=== PATIENT | male | born 1975 | race Caucasian/White ===

== ENCOUNTER 2017-01-24 08:03 | Inpatient (IN) | payer OTHER ==
[~2017-01-24] VITALS: Ht 165.1 cm; Wt 101.0 kg
[2017-01-24 08:07] VITALS: Ht 165.1 cm; Wt 101.0 kg
[2017-01-24] MEDS ORDERED: SODIUM CHLORIDE 0.9% 1L BAG IV* STA (08:17)
[2017-01-24] MEDS ORDERED: morphine 4 MG/ML VIAL IV STA ×4 (08:17→11:59)
[2017-01-24] MEDS ORDERED: PIPER-TAZO 3.375 GM IV (PMX) 100 ML IVPB STA (08:17)
[2017-01-24] MEDS ORDERED: ONDANSETRON 4 MG INJ IV STA (08:20)
[2017-01-24 08:58] LABS: BASOPHILS % 0.2 % (0.0-2.0); HEMATOCRIT 46.7 % (42.0-52.0); HEMOGLOBIN 15.6 g/dl (14.0-18.0); LYMPHOCYTES # 0.8 10^3/ul (0.8-2.9); MEAN CORPUSCULAR HEMOGLOBIN 29.2 pg (29.0-33.0); MEAN CORPUSCULAR HGB CONC 33.4 g/dl (32.0-37.0); MEAN CORPUSCULAR VOLUME 87.5 fl (82.0-101.0); MEAN PLATELET VOLUME 9.3 fl (7.4-10.4); MONOCYTE # 0.5 10^3/ul (0.3-0.9); NEUTROPHIL # 10.6 10^3/ul (1.6-7.5); NEUTROPHILS % 88.5 % (39.0-77.0); PLATELET COUNT 249 10^3/UL (140-415); RED BLOOD COUNT 5.34 10^6/ul (4.70-6.10); RED CELL DISTRIBUTION WIDTH 13.3 % (11.5-14.5)
--- NOTE | 2017-01-24 09:04 | RADRPT ---
PROCEDURE: XR Chest. CLINICAL INDICATION: Possible Sepsis TECHNIQUE: Single frontal view of the chest was obtained COMPARISON: None FINDINGS: There are low lung volumes with crowding of the lung markings. The cardiac silhouette is mildly enlarged. Ill-defined retrocardiac opacity may represent atelectasis, consolidation, or hiatal hernia. A late ral projection may clarify. No pneumothorax or significant pleural effusion is seen. The osseous structures, as visualized, are unremarkable. IMPRESSION: 1. Low lung volumes with crowding of lung markings. 2. Mild cardiomegaly. 3. Ill-defined retrocardiac opacity represent atelectasis, consolidation, or hiatal hernia. A late ral projection may help to clarify. RPTAT: PP Physician Esau Date Time Electronically viewed and signed by Physician Esau on 01/24/2017 09:04 /
[2017-01-24 09:12] LABS: INR 1.06; PROTIME 13.8 Sec (12.2-14.2); PT RATIO 1.1
[2017-01-24 09:13] LABS: PARTIAL THROMBOPLASTIN TIME 33.7 Sec (25.0-35.0)
[2017-01-24 09:15] LABS: ALANINE AMINOTRANSFERASE 33 IU/L (13-69); ALBUMIN 4.7 g/dl (3.3-4.9); ALBUMIN/GLOBULIN RATIO 1.38; ALKALINE PHOSPHATASE 54 IU/L (42-121); ASPARTATE AMINO TRANSFERASE 15 IU/L (15-46); BILIRUBIN,INDIRECT 1.3 mg/dl (0-1.1); BILIRUBIN,TOTAL 1.3 mg/dl (0.2-1.3); BLOOD UREA NITROGEN 13 mg/dl (7-20); CALCIUM 9.4 mg/dl (8.4-10.2); CARBON DIOXIDE 28 mmol/L (21-31); CHLORIDE 99 mmol/L (97-110); CREATININE 0.99 mg/dl (0.61-1.24); GLUCOSE 130 mg/dl (70-220); SODIUM 145 mmol/L (135-144); TOTAL PROTEIN 8.1 g/dl (6.1-8.1)
[2017-01-24 09:16] LABS: ANION GAP 23 (8-16); POTASSIUM 4.5 mmol/L (3.5-5.1)
--- NOTE | 2017-01-24 09:24 | RADRPT ---
PROCEDURE: CT Abdomen and Pelvis without contrast. CLINICAL INDICATION: Abdominal pain, vomiting and fever. History of diverticulitis. TECHNIQUE: CT scan of the abdomen and pelvis without contrast was performed on a multidetector hig h-resolution CT scanner. The patient was scanned without intravenous contrast. Coronal and sagittal reformatted images were obtained from the axial source images. Images were reviewed on a high-resol [employer] PACS workstation. The total exam CTDI equals 18.28 mGy and the total exam DLP equals 1199.87 m Gy-cm. One or more of the following dose reduction techniques were used: Automated exposure control. Adjustment of the mA and/or kV according to patient size. Use of iterative reconstruction technique. COMPARISON: None FINDINGS: CT abdomen: The lung bases are remarkable for subsegmental atelectasis. The heart size is normal, without peric ardial thickening or effusion. There is hepatomegaly with fatty infiltration. The spleen is normal in size and homogeneous in dens ity. The stomach is partially collapsed, but is grossly unremarkable. The pancreas as visualized i s normal. The gallbladder is unremarkable. There is no evidence for biliary dilatation. The adrena l glands are symmetric and normal. The kidneys are symmetrically unremarkable as well. No renal ca lculus or obstructive uropathy or mass lesion is seen. The aorta is of normal caliber. There is no retroperitoneal lymphadenopathy. The wayne hepatis olivia on is clear. The bowel and mesentery, as visualized, are equally unremarkable. CT pelvis: The small bowel loops situated within the pelvis are unremarkable. There is a fat-containing small l eft inguinal hernia. The pelvic organs are normal. The pelvic sidewalls and inguinal regions are c lear. The sigmoid colon and rectum are remarkable for sigmoid diverticulosis. There is markedly th ickened mid sigmoid colon with extensive surrounding inflammatory changes in keeping with acute dive rticulitis. There are tiny pockets of extraluminal gas suggesting microperforation. There is no dr ainable peridiverticular abscess. There are multiple mildly enlarged lymph nodes in the sigmoid meso colon likely reactive. No mass, lymphadenopathy, or free fluid is seen. No acute inflammation is s een. No osteolytic or osteoblastic lesion is detected. IMPRESSION: 1. Sigmoid diverticulosis with markedly thickened mid sigmoid colon with extensive surrounding infl ammatory changes in keeping with acute diverticulitis. Multiple tiny pockets of extraluminal gas martin ggesting microperforation. No drainable peridiverticular abscess. 2. Hepatomegaly with fatty infiltration. RPTAT: BB .Saniya Johnson MD, MD Date Time Electronically viewed and signed by .Saniya Johnson MD, on 01/24/2017 09:24 .O/
[2017-01-24 09:27] LABS: TROPONIN-I < 0.012 ng/ml (0.00-0.12)
[2017-01-24] MEDS ORDERED: ONDANSETRON 4 MG INJ IV PRN (10:00)
[2017-01-24] MEDS ORDERED: ACETAMINOPHEN 325 MG TAB PO PRN (10:00)
[2017-01-24 10:56] LABS: ADD UMIC NO; UR ASCORBIC ACID NEGATIVE (NEGATIVE); UR BILIRUBIN (Dip) NEGATIVE (NEGATIVE); UR BLOOD (Dip) NEGATIVE (NEGATIVE); UR CLARITY CLEAR (CLEAR); UR COLOR YELLOW (YELLOW); UR GLUCOSE (Dip) NEGATIVE (NEGATIVE); UR KETONES (Dip) NEGATIVE (NEGATIVE); UR LEUKOCYTE ESTERASE (Dip) NEGATIVE Leu/ul (NEGATIVE); UR NITRITE (Dip) NEGATIVE (NEGATIVE); UR SPECIFIC GRAVITY (Dip) 1.024 (1.003-1.030); UR TOTAL PROTEIN (Dip) NEGATIVE (NEGATIVE); UR UROBILINOGEN (Dip) 1+ mg/dL (NEGATIVE)
--- NOTE | 2017-01-24 11:07 | CONS ---
Date/Time of Note Date/Time of Note DATE: 01/24/17 TIME: 11:07 Assessment/Plan Assessment/Plan Additional Assessment/Plan [facility] INPATIENT CONSULTATION NOTE DATE OF SERVICE: 01/24/2017 PLACE OF SERVICE: [facility], emergency department ASSESSMENT AND PLAN: A very-pleasant 41-year-old gentleman with comorbidity of BMI 37.1 and previous history of diverticulitis, being admitted for recurrent diverticulitis with microperforation but no obvious evidence of abscess or other indication for intervention including no indication for surgical intervention. Patient should be admitted for intravenous fluids, antimicrobials geared towards diverticulitis and symptom control. Discussed with patient and his and answered all questions. They appear to understand and agreed with the plans. With above assessment, I've recommended the followin. Admit to the medical service with me consulting of the surgeon 2. Intravenous antimicrobials geared towards diverticulitis 3. Intravenous fluids 4. N.p.o. 5. Strict I's and O's 6. Careful following in the hospital and keeping me informed if there is any changes in clinical condition Thank you very much for having me involved in the care of this very pleasant patient and wonderful family. If you have any questions, please feel free to contact me at [phone]. Nature of presenting problem: High severity Please note that, given the multiple number of diagnoses or management options, the moderate amount and/or complexity of data needed to be reviewed, and moderate risk of complications and/or morbidity or mortality, this qualifies as moderate complexity type of decision-making. Disclaimer: Inadvertent spelling and grammatical errors are likely due to EHR/ dictation software use and do not reflect on the quality of delivered patient care. Also, please note that the electronic time recorded on this node does not necessarily reflect the actual time of the visit. Updated clinical summary: A very-pleasant 41-year-old gentleman with comorbidity of BMI 37.1 and previous history of diverticulitis, being admitted for recurrent diverticulitis with microperforation but no obvious evidence of abscess or other indication for intervention including no indication for surgical intervention. Comorbidities: 1. BMI 37.1 2. History of diverticulitis in the past as well as diagnosis of diverticulosis 3. Chronic constipation CONSULTATION REQUESTED BY: Dr. Nassar HISTORY OF PRESENT ILLNESS: A very-pleasant 41-year-old gentleman with comorbidity of BMI 37.1 and previous history of diverticulitis, being admitted for recurrent diverticulitis with microperforation but no obvious evidence of abscess or other indication for intervention including no indication for surgical intervention. Pain is worse compared to the prior to episodes of diverticulitis that happened 14 years ago and about 5 years ago. 12 out of 10 at its worse, located in the lower quadrants without radiation, no alleviating factor and slightly worse with movement. + Chronic constipation. No blood in the stool or urine. Difficulty despite using Benefiber. No shortness of breath or chest pain or other complaints. ALLERGIES: NO KNOWN DRUG ALLERGIES MEDICATIONS Documented in the electronic records and reviewed by me. Please see the electronic records for details, as well as details for inpatient medications which were also reviewed by me. SOCIAL HISTORY: The patient lives with family.-Tob; occasional (social) ETOH;- IVDU FAMILY HISTORY: There are no significant medical, surgical or oncologic issues in the family as reported by the patient or reflected in the chart. REVIEW OF SYSTEMS: Other than mentioned above, there were no other pertinent positives or pertinent negatives in an otherwise complete 14 point review of systems. PHYSICAL EXAMINATION GENERAL: The patient appears to be a very pleasant gentleman of descent lying in bed, appearing stated age, and otherwise in no acute distress. BMI: 37.1 VITAL SIGNS: AVSS (please also see auto important data if available as well as the electronic records) HEENT: Normocephalic and atraumatic. Extraocular muscles and hearing are grossly intact bilaterally and symmetrically. Sclerae are nonicteric. Oral cavity is clear; oral mucosa appear to be pink and moist. Dentition: fair. NECK: Supple. There is no lymphadenopathy or JVD. There is no submental, submandibular or supraclavicular lymphadenopathy. CHEST: Rises symmetrically with each breath; patient is breathing comfortably. There are no audible wheezes, rales or rhonchi on the gross exam. HEART: Pulse is regular and palpable on the right wrist. Capillary refill is normal. Carotid pulses are palpable bilaterally and symmetrically in the neck. EXTREMITIES: Lower extremities contain no pitting edema around the ankles bilaterally and symmetrically. ABDOMEN: Abdomen is soft, mild to moderately tender to palpation in the lower quadrants, somewhat worse on the right side and on the left side and nondistended. No evidence of ascites, organomegaly, caput medusae, engorged subcutaneous veins, or other abnormalities. There are no peritoneal signs or guarding. SKIN: Appears to be pink and feels warm to touch. NEUROLOGIC: Awake, alert, and follows commands appropriately. LABORATORY DATA: See below IMAGING: See electronic chart. Please note that I've personally reviewed all pertinent available images and I agree in general with their overall reported findings. Consultation Date/Type/Reason Admit Date/Time Social History Smoking Status: Never smoker Exam/Review of Systems Vital Signs Vitals Vital Signs Date Time Temp Pulse Resp B/P Pulse Ox O2 Delivery O2 Flow Rate FiO2 01/24/17 10:59 76 18 115/74 100 Room Air 01/24/17 08:46 2 01/24/17 08:07 100.6 Results Result Diagram: 01/24/17 0839 01/24/17 0839 Results 24 hrs Laboratory Tests Test 01/24/17 08:39 01/24/17 10:33 01/24/17 10:44 White Blood Count 12.0 H Red Blood Count 5.34 Hemoglobin 15.6 Hematocrit 46.7 Mean Corpuscular Volume 87.5 Mean Corpuscular Hemoglobin 29.2 Mean Corpuscular Hemoglobin Concent 33.4 Red Cell Distribution Width 13.3 Platelet Count 249 Mean Platelet Volume 9.3 Neutrophils % 88.5 H Lymphocytes % 7.0 L Monocytes % 4.0 Eosinophils % 0.0 Basophils % 0.2 Nucleated Red Blood Cells % 0.0 Neutrophils # 10.6 H Lymphocytes # 0.8 Monocytes # 0.5 Eosinophils # 0.0 Basophils # 0.0 Nucleated Red Blood Cells # 0.0 Prothrombin Time 13.8 Prothrombin Time Ratio 1.1 INR International Normalized Ratio 1.06 Activated Partial Thromboplast Time 33.7 Sodium Level 145 H Potassium Level 4.5 Chloride Level 99 Carbon Dioxide Level 28 Anion Gap 23 H Blood Urea Nitrogen 13 Creatinine 0.99 Glucose Level 130 Lactic Acid Level 1.8 1.5 Calcium Level 9.4 Total Bilirubin 1.3 Direct Bilirubin 0.00 Indirect Bilirubin 1.3 H Aspartate Amino Transf (AST/SGOT) 15 Alanine Aminotransferase (ALT/SGPT) 33 Alkaline Phosphatase 54 Troponin I < 0.012 Total Protein 8.1 Albumin 4.7 Globulin 3.40 H Albumin/Globulin Ratio 1.38 Urine Color YELLOW Urine Clarity CLEAR Urine pH 6.0 Urine Specific [place] 1.024 Urine Ketones NEGATIVE Urine Nitrite NEGATIVE Urine Bilirubin NEGATIVE Urine Urobilinogen 1+ H Urine Leukocyte Esterase NEGATIVE Urine Hemoglobin NEGATIVE Urine Glucose NEGATIVE Urine Total Protein NEGATIVE WILMA THORNTON M.D. Jan 24, 2017 11:07
[2017-01-24 11:16] VITALS: TEMP 102.6
--- NOTE | 2017-01-24 11:59 | ERA ---
ER Documentation Chief Complaint Date/Time DATE: 01/24/17 TIME: 11:53 Chief Complaint CAME IN VIA INTAKE DUE TO SEVERE AP WITH HX OF DIVERTICULITIS HPI 41-year-old male presented emergency room for severe left lower quadrant abdominal pain began suddenly last night. He states that he has a history of diverticulitis and this feels similar but is much more severe than previously. He has nausea but has not vomited. Denies any change in bowel habits. Denies fevers but did have some sweats from the pain. ROS All systems reviewed and are negative except as per history of present illness. PMhx/Soc History of Surgery: Yes (elbow surgery and appendectomy) Hx Miscellaneous Medical Probl: Yes (divierculitis) Hx Alcohol Use: Yes Hx Substance Use: No Hx Tobacco Use: No Smoking Status: Never smoker Physical Exam Vitals Vital Signs Date Time Temp Pulse Resp B/P Pulse Ox O2 Delivery O2 Flow Rate FiO2 01/24/17 11:16 102.6 108 117/75 98 01/24/17 10:59 76 18 115/74 100 Room Air 01/24/17 08:46 Nasal Cannula 2 01/24/17 08:07 100.6 101 24 172/98 96 Physical Exam Const: [] Moderate distress Head: Atraumatic Eyes: Normal Conjunctiva ENT: Normal External Ears, Nose and Mouth. Neck: Full range of motion..~ No meningismus. Resp: Clear to auscultation bilaterally Cardio: Regular tachycardia, no murmurs Abd: Soft, marketed left lower quadrant tenderness with some voluntary guarding, no rebound tenderness, no rigid abdomen, non distended. Normal bowel sounds Skin: No petechiae or rashes Back: No midline or flank tenderness Ext: No cyanosis, or edema Neur: Awake and alert and oriented 3, no focal deficit Psych: Normal Mood and Affect Result Diagram: 01/24/17 0839 01/24/17 0839 Results 24 hrs Laboratory Tests Test 01/24/17 08:39 01/24/17 10:33 01/24/17 10:44 White Blood Count 12.010^3/ul Red Blood Count 5.3410^6/ul Hemoglobin 15.6g/dl Hematocrit 46.7% Mean Corpuscular Volume 87.5fl Mean Corpuscular Hemoglobin 29.2pg Mean Corpuscular Hemoglobin Concent 33.4g/dl Red Cell Distribution Width 13.3% Platelet Count 54576^3/UL Mean Platelet Volume 9.3fl Neutrophils % 88.5% Lymphocytes % 7.0% Monocytes % 4.0% Eosinophils % 0.0% Basophils % 0.2% Nucleated Red Blood Cells % 0.0/100WBC Neutrophils # 10.610^3/ul Lymphocytes # 0.810^3/ul Monocytes # 0.510^3/ul Eosinophils # 0.010^3/ul Basophils # 0.010^3/ul Nucleated Red Blood Cells # 0.010^3/ul Prothrombin Time 13.8Sec Prothrombin Time Ratio 1.1 INR International Normalized Ratio 1.06 Activated Partial Thromboplast Time 33.7Sec Sodium Level 145mmol/L Potassium Level 4.5mmol/L Chloride Level 99mmol/L Carbon Dioxide Level 28mmol/L Anion Gap 23 Blood Urea Nitrogen 13mg/dl Creatinine 0.99mg/dl Glucose Level 130mg/dl Lactic Acid Level 1.8mmol/L 1.5mmol/L Calcium Level 9.4mg/dl Total Bilirubin 1.3mg/dl Direct Bilirubin 0.00mg/dl Indirect Bilirubin 1.3mg/dl Aspartate Amino Transf (AST/SGOT) 15IU/L Alanine Aminotransferase (ALT/SGPT) 33IU/L Alkaline Phosphatase 54IU/L Troponin I < 0.012ng/ml Total Protein 8.1g/dl Albumin 4.7g/dl Globulin 3.40g/dl Albumin/Globulin Ratio 1.38 Urine Color YELLOW Urine Clarity CLEAR Urine pH 6.0 Urine Specific [place] 1.024 Urine Ketones NEGATIVEmg/dL Urine Nitrite NEGATIVEmg/dL Urine Bilirubin NEGATIVEmg/dL Urine Urobilinogen 1+mg/dL Urine Leukocyte Esterase NEGATIVELeu/ul Urine Hemoglobin NEGATIVEmg/dL Urine Glucose NEGATIVEmg/dL Urine Total Protein NEGATIVEmg/dl Current Medications Medications (Trade) Dose Ordered Sig/Lazarus Route PRN Reason Start Time Stop Time Status Last Admin Dose Admin Sodium Chloride 3130 ml 3,130 ml BOLUS OVER 2 HOURS STAT IV* 01/24/17 08:17 01/24/17 08:20 DC 01/24/17 08:41 Piperacillin Sod/ Tazobactam Sod (Zosyn 3.375gm/ 100 ml (Pmx)) 100 ml @ 200 mls/hr ONCE STAT IVPB 01/24/17 08:17 01/24/17 08:46 DC 01/24/17 09:00 Morphine Sulfate (morphine) 4 mg ONCE STAT IV 01/24/17 08:17 01/24/17 08:21 DC 01/24/17 08:40 Ondansetron HCl (Zofran Inj) 4 mg ONCE STAT IV 01/24/17 08:20 01/24/17 08:21 DC 01/24/17 08:41 Ondansetron HCl (Zofran Inj) 4 mg BRIDGE ORDER PRN IV NAUSEA AND/OR VOMITING 01/24/17 10:00 01/25/17 09:59 Acetaminophen (Tylenol Tab) 650 mg ER BRIDGE PRN PO MILD PAIN/FEVER 01/24/17 10:00 01/25/17 09:59 01/24/17 11:31 Morphine Sulfate (morphine) 4 mg ONCE STAT IV 01/24/17 11:26 01/24/17 11:27 DC 01/24/17 11:31 Procedures/MDM Acute diverticulitis with microperforation. Technically meets criteria for sepsis. Was given 30 cc of normal saline per kilogram fluid and Zosyn. I spoke with Dr. Araiza, general surgeon second operator, who will see the patient on consult. Patient required multiple doses of morphine in order to calm the pain. Dr. Deutsch of the panel hospitalist team will be admitting. CT abdomen pelvis interpretation: Sigmoid diverticulitis with microperforation, no bowel obstruction, no bony abnormalities. Critical care time 36 minutes: This includes treatment of sepsis and patient with surgical infection, careful fluid administration, early antibiotic administration, monitoring of unstable vital signs, multiple visits the patient' s bedside to reassess status reexamined abdomen to rule out conversion to surgical abdomen and gross perforation, chart reviewed, discussion with general surgeon, discussion with admitting team, discussion with patient. This does not include any billable procedures per Departure Diagnosis: Primary Impression: Acute diverticulitis Additional Impressions: Perforation bowel Sepsis Condition: Serious USHABRETTTI DO Jan 24, 2017 11:59
[2017-01-24 12:12] VITALS: BP 159/78; RESP 22
[2017-01-24] MEDS ORDERED: NACL 0.9% 3 ML SYG IV SCH (13:30)
[2017-01-24] MEDS ORDERED: BISACODYL 10 MG SUPP PR PRN (13:30)
[2017-01-24] MEDS ORDERED: DOCUSATE SODIUM 100 MG CAP PO PRN (13:30)
[2017-01-24] MEDS ORDERED: MAGNESIUM HYDROXIDE 30ML CUP PO PRN (13:30)
[2017-01-24] MEDS ORDERED: metroNIDAZOLE 500 MG/NS (PMX) 100 ML IVPB SCH (14:00)
[2017-01-24] MEDS ORDERED: CIPROFLOXACIN 400MG/D5W 200 ML IVPB SCH (14:00)
[2017-01-24] MEDS: morphine 4 MG/ML VIAL IV PRN ×2 (14:24→19:56)
[2017-01-24] MEDS: PANTOPRAZOLE 40 MG INJ IV SCH (14:24)
[2017-01-24] MEDS: SOD CHLORIDE 0.9% 1,000 ML IV SCH (14:25)
--- NOTE | 2017-01-24 15:48 | HP ---
Date/Time of Note Date/Time of Note DATE: 01/24/17 TIME: 15:42 Assessment/Plan VTE Prophylaxis VTE Prophylaxis Intervention: SCD's Lines/Catheters IV C[facility]ter Type (from [facility]): Peripheral IV Assessment/Plan Chief Complaint/Hosp Course Impression and plan 1. Sepsis with diverticulitis with microperforation. Will place on antibiotics. Surgeon has been consulted. Continue the recommendations. On IV fluids. N.p.o. for now. Continue with analgesics as needed. Will provide with antipyretics for fever. 2. Leukocytosis secondary to #1. Patient was started on antibiotics. Will provide antipyretics as needed for fever. DVT prophylaxis: SCDs Discussed plan of care with Dr. Deutsch Problems: HPI/ROS Admit Date/Time Admit Date/Time This is a 41-year-old male with history of diverticulosis and 2 previous episodes of diverticulitis who did come to [facility] due to reports of abdominal pain. According to the patient he was in his normal state of health however yesterday he was at a seminar and was eating some sunflower seeds and thereafter he started to have sharp abdominal pain nonradiating on the right lower and also mid lower abdominal quadrants. He reports having intermittent fever since then and was unable to tolerate oral intake reporting having some nausea and vomiting with yellowish emesis. He subsequently went to [facility] when his pain did not subside. Upon examination he had a CT scan of his abdomen and pelvis that did show sigmoid diverticulosis with markedly thickened and sigmoid colon with extensive surrounding inflammatory changes consistent with acute diverticulitis. There is also seen multiple tiny pockets of extraluminal gas suggesting microperforation. Patient also had a white count of 12.0 and he was seen with fever as high as 102.6. There is also seen to be tachycardic with heart rate as high as 108. We will evaluate him for the aformentiond issues. ROS 12 point review of systems obtained and entirely negative except that mentioned in the history present illness PMH/Family/Social Past Medical History Medical/surgical history 1. Diverticulosis with history of diverticulitis 2. Right elbow surgery 3. Appendectomy Social History Alcohol Use: none Smoking Status: Former smoker Drug Use: none Exam/Review of Systems Vital Signs Vitals Vital Signs Date Time Temp Pulse Resp B/P Pulse Ox O2 Delivery O2 Flow Rate FiO2 01/24/17 12:12 102.2 109 22 159/78 93 01/24/17 10:59 Room Air 01/24/17 08:46 2 Exam Constitutional: alert, oriented Psych: nl mood/affect Head: normocephalic Eyes: nl conjunctiva Neck: non-tender Respiratory: normal air movement Cardiovascular: regular rate and rhythm Gastrointestinal: soft, tender Musculoskeletal: nl extremities to inspection Neurological: JUNIOR MEDIA BUYER II-XII intact, nl mental status, nl speech Labs Result Diagram: 01/24/1739 01/24/17 0839 Medications Medications Current Medications Sodium Chloride (NS) 1,000 ml @ 100 mls/hr Q10H IV Last administered on 14:25; Admin Dose 100 MLS/HR; Start 01/24/17 at 13:30 Ondansetron HCl (Zofran Inj) 4 mg Q6H PRN IV NAUSEA AND/OR VOMITING; Start 01/24 at 13:30 Acetaminophen (Tylenol Supp) 650 mg Q6H PRN [place] PAIN LEVEL 1-3 OR FEVER; Start 01/24/17 at 13:30 Morphine Sulfate (morphine) 2 mg Q4H PRN IV SEVERE PAIN LEVEL 7-10 Last administered on 01/24/17 14:24; Admin Dose 2 MG; Start 01/24/17 at 13:30 Docusate Sodium (Colace) 100 mg Q12H PRN PO CONSTIPATION; Start 01/24/17 at 13: 30 Magnesium Hydroxide (Milk Of Mag) 30 ml DAILY PRN PO CONSTIPATION; Start at 13:30 Bisacodyl (Dulcolax Supp) 10 mg DAILY PRN [place] CONSTIPATION; Start 01/24/17 at 13: 30 Pantoprazole 40 mg 40 mg DAILY@06 IV Last administered on 01/24/17 14:24; Admin Dose 40 MG; Start 01/24/17 at 13:30 Piperacillin Sod/ Tazobactam Sod (Zosyn 3.375gm/ 100 ml (Pmx)) 100 ml @ 200 mls /hr Q6 IVPB ; Start 01/24/17 at 18:00 PRISCILLA METZGER Jan 24, 2017 15:48
[2017-01-24 16:01] VITALS: BP 114/63; RESP 20
[2017-01-24] MEDS: PIPER-TAZO 3.375 GM IV (PMX) 100 ML IVPB SCH (17:36)
[2017-01-24] MEDS: ACETAMINOPHEN 1000MG/100ML IV 100 ML IVPB PRN (17:36)
[2017-01-24 19:42] VITALS: BP 120/67; RESP 20
[2017-01-25] MEDS: SOD CHLORIDE 0.9% 1,000 ML IV SCH ×3 (01:06→15:15)
[2017-01-25] MEDS: PIPER-TAZO 3.375 GM IV (PMX) 100 ML IVPB SCH ×4 (01:07→18:15)
[2017-01-25 02:10] VITALS: BP 116/71; RESP 20
[2017-01-25] MEDS: ACETAMINOPHEN 1000MG/100ML IV 100 ML IVPB PRN ×4 (02:38→21:24)
[2017-01-25] MEDS: PANTOPRAZOLE 40 MG INJ IV SCH (05:44)
[2017-01-25 06:04] LABS: ALBUMIN 3.4 g/dl (3.3-4.9); ALBUMIN/GLOBULIN RATIO 1.09; BILIRUBIN,INDIRECT 1.6 mg/dl (0-1.1); BILIRUBIN,TOTAL 1.6 mg/dl (0.2-1.3); CALCIUM 8.8 mg/dl (8.4-10.2); CHOL/HDL RATIO 2.9 RATIO; CREATININE 0.95 mg/dl (0.61-1.24); MAGNESIUM 1.7 mg/dl (1.7-2.5); PHOSPHORUS 3.2 mg/dl (2.5-4.9); POTASSIUM 3.7 mmol/L (3.5-5.1); TOTAL PROTEIN 6.5 g/dl (6.1-8.1)
[2017-01-25 06:19] LABS: T3 UPTAKE 43.6 % (23.5-40.5)
[2017-01-25 06:33] LABS: THYROID STIMULATING HORMONE 1.47 MIU/L (0.465-4.680)
[2017-01-25 07:36] VITALS: BP 115/71; RESP 20
--- NOTE | 2017-01-25 11:15 | PN ---
Date/Time of Note Date/Time of Note DATE: 01/25/17 TIME: 11:12 Assessment/Plan VTE Prophylaxis VTE Prophylaxis Intervention: ambulation Lines/Catheters IV Catheter Type (from [facility]): Peripheral IV Assessment/Plan Chief Complaint/Hosp Course Impression and plan 1. Sepsis with diverticulitis with microperforation. improving on abx. continue with surgeon recs On IV fluids. advance diet per surgeon. Continue with analgesics as needed. afebrile today 2. Leukocytosis secondary to #1. improved with abx. continue DVT prophylaxis: SCDs DISPO/PLAN: continue abx. advance diet per surgeon. continue inhouse monitoring Discussed plan of care with Dr. Deutsch Problems: Subjective 24 Hr Interval Summary Free Text/Dictation reports less pain in abdomen today. afebrile today Exam/Review of Systems Vital Signs Vitals Vital Signs Date Time Temp Pulse Resp B/P Pulse Ox O2 Delivery O2 Flow Rate FiO2 01/25/17 07:36 98.9 100 20 115/71 95 01/24/17 10:59 Room Air 01/24/17 08:46 2 Intake and Output 01/24/17 01/24/17 01/25/17 15:00 23:00 07:00 Intake Total 550 ml 800 ml Output Total 0 ml Balance 550 ml 800 ml Exam Constitutional: alert, oriented Psych: nl mood/affect Neck: No jvd Respiratory: normal air movement Cardiovascular: regular rate and rhythm Gastrointestinal: soft, tender (less tender on palpation ) Musculoskeletal: nl extremities to inspection, nl gait and stance Neurological: MARKETING SALES CONSULTANT II-XII intact, nl mental status, nl speech Results Result Diagram: 01/24/17 0839 01/25/17 0509 Results 24 hrs Laboratory Tests Test 01/24/17 14:22 01/25/17 05:09 Lactic Acid Level 1.1 Sodium Level 143 Potassium Level 3.7 Chloride Level 101 Carbon Dioxide Level 27 Anion Gap 19 H Blood Urea Nitrogen 12 Creatinine 0.95 Glucose Level 106 Hemoglobin A1c 5.3 Calcium Level 8.8 Phosphorus Level 3.2 Magnesium Level 1.7 Total Bilirubin 1.6 H Direct Bilirubin 0.00 Indirect Bilirubin 1.6 H Aspartate Amino Transf (AST/SGOT) 11 L Alanine Aminotransferase (ALT/SGPT) 27 Alkaline Phosphatase 46 Total Protein 6.5 # Albumin 3.4 # Globulin 3.10 Albumin/Globulin Ratio 1.09 Triglycerides Level 72 Cholesterol Level 107 LDL Cholesterol, Calculated 57 HDL Cholesterol 36 Cholesterol/HDL Ratio 2.9 Thyroid Stimulating Hormone (TSH) 1.470 Free Thyroxine Index 2.83 Thyroxine (T4) 6.5 Triiodothyronine (T3) Uptake 43.6 H Medications Medications Current Medications Sodium Chloride (NS) 1,000 ml @ 100 mls/hr Q10H IV Last administered on 01:06; Admin Dose 100 MLS/HR; Start 01/24/17 at 13:30 Ondansetron HCl (Zofran Inj) 4 mg Q6H PRN IV NAUSEA AND/OR VOMITING; Start 01/24 at 13:30 Acetaminophen (Tylenol Supp) 650 mg Q6H PRN [place] PAIN LEVEL 1-3 OR FEVER; Start 01/24/17 at 13:30 Docusate Sodium (Colace) 100 mg Q12H PRN PO CONSTIPATION; Start 01/24/17 at 13: 30 Magnesium Hydroxide (Milk Of Mag) 30 ml DAILY PRN PO CONSTIPATION; Start at 13:30 Bisacodyl (Dulcolax Supp) 10 mg DAILY PRN [place] CONSTIPATION; Start 01/24/17 at 13: 30 Pantoprazole 40 mg 40 mg DAILY@06 IV Last administered on 01/25/17 05:44; Admin Dose 40 MG; Start 01/24/17 at 13:30 Piperacillin Sod/ Tazobactam Sod 100 ml @ 200 mls/hr Q6 IVPB Last administered on 01/25/17 05:46; Admin Dose 200 MLS/HR; Start 01/24/17 at 18:00 Acetaminophen (Ofirmev 1000mg/ 100ml Iv) 100 ml @ 400 mls/hr Q6H PRN IVPB fever Last administered on 01/25/17 09:29; Admin Dose 400 MLS/HR; Start 01/24/17 at 16:00 Morphine Sulfate (morphine) 2 mg Q4H PRN IV SEVERE PAIN LEVEL 7-10; Start at 10:30 PRISCILLA METZGER Jan 25, 2017 11:15
[2017-01-25 14:25] VITALS: BP 117/71; RESP 20
[2017-01-25] MEDS: ONDANSETRON 4 MG INJ IV PRN (15:22)
[2017-01-25] MEDS: morphine 2 MG INJ IV PRN (19:44)
[2017-01-25 20:09] VITALS: BP_SYST 119; BP_SYST 127; BP_DIAS 70; BP_DIAS 71; RESP 19
--- NOTE | 2017-01-25 21:43 | PN ---
Date/Time of Note Date/Time of Note DATE: 01/25/17 TIME: 21:33 Assessment/Plan Lines/Catheters IV Catheter Type (from [facility]): Peripheral IV Assessment/Plan Assessment/Plan [facility] Progress Note Date of Service: 01/25/17 Today's Impression & Plan: Overall stable without worsening diverticulitis with possible localized microperforation without obvious abscess. Needs more time inhouse with careful observation. No indication for acute surgical intervention. With above assessment, I've recommended the following for today: 1. Keep inhouse 2. Cont broad spec antimicrobials 3. Keep NPO 4. Labs in am Nature of presenting problem: High risk Complexity of decision making: high complexity Thank you again for your great care of this very pleasant patient and wonderful family. If there are any questions, please feel free to call me at [phone]. Disclaimer: Inadvertent spelling or grammatical errors are likely due to EHR/ dictation software use and do not reflect on the overall quality of patient care. Updated Clinical Summary: A very-pleasant 41-year-old gentleman with comorbidity of BMI 37.1 and previous history of diverticulitis, being admitted for recurrent diverticulitis with microperforation but no obvious evidence of abscess or other indication for intervention including no indication for surgical intervention. Comorbidities: 1. BMI 37.1 2. History of diverticulitis in the past as well as diagnosis of diverticulosis 3. Chronic constipation Subjective: No major events or complaints; mild abd pain and under control with medications ; no n/v/d; no sob or cp; + flatus; + BM and diarrhea; + activity Objective: Vitals: See below Exam: GENERAL: On exam, the patient was sitting in a chair and appeared to be comfortable and in no acute distress. ABDOMEN: Soft, nontender and nondistended. There are no peritoneal signs or guarding. SKIN: Skin appears to be pink and feels warm to touch. NEUROLOGIC: Patient is awake, alert, and follows commands appropriately. Exam/Review of Systems Vital Signs Vitals Vital Signs Date Time Temp Pulse Resp B/P Pulse Ox O2 Delivery O2 Flow Rate FiO2 01/25/17 20:09 100.7 113 19 119/70 92 01/24/17 10:59 Room Air 01/24/17 08:46 2 Intake and Output 8/10/0701/24/17 01/25/17 15:00 23:00 07:00 Intake Total 550 ml 800 ml Output Total 0 ml Balance 550 ml 800 ml Results Result Diagram: 01/24/17 0839 01/25/17 0509 WILMA THORNTON M.D. Jan 25, 2017 21:43
[2017-01-25 22:46] VITALS: BP 119/67; PULSE 108; RESP 18
[2017-01-26] MEDS: PIPER-TAZO 3.375 GM IV (PMX) 100 ML IVPB SCH ×4 (00:01→17:33)
[2017-01-26 02:00] VITALS: BP 135/72; RESP 19
[2017-01-26] MEDS: morphine 2 MG INJ IV PRN ×2 (02:18→11:56)
[2017-01-26] MEDS: PANTOPRAZOLE 40 MG INJ IV SCH (05:50)
[2017-01-26] MEDS: SOD CHLORIDE 0.9% 1,000 ML IV SCH ×3 (05:50→17:33)
[2017-01-26 08:06] VITALS: BP 122/75; RESP 20
[2017-01-26] MEDS: ACETAMINOPHEN 650 MG SUPP PR PRN (08:28)
[2017-01-26 10:01] LABS: BASOPHILS % 0.1 % (0.0-2.0); EOSINOPHILS % 0.1 % (0.0-7.0); HEMATOCRIT 39.3 % (42.0-52.0); HEMOGLOBIN 13.2 g/dl (14.0-18.0); LYMPHOCYTES % 6.9 % (15.0-51.0); MEAN CORPUSCULAR HEMOGLOBIN 29.3 pg (29.0-33.0); MEAN CORPUSCULAR HGB CONC 33.6 g/dl (32.0-37.0); MEAN CORPUSCULAR VOLUME 87.3 fl (82.0-101.0); MEAN PLATELET VOLUME 9.5 fl (7.4-10.4); MONOCYTE # 0.5 10^3/ul (0.3-0.9); MONOCYTES % 3.8 % (0.0-11.0); NEUTROPHIL # 12.5 10^3/ul (1.6-7.5); NEUTROPHILS % 88.6 % (39.0-77.0); PLATELET COUNT 219 10^3/UL (140-415); RED CELL DISTRIBUTION WIDTH 13.5 % (11.5-14.5); WHITE BLOOD COUNT 14.1 10^3/ul (4.8-10.8)
[2017-01-26 10:44] LABS: CALCIUM 8.8 mg/dl (8.4-10.2); CREATININE 0.91 mg/dl (0.61-1.24); POTASSIUM 3.8 mmol/L (3.5-5.1)
--- NOTE | 2017-01-26 12:57 | CONS ---
Date/Time of Note Date/Time of Note DATE: 01/26/17 TIME: 12:54 Consultation Date/Type/Reason Admit Date/Time This is a 41-year-old male with history of diverticulosis and 2 previous episodes of diverticulitis who did come to [facility] due to reports of abdominal pain. According to the patient he was in his normal state of health however yesterday he was at a seminar and was eating some sunflower seeds and thereafter he started to have sharp abdominal pain nonradiating on the right lower and also mid lower abdominal quadrants. He reports having intermittent fever since then and was unable to tolerate oral intake reporting having some nausea and vomiting with yellowish emesis. He subsequently went to [facility] when his pain did not subside. Upon examination he had a CT scan of his abdomen and pelvis that did show sigmoid diverticulosis with markedly thickened and sigmoid colon with extensive surrounding inflammatory changes consistent with acute diverticulitis. There is also seen multiple tiny pockets of extraluminal gas suggesting microperforation. Patient also had a white count of 12.0 and he was seen with fever as high as 102.6. There is also seen to be tachycardic with heart rate as high as 108. We will evaluate him for the aformentiond issues. Date of Consultation: Jan 26, 2017 Type of Consultation: ID Reason for Consultation Antibiotic treatment for perforated diverticulum Psychological: nl mood/affect Social History Alcohol Use: none Smoking Status: Former smoker Drug Use: none Exam/Review of Systems Vital Signs Vitals Vital Signs Date Time Temp Pulse Resp B/P Pulse Ox O2 Delivery O2 Flow Rate FiO2 01/26/17 12:00 98.6 01/26/17 08:06 116 20 122/75 93 01/25/17 22:46 Room Air 01/24/17 08:46 2 Intake and Output 01/25/17 01/25/17 01/26/17 15:00 23:00 07:00 Intake Total 600 ml 700 ml 925 ml Balance 600 ml 700 ml 925 ml Results Result Diagram: 01/26/17 0945 01/26/17 0945 Results 24 hrs Laboratory Tests Test 01/26/17 09:45 White Blood Count 14.1 H Red Blood Count 4.50 L Hemoglobin 13.2 L Hematocrit 39.3 L Mean Corpuscular Volume 87.3 Mean Corpuscular Hemoglobin 29.3 Mean Corpuscular Hemoglobin Concent 33.6 Red Cell Distribution Width 13.5 Platelet Count 219 Mean Platelet Volume 9.5 Neutrophils % 88.6 H Lymphocytes % 6.9 L Monocytes % 3.8 Eosinophils % 0.1 Basophils % 0.1 Nucleated Red Blood Cells % 0.0 Neutrophils # 12.5 H Lymphocytes # 1.0 Monocytes # 0.5 Eosinophils # 0.0 Basophils # 0.0 Nucleated Red Blood Cells # 0.0 Sodium Level 143 Potassium Level 3.8 Chloride Level 104 Carbon Dioxide Level 25 Anion Gap 18 H Blood Urea Nitrogen 12 Creatinine 0.91 Glucose Level 114 Calcium Level 8.8 Medications Medications Current Medications Sodium Chloride (NS) 1,000 ml @ 100 mls/hr Q10H IV Last administered on 05:50; Admin Dose 100 MLS/HR; Start 01/24/17 at 13:30 Ondansetron HCl (Zofran Inj) 4 mg Q6H PRN IV NAUSEA AND/OR VOMITING Last administered on 01/25/17 15:22; Admin Dose 4 MG; Start 01/24/17 at 13:30 Acetaminophen (Tylenol Supp) 650 mg Q6H PRN [place] PAIN LEVEL 1-3 OR FEVER Last administered on 01/26/17 08:28; Admin Dose 650 MG; Start 01/24/17 at 13:30 Docusate Sodium (Colace) 100 mg Q12H PRN [place] CONSTIPATION; Start 01/24/17 at 13: 30 Magnesium Hydroxide (Milk Of Mag) 30 ml DAILY PRN PO CONSTIPATION; Start at 13:30 Bisacodyl (Dulcolax Supp) 10 mg DAILY PRN [place] CONSTIPATION; Start 01/24/17 at 13: 30 Pantoprazole 40 mg 40 mg DAILY@06 IV Last administered on 01/26/17 05:50; Admin Dose 40 MG; Start 01/24/17 at 13:30 Piperacillin Sod/ Tazobactam Sod 100 ml @ 200 mls/hr Q6 IVPB Last administered on 01/26/17 12:48; Admin Dose 200 MLS/HR; Start 01/24/17 at 18:00 Acetaminophen (Ofirmev 1000mg/ 100ml Iv) 100 ml @ 400 mls/hr Q6H PRN IVPB fever Last administered on 01/25/17 21:24; Admin Dose 400 MLS/HR; Start 01/24/17 at 16:00 Morphine Sulfate (morphine) 2 mg Q4H PRN IV SEVERE PAIN LEVEL 7-10 Last administered on 01/26/17 11:56; Admin Dose 2 MG; Start 01/25/17 at 10:30 KJ WATT MD Jan 26, 2017 12:57
--- NOTE | 2017-01-26 13:21 | CONS ---
DATE OF ADMISSION: 01/24/2017 DATE OF CONSULTATION: 01/25/2017 REASON FOR CONSULTATION: Antibiotic management. HISTORY OF PRESENT ILLNESS: Nasim Marcum is a 41-year-old male, who was admitted with sepsis secondary to perforated diverticula. His past problems include: 1. History of diverticulosis and two previous episodes of diverticulitis. 2. Right elbow surgery. 3. Status post appendectomy. The patient came to [facility] with abdominal pain, which began yesterday. He was eating some sunflower seeds and he started to have sharp abdominal pain nonradiating on the right lower quadrant and mid lower quadrants of the abdomen. He has had intermittent fevers since then. He could not take oral intake and has had nausea and vomiting. He went to the [facility] ER where the pain began to subside. A CT scan of the abdomen and pelvis shows sigmoid diverticulosis with marked thickening in sigmoid colon with extensive surrounding inflammatory changes consistent with acute diverticulitis. There were also seen multiple tiny pockets of extraluminal gas suggesting microperforation. He had a white count of 12,000, H and H 15.6 and 46.67, platelet count 249,000. BUN and creatinine 13 over 0.99. The patient was begun on Zosyn. PAST MEDICAL HISTORY: Operations as outlined. FAMILY HISTORY: Noncontributory. SOCIAL HISTORY: He is a former smoker. Does not drink or abuse drugs. ALLERGIES: NONE TO PENICILLIN, SULFA, OR FOODS. MEDICATION: Per chart. REVIEW OF SYSTEMS: As per history of present illness. PHYSICAL EXAMINATION: GENERAL: Patient is a well-developed, well-nourished male who is alert, responsive, in no acute distress. VITAL SIGNS: T-max 102.2. Blood pressure 160/78. SKIN: Without generalized rash. HEENT: Within normal limits. NECK: Supple. Lymph nodes nonpalpable. CHEST: Decreased breath sounds at the bases. HEART: Without murmur or gallop. ABDOMEN: Soft. Nontender, without organosplenomegaly or masses. EXTREMITIES: Without cyanosis, clubbing, or edema. RECTAL: Genital exam is deferred. NEUROLOGICAL: No focal neurological abnormalities. HOSPITAL COURSE: The patient was seen in consultation by Dr. Araiza. He felt that the patient should be kept NPO on broad- spectrum antibiotics in house. He is stable without worsening diverticulitis. Possible localized microperforation without obvious abscess. He needs more careful observation and no indication at this point for acute surgical intervention. IMPRESSION AND PLAN: The patient with micro perforation of a diverticulum secondary to diverticulitis. He is on Zosyn. We will continue him on his current therapy. He has had blood cultures done and stool cultures. I will dictate my findings to the hospitalist and Dr. Araiza. Dictated By: Chas Rust MD JD/buddy/ /Document#: [id number]
--- NOTE | 2017-01-26 13:23 | PN ---
Date/Time of Note Date/Time of Note DATE: 01/26/17 TIME: 13:22 Assessment/Plan VTE Prophylaxis VTE Prophylaxis Intervention: ambulation, SCD's Lines/Catheters IV Catheter Type (from Nrsg): Peripheral IV Assessment/Plan Chief Complaint/Hosp Course Impression and plan 1. Sepsis with diverticulitis with microperforation. continue antibiotics. Still febrile. 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 continue with surgeon recs On IV fluids. advance diet per surgeon. Continue with analgesics as needed. 2. Leukocytosis secondary to #1. improved with abx. continue DVT prophylaxis: SCDs DISPO/PLAN: ID specialist consulted. Continue with antibiotics per their recommendations. Advance diet per surgeon recommendations. Monitor for clinical improvement. Continue in-house monitor Discussed plan of care with Dr. Deutsch Problems: Subjective 24 Hr Interval Summary Free Text/Dictation Still reports having some abdominal pain. Also noted to be febrile today Exam/Review of Systems Vital Signs Vitals Vital Signs Date Time Temp Pulse Resp B/P Pulse Ox O2 Delivery O2 Flow Rate FiO2 01/26/17 12:00 98.6 01/26/17 08:06 116 20 122/75 93 01/25/17 22:46 Room Air 01/24/17 08:46 2 Intake and Output 01/25/17 01/25/17 01/26/17 14:59 22:59 06:59 Intake Total 600 ml 700 ml 925 ml Balance 600 ml 700 ml 925 ml Exam Constitutional: alert, oriented Psych: nl mood/affect Head: normocephalic Neck: No jvd Respiratory: clear to auscultation, normal air movement Cardiovascular: regular rate and rhythm Gastrointestinal: soft, tender Musculoskeletal: nl extremities to inspection Extremities: normal pulses 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, nl mental status, nl speech Skin: nl turgor Results Result Diagram: 01/26/17 0945 01/26/17 0945 Results 24 hrs Laboratory Tests Test 01/26/17 09:45 White Blood Count 14.1 H Red Blood Count 4.50 L Hemoglobin 13.2 L Hematocrit 39.3 L Mean Corpuscular Volume 87.3 Mean Corpuscular Hemoglobin 29.3 Mean Corpuscular Hemoglobin Concent 33.6 Red Cell Distribution Width 13.5 Platelet Count 219 Mean Platelet Volume 9.5 Neutrophils % 88.6 H Lymphocytes % 6.9 L Monocytes % 3.8 Eosinophils % 0.1 Basophils % 0.1 Nucleated Red Blood Cells % 0.0 Neutrophils # 12.5 H Lymphocytes # 1.0 Monocytes # 0.5 Eosinophils # 0.0 Basophils # 0.0 Nucleated Red Blood Cells # 0.0 Sodium Level 143 Potassium Level 3.8 Chloride Level 104 Carbon Dioxide Level 25 Anion Gap 18 H Blood Urea Nitrogen 12 Creatinine 0.91 Glucose Level 114 Calcium Level 8.8 Medications Medications Current Medications Sodium Chloride (NS) 1,000 ml @ 100 mls/hr Q10H IV Last administered on 05:50; Admin Dose 100 MLS/HR; Start 01/24/17 at 13:30 Ondansetron HCl (Zofran Inj) 4 mg Q6H PRN IV NAUSEA AND/OR VOMITING Last administered on 01/25/17 15:22; Admin Dose 4 MG; Start 01/24/17 at 13:30 Acetaminophen (Tylenol Supp) 650 mg Q6H PRN [place] PAIN LEVEL 1-3 OR FEVER Last administered on 01/26/17 08:28; Admin Dose 650 MG; Start 01/24/17 at 13:30 Docusate Sodium (Colace) 100 mg Q12H PRN PO CONSTIPATION; Start 01/24/17 at 13: 30 Magnesium Hydroxide (Milk Of Mag) 30 ml DAILY PRN PO CONSTIPATION; Start at 13:30 Bisacodyl (Dulcolax Supp) 10 mg DAILY PRN [place] CONSTIPATION; Start 01/24/17 at 13: 30 Pantoprazole 40 mg 40 mg DAILY@06 IV Last administered on 01/26/17 05:50; Admin Dose 40 MG; Start 01/24/17 at 13:30 Piperacillin Sod/ Tazobactam Sod 100 ml @ 200 mls/hr Q6 IVPB Last administered on 01/26/17 12:48; Admin Dose 200 MLS/HR; Start 01/24/17 at 18:00 Acetaminophen (Ofirmev 1000mg/ 100ml Iv) 100 ml @ 400 mls/hr Q6H PRN IVPB fever Last administered on 01/25/17 21:24; Admin Dose 400 MLS/HR; Start 01/24/17 at 16:00 Morphine Sulfate (morphine) 2 mg Q4H PRN IV SEVERE PAIN LEVEL 7-10 Last administered on 8/6/17at 11:56; Admin Dose 2 MG; Start 01/25/17 at 10:30 PRISCILLA METZGER Jan 26, 2017 13:23
[2017-01-26 14:07] VITALS: BP 128/78; RESP 20
[2017-01-26] MEDS: ACETAMINOPHEN 1000MG/100ML IV 100 ML IVPB PRN ×2 (14:12→20:32)
[2017-01-26 14:21] VITALS: PULSE 112
[2017-01-26 15:20] VITALS: PULSE 100
--- NOTE | 2017-01-26 17:14 | PN ---
Date/Time of Note Date/Time of Note DATE: 01/26/17 TIME: 17:08 Assessment/Plan Lines/Catheters IV Catheter Type (from Nrs): Peripheral IV Assessment/Plan Assessment/Plan [facility] Progress Note Date of Service: 01/26/17 Today's Impression & Plan: Overall stable without worsening diverticulitis with possible localized microperforation without obvious abscess. Pain persists. Needs more time inhouse with careful observation. No indication for acute surgical intervention. With above assessment, I've recommended the following for today: 1. Keep inhouse 2. Cont broad spec antimicrobials 3. Ok from my standpoint to start sips of water (do not advance) 4. Labs in am Nature of presenting problem: High risk Complexity of decision making: high complexity Thank you again for your great care of this very pleasant patient and wonderful family. If there are any questions, please feel free to call me at [phone]. Disclaimer: Inadvertent spelling or grammatical errors are likely due to EHR/ dictation software use and do not reflect on the overall quality of patient care. Updated Clinical Summary: A very-pleasant 41-year-old gentleman with comorbidity of BMI 37.1 and previous history of diverticulitis, being admitted for recurrent diverticulitis with microperforation but no obvious evidence of abscess or other indication for intervention including no indication for surgical intervention. Comorbidities: 1. BMI 37.1 2. History of diverticulitis in the past as well as diagnosis of diverticulosis 3. Chronic constipation Subjective: No major events or complaints; mild abd pain and under control with medications ; no n/v/d; no sob or cp; + flatus; + BM and diarrhea; + activity Objective: Vitals: See below Exam: GENERAL: On exam, the patient was laying in bed and appeared to be comfortable and in no acute distress. ABDOMEN: Soft, minimal tenderness RLQ > LLQ, and nondistended. There are no peritoneal signs or guarding. SKIN: Skin appears to be pink and feels warm to touch. NEUROLOGIC: Patient is awake, alert, and follows commands appropriately. Exam/Review of Systems Vital Signs Vitals Vital Signs Date Time Temp Pulse Resp B/P Pulse Ox O2 Delivery O2 Flow Rate FiO2 01/26/17 15:57 99.8 01/26/17 15:20 100 01/26/17 14:07 20 128/78 99 01/25/17 22:46 Room Air 01/24/17 08:46 2 Intake and Output 01/25/17 01/25/17 01/26/17 14:59 22:59 06:59 Intake Total 600 ml 700 ml 925 ml Balance 600 ml 700 ml 925 ml Results Result Diagram: 01/26/17 0945 01/26/17 0945 WILMA THORNTON M.D. Jan 26, 2017 17:14
[2017-01-26 19:49] VITALS: BP 120/62; RESP 19
[2017-01-27] VITALS (7 sets, daily range): BP systolic 117–137; BP diastolic 67–85; PULSE 94–102; RESP 18–20
[2017-01-27] MEDS: PIPER-TAZO 3.375 GM IV (PMX) 100 ML IVPB SCH ×4 (00:05→18:08)
[2017-01-27] MEDS: morphine 2 MG INJ IV PRN (00:06)
[2017-01-27] MEDS: SOD CHLORIDE 0.9% 1,000 ML IV SCH ×4 (01:30→19:53)
[2017-01-27] MEDS: ACETAMINOPHEN 1000MG/100ML IV 100 ML IVPB PRN ×3 (02:29→17:41)
[2017-01-27 05:20] LABS: BASOPHILS % 0.2 % (0.0-2.0); EOSINOPHILS % 0.2 % (0.0-7.0); HEMATOCRIT 37.2 % (42.0-52.0); HEMOGLOBIN 12.2 g/dl (14.0-18.0); LYMPHOCYTES # 0.6 10^3/ul (0.8-2.9); LYMPHOCYTES % 5.7 % (15.0-51.0); MEAN CORPUSCULAR HEMOGLOBIN 28.9 pg (29.0-33.0); MEAN CORPUSCULAR HGB CONC 32.8 g/dl (32.0-37.0); MEAN CORPUSCULAR VOLUME 88.2 fl (82.0-101.0); MEAN PLATELET VOLUME 9.6 fl (7.4-10.4); MONOCYTE # 0.7 10^3/ul (0.3-0.9); MONOCYTES % 6.4 % (0.0-11.0); NEUTROPHIL # 9.6 10^3/ul (1.6-7.5); PLATELET COUNT 208 10^3/UL (140-415); RED BLOOD COUNT 4.22 10^6/ul (4.70-6.10); RED CELL DISTRIBUTION WIDTH 13.5 % (11.5-14.5)
[2017-01-27] MEDS: PANTOPRAZOLE 40 MG INJ IV SCH (06:03)
[2017-01-27 06:16] LABS: CALCIUM 8.6 mg/dl (8.4-10.2); CREATININE 0.78 mg/dl (0.61-1.24); POTASSIUM 3.7 mmol/L (3.5-5.1)
[2017-01-27] MEDS: morphine 4 MG/ML VIAL IV PRN (06:55)
--- NOTE | 2017-01-27 11:33 | PN ---
Date/Time of Note Date/Time of Note DATE: 01/27/17 TIME: 11:31 Assessment/Plan VTE Prophylaxis VTE Prophylaxis Intervention: ambulation Lines/Catheters IV [facility]from [facility]): Peripheral IV Urinary Cath still in place: No Assessment/Plan Chief Complaint/Hosp Course 1. Sigmoid diverticulitis with possible microperforation. Continue antibiotics including coverage for anaerobes. Being followed by general surgery and infectious diseases. 2. Urinary tract infection. Continue antibiotics. 3. Sepsis secondary to underlying diverticulitis and urinary tract infection. No evidence of any septic shock. Continue antimicrobials as per infectious diseases. 4. Obesity. BMI of 37.1 kg/m. Weight reduction advised. 5. Fluids, electrolytes, and nutrition. Continue IV fluids. On sips of water. Advancement of diet as per surgery. 6. DVT prophylaxis. Ambulation. 7. Plan. Continue antimicrobials. Continue pain control. Advancement of diet as per surgery. Case discussed with . Problems: Subjective 24 Hr Interval Summary Free Text/Dictation Complains of minimal abdominal pain. Having diarrhea. Exam/Review of Systems Vital Signs Vitals Vital Signs Date Time Temp Pulse Resp B/P Pulse Ox O2 Delivery O2 Flow Rate FiO2 01/27/17 10:21 99.7 01/27/17 09:01 102 01/27/17 07:35 20 121/67 96 01/25/17 22:46 Room Air 01/24/17 08:46 2 Intake and Output 01/26/17 01/26/17 01/27/17 15:00 23:00 07:00 Intake Total 200 ml 1200 ml 1450 ml Output Total 3 ml Balance 200 ml 1197 ml 1450 ml Exam General: Adequately build 41 year-old male lying in bed in no apparent distress. HEENT: Normocephalic, atraumatic. Eyes: Anicteric sclerae, conjunctivae clear. ENT: Nasal septum midline, oral mucosa moist. Neck supple, no JVD noticed. Respiratory: Bilaterally clear breath sounds. No use of accessory muscles of respiration. No adventitious breath sounds. Cardiovascular: S1, S2 heard. No murmurs or gallops. Abdomen: Soft and nondistended. Bowel sounds positive in all 4 quadrants. Minimal left lower quadrant tenderness. Genitourinary: Deferred. Extremities: No cyanosis, no clubbing, no edema. Peripheral pulses palpable. Neurologic: Cranial nerves II through XII grossly intact. The patient is awake, alert, and oriented. Skin: Normal skin turgor. No skin rashes. Results Result Diagram: 01/27/1742501/27/17 0426 Results 24 hrs Laboratory Tests Test 01/27/17 04:26 White Blood Count 11.0 #H Red Blood Count 4.22 L Hemoglobin 12.2 L Hematocrit 37.2 L Mean Corpuscular Volume 88.2 Mean Corpuscular Hemoglobin 28.9 L Mean Corpuscular Hemoglobin Concent 32.8 Red Cell Distribution Width 13.5 Platelet Count 208 Mean Platelet Volume 9.6 Neutrophils % 87.0 H Lymphocytes % 5.7 L Monocytes % 6.4 Eosinophils % 0.2 Basophils % 0.2 Nucleated Red Blood Cells % 0.0 Neutrophils # 9.6 H Lymphocytes # 0.6 L Monocytes # 0.7 Eosinophils # 0.0 Basophils # 0.0 Nucleated Red Blood Cells # 0.0 Sodium Level 144 Potassium Level 3.7 Chloride Level 102 Carbon Dioxide Level 24 Anion Gap 22 H Blood Urea Nitrogen 12 Creatinine 0.78 Glucose Level 97 Calcium Level 8.6 Medications Medications Current Medications Sodium Chloride (NS) 1,000 ml @ 100 mls/hr Q10H IV Last administered on 06:03; Admin Dose 100 MLS/HR; Start 01/24/17 at 13:30 Ondansetron HCl (Zofran Inj) 4 mg Q6H PRN IV NAUSEA AND/OR VOMITING Last administered on 01/25/17 15:22; Admin Dose 4 MG; Start 01/24/17 at 13:30 Acetaminophen (Tylenol Supp) 650 mg Q6H PRN [place] PAIN LEVEL 1-3 OR FEVER Last administered on 01/26/17 08:28; Admin Dose 650 MG; Start 01/24/17 at 13:30 Docusate Sodium (Colace) 100 mg Q12H PRN PO CONSTIPATION; Start 01/24/17 at 13: 30 Magnesium Hydroxide (Milk Of Mag) 30 ml DAILY PRN PO CONSTIPATION; Start at 13:30 Bisacodyl (Dulcolax Supp) 10 mg DAILY PRN [place] CONSTIPATION; Start 01/24/17 at 13: 30 Pantoprazole 40 mg 40 mg DAILY@06 IV Last administered on 01/27/17 06:03; Admin Dose 40 MG; Start 01/24/17 at 13:30 Piperacillin Sod/ Tazobactam Sod 100 ml @ 200 mls/hr Q6 IVPB Last administered on 01/27/17 06:03; Admin Dose 200 MLS/HR; Start 01/24/17 at 18:00 Acetaminophen (Ofirmev 1000mg/ 100ml Iv) 100 ml @ 400 mls/hr Q6H PRN IVPB fever Last administered on 01/27/17 09:01; Admin Dose 400 MLS/HR; Start 01/24/17 at 16:00 Morphine Sulfate (morphine) 4 mg Q4H PRN IV PAIN Last administered on 01/27/17 06:55; Admin Dose 4 MG; Start 01/27/17 at 02:30 Ketorolac Tromethamine (Toradol) 30 mg Q6H PRN IV PAIN; Start 01/27/17 at 08:00 ; Stop 01/30/17 at 07:59 VICKI JOAQUIN NP Jan 27, 2017 11:33
[2017-01-27] MEDS: KETOROLAC 30 MG INJ IV PRN ×2 (12:14→20:03)
--- NOTE | 2017-01-27 20:29 | CONS ---
Date/Time of Note Date/Time of Note DATE: 01/27/17 TIME: 20:05 Assessment/Plan Assessment/Plan Chief Complaint/Hosp Course ID PROGRESS NOTE CURRENT ABX: DAY #4 => Zosyn 24H INTERVAL SUMMARY * Awake, still has ABD pain, loose stools, C.Diff (-)01/25 * TMax 101.2 today, WBC down to 11.0 * MICRO: 01/24 BCx(-); 01/24 Urine (+) URINE CULTURE Final Organism 1 ESCHERICHIA COLI COLONY COUNT 70,000 - 80,000 CFU/ml E COLI M.I.C. RX --------- --- AMPICILLIN >=32 R CEFAZOLIN S CEFOTAXIME S CIPROFLOXACIN >=4 R GENTAMICIN <=1 S LEVOFLOXACIN >=8 R NITROFURANTOIN <=16 S TOBRAMYCIN <=1 S TRIMETHOPRIM/SULFAMETHOXAZOLE <=20 S Physical examination: GEN: Obese M HEENT: Unremarkable CHEST: Equal chest rise bilaterally without dyspnea on observation CV: Radial pulse RRR ABD: Soft, nontender : Deferred EXT: Warm, SKIN: No rash, no diaphoresis ID ASSESSMENT 41 yo obese M admit with: 1. Sepsis on admission w/fever 102.0, tachycardia, lower than norm B/P, leukocytosis => due to UTI + #2 * 01/24 BCx(-) 2. Acute sigmoid diverticulitis w/multiple tiny pockets of extraluminal gas suggesting microperforation. No drainable peridiverticular abscess. 3. GNR E.Coli UTI 01/24 => Resistant to Quinolones 4. Hepatomegaly with fatty infiltration. 6. Diarrhea => ABX associated w/(-)C.Diff toxin CURRENT ABX: DAY #4=> Zosyn + add Vanco Liq PO ID RECOMMENDATIONS 1. Continue Zosyn 2. Vanco Liq PO . Problems: Consultation Date/Type/Reason Admit Date/Time Jan 24, 2017 at 09:50 Initial Consult Date 01/26/17 Type of Consultation: ID Exam/Review of Systems Vital Signs Vitals Vital Signs Date Time Temp Pulse Resp B/P Pulse Ox O2 Delivery O2 Flow Rate FiO2 01/27/17 19:45 100.0 113 18 117/72 93 01/25/17 22:46 Room Air 01/24/17 08:46 2 Intake and Output 01/26/17 01/26/17 01/27/17 15:00 23:00 07:00 Intake Total 200 ml 1200 ml 1450 ml Output Total 3 ml Balance 200 ml 1197 ml 1450 ml Results Result Diagram: 01/27/17 0426 01/27/17 0426 Results 24 hrs Laboratory Tests Test 01/27/17 04:26 White Blood Count 11.0 #H Red Blood Count 4.22 L Hemoglobin 12.2 L Hematocrit 37.2 L Mean Corpuscular Volume 88.2 Mean Corpuscular Hemoglobin 28.9 L Mean Corpuscular Hemoglobin Concent 32.8 Red Cell Distribution Width 13.5 Platelet Count 208 Mean Platelet Volume 9.6 Neutrophils % 87.0 H Lymphocytes % 5.7 L Monocytes % 6.4 Eosinophils % 0.2 Basophils % 0.2 Nucleated Red Blood Cells % 0.0 Neutrophils # 9.6 H Lymphocytes # 0.6 L Monocytes # 0.7 Eosinophils # 0.0 Basophils # 0.0 Nucleated Red Blood Cells # 0.0 Sodium Level 144 Potassium Level 3.7 Chloride Level 102 Carbon Dioxide Level 24 Anion Gap 22 H Blood Urea Nitrogen 12 Creatinine 0.78 Glucose Level 97 Calcium Level 8.6 Medications Medications Current Medications Sodium Chloride (NS) 1,000 ml @ 100 mls/hr Q10H IV Last administered on 19:53; Admin Dose 100 MLS/HR; Start 01/24/17 at 13:30 Ondansetron HCl (Zofran Inj) 4 mg Q6H PRN IV NAUSEA AND/OR VOMITING Last administered on 01/25/17 15:22; Admin Dose 4 MG; Start 01/24/17 at 13:30 Acetaminophen (Tylenol Supp) 650 mg Q6H PRN [place] PAIN LEVEL 1-3 OR FEVER Last administered on 01/26/17 08:28; Admin Dose 650 MG; Start 01/24/17 at 13:30 Docusate Sodium (Colace) 100 mg Q12H PRN PO CONSTIPATION; Start 01/24/17 at 13: 30 Magnesium Hydroxide (Milk Of Mag) 30 ml DAILY PRN PO CONSTIPATION; Start at 13:30 Bisacodyl (Dulcolax Supp) 10 mg DAILY PRN [place] CONSTIPATION; Start 01/24/17 at 13: 30 Pantoprazole 40 mg 40 mg DAILY@06 IV Last administered on 01/27/17 06:03; Admin Dose 40 MG; Start 01/24/17 at 13:30 Piperacillin Sod/ Tazobactam Sod 100 ml @ 200 mls/hr Q6 IVPB Last administered on 01/27/17 18:08; Admin Dose 200 MLS/HR; Start 01/24/17 at 18:00 Acetaminophen (Ofirmev 1000mg/ 100ml Iv) 100 ml @ 400 mls/hr Q6H PRN IVPB fever Last administered on 01/27/17 17:41; Admin Dose 400 MLS/HR; Start 01/24/17 at 16:00 Morphine Sulfate (morphine) 4 mg Q4H PRN IV PAIN Last administered on 01/27/17 06:55; Admin Dose 4 MG; Start 01/27/17 at 02:30 Ketorolac Tromethamine (Toradol) 30 mg Q6H PRN IV PAIN Last administered on 01/27 12:14; Admin Dose 30 MG; Start 01/27/17 at 08:00; Stop 01/30/17 at 07:59 SACHA ALAMO NP Jan 27, 2017 20:18
--- NOTE | 2017-01-27 21:29 | PN ---
Date/Time of Note Date/Time of Note DATE: 01/27/17 TIME: 21:28 Assessment/Plan Lines/Catheters IV [facility] Type (from [facility] Peripheral IV Shah in Place (from [facility]): No Assessment/Plan Assessment/Plan [facility] Progress Note Date of Service: 01/27/17 Today's Impression & Plan: Overall stable without worsening diverticulitis with possible localized microperforation without obvious abscess. Pain persists but is less. Fevers and diarrhea continue. Needs more time inhouse with careful observation. No indication for acute surgical intervention. With above assessment, I've recommended the following for today: 1. Keep inhouse 2. Cont broad spec antimicrobials 3. Ok from my standpoint to continue sips of water (do not advance) 4. Labs in am Nature of presenting problem: High risk Complexity of decision making: high complexity Thank you again for your great care of this very pleasant patient and wonderful family. If there are any questions, please feel free to call me at [phone]. Disclaimer: Inadvertent spelling or grammatical errors are likely due to EHR/ dictation software use and do not reflect on the overall quality of patient care. Updated Clinical Summary: A very-pleasant 41-year-old gentleman with comorbidity of BMI 37.1 and previous history of diverticulitis, being admitted for recurrent diverticulitis with microperforation but no obvious evidence of abscess or other indication for intervention including no indication for surgical intervention. Comorbidities: 1. BMI 37.1 2. History of diverticulitis in the past as well as diagnosis of diverticulosis 3. Chronic constipation Subjective: No major events or complaints; mild abd pain and under control with medications ; pain is less than yesterday; no n/v/d; no sob or cp; + flatus; + BM and diarrhea; + activity; fevers continue Objective: Vitals: See below Exam: GENERAL: On exam, the patient was laying in bed and appeared to be comfortable and in no acute distress. ABDOMEN: Soft, minimal tenderness in the lower quadrants and less on the right side compared to the left, and nondistended. There are no peritoneal signs or guarding. SKIN: Skin appears to be pink and feels warm to touch. NEUROLOGIC: Patient is awake, alert, and follows commands appropriately. Exam/Review of Systems Vital Signs Vitals Vital Signs Date Time Temp Pulse Resp B/P Pulse Ox O2 Delivery O2 Flow Rate FiO2 01/27/17 19:45 100.0 113 18 117/72 93 01/25/17 22:46 Room Air 01/24/17 08:46 2 Intake and Output 01/26/17 01/26/17 01/27/17 15:00 23:00 07:00 Intake Total 200 ml 1200 ml 1450 ml Output Total 3 ml Balance 200 ml 1197 ml 1450 ml Results Result Diagram: 01/27/17 0426 01/27/17 0426 WILMA THORNTON M.D. Jan 27, 2017 21:29
[2017-01-27] MEDS: VANCOMYCIN HCL 250 MG/5ML POSYG PO SCH (22:09)
[2017-01-28] VITALS (7 sets, daily range): BP systolic 117–141; BP diastolic 73–80; PULSE 85–102; RESP 18–20
[2017-01-28] MEDS: ACETAMINOPHEN 650 MG SUPP PR PRN (00:22)
[2017-01-28] MEDS: PIPER-TAZO 3.375 GM IV (PMX) 100 ML IVPB SCH ×4 (00:22→17:36)
[2017-01-28] MEDS: ACETAMINOPHEN 1000MG/100ML IV 100 ML IVPB PRN ×4 (02:33→18:16)
[2017-01-28 05:32] LABS: BASOPHILS % 0.2 % (0.0-2.0); EOSINOPHILS % 0.1 % (0.0-7.0); HEMATOCRIT 35.4 % (42.0-52.0); HEMOGLOBIN 11.6 g/dl (14.0-18.0); LYMPHOCYTES # 1.1 10^3/ul (0.8-2.9); LYMPHOCYTES % 9.3 % (15.0-51.0); MEAN CORPUSCULAR HEMOGLOBIN 28.6 pg (29.0-33.0); MEAN CORPUSCULAR HGB CONC 32.8 g/dl (32.0-37.0); MEAN CORPUSCULAR VOLUME 87.4 fl (82.0-101.0); MEAN PLATELET VOLUME 9.3 fl (7.4-10.4); MONOCYTE # 0.9 10^3/ul (0.3-0.9); MONOCYTES % 7.6 % (0.0-11.0); NEUTROPHIL # 9.3 10^3/ul (1.6-7.5); NEUTROPHILS % 82.3 % (39.0-77.0); PLATELET COUNT 209 10^3/UL (140-415); RED BLOOD COUNT 4.05 10^6/ul (4.70-6.10); RED CELL DISTRIBUTION WIDTH 13.7 % (11.5-14.5); WHITE BLOOD COUNT 11.3 10^3/ul (4.8-10.8)
[2017-01-28 05:43] LABS: MAGNESIUM 1.9 mg/dl (1.7-2.5); PHOSPHORUS 2.6 mg/dl (2.5-4.9)
[2017-01-28 05:58] LABS: CALCIUM 8.2 mg/dl (8.4-10.2); CREATININE 0.92 mg/dl (0.61-1.24); POTASSIUM 3.6 mmol/L (3.5-5.1)
[2017-01-28] MEDS: PANTOPRAZOLE 40 MG INJ IV SCH (05:59)
[2017-01-28] MEDS: VANCOMYCIN HCL 250 MG/5ML POSYG PO SCH ×3 (05:59→17:36)
[2017-01-28] MEDS: SOD CHLORIDE 0.9% 1,000 ML IV SCH ×2 (06:00→18:03)
--- NOTE | 2017-01-28 07:08 | PN ---
Date/Time of Note Date/Time of Note DATE: 01/28/17 TIME: 07:08 Assessment/Plan VTE Prophylaxis VTE Prophylaxis Intervention: ambulation Lines/Catheters IV Catheter Type (from [facility]): Peripheral IV Urinary Cath still in place: No Assessment/Plan Chief Complaint/Hosp Course 1. Sigmoid diverticulitis with possible microperforation. Continue antibiotics including coverage for anaerobes. Being followed by general surgery and infectious diseases. 2. Urinary tract infection. Continue antibiotics. 3. Sepsis secondary to underlying diverticulitis and urinary tract infection. No evidence of any septic shock. Continue antimicrobials as per infectious diseases. 4. Obesity. BMI of 37.1 kg/m. Weight reduction advised. 5. Fluids, electrolytes, and nutrition. Continue IV fluids. On sips of water. Advancement of diet as per surgery. 6. DVT prophylaxis. Ambulation. 7. Plan. Continue antimicrobials. Continue pain control. Advancement of diet as per surgery. Case discussed with . Problems: Subjective 24 Hr Interval Summary Free Text/Dictation Continues to have febrile episodes. Complains of head ache. Exam/Review of Systems Vital Signs Vitals Vital Signs Date Time Temp Pulse Resp B/P Pulse Ox O2 Delivery O2 Flow Rate FiO2 01/28/17 03:59 99.5 01/28/17 02:00 114 18 129/73 95 01/25/17 22:46 Room Air 01/24/17 08:46 2 Intake and Output 01/27/17 01/27/17 01/28/17 15:00 23:00 07:00 Intake Total 200 ml 1100 ml 1500 ml Balance 200 ml 1100 ml 1500 ml Exam General: Adequately build 41 year-old male lying in bed in no apparent distress. HEENT: Normocephalic, atraumatic. Eyes: Anicteric sclerae, conjunctivae clear. ENT: Nasal septum midline, oral mucosa moist. Neck supple, no JVD noticed. Respiratory: Bilaterally clear breath sounds. No use of accessory muscles of respiration. No adventitious breath sounds. Cardiovascular: S1, S2 heard. No murmurs or gallops. Abdomen: Soft and nondistended. Bowel sounds positive in all 4 quadrants. Minimal left lower quadrant tenderness. Genitourinary: Deferred. Extremities: No cyanosis, no clubbing, no edema. Peripheral pulses palpable. Neurologic: Cranial nerves II through XII grossly intact. The patient is awake, alert, and oriented. Skin: Normal skin turgor. No skin rashes. Results Result Diagram: 01/28/178 01/28/178 Results 24 hrs Laboratory Tests Test 01/28/17 04:58 White Blood Count 11.3 H Red Blood Count 4.05 L Hemoglobin 11.6 L Hematocrit 35.4 L Mean Corpuscular Volume 87.4 Mean Corpuscular Hemoglobin 28.6 L Mean Corpuscular Hemoglobin Concent 32.8 Red Cell Distribution Width 13.7 Platelet Count 209 Mean Platelet Volume 9.3 Neutrophils % 82.3 H Lymphocytes % 9.3 L Monocytes % 7.6 Eosinophils % 0.1 Basophils % 0.2 Nucleated Red Blood Cells % 0.0 Neutrophils # 9.3 H Lymphocytes # 1.1 Monocytes # 0.9 Eosinophils # 0.0 Basophils # 0.0 Nucleated Red Blood Cells # 0.0 Sodium Level 142 Potassium Level 3.6 Chloride Level 103 Carbon Dioxide Level 25 Anion Gap 18 H Blood Urea Nitrogen 14 Creatinine 0.92 Glucose Level 87 Calcium Level 8.2 L Phosphorus Level 2.6 Magnesium Level 1.9 Medications Medications Current Medications Sodium Chloride (NS) 1,000 ml @ 100 mls/hr Q10H IV Last administered on 06:00; Admin Dose 100 MLS/HR; Start 01/24/17 at 13:30 Ondansetron HCl (Zofran Inj) 4 mg Q6H PRN IV NAUSEA AND/OR VOMITING Last administered on 01/25/17 15:22; Admin Dose 4 MG; Start 01/24/17 at 13:30 Acetaminophen (Tylenol Supp) 650 mg Q6H PRN [place] PAIN LEVEL 1-3 OR FEVER Last administered on 01/28/17 00:22; Admin Dose 650 MG; Start 01/24/17 at 13:30 Docusate Sodium (Colace) 100 mg Q12H PRN PO CONSTIPATION; Start 01/24/17 at 13: 30 Magnesium Hydroxide (Milk Of Mag) 30 ml DAILY PRN PO CONSTIPATION; Start at 13:30 Bisacodyl (Dulcolax Supp) 10 mg DAILY PRN [place] CONSTIPATION; Start 01/24/17 at 13: 30 Pantoprazole 40 mg 40 mg DAILY@06 IV Last administered on 01/28/17 05:59; Admin Dose 40 MG; Start 01/24/17 at 13:30 Piperacillin Sod/ Tazobactam Sod 100 ml @ 200 mls/hr Q6 IVPB Last administered on 01/28/17 05:59; Admin Dose 200 MLS/HR; Start 01/24/17 at 18:00 Acetaminophen (Ofirmev 1000mg/ 100ml Iv) 100 ml @ 400 mls/hr Q6H PRN IVPB fever Last administered on 01/28/17 02:49; Admin Dose 400 MLS/HR; Start 01/24/17 at 16:00 Morphine Sulfate (morphine) 4 mg Q4H PRN IV PAIN Last administered on 01/27/17 06:55; Admin Dose 4 MG; Start 01/27/17 at 02:30 Ketorolac Tromethamine (Toradol) 30 mg Q6H PRN IV PAIN Last administered on 01/27 20:03; Admin Dose 30 MG; Start 01/27/17 at 08:00; Stop 01/30/17 at 07:59 Vancomycin HCl (Vancomycin Oral Syringe) 250 mg Q6 PO Last administered on 05:59; Admin Dose 250 MG; Start 01/27/17 at 22:00 VICKI JOAQUIN NP Jan 28, 2017 07:08
[2017-01-28] MEDS ORDERED: ACET/BUTAL/CAFF TAB PO PRN (10:00)
[2017-01-28] MEDS ORDERED: ZOLPIDEM 5 MG TAB PO PRN (10:00)
[2017-01-28] MEDS: morphine 4 MG/ML VIAL IV PRN (13:49)
--- NOTE | 2017-01-28 16:33 | PN ---
Date/Time of Note Date/Time of Note DATE: 01/28/17 TIME: 16:32 Assessment/Plan Lines/Catheters IV Catheter Type (from Nrs): Peripheral IV Shah in Place (from [facility]): No Assessment/Plan Assessment/Plan [facility] Progress Note Date of Service: 01/28/17 Today's Impression & Plan: Overall stable without worsening diverticulitis with possible localized microperforation without obvious abscess. Pain persists but is less. Fevers and diarrhea continue, although diarrhea appears to be less. Needs more time inhouse with careful observation. No indication for acute surgical intervention. With above assessment, I've recommended the following for today: 1. Keep inhouse 2. Cont broad spec antimicrobials 3. Ok from my standpoint to continue sips of water (do not advance) 4. Labs in am 5. KUB 3 view Nature of presenting problem: High risk Complexity of decision making: high complexity Thank you again for your great care of this very pleasant patient and wonderful family. If there are any questions, please feel free to call me at [phone]. Disclaimer: Inadvertent spelling or grammatical errors are likely due to EHR/ dictation software use and do not reflect on the overall quality of patient care. Updated Clinical Summary: A very-pleasant 41-year-old gentleman with comorbidity of BMI 37.1 and previous history of diverticulitis, being admitted for recurrent diverticulitis with microperforation but no obvious evidence of abscess or other indication for intervention including no indication for surgical intervention. Comorbidities: 1. BMI 37.1 2. History of diverticulitis in the past as well as diagnosis of diverticulosis 3. Chronic constipation Subjective: No major events or complaints; fevers overnight with some headaches; mild abd pain and under control with medications; pain is less than yesterday; no n/v and less diarrhea; no sob or cp; + flatus; + BM; + activity Objective: Vitals: See below Exam: GENERAL: On exam, the patient was laying in bed and appeared to be comfortable and in no acute distress. ABDOMEN: Soft, minimal tenderness in the lower quadrants and less on the right side compared to the left, and nondistended. There are no peritoneal signs or guarding. SKIN: Skin appears to be pink and feels warm to touch. NEUROLOGIC: Patient is awake, alert, and follows commands appropriately. Exam/Review of Systems Vital Signs Vitals Vital Signs Date Time Temp Pulse Resp B/P Pulse Ox O2 Delivery O2 Flow Rate FiO2 01/28/17 14:00 98.4 95 01/28/17 13:38 20 141/80 99 01/25/17 22:46 Room Air 01/24/17 08:46 2 Intake and Output 01/27/17 01/27/17 01/28/17 15:00 23:00 07:00 Intake Total 200 ml 1100 ml 1500 ml Balance 200 ml 1100 ml 1500 ml Results Result Diagram: 01/28/17 0458 01/28/17 0458 WILMA THORNTON M.D. Jan 28, 2017 16:33
--- NOTE | 2017-01-28 17:37 | CONS ---
Date/Time of Note Date/Time of Note DATE: 01/28/17 TIME: 17:31 Assessment/Plan Assessment/Plan Chief Complaint/Hosp Course ID PROGRESS NOTE CURRENT ABX: DAY #5 => Zosyn + Vanco IV #1 + Amikacin IV #1 24H INTERVAL SUMMARY * Fevers persisting => TMax 102.+ this am -- WBC stable 11.3 * ABX associated diarrhea w/(-)C.Diff * MICRO: 01/24 BCx(-); 01/24 Urine (+) URINE CULTURE Final Organism 1 ESCHERICHIA COLI COLONY COUNT 70,000 - 80,000 CFU/ml E COLI M.I.C. RX --------- --- AMPICILLIN >=32 R CEFAZOLIN S CEFOTAXIME S CIPROFLOXACIN >=4 R GENTAMICIN <=1 S LEVOFLOXACIN >=8 R NITROFURANTOIN <=16 S TOBRAMYCIN <=1 S TRIMETHOPRIM/SULFAMETHOXAZOLE <=20 S Physical examination: GEN: Obese M HEENT: Unremarkable CHEST: Equal chest rise bilaterally without dyspnea on observation CV: Radial pulse RRR ABD: Soft, nontender : Deferred EXT: Warm, SKIN: No rash, no diaphoresis ID ASSESSMENT 41 yo obese M admit with: 1. Sepsis on admission w/fever 102.0, tachycardia, lower than norm B/P, leukocytosis => due to UTI + #2 * 01/24 BCx(-) 2. Acute sigmoid diverticulitis w/multiple tiny pockets of extraluminal gas suggesting microperforation. No drainable peridiverticular abscess. 3. GNR E.Coli UTI 01/24 => Resistant to Quinolones 4. Hepatomegaly with fatty infiltration. 6. Diarrhea => ABX associated w/(-)C.Diff toxin CURRENT ABX: DAY #5=> Zosyn + Vanco Liq PO + Vanco IV #1 + Amikacin IV #1 ID RECOMMENDATIONS 1. Continue Zosyn + Vanco IV #1 + Amikacin IV x 3 day . Problems: Consultation Date/Type/Reason Admit Date/Time Jan 24, 2017 at 09:50 Initial Consult Date 01/26/17 Type of Consultation: ID Exam/Review of Systems Vital Signs Vitals Vital Signs Date Time Temp Pulse Resp B/P Pulse Ox O2 Delivery O2 Flow Rate FiO2 01/28/17 14:00 98.4 95 01/28/17 13:38 20 141/80 99 01/25/17 22:46 Room Air 01/24/17 08:46 2 Intake and Output 01/27/17 01/27/17 01/28/17 15:00 23:00 07:00 Intake Total 200 ml 1100 ml 1500 ml Balance 200 ml 1100 ml 1500 ml Results Result Diagram: 01/28/17 0458 01/28/17 0458 Results 24 hrs Laboratory Tests Test 01/28/17 04:58 White Blood Count 11.3 H Red Blood Count 4.05 L Hemoglobin 11.6 L Hematocrit 35.4 L Mean Corpuscular Volume 87.4 Mean Corpuscular Hemoglobin 28.6 L Mean Corpuscular Hemoglobin Concent 32.8 Red Cell Distribution Width 13.7 Platelet Count 209 Mean Platelet Volume 9.3 Neutrophils % 82.3 H Lymphocytes % 9.3 L Monocytes % 7.6 Eosinophils % 0.1 Basophils % 0.2 Nucleated Red Blood Cells % 0.0 Neutrophils # 9.3 H Lymphocytes # 1.1 Monocytes # 0.9 Eosinophils # 0.0 Basophils # 0.0 Nucleated Red Blood Cells # 0.0 Sodium Level 142 Potassium Level 3.6 Chloride Level 103 Carbon Dioxide Level 25 Anion Gap 18 H Blood Urea Nitrogen 14 Creatinine 0.92 Glucose Level 87 Calcium Level 8.2 L Phosphorus Level 2.6 Magnesium Level 1.9 Medications Medications Current Medications Sodium Chloride (NS) 1,000 ml @ 100 mls/hr Q10H IV Last administered on 06:00; Admin Dose 100 MLS/HR; Start 01/24/17 at 13:30 Ondansetron HCl (Zofran Inj) 4 mg Q6H PRN IV NAUSEA AND/OR VOMITING Last administered on 01/25/17 15:22; Admin Dose 4 MG; Start 01/24/17 at 13:30 Acetaminophen (Tylenol Supp) 650 mg Q6H PRN [place] PAIN LEVEL 1-3 OR FEVER Last administered on 01/28/17 00:22; Admin Dose 650 MG; Start 01/24/17 at 13:30 Docusate Sodium (Colace) 100 mg Q12H PRN PO CONSTIPATION; Start 01/24/17 at 13: 30 Magnesium Hydroxide (Milk Of Mag) 30 ml DAILY PRN PO CONSTIPATION; Start at 13:30 Bisacodyl 10 mg 10 mg DAILY PRN [place] CONSTIPATION; Start 01/24/17 at 13:30 Piperacillin Sod/ Tazobactam Sod 100 ml @ 200 mls/hr Q6 IVPB Last administered on 01/28/17 12:39; Admin Dose 200 MLS/HR; Start 01/24/17 at 18:00 Acetaminophen (Ofirmev 1000mg/ 100ml Iv) 100 ml @ 400 mls/hr Q6H PRN IVPB fever Last administered on 01/28/17 09:00; Admin Dose 400 MLS/HR; Start 01/24/17 at 16:00 Morphine Sulfate (morphine) 4 mg Q4H PRN IV PAIN Last administered on 01/28/17 13:49; Admin Dose 4 MG; Start 01/27/17 at 02:30 Ketorolac Tromethamine (Toradol) 30 mg Q6H PRN IV PAIN Last administered on 01/27 20:03; Admin Dose 30 MG; Start 01/27/17 at 08:00; Stop 01/30/17 at 07:59 Vancomycin HCl (Vancomycin Oral Syringe) 250 mg Q6 PO Last administered on 12:39; Admin Dose 250 MG; Start 01/27/17 at 22:00 Acetaminophen/ Butalbital/ Caffeine (Fioricet) 1 tab Q4H PRN PO Headache; Start 01/28/17 at 10:00 Famotidine (Pepcid Iv) 20 mg BID IV ; Start 01/28/17 at 21:00 SACHA ALAMO NP Jan 28, 2017 17:37
[2017-01-28] MEDS ORDERED: VANCOMYCIN IV PER PHARMACY XX SCH (18:00)
[2017-01-28] MEDS: AMIKACIN 500 MG in SOD CHLORIDE 0.9% 100 ML IVPB SCH (19:56)
[2017-01-28] MEDS ORDERED: VANCOMYCIN 2 GM in SOD CHLORIDE 0.9% 500 ML IVPB SCH (20:00)
[2017-01-28] MEDS: FAMOTIDINE 20 MG INJ IV SCH (20:56)
--- NOTE | 2017-01-28 21:56 | RADRPT ---
PROCEDURE: XR Abdomen CLINICAL INDICATION: Abdominal pain TECHNIQUE: AP supine and upright radiographs of the abdomen were submitted COMPARISON: Comparison previous CT of 01/24/2017. The previous CT demonstrated sigmoid diverticul itis along with hepatomegaly. FINDINGS: There are organized air distended segments of small bowel and a stepladder configuration and with de creased colonic air compatible with mid to distal small bowel obstruction. Free intraperitoneal air is seen inferior to the hemidiaphragms. The liver appears enlarged. No mass is identified. No pathological calcification is identified. The osseous elements appear unremarkable. IMPRESSION: 1. Free intraperitoneal air has developed inferior to the hemidiaphragms. If there has not been a recent surgical procedure this would be compatible with a perforated viscus. 2. The bowel gas pattern reflects a high-grade distal small bowel obstruction. Findings of free intraperitoneal air suspicious for perforation and distal small bowel obstruction w ere telephoned by Bebeto Christopher MD to Dr. Araiza on 01/28/2017 at 2153 hours. Physician Germain Date Time Electronically viewed and signed by Physician Germain on 01/28/2017 21:55 RH/
[2017-01-28] MEDS ORDERED: BUPIVACAINE 0.25%/EPI (SDV) 10 ML INJ ONE (22:57)
[2017-01-28] MEDS ORDERED: MIDAZOLAM 1 MG/ML 2 ML INJ ONE (23:26)
[2017-01-29] VITALS (35 sets, daily range): BP systolic 99–132; BP diastolic 57–78; PULSE 102–130; RESP 12–23
[2017-01-29] MEDS ORDERED: GELATIN SIZE 100 SPONGE ONE (00:24)
[2017-01-29] MEDS ORDERED: THROMBIN 5000 UNIT VIAL ONE (00:25)
[2017-01-29] MEDS ORDERED: METOCLOPRAMIDE 10 MG INJ IV PRN (01:00)
[2017-01-29] MEDS ORDERED: ONDANSETRON 4 MG INJ IV PRN (01:00)
[2017-01-29] MEDS ORDERED: DIPHENHYDRAMINE 50 MG INJ IV PRN (01:00)
[2017-01-29] MEDS ORDERED: morphine (1 MG/ML) 10ML SYRINGE IV PRN (01:00)
[2017-01-29] MEDS ORDERED: MEPERIDINE 25 MG INJ IV PRN (01:00)
[2017-01-29] MEDS: SOD CHLORIDE 0.9% 1,000 ML IV SCH (03:30)
[2017-01-29] MEDS ORDERED: morphine 10 MG INJ ONE (03:46)
[2017-01-29] MEDS ORDERED: FUROSEMIDE 20 MG INJ ONE ×2 (03:47→04:34)
[2017-01-29] MEDS ORDERED: GLYCOPYRROLATE 0.4 MG INJ ONE (05:22)
[2017-01-29] MEDS ORDERED: LIDOCAINE 2% (SDV) 5 ML INJ ONE (05:22)
[2017-01-29] MEDS ORDERED: ONDANSETRON 4 MG INJ ONE (05:22)
[2017-01-29] MEDS ORDERED: PROPOFOL 20 ML ONE (05:22)
[2017-01-29] MEDS ORDERED: NEOSTIGMINE 3 MG/3 ML SYRINGE ONE (05:22)
[2017-01-29] MEDS ORDERED: ROCURONIUM 50 MG INJ ONE (05:22)
[2017-01-29] MEDS ORDERED: HYDROmorphONE 1 MG/ML SYG IV PRN (05:30)
[2017-01-29] MEDS ORDERED: HYDROCODONE/APAP (5/325) TAB PO PRN (05:30)
[2017-01-29] MEDS ORDERED: DOCUSATE SODIUM 100 MG CAP PO PRN (05:30)
--- NOTE | 2017-01-29 05:57 | OPR ---
Date/Time of Note Date/Time of Note DATE: 01/29/17 TIME: 05:56 Operative Report Procedure Description [facility] INPATIENT OPER[facility]IVE NOTE PLACE OF SERVICE: [facility] DATE OF SURGERY: 01/29/2017 PREOPERATIVE DIAGNOSIS: 1. Perforated sigmoid colon 2. BMI 37.1 3. History of diverticulitis in the past as well as diagnosis of diverticulosis 4. Chronic constipation POSTOPERATIVE DIAGNOSIS: 1. Perforated sigmoid colon with inflamed terminal ileum and cecum 2. BMI 37.1 3. History of diverticulitis in the past as well as diagnosis of diverticulosis 4. Chronic constipation OPERATION: 1. Laparoscopic converted to open sigmoid colectomy with primary anastomosis and diverting loop ileostomy 2. Takedown of splenic flexure of the colon 3. Extensive lysis of adhesions 4. Abdominal lavage 5. Modifier 22 SURGEON: Wilma Thornton M.D. CORD MAKER: None ANESTHESIA: General endotracheal tube anesthesia ANESTHESIOLOGIST: Lemuel Figueroa M.D. BRIEF SUMMARY: An otherwise uncomplicated but challenging laparoscopic converted to open sigmoid colectomy with primary anastomosis, performance of loop diverting ileostomy, extensive lysis of adhesions and abdominal lavage were performed with findings of no evidence of obvious malignancy and severe sigmoid colitis with contained pus and stool in the pelvis and significant inflammation of terminal ileum and cecum. Updated Clinical Summary: A very-pleasant 41-year-old gentleman with comorbidity of BMI 37.1 and previous history of diverticulitis, being admitted for recurrent diverticulitis with microperforation but no obvious evidence of abscess or other indication for intervention including no indication for surgical intervention. Comorbidities: 1. BMI 37.1 2. History of diverticulitis in the past as well as diagnosis of diverticulosis 3. Chronic constipation BRIEF HISTORY: The patient is a very pleasant A very-pleasant 41-year-old gentleman with comorbidity of BMI 37.1 and previous history of diverticulitis, being admitted for recurrent diverticulitis with microperforation but no obvious evidence of abscess or other indication for intervention including no indication for surgical intervention. We treated the patient with inpatient observation and broad-spectrum antimicrobial therapy and careful observation. Patient had fevers and ongoing issues with abdominal pain, although his abdominal pain had improved quite a bit over the course of the last 4 days. Because of ongoing issues with fever, I obtained a KUB. This was ordered around 4:30 PM. This study was done around 7:30 PM. I received a phone call at approximately 10 PM from the radiologist informing me of likelihood of free air under the diaphragm. I promptly mobilize the operating room team and came into the hospital and relate this information to the patient (no family present during my discussions with the patient). I strongly suggested that we go immediately to the operating room given the presence of free air and described the operation in detail, which was laparoscopic, possible open exploration, possible partial bowel resection, and possible ostomy, as well as the risks, benefits, and alternatives to the patient will appear to understand and agreed with the plans. For a detailed report of my consultation with patient and family , please refer to my separate consultation note. STATEMENT OF THE INFORMED CONSENT: The patient appeared to understand the risks of the operation to include, but not be limited to risk of postoperative pain and scar tissue, possible infection or bleeding requiring other interventions such as opening the wound, placement of drainage catheters, or other operative interventions; possible injury to surrounding to structures including bowel, bladder, bile duct, or blood vessels, or solid organs such as liver, kidney, or pancreas requiring other interventions or procedures; possible leakage of bowel from anastomotic sites or suture lines causing significant increase in morbidity and mortality and requiring multiple interventions including but not limited to, placement of drainage catheters, imaging studies, as well as operative interventions; possible other source of sepsis such as urinary tract infections or pneumonias, or other sources of potentially life threatening problems such as deep venous thrombus formation causing pulmonary embolism, myocardial arrhythmias and infarctions, and even . After careful consideration of all available options, the patient appeared to understand and wished to proceed with surgery. DESCRIPTION OF PROCEDURE: After obtaining informed consent, the patient was brought into the operating room and was placed in a normal supine position, where successful general endotracheal tube anesthesia was performed. Intravenous access was already in place. A Shah catheter was placed and an orogastric tube was placed. Intravenous antimicrobials were appropriately chosen and dosed prior to skin incision. We shaved patient's nitesh with clippers , placed the patient in stirrups, and prepped and draped the skin from nipple line down to mid thighs to include the groin in the usual sterrile fashion. We then called a surgical time-out where patient's identification, date of , nature of the operation, allergies, presence of intravenous antimicrobials, presence of needed equipment, and any other concerns were reviewed and agreed upon by all members of the operating room team. We then placed a 5-mm skin incision in the right-upper quadrant and introduced a 5-mm [employer] trocar into the peritoneal space, visualizing all the layers of the abdominal wall as we entered. Note that, there was no indication of any injury to underlying structures once we entered the peritoneal space. We insufflated the abdominal cavity to a maximum pressure of 15 mmHg, and, again , checked to make sure there is no obvious injury to underlying structures prior to visualizing the surfaces of the intraabdominal contents. Visualization was poor. Bowel appear to be edematous and initially, mildly adhered onto the anterior abdominal wall. To facilitate visualization, I injected the left upper quadrant 5 mm trocar site with quarter percent Marcaine with epinephrine and placed a 5 mm applied medical trocar into the left upper quadrant midclavicular subcostal region under direct visualization. With these instruments in place, I was able to do lysis of adhesions laparoscopically to see that there was an area near the pelvis which was walled off. With gentle manipulation, there was significant expression of pus in stool from this region. We promptly controlled this using suction. Given the poor visualization and the amount of inflammation in the region, I decided to convert the operation to an open operation. Initially, I placed a 9 cm skin incision in the lower midline using scalpel to go through the skin and cautery to go through the subcutaneous fat and fascia. I immediately saw that there was significant amount of inflammation in the region and even though we tried briefly to do the operation laparoscopic with hand assist, I quickly converted the operation to open by removing the GelPort device and extending the incision eventually to approximately 20 cm above the umbilicus. Initially we had used a Gogo retractor, but then we used the Lehman retractor to maximize visualization and assist with the operation. Note that this operation was done from midnight to approximately 5:30 in the morning. Initial inspection of the abdominal cavity demonstrated significant inflammation in the terminal ileum region as well as what appeared to be a walled off abscess region near the cecum may have been from the patient's prior appendectomy and possible complications. The sigmoid colon was also significantly inflamed. Even though it seemed pus and stool which was suctioned off laparoscopically, I did not see obvious hold in the sigmoid colon , terminal ileum, or the cecum. Sigmoid colon was certainly consistent with preoperative images in terms of how inflamed it was. The inlet into the pelvis was completely obscured by the amount of inflammation. We could not see or feel normal rectum in the pelvis given the amount of inflammation of the sigmoid colon that was present at the pelvic inlet. The rest of the descending colon appeared to be healthy. I therefore started meticulous dissection which took approximately 120 minutes in order to fully mobilize the sigmoid colon. Note that we were not able to see the course of the left or right ureter, but the dissection was kept near the wall of the colon since we did not have high preoperative suspicion of malignancy and there was no evidence of malignancy that was obvious in the abdominal cavity. The urine remained mckeon yellow throughout the entirety of the case without any blood in it. I was able to circumferentially isolate the normal colon and the descending colon and transect this using one firing of the blue load of the hand-held VIRGIL stapler, prior to transecting across the mesentery of the sigmoid colon with the LigaSure device. We took the dissection down to the area of the rectum just above the peritoneal reflection. Rectum in this area appeared to be normal. I then used a curvilinear stapler using a blue load to transect across the rectum, delivered the specimen out and sent it to pathology for permanent sections with marking the distal staple line with a suture. We ensured hemostasis. I then went ahead and mobilized the splenic flexure of colon in order to bring down the descending colon into the pelvis in a tension-free manner. At this point, I carefully evaluated the distal and proximal ends of the colon and discussed patient stability with anesthesiology. Patient appeared to be stable. Because of his high BMI, it would have been very useful for the patient to have a primary anastomosis and a diverting loop ileostomy instead of having an end colostomy, since the colostomy takedown in his situation would be another major operation and an ileostomy takedown would be a relatively simpler operation for him. Also, because of the thickness of the abdominal wall fat layer, he would have been rather difficult to do an end colostomy. For this reason, I went ahead and did a primary anastomosis using one firing of the 29 mm EEA stapler after placement of the anvil into the proximal descending colon ( recent the staple line to pathology for permanent sections) and then placing the stapler through the anus and deploying the pin under direct visualization, attaching the anvil directly and then firing the stapler per protocol. All of this went very well and there was no technical difficulties with firing of the stapler. We then checked the anastomosis and make sure that it was pneumostatic. I checked the proximal and distal donuts. The proximal do not appear to have a defect in it. The distal donut was intact. We had checked the anastomosis using air within the rectum. There was no extravasation of air with pelvis underwater. We were also going to do a diverting loop ileostomy. For this reason, I did not disturb the anastomosis anymore. At this point we focused our attention in doing a complete abdominal lavage, we should be accomplished using approximately 4 L of normal saline. We suctioned the excess irrigant off to clear irrigation. We next paid attention to performance of the diverting loop ileostomy. This proved to be more challenging than usual given the amount of inflammation in the terminal ileum. Please note that I had considered possible diagnosis of inflammatory bowel disease in the form of Crohn's. However, patient did not have any history of Crohn's disease in the past and the bowel itself appeared to be viable without evidence of gangrene or other major pathology. The only significant finding was the inflammation of the intestine itself in the mesentery which was more reminiscent of previous abscess or infection in the area of the cecum. Patient had an appendectomy in the past which was done in open fashion and I surmised that there were complications during and after that operation. I was able to eventually find a loop of bowel in the terminal ileum that I was hopeful we could reach through a defect that was created on the left paramedian infraumbilical region in the standard fashion removing the skin using curved scissors and a [place] device and then using a cylinder of fat from the abdominal wall while holding tension on the abdominal fascia towards midline. We created a defect in the anterior rectus sheath and then did a muscle-splitting maneuver prior to creating a defect in the posterior sheath to the level where we could put 3 fingers through. After careful manipulation, we were able to get the loop of the terminal ileum up to the surface without it being under undue tension and without it being retracting by itself. At this point, we closed the midline fascia using interrupted #1 PDS suture, washed the wounds with copious amounts normal saline and reapproximated the skin using a skin stapler. We then matured the loop diverting ileostomy in the usual fashion utilizing 3-0 Vicryl suture to suture the edges of the ileostomy onto the skin. We then fashioned a colostomy bag over this area. Light dressing was then applied. At the end of the operation, both the sponge count and needle count were reportedly correct x2. The patient tolerated the procedure without any reported complications. Please note that this operation qualifies for modifier 22 given the degree of difficulty of the case as well as the complexity decision making. ESTIMATED BLOOD LOSS: 200 mL BLOOD OR BLOOD PRODUCT TRANSFUSIONS: None to my knowledge. SPECIMENS: 1. Sigmoid colon. 2. Proximal staple line of the descending colon. 3. Proximal and distal donuts from the EEA stapler. COMPLICATIONS: None. DISPOSITION: The patient is to return to the recovery area from where he will be admitted to the hospital for further care. Disclaimer: Inadvertent spelling and grammatical errors are likely due to EHR/ dictation software use and do not reflect on the quality of delivered patient care. Also, please note that the electronic time recorded on this node does not necessarily reflect the actual time of the visit. WILMA THORNTON M.D. Jan 29, 2017 05:57
[2017-01-29] MEDS ORDERED: MEPERIDINE 25 MG INJ ONE (06:05)
[2017-01-29] MEDS ORDERED: morphine (1 MG/ML) 10ML SYRINGE IV ONE (06:05)
[2017-01-29] MEDS ORDERED: METOCLOPRAMIDE 10 MG INJ ONE (06:06)
[2017-01-29] MEDS: morphine (1 MG/ML) 10ML SYRINGE IV PRN ×3 (06:13→07:14)
[2017-01-29] MEDS: FENTAnyl 50 MCG/ML VIAL IV PRN ×3 (06:33→07:14)
[2017-01-29] MEDS: PIPER-TAZO 3.375 GM IV (PMX) 100 ML IVPB SCH ×5 (06:56→23:15)
[2017-01-29] MEDS ORDERED: ALBUMIN HUMAN 5% 250 ML IV ONE (07:00)
[2017-01-29] MEDS ORDERED: LABETALOL HCL 20MG INJ IV PRN (07:00)
[2017-01-29] MEDS ORDERED: SOD CHLORIDE 0.9% 2,000 ML IV STA (07:27)
[2017-01-29] MEDS: D5W-0.45 NACL + KCL 20 MEQ 1,000 ML IV SCH ×2 (07:59→15:10)
[2017-01-29] MEDS: ACETAMINOPHEN 1000MG/100ML IV 100 ML IVPB PRN (08:06)
[2017-01-29] MEDS: VANCOMYCIN HCL 250 MG/5ML POSYG PO SCH ×5 (08:26→23:15)
[2017-01-29] MEDS: FAMOTIDINE 20 MG INJ IV SCH ×2 (08:53→09:00)
[2017-01-29] MEDS ORDERED: VANCOMYCIN 1.5 GM in SOD CHLORIDE 0.9% 250 ML IVPB SCH (09:00)
[2017-01-29] MEDS ORDERED: SOD CHLORIDE 0.9% 1,000 ML IV ONE ×2 (09:00→20:00)
[2017-01-29] MEDS ORDERED: ENOXAPARIN 40 MG/0.4 ML SYG SC SCH (09:00)
[2017-01-29 09:09] LABS: HEMATOCRIT 37.9 % (42.0-52.0); HEMOGLOBIN 12.4 g/dl (14.0-18.0); MEAN CORPUSCULAR HEMOGLOBIN 29.1 pg (29.0-33.0); MEAN CORPUSCULAR HGB CONC 32.7 g/dl (32.0-37.0); MEAN PLATELET VOLUME 9.2 fl (7.4-10.4); PLATELET COUNT 263 10^3/UL (140-415); POSITIVE DIFF @See below; RED BLOOD COUNT 4.26 10^6/ul (4.70-6.10); RED CELL DISTRIBUTION WIDTH 14.2 % (11.5-14.5); WHITE BLOOD COUNT 13.9 10^3/ul (4.8-10.8)
[2017-01-29] MEDS: HYDROmorphONE 1 MG/ML SYG IV PRN ×5 (09:32→23:16)
[2017-01-29 09:34] LABS: INR 1.33; MAGNESIUM 1.4 mg/dl (1.7-2.5); PHOSPHORUS 5.8 mg/dl (2.5-4.9); PROTIME 16.6 Sec (12.2-14.2); PT RATIO 1.3
[2017-01-29 09:35] LABS: CALCIUM 6.1 mg/dl (8.4-10.2); CREATININE 1.52 mg/dl (0.61-1.24); PARTIAL THROMBOPLASTIN TIME 35.3 Sec (25.0-35.0); POTASSIUM 4.2 mmol/L (3.5-5.1)
[2017-01-29 09:42] LABS: MONOCYTES % (M) 7 % (0-11); PLASMA CELLS #M 0.1 10^3/ul (0.0-0.0); PLASMAC%(M) 1 % (0); PLATELET ESTIMATE NORMAL; POIKILOCYTOSIS 2+ (0-0); POLYCHROMASIA 1+ (0-0)
--- NOTE | 2017-01-29 11:42 | PN ---
Date/Time of Note Date/Time of Note DATE: 01/29/17 TIME: 11:35 Assessment/Plan VTE Prophylaxis VTE Prophylaxis Intervention: SCD's Lines/Catheters IV [facility] Urinary Cath still in place: Yes Reason Cath still needed: other (indicate) Assessment/Plan Chief Complaint/Hosp Course 1. Perforated sigmoid colon with inflamed terminal ileum and cecum. Status post laparoscopic converted to open sigmoid colectomy with primary anastomosis and diverting loop ileostomy on 01/29/2017. Continue postoperative care. Diet as per surgery. 2. Sinus tachycardia. Etiology could be most probably secondary to underlying dehydration. Continue IV hydration. Continue telemetry monitoring. 3. Urinary tract infection. Continue antibiotics. 4. Sepsis secondary to underlying diverticulitis and urinary tract infection. No evidence of any septic shock. Continue antimicrobials as per infectious diseases. 5. Acute kidney injury. Most probably secondary to dehydration. Continue IV hydration. 6. Fluids, electrolytes, and nutrition. Continue IV fluids. On sips of water. Advancement of diet as per surgery. 7. DVT prophylaxis. B/L SCDs. 8. Plan. Continue antimicrobials. Continue pain control. Encourage frequent use of incentive spirometry. Encourage early ambulation. Replete magnesium. Case discussed with . Problems: Subjective 24 Hr Interval Summary Free Text/Dictation Patient is status post open sigmoid colectomy earlier this morning. Remains tachycardic. Pain fairly well controlled. Exam/Review of Systems Vital Signs Vitals Vital Signs Date Time Temp Pulse Resp B/P Pulse Ox O2 Delivery O2 Flow Rate FiO2 01/29/17 10:20 98.7 122 20 99/66 95 01/29/17 09:43 Nasal Cannula 2.0 Intake and Output 01/28/17 01/28/17 01/29/17 14:59 22:59 06:59 Intake Total 200 ml 1352 ml 1700 ml Output Total 0 ml Balance 200 ml 1352 ml 1700 ml Exam General: Adequately build 41 year-old male lying in bed in no apparent distress. HEENT: Normocephalic, atraumatic. Eyes: Anicteric sclerae, conjunctivae clear. ENT: Nasal septum midline, oral mucosa moist. Neck supple, no JVD noticed. Respiratory: Bilaterally clear breath sounds. No use of accessory muscles of respiration. No adventitious breath sounds. Cardiovascular: S1, S2 heard. No murmurs or gallops. Abdomen: Surgical dressing. Left-sided ileostomy. Genitourinary: Deferred. Extremities: No cyanosis, no clubbing, no edema. Peripheral pulses palpable. Neurologic: Cranial nerves II through XII grossly intact. The patient is awake, alert, and oriented. Skin: Normal skin turgor. No skin rashes. Results Result Diagram: 01/29/17 0855 01/29/17 0855 Results 24 hrs Laboratory Tests Test 01/29/17 08:55 White Blood Count 13.9 #H Red Blood Count 4.26 L Hemoglobin 12.4 L Hematocrit 37.9 L Mean Corpuscular Volume 89.0 Mean Corpuscular Hemoglobin 29.1 Mean Corpuscular Hemoglobin Concent 32.7 Red Cell Distribution Width 14.2 Platelet Count 263 # Mean Platelet Volume 9.2 Neutrophils % Segmented Neutrophils % (Manual) 77 Band Neutrophils % (Manual) 11 H Lymphocytes % Lymphocytes % (Manual) 4 L Monocytes % Monocytes % (Manual) 7 Eosinophils % Basophils % Plasma Cells % (manual) 1 Nucleated Red Blood Cells % 0.0 Neutrophils # Neutrophils # (Manual) 10.9 H Band Neutrophils # 1.5 H Absolute Lymphocytes (Manual) 0.5 L Lymphocytes # Monocytes # Absolute Monocytes (Manual) 0.9 Eosinophils # Basophils # Plasma Cells # (manual) 0.1 H Nucleated Red Blood Cells # Platelet Estimate NORMAL Polychromasia 1+ Poikilocytosis 2+ Prothrombin Time 16.6 #H Prothrombin Time Ratio 1.3 INR International Normalized Ratio 1.33 Activated Partial Thromboplast Time 35.3 H Sodium Level 143 Potassium Level 4.2 Chloride Level 111 H Carbon Dioxide Level 16 L Anion Gap 20 H Blood Urea Nitrogen 15 Creatinine 1.52 H Glucose Level 131 # Lactic Acid Level 1.1 Calcium Level 6.1 L Phosphorus Level 5.8 #H Magnesium Level 1.4 L Medications Medications Current Medications Sodium Chloride (NS) 1,000 ml @ 100 mls/hr Q10H IV Last administered on 18:03; Admin Dose 100 MLS/HR; Start 01/24/17 at 13:30 Ondansetron HCl (Zofran Inj) 4 mg Q6H PRN IV NAUSEA AND/OR VOMITING Last administered on 01/25/17 15:22; Admin Dose 4 MG; Start 01/24/17 at 13:30 Acetaminophen (Tylenol Supp) 650 mg Q6H PRN VT PAIN LEVEL 1-3 OR FEVER Last administered on 01/28/17 00:22; Admin Dose 650 MG; Start 01/24/17 at 13:30 Docusate Sodium (Colace) 100 mg Q12H PRN PO CONSTIPATION; Start 01/24/17 at 13: 30 Magnesium Hydroxide (Milk Of Mag) 30 ml DAILY PRN PO CONSTIPATION; Start at 13:30 Bisacodyl 10 mg 10 mg DAILY PRN [place] CONSTIPATION; Start 01/24/17 at 13:30 Piperacillin Sod/ Tazobactam Sod 100 ml @ 200 mls/hr Q6 IVPB Last administered on 01/29/17 06:56; Admin Dose 200 MLS/HR; Start 01/24/17 at 18:00 Acetaminophen (Ofirmev 1000mg/ 100ml Iv) 100 ml @ 400 mls/hr Q6H PRN IVPB fever Last administered on 01/29/17 08:06; Admin Dose 400 MLS/HR; Start 01/24/17 at 16:00 Morphine Sulfate (morphine) 4 mg Q4H PRN IV PAIN Last administered on 01/28/17 13:49; Admin Dose 4 MG; Start 01/27/17 at 02:30 Ketorolac Tromethamine (Toradol) 30 mg Q6H PRN IV PAIN Last administered on 01/27 20:03; Admin Dose 30 MG; Start 01/27/17 at 08:00; Stop 01/30/17 at 07:59 Vancomycin HCl (Vancomycin Oral Syringe) 250 mg Q6 PO Last administered on 08:26; Admin Dose 250 MG; Start 01/27/17 at 22:00 Acetaminophen/ Butalbital/ Caffeine 1 tab 1 tab Q4H PRN PO Headache; Start 01/28 at 10:00 Amikacin Sulfate 500 mg/Sodium Chloride 102 ml @ 102 mls/hr Q24H IVPB Last administered on 01/28/17 19:56; Admin Dose 102 MLS/HR; Start 01/28/17 at 18:00; Stop 01/31/17 at 17:59 Vancomycin HCl 1.5 gm/Sodium Chloride 250 ml @ 83.333 mls/ hr Q12H IVPB Last administered on 01/29/17 08:54; Admin Dose 83.333 MLS/HR; Start 01/29/17 at 09:00 Potassium Chloride/Dextrose/ Sod Cl (D5-1/2ns + KCl 20 Meq) 1,000 ml @ 100 mls/ hr Q10H IV Last administered on 01/29/17 07:59; Admin Dose 100 MLS/HR; Start at 05:23 Acetaminophen/ Hydrocodone Bitart ([place] (5/325)) 1 tab Q4H PRN PO PAIN LEVEL 4 -7; Start 01/29/17 at 05:30 Acetaminophen/ Hydrocodone Bitart ([place] (5/325)) 2 tab Q4H PRN PO PAIN LEVEL 7 -10; Start 01/29/17 at 05:30 Hydromorphone HCl (Dilaudid) 0.5 mg Q2 PRN IV PAIN; Start 01/29/17 at 05:30 Hydromorphone HCl (Dilaudid) 1 mg Q2 PRN IV PAIN Last administered on 01/29/17 11:30; Admin Dose 1 MG; Start 01/29/17 at 05:30 Docusate Sodium (Colace) 100 mg BID PRN PO CONSTIPATION; Start 01/29/17 at 05:30 Famotidine (Pepcid Iv) 20 mg DAILY IV ; Start 01/29/17 at 09:00 Enoxaparin Sodium (Lovenox) 40 mg DAILY SC Last administered on 01/29/17 08:55 ; Admin Dose 40 MG; Start 01/29/17 at 09:00 Miscellaneous Information (*Rx Drug Level Order Reminder*) VANCOMYCIN TROUGH AT 0800 ONCE ONCE XX ; Start 01/30/17 at 08:00; Stop 01/30/17 at 08:01 VICKI JOAQUIN NP Jan 29, 2017 11:42
[2017-01-29] MEDS ORDERED: SOD CHLORIDE 0.9% 500 ML IV ONE (12:00)
[2017-01-29] MEDS ORDERED: MAGNESIUM SULFATE 3 GM in SOD CHLORIDE 0.9% 100 ML IVPB ONE (12:00)
[2017-01-29 14:20] LABS: ALBUMIN 2.5 g/dl (3.3-4.9); ALBUMIN/GLOBULIN RATIO 0.86; BILIRUBIN,DIRECT 0.7 mg/dl (0.00-0.20); BILIRUBIN,INDIRECT 0.3 mg/dl (0-1.1); CALCIUM 6.4 mg/dl (8.4-10.2); CREATININE 2.06 mg/dl (0.61-1.24); POTASSIUM 4.7 mmol/L (3.5-5.1); TOTAL PROTEIN 5.4 g/dl (6.1-8.1)
--- NOTE | 2017-01-29 18:18 | CONS ---
Date/Time of Note Date/Time of Note DATE: 01/29/17 TIME: 18:08 Assessment/Plan Assessment/Plan Chief Complaint/Hosp Course ID PROGRESS NOTE CURRENT ABX: DAY #6 => Zosyn + Vanco IV #2 + Amikacin IV #2 24H INTERVAL SUMMARY POD#0=> INDICATION: PerF sig-colon/inflamed terminal ileum/cecum URGENT OPERATION=> Lap->open sigmoid colectomy w/primary anastomosis/diverting loop ileostomy on 01/29/2017. * Doing OK post-op, resting comfortable w/pain meds * Last night I added Vanco IV + Gent due to recurrent fevers persisting => TMax 102.+ -- WBC stable 11.3 * Today -- he is s/p urgent perf viscous repair * ABX associated diarrhea w/(-)C.Diff * MICRO: 01/24 BCx(-); 01/24 Urine (+) URINE CULTURE Final Organism 1 ESCHERICHIA COLI COLONY COUNT 70,000 - 80,000 CFU/ml E COLI M.I.C. RX --------- --- AMPICILLIN >=32 R CEFAZOLIN S CEFOTAXIME S CIPROFLOXACIN >=4 R GENTAMICIN <=1 S LEVOFLOXACIN >=8 R NITROFURANTOIN <=16 S TOBRAMYCIN <=1 S TRIMETHOPRIM/SULFAMETHOXAZOLE <=20 S Physical examination: GEN: Obese M HEENT: Unremarkable CHEST: Equal chest rise bilaterally without dyspnea on observation CV: Radial pulse RRR ABD: Soft, nontender : Deferred EXT: Warm, SKIN: No rash, no diaphoresis ID ASSESSMENT 41 yo obese M admit with: POD#0=> INDICATION: 01/29/17 Perforated sig-colon/inflamed terminal ileum/cecum 01/29/17 URGENT OP=> Lap->open sigmoid colectomy w/primary anastomosis/diverting loop ileostomy 1. Sepsis on admission w/fever 102.0, tachycardia, lower than norm B/P, leukocytosis => due to UTI + #2 * 01/24 BCx(-) 2. Acute sigmoid diverticulitis w/multiple tiny pockets of extraluminal gas suggesting microperforation. No drainable peridiverticular abscess. * Developed perforation 01/29/17 3. GNR E.Coli UTI 01/24 => Resistant to Quinolones 4. Hepatomegaly with fatty infiltration. 6. Diarrhea => ABX associated w/(-)C.Diff toxin CURRENT ABX: DAY #6 => Zosyn + Vanco IV #2 + Amikacin IV #2 ID RECOMMENDATIONS 1. Continue current ABX 2. Await intra-op cultures if sent / . Problems: Consultation Date/Type/Reason Admit Date/Time Jan 24, 2017 at 09:50 Initial Consult Date 01/26/17 Type of Consultation: ID Exam/Review of Systems Vital Signs Vitals Vital Signs Date Time Temp Pulse Resp B/P Pulse Ox O2 Delivery O2 Flow Rate FiO2 01/29/17 17:04 130 01/29/17 16:00 98.8 20 117/73 97 01/29/17 09:43 Nasal Cannula 2.0 Intake and Output 01/28/17 01/28/17 01/29/17 15:00 23:00 07:00 Intake Total 200 ml 1352 ml 1700 ml Output Total 0 ml Balance 200 ml 1352 ml 1700 ml Results Result Diagram: 01/29/17 0855 01/29/17 1336 Results 24 hrs Laboratory Tests Test 01/29/17 08:55 01/29/17 13:36 White Blood Count 13.9 #H Red Blood Count 4.26 L Hemoglobin 12.4 L Hematocrit 37.9 L Mean Corpuscular Volume 89.0 Mean Corpuscular Hemoglobin 29.1 Mean Corpuscular Hemoglobin Concent 32.7 Red Cell Distribution Width 14.2 Platelet Count 263 # Mean Platelet Volume 9.2 Neutrophils % Segmented Neutrophils % (Manual) 77 Band Neutrophils % (Manual) 11 H Lymphocytes % Lymphocytes % (Manual) 4 L Monocytes % Monocytes % (Manual) 7 Eosinophils % Basophils % Plasma Cells % (manual) 1 Nucleated Red Blood Cells % 0.0 Neutrophils # Neutrophils # (Manual) 10.9 H Band Neutrophils # 1.5 H Absolute Lymphocytes (Manual) 0.5 L Lymphocytes # Monocytes # Absolute Monocytes (Manual) 0.9 Eosinophils # Basophils # Plasma Cells # (manual) 0.1 H Nucleated Red Blood Cells # Platelet Estimate NORMAL Polychromasia 1+ Poikilocytosis 2+ Prothrombin Time 16.6 #H Prothrombin Time Ratio 1.3 INR International Normalized Ratio 1.33 Activated Partial Thromboplast Time 35.3 H Sodium Level 143 140 Potassium Level 4.2 4.7 Chloride Level 111 H 107 Carbon Dioxide Level 16 L 18 L Anion Gap 20 H 20 H Blood Urea Nitrogen 15 17 Creatinine 1.52 H 2.06 H Glucose Level 131 # 179 Lactic Acid Level 1.1 Calcium Level 6.1 L 6.4 L Phosphorus Level 5.8 #H Magnesium Level 1.4 L Total Bilirubin 1.0 Direct Bilirubin 0.70 H Indirect Bilirubin 0.3 Aspartate Amino Transf (AST/SGOT) 32 Alanine Aminotransferase (ALT/SGPT) 31 Alkaline Phosphatase 48 Total Protein 5.4 L Albumin 2.5 L Globulin 2.90 Albumin/Globulin Ratio 0.86 Medications Medications Current Medications Ondansetron HCl (Zofran Inj) 4 mg Q6H PRN IV NAUSEA AND/OR VOMITING Last administered on 01/25/17 15:22; Admin Dose 4 MG; Start 01/24/17 at 13:30 Acetaminophen (Tylenol Supp) 650 mg Q6H PRN [place] PAIN LEVEL 1-3 OR FEVER Last administered on 01/28/17 00:22; Admin Dose 650 MG; Start 01/24/17 at 13:30 Docusate Sodium (Colace) 100 mg Q12H PRN PO CONSTIPATION; Start 01/24/17 at 13: 30 Magnesium Hydroxide (Milk Of Mag) 30 ml DAILY PRN PO CONSTIPATION; Start at 13:30 Bisacodyl 10 mg 10 mg DAILY PRN [place] CONSTIPATION; Start 01/24/17 at 13:30 Piperacillin Sod/ Tazobactam Sod 100 ml @ 200 mls/hr Q6 IVPB Last administered on 01/29/17 11:51; Admin Dose 200 MLS/HR; Start 01/24/17 at 18:00 Acetaminophen (Ofirmev 1000mg/ 100ml Iv) 100 ml @ 400 mls/hr Q6H PRN IVPB fever Last administered on 01/29/17 08:06; Admin Dose 400 MLS/HR; Start 01/24/17 at 16:00 Morphine Sulfate (morphine) 4 mg Q4H PRN IV PAIN Last administered on 01/28/17 13:49; Admin Dose 4 MG; Start 01/27/17 at 02:30 Ketorolac Tromethamine (Toradol) 30 mg Q6H PRN IV PAIN Last administered on 01/27 20:03; Admin Dose 30 MG; Start 01/27/17 at 08:00; Stop 01/30/17 at 07:59 Vancomycin HCl (Vancomycin Oral Syringe) 250 mg Q6 PO Last administered on 12:22; Admin Dose 250 MG; Start 01/27/17 at 22:00 Acetaminophen/ Butalbital/ Caffeine 1 tab 1 tab Q4H PRN PO Headache; Start 01/28 at 10:00 Amikacin Sulfate 500 mg/Sodium Chloride 102 ml @ 102 mls/hr Q24H IVPB Last administered on 01/28/17 19:56; Admin Dose 102 MLS/HR; Start 01/28/17 at 18:00; Stop 01/31/17 at 17:59 Potassium Chloride/Dextrose/ Sod Cl (D5-1/2ns + KCl 20 Meq) 1,000 ml @ 100 mls/ hr Q10H IV Last administered on 01/29/17 15:10; Admin Dose 100 MLS/HR; Start at 05:23 Acetaminophen/ Hydrocodone Bitart ([place] (5/325)) 1 tab Q4H PRN PO PAIN LEVEL 4 -7; Start 01/29/17 at 05:30 Acetaminophen/ Hydrocodone Bitart ([place] (5/325)) 2 tab Q4H PRN PO PAIN LEVEL 7 -10; Start 01/29/17 at 05:30 Hydromorphone HCl (Dilaudid) 0.5 mg Q2 PRN IV PAIN; Start 01/29/17 at 05:30 Hydromorphone HCl (Dilaudid) 1 mg Q2 PRN IV PAIN Last administered on 01/29/17 15:11; Admin Dose 1 MG; Start 01/29/17 at 05:30 Docusate Sodium (Colace) 100 mg BID PRN PO CONSTIPATION; Start 01/29/17 at 05:30 Famotidine (Pepcid Iv) 20 mg DAILY IV ; Start 01/29/17 at 09:00 Enoxaparin Sodium (Lovenox) 40 mg DAILY SC Last administered on 01/29/17 08:55 ; Admin Dose 40 MG; Start 01/29/17 at 09:00 Miscellaneous Information (*Rx Drug Level Order Reminder*) RANDOM VANCOMYCIN LEVEL 8... ONCE ONCE XX ; Start 01/30/17 at 05:00; Stop 01/30/17 at 05:01 SACHA ALAMO NP Jan 29, 2017 18:18
[2017-01-29] MEDS: AMIKACIN 500 MG in SOD CHLORIDE 0.9% 100 ML IVPB SCH (18:53)
--- NOTE | 2017-01-29 20:15 | PN ---
Date/Time of Note Date/Time of Note DATE: 01/29/17 TIME: 20:07 Assessment/Plan Lines/Catheters IV Catheter Type (from Nrsg): Saline Lock Shah in Place (from Nrsg): Yes Assessment/Plan Assessment/Plan [facility] Progress Note Date of Service: 01/29/17 Today's Impression & Plan: Overall has remained seemingly stable. Pain control seems adequate for now. At risk for complications including abscess formation, further leak, infection, etc. No indication for acute surgical intervention. With above assessment, I've recommended the following for today: 1. Cont current cares 2. Cont broad spec antimicrobials 3. Keep NPO; NG if sig nausea or vomiting 4. Labs in am 5. Increase activity 6. Increase ICS Nature of presenting problem: High risk Complexity of decision making: high complexity Thank you again for your great care of this very pleasant patient and wonderful family. If there are any questions, please feel free to call me at [phone]. Disclaimer: Inadvertent spelling or grammatical errors are likely due to EHR/ dictation software use and do not reflect on the overall quality of patient care. Updated Clinical Summary: A very-pleasant 41-year-old gentleman with comorbidity of BMI 37.1 and previous history of diverticulitis, being admitted for recurrent diverticulitis with microperforation but no obvious evidence of abscess or other indication for intervention including no indication for surgical intervention. S/p emergency sigmoid colectomy, mobilization of splenic flexure, primary anastomosis and diverting loop ileostomy, lysis of adhesions and lavage 01/29/17. Comorbidities: 1. BMI 37.1 2. History of diverticulitis in the past as well as diagnosis of diverticulosis 3. Chronic constipation 4. S/p emergency sigmoid colectomy, mobilization of splenic flexure, primary anastomosis and diverting loop ileostomy, lysis of adhesions and lavage 01/29/17 Subjective: No major events or complaints since the operation earlier this am; mild incisional abd pain and under control with medications; no n/v/d; no sob or cp; - flatus; - BM; - activity; being visited with several family members. Objective: Vitals: See below Exam: GENERAL: On exam, the patient was laying in bed and appeared to be comfortable and in no acute distress. ABDOMEN: Soft, minimal incisional tenderness, and mildly distended. Surgical drain ss. Ostomy pink and viable. Minimal output in the bag. There are no peritoneal signs or guarding. SKIN: Skin appears to be pink and feels warm to touch. NEUROLOGIC: Patient is awake, alert, and follows commands appropriately. Exam/Review of Systems Vital Signs Vitals Vital Signs Date Time Temp Pulse Resp B/P Pulse Ox O2 Delivery O2 Flow Rate FiO2 01/29/17 17:04 130 01/29/17 16:00 98.8 20 117/73 97 01/29/17 09:43 Nasal Cannula 2.0 Intake and Output 01/28/17 01/28/17 01/29/17 15:00 23:00 07:00 Intake Total 200 ml 1352 ml 1700 ml Output Total 0 ml Balance 200 ml 1352 ml 1700 ml Results Result Diagram: 01/29/17 0855 01/29/17 1336 WILMA THORNTON M.D. Jan 29, 2017 20:15
[2017-01-30] VITALS (12 sets, daily range): BP systolic 125–131; BP diastolic 68–77; PULSE 106–120; RESP 16–19
[2017-01-30] MEDS ORDERED: SOD CHLORIDE 0.9% 1,000 ML IV ONE ×3 (00:30→04:00)
[2017-01-30] MEDS: D5W-0.45 NACL + KCL 20 MEQ 1,000 ML IV SCH (02:18)
[2017-01-30] MEDS: HYDROmorphONE 1 MG/ML SYG IV PRN ×3 (04:05→20:21)
[2017-01-30] MEDS: PIPER-TAZO 3.375 GM IV (PMX) 100 ML IVPB SCH (05:37)
[2017-01-30] MEDS: VANCOMYCIN HCL 250 MG/5ML POSYG PO SCH ×3 (05:37→17:26)
[2017-01-30 05:46] LABS: BASOPHILS % 0.2 % (0.0-2.0); EOSINOPHILS % 0.1 % (0.0-7.0); HEMATOCRIT 33.3 % (42.0-52.0); HEMOGLOBIN 10.8 g/dl (14.0-18.0); LYMPHOCYTES # 1.3 10^3/ul (0.8-2.9); LYMPHOCYTES % 8.7 % (15.0-51.0); MEAN CORPUSCULAR HGB CONC 32.4 g/dl (32.0-37.0); MEAN CORPUSCULAR VOLUME 89.3 fl (82.0-101.0); MEAN PLATELET VOLUME 9.4 fl (7.4-10.4); MONOCYTE # 1.3 10^3/ul (0.3-0.9); MONOCYTES % 9.2 % (0.0-11.0); NEUTROPHIL # 11.7 10^3/ul (1.6-7.5); NEUTROPHILS % 80.3 % (39.0-77.0); PLATELET COUNT 302 10^3/UL (140-415); RED BLOOD COUNT 3.73 10^6/ul (4.70-6.10); RED CELL DISTRIBUTION WIDTH 14.7 % (11.5-14.5); WHITE BLOOD COUNT 14.5 10^3/ul (4.8-10.8)
[2017-01-30 05:57] LABS: INR 1.24; PROTIME 15.7 Sec (12.2-14.2); PT RATIO 1.2
[2017-01-30 06:04] LABS: ALBUMIN 2.2 g/dl (3.3-4.9); ALBUMIN/GLOBULIN RATIO 0.73; BILIRUBIN,DIRECT 0.3 mg/dl (0.00-0.20); BILIRUBIN,INDIRECT 0.2 mg/dl (0-1.1); BILIRUBIN,TOTAL 0.5 mg/dl (0.2-1.3); CREATININE 3.76 mg/dl (0.61-1.24); POTASSIUM 4.9 mmol/L (3.5-5.1); TOTAL PROTEIN 5.2 g/dl (6.1-8.1)
[2017-01-30 07:31] LABS: PHOSPHORUS 4.4 mg/dl (2.5-4.9)
--- NOTE | 2017-01-30 08:52 | CONS ---
Date/Time of Note Date/Time of Note DATE: 01/30/17 TIME: 08:52 Assessment/Plan Assessment/Plan Additional Assessment/Plan 1. Acute Kidney Injury Non Oliguic, Multifactorial due to ATN + Prerenal azotemia + Nephrotoxicity from medication in low volume status 2. Recurrent diverticultiis with Microperforation s/p emergency sigmoid colectomy, mobilization of splenic flexure, primary anastomosis and diverting loop ileostomy, lysis of adhesions and lavage 01/29/17. 3. Normochloremic metabolic acidosis from ATN Plan: Thanks for consultation Pt likes has ATN + prerenal azotemia + nephrotoxicity I decreased dose of zosyn to 2.25 Q 8 hr Renally dose all abx IVF D5 1/2 NS rate decreased to 75 to avoid fluid overload in setting of ATN No NSAIDS/Ibuprofen/Motrin for pain/Fever control Monitor Voluem status, keep pt euvolemic Thanks for consultatio, I had a Very extensive discussion with family and other members of family, Explained about RODNEY, and communicated with family. Total time spent is more than 60 minutes, Consultation Date/Type/Reason Admit Date/Time Jan 24, 2017 at 09:50 Date of Consultation: Jan 30, 2017 Type of Consultation: NEPHROLOGY Reason for Consultation acute kidney injury Referring Provider: HAIDER BURR Hx of Present Illness 41-year-old gentleman with comorbidity of BMI 37.1 and previous history of diverticulitis, being admitted for recurrent diverticulitis with microperforation but no obvious evidence of abscess or other indication for intervention including no indication for surgical intervention. S/p emergency sigmoid colectomy, mobilization of splenic flexure, primary anastomosis and diverting loop ileostomy, lysis of adhesions and lavage 01/29/17. patient presented with normal creatinine on admission, His cr was normal until 01/28 then bumped to 3.76. Pt has been treated wtih IV abx Zosyn and vancomycin since admission. Renal has been consulted for RODNEY Eyes: no complaints Respiratory: no complaints Cardiovascular: no complaints Gastrointestinal: decreased appetite, nausea, pain, passing stool Genitourinary: no complaints Musculoskeletal: back pain, no complaints Skin: no complaints Neurologic: no complaints Endocrine: no complaints Lymphatic: no complaints Psychological: nl mood/affect Immunologic: no complaints Past Medical History Medical History: other (Diverticulosis ) Past Surgical History Past Surgical Hx: appendectomy Family History Significant Family History: no pertinent family hx Social History Alcohol Use: none Smoking Status: Former smoker Drug Use: none Exam/Review of Systems Vital Signs Vitals Vital Signs Date Time Temp Pulse Resp B/P Pulse Ox O2 Delivery O2 Flow Rate FiO2 01/30/17 08:30 113 01/30/17 07:43 98.4 18 129/76 96 01/29/17 23:00 Nasal Cannula 2.0 Intake and Output 01/29/17 01/29/17 01/30/17 15:00 23:00 07:00 Intake Total 410 ml 450 ml 6600 ml Output Total 90 ml 350 ml Balance 320 ml 100 ml 6600 ml Exam Constitutional: alert, oriented, well developed Psych: no complaints Head: normocephalic Eyes: nl conjunctiva ENMT: nl external ears & nose Neck: supple Respiratory: clear to auscultation, diminished breath sounds Cardiovascular: nl pulses, regular rate and rhythm Gastrointestinal: non-tender, other (Left diverting ileostomy ), soft Genitourinary - Male: other (Deferred) Musculoskeletal: nl extremities to inspection Extremities: normal pulses Neurological: [employer] II-XII intact, nl mental status, nl speech, nl strength Skin: nl turgor, rash or lesions Lymph: nl lymph nodes Results Result Diagram: 01/30/1715 01/30/1714 Results 24 hrs Laboratory Tests Test 01/29/17 08:55 01/29/17 13:36 01/30/17 05:14 01/30/17 05:15 White Blood Count 13.9 #H 14.5 H Red Blood Count 4.26 L 3.73 L Hemoglobin 12.4 L 10.8 L Hematocrit 37.9 L 33.3 L Mean Corpuscular Volume 89.0 89.3 Mean Corpuscular Hemoglobin 29.1 29.0 Mean Corpuscular Hemoglobin Concent 32.7 32.4 Red Cell Distribution Width 14.2 14.7 H Platelet Count 263 # 302 Mean Platelet Volume 9.2 9.4 Neutrophils % 80.3 H Segmented Neutrophils % (Manual) 77 Band Neutrophils % (Manual) 11 H Lymphocytes % 8.7 L Lymphocytes % (Manual) 4 L Monocytes % 9.2 Monocytes % (Manual) 7 Eosinophils % 0.1 Basophils % 0.2 Plasma Cells % (manual) 1 Nucleated Red Blood Cells % 0.0 0.0 Neutrophils # 11.7 H Neutrophils # (Manual) 10.9 H Band Neutrophils # 1.5 H Absolute Lymphocytes (Manual) 0.5 L Lymphocytes # 1.3 Monocytes # 1.3 H Absolute Monocytes (Manual) 0.9 Eosinophils # 0.0 Basophils # 0.0 Plasma Cells # (manual) 0.1 H Nucleated Red Blood Cells # 0.0 Platelet Estimate NORMAL Polychromasia 1+ Poikilocytosis 2+ Prothrombin Time 16.6 #H 15.7 H Prothrombin Time Ratio 1.3 1.2 INR International Normalized Ratio 1.33 1.24 Activated Partial Thromboplast Time 35.3 H 36.0 H Sodium Level 143 140 140 Potassium Level 4.2 4.7 4.9 Chloride Level 111 H 107 108 Carbon Dioxide Level 16 L 18 L 18 L Anion Gap 20 H 20 H 19 H Blood Urea Nitrogen 15 17 22 H Creatinine 1.52 H 2.06 H 3.76 #H Glucose Level 131 # 179 145 Lactic Acid Level 1.1 0.9 Calcium Level 6.1 L 6.4 L 6.0 L Phosphorus Level 5.8 #H 4.4 Magnesium Level 1.4 L 2.0 Total Bilirubin 1.0 0.5 Direct Bilirubin 0.70 H 0.30 #H Indirect Bilirubin 0.3 0.2 Aspartate Amino Transf (AST/SGOT) 32 41 Alanine Aminotransferase (ALT/SGPT) 31 34 Alkaline Phosphatase 48 42 Total Protein 5.4 L 5.2 L Albumin 2.5 L 2.2 L Globulin 2.90 3.00 Albumin/Globulin Ratio 0.86 0.73 B-Type Natriuretic Peptide 219 H Random Vancomycin Level 21.1 Medications Medications Current Medications Ondansetron HCl (Zofran Inj) 4 mg Q6H PRN IV NAUSEA AND/OR VOMITING Last administered on 01/25/17 15:22; Admin Dose 4 MG; Start 01/24/17 at 13:30 Acetaminophen (Tylenol Supp) 650 mg Q6H PRN [place] PAIN LEVEL 1-3 OR FEVER Last administered on 01/28/17 00:22; Admin Dose 650 MG; Start 01/24/17 at 13:30 Docusate Sodium (Colace) 100 mg Q12H PRN PO CONSTIPATION; Start 01/24/17 at 13: 30 Magnesium Hydroxide (Milk Of Mag) 30 ml DAILY PRN PO CONSTIPATION; Start at 13:30 Bisacodyl 10 mg 10 mg DAILY PRN [place] CONSTIPATION; Start 01/24/17 at 13:30 Piperacillin Sod/ Tazobactam Sod 100 ml @ 200 mls/hr Q6 IVPB Last administered on 01/30/17 05:37; Admin Dose 200 MLS/HR; Start 01/24/17 at 18:00 Acetaminophen (Ofirmev 1000mg/ 100ml Iv) 100 ml @ 400 mls/hr Q6H PRN IVPB fever Last administered on 01/29/17 08:06; Admin Dose 400 MLS/HR; Start 01/24/17 at 16:00 Morphine Sulfate (morphine) 4 mg Q4H PRN IV PAIN Last administered on 01/28/17 13:49; Admin Dose 4 MG; Start 01/27/17 at 02:30 Vancomycin HCl (Vancomycin Oral Syringe) 250 mg Q6 PO Last administered on 01/30 05:37; Admin Dose 250 MG; Start 01/27/17 at 22:00 Acetaminophen/ Butalbital/ Caffeine 1 tab 1 tab Q4H PRN PO Headache; Start 01/28 at 10:00 Amikacin Sulfate 500 mg/Sodium Chloride 102 ml @ 102 mls/hr Q24H IVPB Last administered on 01/29/17 18:53; Admin Dose 102 MLS/HR; Start 01/28/17 at 18:00; Stop 01/31/17 at 17:59 Potassium Chloride/Dextrose/ Sod Cl (D5-1/2ns + KCl 20 Meq) 1,000 ml @ 100 mls/ hr Q10H IV Last administered on 01/30/17 02:18; Admin Dose 100 MLS/HR; Start 01/29/17 at 05:23 Acetaminophen/ Hydrocodone Bitart ([place] (5/325)) 1 tab Q4H PRN PO PAIN LEVEL 4 -7; Start 01/29/17 at 05:30 Acetaminophen/ Hydrocodone Bitart ([place] (5/325)) 2 tab Q4H PRN PO PAIN LEVEL 7 -10; Start 01/29/17 at 05:30 Hydromorphone HCl (Dilaudid) 0.5 mg Q2 PRN IV PAIN; Start 01/29/17 at 05:30 Hydromorphone HCl (Dilaudid) 1 mg Q2 PRN IV PAIN Last administered on 04:05; Admin Dose 1 MG; Start 01/29/17 at 05:30 Docusate Sodium (Colace) 100 mg BID PRN PO CONSTIPATION; Start 01/29/17 at 05:30 Famotidine (Pepcid Iv) 20 mg DAILY IV ; Start 01/29/17 at 09:00 Enoxaparin Sodium (Lovenox) 40 mg DAILY SC Last administered on 01/29/17 08:55 ; Admin Dose 40 MG; Start 01/29/17 at 09:00 SINGH WILLOUGHBY MD Jan 30, 2017 08:52
[2017-01-30] MEDS: FAMOTIDINE 20 MG INJ IV SCH (09:54)
[2017-01-30] MEDS: ENOXAPARIN 30 MG/0.3 ML SYG SC SCH (10:07)
[2017-01-30] MEDS: ONDANSETRON 4 MG INJ IV PRN (10:28)
--- NOTE | 2017-01-30 11:38 | RADRPT ---
PROCEDURE: Retroperitoneal US. CLINICAL INDICATION: Renal insufficiency TECHNIQUE: Multiple sonographic images of the kidneys and retroperitoneum were obtained. The imag es were reviewed on a PACS workstation. COMPARISON: No prior studies are available for comparison. FINDINGS: The kidneys are normal in size, contour, cortical thickness and cortical echogenicity. The right kidney measures 12.8 cm. The left kidney measures 12.8 cm. No kidney stones are visualized. There is no evidence for hydronephrosis. The urinary bladder is decompressed and not seen. The aorta and IVC were not imaged. RPTAT: AA IMPRESSION: Unremarkable retroperitoneal ultrasound. .Joe Smith MD, Date Time Electronically viewed and signed by .Joe Smith MD, MD on 01/30/2017 11:37 .S/
[2017-01-30] MEDS ORDERED: PIPER-TAZO 2.25 GM (PMX) 50 ML IVPB SCH ×2 (12:00→22:00)
[2017-01-30] MEDS: DEXTROSE 5%-0.45% NACL 1,000 ML IV SCH ×2 (14:05→22:20)
--- NOTE | 2017-01-30 15:37 | PN ---
Date/Time of Note Date/Time of Note DATE: 01/30/17 TIME: 15:34 Assessment/Plan VTE Prophylaxis VTE Prophylaxis Intervention: LMWH Lines/Catheters IV C[facility]ter Type (from [facility]): Peripheral IV Urinary Cath still in place: Yes Reason Cath still needed: other (indicate) Assessment/Plan Chief Complaint/Hosp Course 1. Perforated sigmoid colon with inflamed terminal ileum and cecum. Status post laparoscopic converted to open sigmoid colectomy with primary anastomosis and diverting loop ileostomy on 01/29/2017. Continue postoperative care. Diet as per surgery. 2. Sinus tachycardia. Etiology could be most probably secondary to underlying dehydration. Continue IV hydration. Continue telemetry monitoring. 3. Urinary tract infection. Continue antibiotics. 4. Sepsis secondary to underlying diverticulitis and urinary tract infection. No evidence of any septic shock. Continue antimicrobials as per infectious diseases. 5. Acute kidney injury. Most probably secondary to dehydration and hemodynamics. Being followed by nephrology. 6. Fluids, electrolytes, and nutrition. Continue IV fluids. On sips of water. Advancement of diet as per surgery. 7. DVT prophylaxis. B/L SCDs. Subcutaneous Lovenox [renal dose]. 8. Plan. Continue antimicrobials. Continue pain control. Encourage frequent use of incentive spirometry. Encourage early ambulation. Replete magnesium. Case discussed with . Problems: Subjective 24 Hr Interval Summary Free Text/Dictation The patient has been up and walking with assistance today. Complains of abdominal bloating. Remains afebrile. Continues to be tachycardic. Exam/Review of Systems Vital Signs Vitals Vital Signs Date Time Temp Pulse Resp B/P Pulse Ox O2 Delivery O2 Flow Rate FiO2 01/30/17 15:26 97.5 105 18 130/74 94 01/29/17 23:00 Nasal Cannula 2.0 Intake and Output 01/29/17 01/29/17 01/30/17 15:00 23:00 07:00 Intake Total 410 ml 450 ml 6600 ml Output Total 90 ml 350 ml Balance 320 ml 100 ml 6600 ml Exam General: Adequately build 41 year-old male lying in bed in no apparent distress. HEENT: Normocephalic, atraumatic. Eyes: Anicteric sclerae, conjunctivae clear. ENT: Nasal septum midline, oral mucosa moist. Neck supple, no JVD noticed. Respiratory: Bilaterally clear breath sounds. No use of accessory muscles of respiration. No adventitious breath sounds. Cardiovascular: S1, S2 heard. No murmurs or gallops. Abdomen: Surgical dressing. Left-sided ileostomy. Genitourinary: Deferred. Extremities: No cyanosis, no clubbing, no edema. Peripheral pulses palpable. Neurologic: Cranial nerves II through XII grossly intact. The patient is awake, alert, and oriented. Skin: Normal skin turgor. No skin rashes. Results Result Diagram: 01/30/17 0515 01/30/17 0514 Results 24 hrs Laboratory Tests Test 01/30/17 05:14 01/30/17 05:15 Prothrombin Time 15.7 H Prothrombin Time Ratio 1.2 INR International Normalized Ratio 1.24 Activated Partial Thromboplast Time 36.0 H Sodium Level 140 Potassium Level 4.9 Chloride Level 108 Carbon Dioxide Level 18 L Anion Gap 19 H Blood Urea Nitrogen 22 H Creatinine 3.76 #H Glucose Level 145 Lactic Acid Level 0.9 Calcium Level 6.0 L Phosphorus Level 4.4 Magnesium Level 2.0 Total Bilirubin 0.5 Direct Bilirubin 0.30 #H Indirect Bilirubin 0.2 Aspartate Amino Transf (AST/SGOT) 41 Alanine Aminotransferase (ALT/SGPT) 34 Alkaline Phosphatase 42 B-Type Natriuretic Peptide 219 H Total Protein 5.2 L Albumin 2.2 L Globulin 3.00 Albumin/Globulin Ratio 0.73 Random Vancomycin Level 21.1 White Blood Count 14.5 H Red Blood Count 3.73 L Hemoglobin 10.8 L Hematocrit 33.3 L Mean Corpuscular Volume 89.3 Mean Corpuscular Hemoglobin 29.0 Mean Corpuscular Hemoglobin Concent 32.4 Red Cell Distribution Width 14.7 H Platelet Count 302 Mean Platelet Volume 9.4 Neutrophils % 80.3 H Lymphocytes % 8.7 L Monocytes % 9.2 Eosinophils % 0.1 Basophils % 0.2 Nucleated Red Blood Cells % 0.0 Neutrophils # 11.7 H Lymphocytes # 1.3 Monocytes # 1.3 H Eosinophils # 0.0 Basophils # 0.0 Nucleated Red Blood Cells # 0.0 Medications Medications Current Medications Ondansetron HCl (Zofran Inj) 4 mg Q6H PRN IV NAUSEA AND/OR VOMITING Last administered on 01/30/17t 10:28; Admin Dose 4 MG; Start 01/24/17 at 13:30 Acetaminophen (Tylenol Supp) 650 mg Q6H PRN [place] PAIN LEVEL 1-3 OR FEVER Last administered on 01/28/17 00:22; Admin Dose 650 MG; Start 01/24/17 at 13:30 Docusate Sodium (Colace) 100 mg Q12H PRN PO CONSTIPATION; Start 01/24/17 at 13: 30 Magnesium Hydroxide (Milk Of Mag) 30 ml DAILY PRN PO CONSTIPATION; Start at 13:30 Bisacodyl 10 mg 10 mg DAILY PRN [place] CONSTIPATION; Start 01/24/17 at 13:30 Acetaminophen (Ofirmev 1000mg/ 100ml Iv) 100 ml @ 400 mls/hr Q6H PRN IVPB fever Last administered on 01/29/17 08:06; Admin Dose 400 MLS/HR; Start 01/24/17 at 16:00 Morphine Sulfate (morphine) 4 mg Q4H PRN IV PAIN Last administered on 01/28/17 13:49; Admin Dose 4 MG; Start 01/27/17 at 02:30 Vancomycin HCl (Vancomycin Oral Syringe) 250 mg Q6 PO Last administered on 01/30 12:07; Admin Dose 250 MG; Start 01/27/17 at 22:00 Acetaminophen/ Butalbital/ Caffeine 1 tab 1 tab Q4H PRN PO Headache; Start 01/28 at 10:00 Amikacin Sulfate/ Sodium Chloride (Amikacin/NS) 102 ml @ 102 mls/hr Q24H IVPB Last administered on 01/29/17 18:53; Admin Dose 102 MLS/HR; Start 01/28/17 at 18: 00; Stop 01/31/17 at 17:59 Acetaminophen/ Hydrocodone Bitart ([place] (5/325)) 1 tab Q4H PRN PO PAIN LEVEL 4 -7; Start 01/29/17 at 05:30 Acetaminophen/ Hydrocodone Bitart ([place] (5/325)) 2 tab Q4H PRN PO PAIN LEVEL 7 -10; Start 01/29/17 at 05:30 Hydromorphone HCl (Dilaudid) 0.5 mg Q2 PRN IV PAIN; Start 01/29/17 at 05:30 Hydromorphone HCl (Dilaudid) 1 mg Q2 PRN IV PAIN Last administered on 10:29; Admin Dose 1 MG; Start 01/29/17 at 05:30 Docusate Sodium (Colace) 100 mg BID PRN PO CONSTIPATION; Start 01/29/17 at 05:30 Famotidine 20 mg 20 mg DAILY IV Last administered on 01/30/17 09:54; Admin Dose 20 MG; Start 01/29/17 at 09:00 Dextrose/Sodium Chloride (D5-1/2ns) 1,000 ml @ 75 mls/hr [id number] IV Last administered on 01/30/17 14:05; Admin Dose 75 MLS/HR; Start 01/30/17 at 09:00 Enoxaparin Sodium 30 mg 30 mg DAILY SC Last administered on 01/30/17 10:07; Admin Dose 30 MG; Start 01/30/17 at 09:30 Piperacillin Sod/ Tazobactam Sod (Zosyn 2.25gm/ 50ml (Pmx)) 50 ml @ 100 mls/hr Q6 IVPB ; Start 01/30/17 at 18:00 VICKI JOAQUIN NP Jan 30, 2017 15:37
--- NOTE | 2017-01-30 17:01 | CONS ---
Date/Time of Note Date/Time of Note DATE: 01/30/17 TIME: 16:54 Assessment/Plan Assessment/Plan Chief Complaint/Hosp Course ID PROGRESS NOTE CURRENT ABX: DAY #7 => Zosyn #7 + Vanco IV #3 + Amikacin IV #3 24H INTERVAL SUMMARY POD#1 s/p 01/29/17 pm: URGENT OPERATION=> Lap>open sigmoid colectomy w/primary anastomosis/diverting loop ileostomy on 01/29/2017. INDICATION: PerF sig-colon/inflamed terminal ileum/cecum * No fevers since addition of Vanco IV + Gent * WBC slightly up post-op * He is doing remarkably well, OOB-> Ambulatory in the room, he is is good spirits * ABX associated diarrhea w/(-)C.Diff improved * MICRO: 01/24 BCx(-); 01/24 Urine (+) URINE CULTURE Final Organism 1 ESCHERICHIA COLI COLONY COUNT 70,000 - 80,000 CFU/ml Physical examination: GEN: Obese M HEENT: Unremarkable CHEST: Equal chest rise bilaterally without dyspnea on observation CV: Radial pulse RRR ABD: Soft, nontender : Deferred EXT: Warm, SKIN: No rash, no diaphoresis ID ASSESSMENT 41 yo obese M admit with: POD#0=> INDICATION: 01/29/17 Perforated sig-colon/inflamed terminal ileum/cecum 01/29/17 URGENT OP=> Lap->open sigmoid colectomy w/primary anastomosis/diverting loop ileostomy 1. Sepsis on admission w/fever 102.0, tachycardia, lower than norm B/P, leukocytosis => due to UTI + #2 * 01/24 BCx(-) 2. Acute sigmoid diverticulitis w/multiple tiny pockets of extraluminal gas suggesting microperforation. No drainable peridiverticular abscess. * Developed perforation 01/29/17 3. GNR E.Coli UTI 01/24 => Resistant to Quinolones 4. Hepatomegaly with fatty infiltration. 6. Diarrhea => ABX associated w/(-)C.Diff toxin CURRENT ABX: DAY # #7 => Zosyn #7 + Vanco IV #3 + Amikacin IV #3 ID RECOMMENDATIONS 1. Continue current ABX==Last day Amikacin today dosed adjunctive 3 days only 2. Await intra-op cultures if sent 3. Taper ABX to Levaquin + Flagyl when WBC normalizes and patient afebrile x 48H 4. When cleared for DC MAY DC ON AVELOX 400mg daily + Flagyl 250mg PO TID for a total of 7 days / . Problems: Consultation Date/Type/Reason Admit Date/Time Jan 24, 2017 at 09:50 Initial Consult Date 01/26/17 Type of Consultation: ID Exam/Review of Systems Vital Signs Vitals Vital Signs Date Time Temp Pulse Resp B/P Pulse Ox O2 Delivery O2 Flow Rate FiO2 01/30/17 16:20 109 01/30/17 15:26 97.5 18 130/74 94 01/30/17 08:15 Nasal Cannula 2.0 Intake and Output 01/29/17 01/29/17 01/30/17 15:00 23:00 07:00 Intake Total 410 ml 450 ml 6600 ml Output Total 90 ml 350 ml Balance 320 ml 100 ml 6600 ml Results Result Diagram: 01/30/17 0515 01/30/17 0514 Results 24 hrs Laboratory Tests Test 01/30/17 05:14 01/30/17 05:15 Prothrombin Time 15.7 H Prothrombin Time Ratio 1.2 INR International Normalized Ratio 1.24 Activated Partial Thromboplast Time 36.0 H Sodium Level 140 Potassium Level 4.9 Chloride Level 108 Carbon Dioxide Level 18 L Anion Gap 19 H Blood Urea Nitrogen 22 H Creatinine 3.76 #H Glucose Level 145 Lactic Acid Level 0.9 Calcium Level 6.0 L Phosphorus Level 4.4 Magnesium Level 2.0 Total Bilirubin 0.5 Direct Bilirubin 0.30 #H Indirect Bilirubin 0.2 Aspartate Amino Transf (AST/SGOT) 41 Alanine Aminotransferase (ALT/SGPT) 34 Alkaline Phosphatase 42 B-Type Natriuretic Peptide 219 H Total Protein 5.2 L Albumin 2.2 L Globulin 3.00 Albumin/Globulin Ratio 0.73 Random Vancomycin Level 21.1 White Blood Count 14.5 H Red Blood Count 3.73 L Hemoglobin 10.8 L Hematocrit 33.3 L Mean Corpuscular Volume 89.3 Mean Corpuscular Hemoglobin 29.0 Mean Corpuscular Hemoglobin Concent 32.4 Red Cell Distribution Width 14.7 H Platelet Count 302 Mean Platelet Volume 9.4 Neutrophils % 80.3 H Lymphocytes % 8.7 L Monocytes % 9.2 Eosinophils % 0.1 Basophils % 0.2 Nucleated Red Blood Cells % 0.0 Neutrophils # 11.7 H Lymphocytes # 1.3 Monocytes # 1.3 H Eosinophils # 0.0 Basophils # 0.0 Nucleated Red Blood Cells # 0.0 Medications Medications Current Medications Ondansetron HCl (Zofran Inj) 4 mg Q6H PRN IV NAUSEA AND/OR VOMITING Last administered on 01/30/17 10:28; Admin Dose 4 MG; Start 01/24/17 at 13:30 Acetaminophen (Tylenol Supp) 650 mg Q6H PRN [place] PAIN LEVEL 1-3 OR FEVER Last administered on 01/28/17 00:22; Admin Dose 650 MG; Start 01/24/17 at 13:30 Docusate Sodium (Colace) 100 mg Q12H PRN PO CONSTIPATION; Start 01/24/17 at 13: 30 Magnesium Hydroxide (Milk Of Mag) 30 ml DAILY PRN PO CONSTIPATION; Start at 13:30 Bisacodyl 10 mg 10 mg DAILY PRN [place] CONSTIPATION; Start 01/24/17 at 13:30 Acetaminophen (Ofirmev 1000mg/ 100ml Iv) 100 ml @ 400 mls/hr Q6H PRN IVPB fever Last administered on 01/29/17 08:06; Admin Dose 400 MLS/HR; Start 01/24/17 at 16:00 Morphine Sulfate (morphine) 4 mg Q4H PRN IV PAIN Last administered on 01/28/17 13:49; Admin Dose 4 MG; Start 01/27/17 at 02:30 Vancomycin HCl (Vancomycin Oral Syringe) 250 mg Q6 PO Last administered on 01/30 12:07; Admin Dose 250 MG; Start 01/27/17 at 22:00 Acetaminophen/ Butalbital/ Caffeine 1 tab 1 tab Q4H PRN PO Headache; Start 01/28 at 10:00 Amikacin Sulfate/ Sodium Chloride (Amikacin/NS) 102 ml @ 102 mls/hr Q24H IVPB Last administered on 01/29/17 18:53; Admin Dose 102 MLS/HR; Start 01/28/17 at 18: 00; Stop 01/31/17 at 17:59 Acetaminophen/ Hydrocodone Bitart ([place] (5/325)) 1 tab Q4H PRN PO PAIN LEVEL 4 -7; Start 01/29/17 at 05:30 Acetaminophen/ Hydrocodone Bitart ([place] (5/325)) 2 tab Q4H PRN PO PAIN LEVEL 7 -10; Start 01/29/17 at 05:30 Hydromorphone HCl (Dilaudid) 0.5 mg Q2 PRN IV PAIN; Start 01/29/17 at 05:30 Hydromorphone HCl (Dilaudid) 1 mg Q2 PRN IV PAIN Last administered on 10:29; Admin Dose 1 MG; Start 01/29/17 at 05:30 Docusate Sodium (Colace) 100 mg BID PRN PO CONSTIPATION; Start 01/29/17 at 05:30 Famotidine 20 mg 20 mg DAILY IV Last administered on 01/30/17 09:54; Admin Dose 20 MG; Start 01/29/17 at 09:00 Dextrose/Sodium Chloride (D5-1/2ns) 1,000 ml @ 75 mls/hr [id number] IV Last administered on 01/30/17 14:05; Admin Dose 75 MLS/HR; Start 01/30/17 at 09:00 Enoxaparin Sodium 30 mg 30 mg DAILY SC Last administered on 01/30/17 10:07; Admin Dose 30 MG; Start 01/30/17 at 09:30 Piperacillin Sod/ Tazobactam Sod (Zosyn 2.25gm/ 50ml (Pmx)) 50 ml @ 100 mls/hr Q6 IVPB ; Start 01/30/17 at 18:00 Simethicone (Mylicon) 80 mg QID PRN GTB DISTENSION/GAS/BLOATING; Start at 17:00 SACHA ALAMO NP Jan 30, 2017 17:01
[2017-01-30] MEDS: AMIKACIN 500 MG in SOD CHLORIDE 0.9% 100 ML IVPB SCH (17:26)
--- NOTE | 2017-01-30 18:44 | PN ---
Date/Time of Note Date/Time of Note DATE: 01/30/17 TIME: 18:42 Assessment/Plan Lines/Catheters IV Catheter Type (from Nrsg): Peripheral IV Shah in Place (from Nrsg): Yes Assessment/Plan Assessment/Plan [facility] Progress Note Date of Service: 01/30/17 Today's Impression & Plan: Overall has remained stable. Pain control seems adequate for now. Likely has postoperative paralytic ileus. At risk for complications including abscess formation, further leak, infection, etc. No indication for acute surgical intervention. Abdomen appears to be relatively benign. Blood flow to the kidneys appear to be normal on the kidney ultrasound. Appreciate Dr. Kimball's input. With above assessment, I've recommended the following for today: 1. Cont current cares 2. Cont broad spec antimicrobials 3. Continue clear liquid diet for now 4. Labs in am 5. Increase activity 6. Increase ICS Nature of presenting problem: High risk Complexity of decision making: high complexity Thank you again for your great care of this very pleasant patient and wonderful family. If there are any questions, please feel free to call me at [phone]. Disclaimer: Inadvertent spelling or grammatical errors are likely due to EHR/ dictation software use and do not reflect on the overall quality of patient care. Updated Clinical Summary: A very-pleasant 41-year-old gentleman with comorbidity of BMI 37.1 and previous history of diverticulitis, being admitted for recurrent diverticulitis with microperforation but no obvious evidence of abscess or other indication for intervention including no indication for surgical intervention. S/p emergency sigmoid colectomy, mobilization of splenic flexure, primary anastomosis and diverting loop ileostomy, lysis of adhesions and lavage 01/29/17. Comorbidities: 1. BMI 37.1 2. History of diverticulitis in the past as well as diagnosis of diverticulosis 3. Chronic constipation 4. S/p emergency sigmoid colectomy, mobilization of splenic flexure, primary anastomosis and diverting loop ileostomy, lysis of adhesions and lavage 01/29/17 Subjective: No major events or complaints since the operation earlier this am; mild incisional abd pain and under control with medications; feels bloated; no n/v/d ; no sob or cp; - flatus; - BM; - activity; being visited by his . Objective: Vitals: See below Exam: GENERAL: On exam, the patient was laying in bed and appeared to be comfortable and in no acute distress. ABDOMEN: Soft, minimal incisional tenderness, and mildly distended. Surgical drain ss. Ostomy pink and viable. Minimal output in the bag. There are no peritoneal signs or guarding. SKIN: Skin appears to be pink and feels warm to touch. NEUROLOGIC: Patient is awake, alert, and follows commands appropriately. Exam/Review of Systems Vital Signs Vitals Vital Signs Date Time Temp Pulse Resp B/P Pulse Ox O2 Delivery O2 Flow Rate FiO2 01/30/17 16:20 109 01/30/17 15:26 97.5 18 130/74 94 01/30/17 08:15 Nasal Cannula 2.0 Intake and Output 01/29/17 01/29/17 01/30/17 15:00 23:00 07:00 Intake Total 410 ml 450 ml 6600 ml Output Total 90 ml 350 ml Balance 320 ml 100 ml 6600 ml Results Result Diagram: 01/30/17 0515 01/30/17 0514 WILMA THORNTON M.D. Jan 30, 2017 18:44
[2017-01-30] MEDS: PIPER-TAZO 2.25 GM (PMX) 50 ML IVPB SCH (20:21)
[2017-01-31] VITALS (12 sets, daily range): BP systolic 124–140; BP diastolic 71–84; PULSE 84–99; RESP 16–18
[2017-01-31] MEDS: VANCOMYCIN HCL 250 MG/5ML POSYG PO SCH ×5 (00:37→23:50)
[2017-01-31] MEDS: PIPER-TAZO 2.25 GM (PMX) 50 ML IVPB SCH ×5 (00:37→23:55)
[2017-01-31] MEDS: DEXTROSE 5%-0.45% NACL 1,000 ML IV SCH ×2 (02:59→17:19)
[2017-01-31] MEDS: HYDROmorphONE 1 MG/ML SYG IV PRN ×3 (05:36→21:12)
[2017-01-31 07:49] LABS: BASOPHILS % 0.2 % (0.0-2.0); EOSINOPHILS # 0.3 10^3/ul (0.0-0.5); EOSINOPHILS % 1.8 % (0.0-7.0); HEMATOCRIT 31.1 % (42.0-52.0); HEMOGLOBIN 9.7 g/dl (14.0-18.0); LYMPHOCYTES # 1.4 10^3/ul (0.8-2.9); MEAN CORPUSCULAR HEMOGLOBIN 28.1 pg (29.0-33.0); MEAN CORPUSCULAR HGB CONC 31.2 g/dl (32.0-37.0); MEAN CORPUSCULAR VOLUME 90.1 fl (82.0-101.0); MEAN PLATELET VOLUME 9.3 fl (7.4-10.4); MONOCYTE # 1.1 10^3/ul (0.3-0.9); MONOCYTES % 7.1 % (0.0-11.0); NEUTROPHIL # 12.3 10^3/ul (1.6-7.5); NEUTROPHILS % 80.8 % (39.0-77.0); PLATELET COUNT 363 10^3/UL (140-415); POSITIVE DIFF @See below; RED BLOOD COUNT 3.45 10^6/ul (4.70-6.10); RED CELL DISTRIBUTION WIDTH 15.3 % (11.5-14.5); WHITE BLOOD COUNT 15.2 10^3/ul (4.8-10.8)
[2017-01-31 08:11] LABS: URIC ACID 6.1 mg/dl (3.1-7.9)
[2017-01-31 08:12] LABS: INR 1.24; PROTIME 15.7 Sec (12.2-14.2); PT RATIO 1.2
[2017-01-31 08:13] LABS: PARTIAL THROMBOPLASTIN TIME 46.9 Sec (25.0-35.0)
[2017-01-31 08:19] LABS: ALBUMIN 2.3 g/dl (3.3-4.9); ALBUMIN/GLOBULIN RATIO 0.76; BILIRUBIN,DIRECT 0.5 mg/dl (0.00-0.20); BILIRUBIN,INDIRECT 0.3 mg/dl (0-1.1); BILIRUBIN,TOTAL 0.8 mg/dl (0.2-1.3); CALCIUM 7.2 mg/dl (8.4-10.2); CREATININE 5.91 mg/dl (0.61-1.24); POTASSIUM 4.8 mmol/L (3.5-5.1); TOTAL PROTEIN 5.3 g/dl (6.1-8.1)
[2017-01-31 08:23] LABS: MAGNESIUM 2.2 mg/dl (1.7-2.5); PHOSPHORUS 3.6 mg/dl (2.5-4.9)
[2017-01-31] MEDS: ENOXAPARIN 30 MG/0.3 ML SYG SC SCH (09:55)
[2017-01-31] MEDS: FAMOTIDINE 20 MG INJ IV SCH (09:59)
--- NOTE | 2017-01-31 13:53 | PN ---
Date/Time of Note Date/Time of Note DATE: 01/31/17 TIME: 13:51 Assessment/Plan VTE Prophylaxis VTE Prophylaxis Intervention: LMWH (Renal dose) Lines/Catheters IV Catheter Type (from [facility]): Peripheral IV Urinary Cath still in place: Yes Reason Cath still needed: other (indicate) Assessment/Plan Chief Complaint/Hosp Course 1. Perforated sigmoid colon with inflamed terminal ileum and cecum. Status post laparoscopic converted to open sigmoid colectomy with primary anastomosis and diverting loop ileostomy on 01/29/2017. Continue postoperative care. Diet as per surgery. 2. Sinus tachycardia. Etiology could be most probably secondary to underlying dehydration. Continue IV hydration. Continue telemetry monitoring. 3. Urinary tract infection. Continue antibiotics. 4. Sepsis secondary to underlying diverticulitis and urinary tract infection. No evidence of any septic shock. Continue antimicrobials as per infectious diseases. 5. Acute kidney injury. Most probably secondary to dehydration and hemodynamics. Being followed by nephrology. 6. Fluids, electrolytes, and nutrition. Continue IV fluids. Clear liquids. Advancement of diet as per surgery. 7. DVT prophylaxis. B/L SCDs. Subcutaneous Lovenox [renal dose]. 8. Plan. Continue antimicrobials. Continue pain control. Encourage frequent use of incentive spirometry. Encourage early ambulation. Case discussed with . Problems: Subjective 24 Hr Interval Summary Free Text/Dictation Abdominal distension improved. Pain well controlled. Exam/Review of Systems Vital Signs Vitals Vital Signs Date Time Temp Pulse Resp B/P Pulse Ox O2 Delivery O2 Flow Rate FiO2 01/31/17 12:57 93 01/31/17 11:29 98.3 16 128/75 95 01/31/17 00:01 Room Air 01/30/17 08:15 2.0 Intake and Output 01/30/17 01/30/17 01/31/17 15:00 23:00 07:00 Intake Total 600 ml 1000 ml 1150 ml Output Total 250 ml 380 ml 310 ml Balance 350 ml 620 ml 840 ml Exam General: Adequately build 41 year-old male lying in bed in no apparent distress. HEENT: Normocephalic, atraumatic. Eyes: Anicteric sclerae, conjunctivae clear. ENT: Nasal septum midline, oral mucosa moist. Neck supple, no JVD noticed. Respiratory: Bilaterally clear breath sounds. No use of accessory muscles of respiration. No adventitious breath sounds. Cardiovascular: S1, S2 heard. No murmurs or gallops. Abdomen: Surgical dressing. Left-sided ileostomy. Genitourinary: Deferred. Extremities: No cyanosis, no clubbing, no edema. Peripheral pulses palpable. Neurologic: Cranial nerves II through XII grossly intact. The patient is awake, alert, and oriented. Skin: Normal skin turgor. No skin rashes. Results Result Diagram: 01/31/17 0649 01/31/17 0649 Results 24 hrs Laboratory Tests Test 01/31/17 06:49 White Blood Count 15.2 H Red Blood Count 3.45 L Hemoglobin 9.7 L Hematocrit 31.1 L Mean Corpuscular Volume 90.1 Mean Corpuscular Hemoglobin 28.1 L Mean Corpuscular Hemoglobin Concent 31.2 L Red Cell Distribution Width 15.3 H Platelet Count 363 # Mean Platelet Volume 9.3 Neutrophils % 80.8 H Lymphocytes % 9.0 L Monocytes % 7.1 Eosinophils % 1.8 Basophils % 0.2 Nucleated Red Blood Cells % 0.0 Neutrophils # 12.3 H Lymphocytes # 1.4 Monocytes # 1.1 H Eosinophils # 0.3 Basophils # 0.0 Nucleated Red Blood Cells # 0.0 Prothrombin Time 15.7 H Prothrombin Time Ratio 1.2 INR International Normalized Ratio 1.24 Activated Partial Thromboplast Time 46.9 H Sodium Level 137 Potassium Level 4.8 Chloride Level 103 Carbon Dioxide Level 17 L Anion Gap 22 H Blood Urea Nitrogen 31 H Creatinine 5.91 #H Glucose Level 115 Lactic Acid Level 0.8 Uric Acid 6.1 Calcium Level 7.2 L Phosphorus Level 3.6 Magnesium Level 2.2 Total Bilirubin 0.8 Direct Bilirubin 0.50 #H Indirect Bilirubin 0.3 Aspartate Amino Transf (AST/SGOT) 35 Alanine Aminotransferase (ALT/SGPT) 35 Alkaline Phosphatase 51 Creatine Kinase 511 H B-Type Natriuretic Peptide 2520 H Total Protein 5.3 L Albumin 2.3 L Globulin 3.00 Albumin/Globulin Ratio 0.76 Medications Medications Current Medications Ondansetron HCl (Zofran Inj) 4 mg Q6H PRN IV NAUSEA AND/OR VOMITING Last administered on 01/30/17t 10:28; Admin Dose 4 MG; Start 01/24/17 at 13:30 Acetaminophen (Tylenol Supp) 650 mg Q6H PRN [place] PAIN LEVEL 1-3 OR FEVER Last administered on 01/28/17 00:22; Admin Dose 650 MG; Start 01/24/17 at 13:30 Docusate Sodium (Colace) 100 mg Q12H PRN PO CONSTIPATION; Start 01/24/17 at 13: 30 Magnesium Hydroxide (Milk Of Mag) 30 ml DAILY PRN PO CONSTIPATION; Start at 13:30 Bisacodyl 10 mg 10 mg DAILY PRN [place] CONSTIPATION; Start 01/24/17 at 13:30 Acetaminophen (Ofirmev 1000mg/ 100ml Iv) 100 ml @ 400 mls/hr Q6H PRN IVPB fever Last administered on 01/29/17 08:06; Admin Dose 400 MLS/HR; Start 01/24/17 at 16:00 Morphine Sulfate (morphine) 4 mg Q4H PRN IV PAIN Last administered on 01/28/17 13:49; Admin Dose 4 MG; Start 01/27/17 at 02:30 Vancomycin HCl (Vancomycin Oral Syringe) 250 mg Q6 PO Last administered on 01/31 12:03; Admin Dose 250 MG; Start 01/27/17 at 22:00 Acetaminophen/ Butalbital/ Caffeine 1 tab 1 tab Q4H PRN PO Headache; Start 01/28 at 10:00 Amikacin Sulfate/ Sodium Chloride (Amikacin/NS) 102 ml @ 102 mls/hr Q24H IVPB Last administered on 01/30/17 17:26; Admin Dose 102 MLS/HR; Start 01/28/17 at 18 :00; Stop 01/31/17 at 17:59 Acetaminophen/ Hydrocodone Bitart ([place] (5/325)) 1 tab Q4H PRN PO PAIN LEVEL 4 -7; Start 01/29/17 at 05:30 Acetaminophen/ Hydrocodone Bitart ([place] (5/325)) 2 tab Q4H PRN PO PAIN LEVEL 7 -10; Start 01/29/17 at 05:30 Hydromorphone HCl (Dilaudid) 0.5 mg Q2 PRN IV PAIN; Start 01/29/17 at 05:30 Hydromorphone HCl (Dilaudid) 1 mg Q2 PRN IV PAIN Last administered on 05:36; Admin Dose 1 MG; Start 01/29/17 at 05:30 Docusate Sodium (Colace) 100 mg BID PRN PO CONSTIPATION; Start 01/29/17 at 05:30 Famotidine 20 mg 20 mg DAILY IV Last administered on 01/31/17 09:59; Admin Dose 20 MG; Start 01/29/17 at 09:00 Dextrose/Sodium Chloride (D5-1/2ns) 1,000 ml @ 75 mls/hr [id number] IV Last administered on 01/31/17 02:59; Admin Dose 75 MLS/HR; Start 01/30/17 at 09:00 Enoxaparin Sodium 30 mg 30 mg DAILY SC Last administered on 01/31/17 09:55; Admin Dose 30 MG; Start 01/30/17 at 09:30 Piperacillin Sod/ Tazobactam Sod (Zosyn 2.25gm/ 50ml (Pmx)) 50 ml @ 100 mls/hr Q6 IVPB Last administered on 01/31/17 12:03; Admin Dose 100 MLS/HR; Start 04/08 at 18:00 Simethicone (Mylicon) 80 mg QID PRN GTB DISTENSION/GAS/BLOATING Last administered on 01/31/17 09:59; Admin Dose 80 MG; Start 01/30/17 at 17:00 VICKI JOAQUIN NP Jan 31, 2017 13:52
--- NOTE | 2017-01-31 14:10 | PN ---
Date/Time of Note Date/Time of Note DATE: 01/31/17 TIME: 13:58 Assessment/Plan Lines/Catheters IV Catheter Type (from Nrsg): Peripheral IV Shah in Place (from Nrsg): Yes Assessment/Plan Assessment/Plan [facility] Progress Note Date of Service: 01/31/17 Today's Impression & Plan: Overall has remained stable and improving. Pain control seems adequate. Still with postoperative paralytic ileus. At risk for complications including abscess formation, further leak, infection, etc. No indication for acute surgical intervention. Abdomen appears to be relatively benign. Kidneys seem to be staring to work. Appreciate Dr. Kimball's input. With above assessment, I've recommended the following for today: 1. Cont current cares 2. Cont broad spec antimicrobials 3. Full liquid diet 4. Labs in am 5. Increase activity 6. Increase ICS 7. Change ostomy bag 8. Keep an eye out on the lower portion of the incision. It may be necessary to remove a few elías if the discharge continues. Patient at risk for wound infection. Nature of presenting problem: High risk Complexity of decision making: high complexity Thank you again for your great care of this very pleasant patient and wonderful family. If there are any questions, please feel free to call me at [phone]. Disclaimer: Inadvertent spelling or grammatical errors are likely due to EHR/ dictation software use and do not reflect on the overall quality of patient care. Updated Clinical Summary: A very-pleasant 41-year-old gentleman with comorbidity of BMI 37.1 and previous history of diverticulitis, being admitted for recurrent diverticulitis with microperforation but no obvious evidence of abscess or other indication for intervention including no indication for surgical intervention. S/p emergency sigmoid colectomy, mobilization of splenic flexure, primary anastomosis and diverting loop ileostomy, lysis of adhesions and lavage 01/29/17. Postoperative paralytic ileus and acute renal injury. Comorbidities: 1. BMI 37.1 2. History of diverticulitis in the past as well as diagnosis of diverticulosis 3. Chronic constipation 4. S/p emergency sigmoid colectomy, mobilization of splenic flexure, primary anastomosis and diverting loop ileostomy, lysis of adhesions and lavage 01/29/17 Subjective: No major events or complaints; mild incisional abd pain and under control with medications; feels less bloated; no n/v/d; no sob or cp; - flatus; - BM; - activity; some urine output recorded yesterday. Objective: Vitals: See below Exam: GENERAL: On exam, the patient was laying in bed and appeared to be comfortable and in no acute distress. ABDOMEN: Soft, minimal incisional tenderness, and mildly distended. Surgical drain ss. Incision dressings discontinued. Incision appears to be clean, dry, and intact without any evidence of erythema, edema, discharge, or hernia for majority of the wound, but there is slight amount of drainage from the lower portion of the incision. Ostomy pink and viable. Minimal output in the bag. There are no peritoneal signs or guarding. SKIN: Skin appears to be pink and feels warm to touch. NEUROLOGIC: Patient is awake, alert, and follows commands appropriately. Exam/Review of Systems Vital Signs Vitals Vital Signs Date Time Temp Pulse Resp B/P Pulse Ox O2 Delivery O2 Flow Rate FiO2 01/31/17 12:57 93 01/31/17 11:29 98.3 16 128/75 95 01/31/17 00:01 Room Air 01/30/17 08:15 2.0 Intake and Output 01/30/17 01/30/17 01/31/17 15:00 23:00 07:00 Intake Total 600 ml 1000 ml 1150 ml Output Total 250 ml 380 ml 310 ml Balance 350 ml 620 ml 840 ml Results Result Diagram: 01/31/17 0649 01/31/17 0649 WILMA THORNTON M.D. Jan 31, 2017 14:10
--- NOTE | 2017-01-31 15:22 | CONS ---
Date/Time of Note Date/Time of Note DATE: 01/31/17 TIME: 15:12 Assessment/Plan Assessment/Plan Chief Complaint/Hosp Course 41-year-old gentleman with history of diverticulitis, being admitted for recurrent diverticulitis with microperforation but no obvious evidence of abscess or other indication for intervention including no indication for surgical intervention. S/p emergency sigmoid colectomy, mobilization of splenic flexure, primary anastomosis and diverting loop ileostomy, lysis of adhesions and lavage 01/29/17. patient presented with normal creatinine on admission, His cr was normal until 01/28 then bumped to 3.76. Pt has been treated wtih IV abx Zosyn and vancomycin since admission. Renal has been consulted for RODNEY Problems: Additional Assessment/Plan 1. Acute Kidney Injury Non Oliguic, Multifactorial due to ATN + Prerenal azotemia + Nephrotoxicity from medication in low volume status 2. Recurrent diverticultiis with Microperforation s/p emergency sigmoid colectomy, mobilization of splenic flexure, primary anastomosis and diverting loop ileostomy, lysis of adhesions and lavage 01/29/17. 3. Normochloremic metabolic acidosis from ATN Plan: zosyn renally dosed yesterday, BUN stable but Cr high c/w ATN Decreased IVF to 50 cc/hr albumin 25% 100ml IV x 1 followed up by Lasix 20mg IV x 1 after IV albumin Bicitra 30ml PO BID expecting renal recovery keep pt euvolemic will follow up closely no other abx until verified by renal, Pt is also advised to minimize his use of pain meds D/c mikalien Consultation Date/Type/Reason Admit Date/Time Jan 24, 2017 at 09:50 Initial Consult Date 01/30/17 Type of Consultation: NEPHROLOGY Reason for Consultation acute kidney injury Referring Provider: HAIDER BURR 24 HR Interval Summary Free Text/Dictation BUN/Cr rising, urine output Marginal BP stable Exam/Review of Systems Vital Signs Vitals Vital Signs Date Time Temp Pulse Resp B/P Pulse Ox O2 Delivery O2 Flow Rate FiO2 01/31/17 12:57 93 01/31/17 11:29 98.3 16 128/75 95 01/31/17 00:01 Room Air 01/30/17 08:15 2.0 Intake and Output 01/30/17 01/30/17 01/31/17 15:00 23:00 07:00 Intake Total 600 ml 1000 ml 1150 ml Output Total 250 ml 380 ml 310 ml Balance 350 ml 620 ml 840 ml Exam Constitutional: alert, oriented, well developed Psych: no complaints Head: normocephalic Eyes: nl conjunctiva ENMT: nl external ears & nose Neck: supple Respiratory: clear to auscultation, diminished breath sounds Cardiovascular: nl pulses, regular rate and rhythm Gastrointestinal: non-tender, other (Left diverting ileostomy ), soft Genitourinary - Male: other (Deferred) Musculoskeletal: nl extremities to inspection Extremities: normal pulses Neurological: LAP POLISHER II-XII intact, nl mental status, nl speech, nl strength Skin: nl turgor, rash or lesions Lymph: nl lymph nodes Results Result Diagram: 01/31/17 0649 01/31/17 0649 Results 24 hrs Laboratory Tests Test 01/31/17 06:49 White Blood Count 15.2 H Red Blood Count 3.45 L Hemoglobin 9.7 L Hematocrit 31.1 L Mean Corpuscular Volume 90.1 Mean Corpuscular Hemoglobin 28.1 L Mean Corpuscular Hemoglobin Concent 31.2 L Red Cell Distribution Width 15.3 H Platelet Count 363 # Mean Platelet Volume 9.3 Neutrophils % 80.8 H Lymphocytes % 9.0 L Monocytes % 7.1 Eosinophils % 1.8 Basophils % 0.2 Nucleated Red Blood Cells % 0.0 Neutrophils # 12.3 H Lymphocytes # 1.4 Monocytes # 1.1 H Eosinophils # 0.3 Basophils # 0.0 Nucleated Red Blood Cells # 0.0 Prothrombin Time 15.7 H Prothrombin Time Ratio 1.2 INR International Normalized Ratio 1.24 Activated Partial Thromboplast Time 46.9 H Sodium Level 137 Potassium Level 4.8 Chloride Level 103 Carbon Dioxide Level 17 L Anion Gap 22 H Blood Urea Nitrogen 31 H Creatinine 5.91 #H Glucose Level 115 Lactic Acid Level 0.8 Uric Acid 6.1 Calcium Level 7.2 L Phosphorus Level 3.6 Magnesium Level 2.2 Total Bilirubin 0.8 Direct Bilirubin 0.50 #H Indirect Bilirubin 0.3 Aspartate Amino Transf (AST/SGOT) 35 Alanine Aminotransferase (ALT/SGPT) 35 Alkaline Phosphatase 51 Creatine Kinase 511 H B-Type Natriuretic Peptide 2520 H Total Protein 5.3 L Albumin 2.3 L Globulin 3.00 Albumin/Globulin Ratio 0.76 Medications Medications Current Medications Ondansetron HCl (Zofran Inj) 4 mg Q6H PRN IV NAUSEA AND/OR VOMITING Last administered on 01/30/17 10:28; Admin Dose 4 MG; Start 01/24/17 at 13:30 Acetaminophen (Tylenol Supp) 650 mg Q6H PRN [place] PAIN LEVEL 1-3 OR FEVER Last administered on 01/28/17 00:22; Admin Dose 650 MG; Start 01/24/17 at 13:30 Docusate Sodium (Colace) 100 mg Q12H PRN PO CONSTIPATION; Start 01/24/17 at 13: 30 Magnesium Hydroxide (Milk Of Mag) 30 ml DAILY PRN PO CONSTIPATION; Start at 13:30 Bisacodyl 10 mg 10 mg DAILY PRN [place] CONSTIPATION; Start 01/24/17 at 13:30 Acetaminophen (Ofirmev 1000mg/ 100ml Iv) 100 ml @ 400 mls/hr Q6H PRN IVPB fever Last administered on 01/29/17 08:06; Admin Dose 400 MLS/HR; Start 01/24/17 at 16:00 Morphine Sulfate (morphine) 4 mg Q4H PRN IV PAIN Last administered on 01/28/17 13:49; Admin Dose 4 MG; Start 01/27/17 at 02:30 Vancomycin HCl (Vancomycin Oral Syringe) 250 mg Q6 PO Last administered on 01/31 12:03; Admin Dose 250 MG; Start 01/27/17 at 22:00 Acetaminophen/ Butalbital/ Caffeine 1 tab 1 tab Q4H PRN PO Headache; Start 01/28 at 10:00 Amikacin Sulfate/ Sodium Chloride (Amikacin/NS) 102 ml @ 102 mls/hr Q24H IVPB Last administered on 01/30/17 17:26; Admin Dose 102 MLS/HR; Start 01/28/17 at 18 :00; Stop 01/31/17 at 17:59 Acetaminophen/ Hydrocodone Bitart ([place] (5/325)) 1 tab Q4H PRN PO PAIN LEVEL 4 -7; Start 01/29/17 at 05:30 Acetaminophen/ Hydrocodone Bitart ([place] (5/325)) 2 tab Q4H PRN PO PAIN LEVEL 7 -10; Start 01/29/17 at 05:30 Hydromorphone HCl (Dilaudid) 0.5 mg Q2 PRN IV PAIN; Start 01/29/17 at 05:30 Hydromorphone HCl (Dilaudid) 1 mg Q2 PRN IV PAIN Last administered on 05:36; Admin Dose 1 MG; Start 01/29/17 at 05:30 Docusate Sodium 100 mg 100 mg BID PRN PO CONSTIPATION; Start 01/29/17 at 05:30 Dextrose/Sodium Chloride (D5-1/2ns) 1,000 ml @ 75 mls/hr [id number] IV Last administered on 01/31/17 02:59; Admin Dose 75 MLS/HR; Start 01/30/17 at 09:00 Enoxaparin Sodium 30 mg 30 mg DAILY SC Last administered on 01/31/17 09:55; Admin Dose 30 MG; Start 01/30/17 at 09:30 Piperacillin Sod/ Tazobactam Sod (Zosyn 2.25gm/ 50ml (Pmx)) 50 ml @ 100 mls/hr Q6 IVPB Last administered on 01/31/17 12:03; Admin Dose 100 MLS/HR; Start 04/08 at 18:00 Simethicone (Mylicon) 80 mg QID PRN GTB DISTENSION/GAS/BLOATING Last administered on 01/31/17 09:59; Admin Dose 80 MG; Start 01/30/17 at 17:00 Famotidine (Pepcid) 40 mg HS PO ; Start 01/31/17 at 21:00 SINGH WILLOUGHBY MD Jan 31, 2017 15:22
[2017-01-31] MEDS ORDERED: CITRIC ACID/NA CITRATE 30 ML CUP PO ONE (15:30)
[2017-01-31] MEDS ORDERED: ALBUMIN HUMAN 25% 100 ML IV ONE (15:30)
[2017-01-31] MEDS ORDERED: FUROSEMIDE 20 MG INJ IV ONE (15:30)
[2017-01-31] MEDS: CITRIC ACID/NA CITRATE 30 ML CUP PO SCH (20:06)
[2017-01-31] MEDS: FAMOTIDINE 20 MG TAB PO SCH (20:06)
--- NOTE | 2017-01-31 22:30 | CONS ---
Date/Time of Note Date/Time of Note DATE: 01/31/17 TIME: 22:22 Assessment/Plan Assessment/Plan Chief Complaint/Hosp Course ID PROGRESS NOTE CURRENT ABX: DAY #8 => Zosyn #8 + Vanco IV #4 Amikacin IV #3-> DC 01/31 * POD#2 s/p 01/29/17 pm: * URGENT OPERATION=> Lap>open sigmoid colectomy w/primary anastomosis/diverting loop ileostomy on 01/29/2017. * INDICATION: PerF sig-colon/inflamed terminal ileum/cecum 24H INTERVAL SUMMARY * Currently resting with eyes closed, no distress, no fevers, has been up walking * WBC slightly up post-op * PATHO REPORT REVIEWED = (-)Malignancy Physical examination: GEN: Obese M HEENT: Unremarkable CHEST: Equal chest rise bilaterally without dyspnea on observation CV: Radial pulse RRR ABD: Soft, nontender, drains : Deferred EXT: Warm, SKIN: No rash, no diaphoresis ID ASSESSMENT 41 yo obese M admit with: POD#2 s/p 01/29/17 pm: * URGENT OPERATION=> Lap>open sigmoid colectomy w/primary anastomosis/diverting loop ileostomy on 01/29/2017. * INDICATION: PerF sig-colon/inflamed terminal ileum/cecum 1. Sepsis on admission w/fever 102.0, tachycardia, lower than norm B/P, leukocytosis => due to UTI + #2 => RESOLVING * 01/24 BCx(-) 2. Acute sigmoid diverticulitis w/multiple tiny pockets of extraluminal gas suggesting microperforation. No drainable peridiverticular abscess seen on admission. * Developed perforation 01/29/17 3. GNR E.Coli UTI 01/24 => Resistant to Quinolones => RESOLVED 4. Hepatomegaly with fatty infiltration. 6. Diarrhea => ABX associated w/(-)C.Diff toxin Improved w/PO Vanco Liquid CURRENT ABX: DAY #8 => Zosyn #8 + Vanco IV #4 Amikacin IV #3-> DC 01/31 ID RECOMMENDATIONS 1.Amikacin DC'd, continue Vanco, Zosyn, 2. Taper ABX to Levaquin + Flagyl when WBC normalizes and patient afebrile x 48H 4. When cleared for DC MAY DC ON AVELOX 400mg daily + Flagyl 250mg PO TID for a total of 7 days / . Problems: Consultation Date/Type/Reason Admit Date/Time Jan 24, 2017 at 09:50 Initial Consult Date 01/26/17 Type of Consultation: ID Referring Provider: HAIDER BURR Exam/Review of Systems Vital Signs Vitals Vital Signs Date Time Temp Pulse Resp B/P Pulse Ox O2 Delivery O2 Flow Rate FiO2 01/31/17 20:19 84 01/31/17 20:05 98.7 17 133/75 96 01/31/17 00:01 Room Air 01/30/17 08:15 2.0 Intake and Output 01/30/17 01/30/17 01/31/17 15:00 23:00 07:00 Intake Total 600 ml 1000 ml 1150 ml Output Total 250 ml 380 ml 310 ml Balance 350 ml 620 ml 840 ml Results Result Diagram: 01/31/17 0649 01/31/17 0649 Results 24 hrs Laboratory Tests Test 01/31/17 06:49 White Blood Count 15.2 H Red Blood Count 3.45 L Hemoglobin 9.7 L Hematocrit 31.1 L Mean Corpuscular Volume 90.1 Mean Corpuscular Hemoglobin 28.1 L Mean Corpuscular Hemoglobin Concent 31.2 L Red Cell Distribution Width 15.3 H Platelet Count 363 # Mean Platelet Volume 9.3 Neutrophils % 80.8 H Lymphocytes % 9.0 L Monocytes % 7.1 Eosinophils % 1.8 Basophils % 0.2 Nucleated Red Blood Cells % 0.0 Neutrophils # 12.3 H Lymphocytes # 1.4 Monocytes # 1.1 H Eosinophils # 0.3 Basophils # 0.0 Nucleated Red Blood Cells # 0.0 Prothrombin Time 15.7 H Prothrombin Time Ratio 1.2 INR International Normalized Ratio 1.24 Activated Partial Thromboplast Time 46.9 H Sodium Level 137 Potassium Level 4.8 Chloride Level 103 Carbon Dioxide Level 17 L Anion Gap 22 H Blood Urea Nitrogen 31 H Creatinine 5.91 #H Glucose Level 115 Lactic Acid Level 0.8 Uric Acid 6.1 Calcium Level 7.2 L Phosphorus Level 3.6 Magnesium Level 2.2 Total Bilirubin 0.8 Direct Bilirubin 0.50 #H Indirect Bilirubin 0.3 Aspartate Amino Transf (AST/SGOT) 35 Alanine Aminotransferase (ALT/SGPT) 35 Alkaline Phosphatase 51 Creatine Kinase 511 H B-Type Natriuretic Peptide 2520 H Total Protein 5.3 L Albumin 2.3 L Globulin 3.00 Albumin/Globulin Ratio 0.76 Medications Medications Current Medications Ondansetron HCl (Zofran Inj) 4 mg Q6H PRN IV NAUSEA AND/OR VOMITING Last administered on 01/30/17 10:28; Admin Dose 4 MG; Start 01/24/17 at 13:30 Acetaminophen (Tylenol Supp) 650 mg Q6H PRN [place] PAIN LEVEL 1-3 OR FEVER Last administered on 01/28/17 00:22; Admin Dose 650 MG; Start 01/24/17 at 13:30 Docusate Sodium (Colace) 100 mg Q12H PRN PO CONSTIPATION; Start 01/24/17 at 13: 30 Magnesium Hydroxide (Milk Of Mag) 30 ml DAILY PRN PO CONSTIPATION; Start at 13:30 Bisacodyl 10 mg 10 mg DAILY PRN [place] CONSTIPATION; Start 01/24/17 at 13:30 Acetaminophen (Ofirmev 1000mg/ 100ml Iv) 100 ml @ 400 mls/hr Q6H PRN IVPB fever Last administered on 01/29/17 08:06; Admin Dose 400 MLS/HR; Start 01/24/17 at 16:00 Morphine Sulfate (morphine) 4 mg Q4H PRN IV PAIN Last administered on 01/28/17 13:49; Admin Dose 4 MG; Start 01/27/17 at 02:30 Vancomycin HCl (Vancomycin Oral Syringe) 250 mg Q6 PO Last administered on 01/31 17:30; Admin Dose 250 MG; Start 01/27/17 at 22:00 Acetaminophen/ Butalbital/ Caffeine (Fioricet) 1 tab Q4H PRN PO Headache; Start 01/28/17 at 10:00 Acetaminophen/ Hydrocodone Bitart ([place] (5/325)) 1 tab Q4H PRN PO PAIN LEVEL 4 -7; Start 01/29/17 at 05:30 Acetaminophen/ Hydrocodone Bitart ([place] (5/325)) 2 tab Q4H PRN PO PAIN LEVEL 7 -10; Start 01/29/17 at 05:30 Hydromorphone HCl (Dilaudid) 0.5 mg Q2 PRN IV PAIN; Start 01/29/17 at 05:30 Hydromorphone HCl (Dilaudid) 1 mg Q2 PRN IV PAIN Last administered on 21:12; Admin Dose 1 MG; Start 01/29/17 at 05:30 Docusate Sodium 100 mg 100 mg BID PRN PO CONSTIPATION; Start 01/29/17 at 05:30 Dextrose/Sodium Chloride 1,000 ml @ 50 mls/hr Q20H IV Last administered on 17:19; Admin Dose 50 MLS/HR; Start 01/30/17 at 09:00 Piperacillin Sod/ Tazobactam Sod (Zosyn 2.25gm/ 50ml (Pmx)) 50 ml @ 100 mls/hr Q6 IVPB Last administered on 01/31/17 17:20; Admin Dose 100 MLS/HR; Start 04/08 at 18:00 Simethicone (Mylicon) 80 mg QID PRN GTB DISTENSION/GAS/BLOATING Last administered on 01/31/17 20:06; Admin Dose 80 MG; Start 01/30/17 at 17:00 Famotidine (Pepcid) 40 mg HS PO Last administered on 01/31/17 20:06; Admin Dose 40 MG; Start 01/31/17 at 21:00 Heparin Sodium (Porcine) (Heparin (5000 Units/0.5 ml)) 5,000 unit BID SC ; Start 02/01/17 at 08:00 Citric Acid/ Sodium Citrate (Bicitra) 30 ml BID PO Last administered on 20:06; Admin Dose 30 ML; Start 01/31/17 at 21:00 SACHA ALAMO NP Jan 31, 2017 22:30
[2017-02-01] VITALS (11 sets, daily range): BP systolic 116–158; BP diastolic 67–82; PULSE 74–85; RESP 16–19
[2017-02-01] MEDS: HYDROCODONE/APAP (5/325) TAB PO PRN (04:17)
[2017-02-01] MEDS: PIPER-TAZO 2.25 GM (PMX) 50 ML IVPB SCH ×4 (05:14→23:21)
[2017-02-01] MEDS: VANCOMYCIN HCL 250 MG/5ML POSYG PO SCH ×4 (05:15→23:21)
[2017-02-01 06:21] LABS: HEMATOCRIT 27.4 % (42.0-52.0); MEAN CORPUSCULAR HEMOGLOBIN 29.2 pg (29.0-33.0); MEAN CORPUSCULAR HGB CONC 32.8 g/dl (32.0-37.0); MEAN PLATELET VOLUME 8.9 fl (7.4-10.4); PLATELET COUNT 357 10^3/UL (140-415); POSITIVE DIFF @See below; RED BLOOD COUNT 3.08 10^6/ul (4.70-6.10); RED CELL DISTRIBUTION WIDTH 14.8 % (11.5-14.5); WHITE BLOOD COUNT 12.5 10^3/ul (4.8-10.8)
[2017-02-01 06:34] LABS: INR 1.21; PROTIME 15.4 Sec (12.2-14.2); PT RATIO 1.2
[2017-02-01 06:35] LABS: PARTIAL THROMBOPLASTIN TIME 37.3 Sec (25.0-35.0)
[2017-02-01 06:50] LABS: MAGNESIUM 2.3 mg/dl (1.7-2.5); PHOSPHORUS 3.6 mg/dl (2.5-4.9)
[2017-02-01 06:52] LABS: ALBUMIN 2.6 g/dl (3.3-4.9); ALBUMIN/GLOBULIN RATIO 0.78; BILIRUBIN,DIRECT 0.8 mg/dl (0.00-0.20); BILIRUBIN,INDIRECT 0.3 mg/dl (0-1.1); BILIRUBIN,TOTAL 1.1 mg/dl (0.2-1.3); CALCIUM 7.5 mg/dl (8.4-10.2); CREATININE 7.55 mg/dl (0.61-1.24); POTASSIUM 4.2 mmol/L (3.5-5.1); TOTAL PROTEIN 5.9 g/dl (6.1-8.1)
[2017-02-01 07:26] LABS: PROTEIN/CREAT RATIO 1.49 RATIO
[2017-02-01] MEDS: HEPARIN 5,000 UNIT/0.5 ML VIAL SC SCH ×3 (08:14→21:10)
[2017-02-01] MEDS: CITRIC ACID/NA CITRATE 30 ML CUP PO SCH ×2 (08:14→21:01)
[2017-02-01] MEDS: HYDROmorphONE 1 MG/ML SYG IV PRN ×2 (08:15→18:44)
--- NOTE | 2017-02-01 09:28 | PN ---
Date/Time of Note Date/Time of Note DATE: 02/01/17 TIME: 09:27 Assessment/Plan VTE Prophylaxis VTE Prophylaxis Intervention: LMWH (Renal dose) Lines/Catheters IV [facility]ter Type (from [facility]): Peripheral IV Urinary Cath still in place: Yes Reason Cath still needed: other (indicate) Assessment/Plan Chief Complaint/Hosp Course 1. Perforated sigmoid colon with inflamed terminal ileum and cecum. Status post laparoscopic converted to open sigmoid colectomy with primary anastomosis and diverting loop ileostomy on 01/29/2017. Continue postoperative care. Diet as per surgery. 2. Sinus tachycardia. Etiology could be most probably secondary to underlying dehydration. Continue IV hydration. Continue telemetry monitoring. 3. Urinary tract infection. Continue antibiotics. 4. Sepsis secondary to underlying diverticulitis and urinary tract infection. No evidence of any septic shock. Continue antimicrobials as per infectious diseases. 5. Acute kidney injury. Most probably secondary to dehydration and hemodynamics. Being followed by nephrology. 6. Fluids, electrolytes, and nutrition. Continue IV fluids. Full liquids. Advancement of diet as per surgery. 7. DVT prophylaxis. B/L SCDs. Subcutaneous Lovenox [renal dose]. 8. Plan. Continue antimicrobials. Continue pain control. Encourage frequent use of incentive spirometry. Encourage frquent ambulation. Case discussed with . Problems: Subjective 24 Hr Interval Summary Free Text/Dictation The patient remains afebrile. Exam/Review of Systems Vital Signs Vitals Vital Signs Date Time Temp Pulse Resp B/P Pulse Ox O2 Delivery O2 Flow Rate FiO2 02/01/17 08:12 82 02/01/17 07:08 98.2 19 116/67 96 01/31/17 00:01 Room Air 01/30/17 08:15 2.0 Intake and Output 01/31/17 01/31/17 02/01/17 15:00 23:00 07:00 Intake Total 650 ml 50 ml Output Total 500 ml Balance 150 ml 50 ml Exam General: Adequately build 41 year-old male lying in bed in no apparent distress. HEENT: Normocephalic, atraumatic. Eyes: Anicteric sclerae, conjunctivae clear. ENT: Nasal septum midline, oral mucosa moist. Neck supple, no JVD noticed. Respiratory: Bilaterally clear breath sounds. No use of accessory muscles of respiration. No adventitious breath sounds. Cardiovascular: S1, S2 heard. No murmurs or gallops. Abdomen: Surgical dressing. Left-sided ileostomy. Right sided HUBERT drain in place. Genitourinary: Deferred. Extremities: No cyanosis, no clubbing. B/L LE 2+ edema. Peripheral pulses palpable. Neurologic: Cranial nerves II through XII grossly intact. The patient is awake, alert, and oriented. Skin: Normal skin turgor. No skin rashes. Results Result Diagram: 02/01/17 0559 02/01/17 0559 Results 24 hrs Laboratory Tests Test 02/01/17 05:59 02/01/17 06:00 White Blood Count 12.5 H Red Blood Count 3.08 L Hemoglobin 9.0 L Hematocrit 27.4 L Mean Corpuscular Volume 89.0 Mean Corpuscular Hemoglobin 29.2 Mean Corpuscular Hemoglobin Concent 32.8 Red Cell Distribution Width 14.8 H Platelet Count 357 Mean Platelet Volume 8.9 Neutrophils % Lymphocytes % Monocytes % Eosinophils % Basophils % Nucleated Red Blood Cells % 0.0 Neutrophils # Lymphocytes # Monocytes # Eosinophils # Basophils # Nucleated Red Blood Cells # Prothrombin Time 15.4 H Prothrombin Time Ratio 1.2 INR International Normalized Ratio 1.21 Activated Partial Thromboplast Time 37.3 H Sodium Level 137 Potassium Level 4.2 Chloride Level 104 Carbon Dioxide Level 17 L Anion Gap 20 H Blood Urea Nitrogen 38 H Creatinine 7.55 H Glucose Level 98 Lactic Acid Level 0.7 Calcium Level 7.5 L Phosphorus Level 3.6 Magnesium Level 2.3 Total Bilirubin 1.1 Direct Bilirubin 0.80 #H Indirect Bilirubin 0.3 Aspartate Amino Transf (AST/SGOT) 31 Alanine Aminotransferase (ALT/SGPT) 36 Alkaline Phosphatase 55 B-Type Natriuretic Peptide 6210 H Total Protein 5.9 L Albumin 2.6 L Globulin 3.30 H Albumin/Globulin Ratio 0.78 Urine Random Creatinine 33.37 Urine Random Sodium 68 Urine Protein/Creatinine Ratio 1.49 Urine Total Protein 50.0 H Medications Medications Current Medications Ondansetron HCl (Zofran Inj) 4 mg Q6H PRN IV NAUSEA AND/OR VOMITING Last administered on 01/30/17 10:28; Admin Dose 4 MG; Start 01/24/17 at 13:30 Acetaminophen (Tylenol Supp) 650 mg Q6H PRN [place] PAIN LEVEL 1-3 OR FEVER Last administered on 01/28/17 00:22; Admin Dose 650 MG; Start 01/24/17 at 13:30 Docusate Sodium (Colace) 100 mg Q12H PRN PO CONSTIPATION; Start 01/24/17 at 13: 30 Magnesium Hydroxide (Milk Of Mag) 30 ml DAILY PRN PO CONSTIPATION; Start at 13:30 Bisacodyl 10 mg 10 mg DAILY PRN [place] CONSTIPATION; Start 01/24/17 at 13:30 Acetaminophen (Ofirmev 1000mg/ 100ml Iv) 100 ml @ 400 mls/hr Q6H PRN IVPB fever Last administered on 01/29/17 08:06; Admin Dose 400 MLS/HR; Start 01/24/17 at 16:00 Morphine Sulfate (morphine) 4 mg Q4H PRN IV PAIN Last administered on 01/28/17 13:49; Admin Dose 4 MG; Start 01/27/17 at 02:30 Vancomycin HCl (Vancomycin Oral Syringe) 250 mg Q6 PO Last administered on 02/01 05:15; Admin Dose 250 MG; Start 01/27/17 at 22:00 Acetaminophen/ Butalbital/ Caffeine (Fioricet) 1 tab Q4H PRN PO Headache; Start 01/28/17 at 10:00 Acetaminophen/ Hydrocodone Bitart ([place] (5/325)) 1 tab Q4H PRN PO PAIN LEVEL 4 -7; Start 01/29/17 at 05:30 Acetaminophen/ Hydrocodone Bitart ([place] (5/325)) 2 tab Q4H PRN PO PAIN LEVEL 7 -10 Last administered on 02/01/17 04:17; Admin Dose 2 TAB; Start 01/29/17 at 05: 30 Hydromorphone HCl (Dilaudid) 0.5 mg Q2 PRN IV PAIN Last administered on 05:20; Admin Dose 0.5 MG; Start 01/29/17 at 05:30 Hydromorphone HCl (Dilaudid) 1 mg Q2 PRN IV PAIN Last administered on 08:15; Admin Dose 1 MG; Start 01/29/17 at 05:30 Docusate Sodium 100 mg 100 mg BID PRN PO CONSTIPATION; Start 01/29/17 at 05:30 Dextrose/Sodium Chloride 1,000 ml @ 50 mls/hr Q20H IV Last administered on 17:19; Admin Dose 50 MLS/HR; Start 01/30/17 at 09:00 Piperacillin Sod/ Tazobactam Sod (Zosyn 2.25gm/ 50ml (Pmx)) 50 ml @ 100 mls/hr Q6 IVPB Last administered on 02/01/17 05:14; Admin Dose 100 MLS/HR; Start 04/08 at 18:00 Simethicone (Mylicon) 80 mg QID PRN GTB DISTENSION/GAS/BLOATING Last administered on 02/01/17 04:17; Admin Dose 80 MG; Start 01/30/17 at 17:00 Famotidine (Pepcid) 40 mg HS PO Last administered on 01/31/17 20:06; Admin Dose 40 MG; Start 01/31/17 at 21:00 Heparin Sodium (Porcine) (Heparin (5000 Units/0.5 ml)) 5,000 unit BID SC Last administered on 02/01/17 08:20; Admin Dose 5,000 UNIT; Start 02/01/17 at 08:00 Citric Acid/ Sodium Citrate (Bicitra) 30 ml BID PO Last administered on 08:14; Admin Dose 30 ML; Start 01/31/17 at 21:00 VICKI JOAQUIN NP Feb 01, 2017 09:28
--- NOTE | 2017-02-01 10:12 | PN ---
Date/Time of Note Date/Time of Note DATE: 02/01/17 TIME: 10:09 Assessment/Plan Lines/Catheters IV Catheter Type (from Nrsg): Peripheral IV Shah in Place (from Nrsg): Yes Assessment/Plan Assessment/Plan [facility] Progress Note Date of Service: 02/01/17 Today's Impression & Plan: Overall has remained stable and improving. Pain control seems adequate. Still with postoperative paralytic ileus, but signs of slow resolution. WBC lower today. At risk for complications including abscess formation, further leak, infection, etc. No indication for acute surgical intervention. Abdomen appears to be relatively benign. Kidneys will likely continue to improve. Appreciate Dr. Kimball's input. Path reviewed (no malignancy, no IBD). Answered all questions. With above assessment, I've recommended the following for today: 1. Cont current cares 2. Cont broad spec antimicrobials 3. Advance diet as tolerated 4. Labs in am 5. Increase activity 6. Increase ICS 7. Change ostomy bag 8. Keep an eye out on the lower portion of the incision. It may be necessary to remove a few elías if the discharge continues. Patient at risk for wound infection. Nature of presenting problem: High risk Complexity of decision making: high complexity Thank you again for your great care of this very pleasant patient and wonderful family. If there are any questions, please feel free to call me at [phone]. Disclaimer: Inadvertent spelling or grammatical errors are likely due to EHR/ dictation software use and do not reflect on the overall quality of patient care. Updated Clinical Summary: A very-pleasant 41-year-old gentleman with comorbidity of BMI 37.1 and previous history of diverticulitis, being admitted for recurrent diverticulitis with microperforation but no obvious evidence of abscess or other indication for intervention including no indication for surgical intervention. S/p emergency sigmoid colectomy, mobilization of splenic flexure, primary anastomosis and diverting loop ileostomy, lysis of adhesions and lavage 01/29/17. Postoperative paralytic ileus and acute renal injury. Comorbidities: 1. BMI 37.1 2. History of diverticulitis in the past as well as diagnosis of diverticulosis 3. Chronic constipation 4. S/p emergency sigmoid colectomy, mobilization of splenic flexure, primary anastomosis and diverting loop ileostomy, lysis of adhesions and lavage 01/29/17 Subjective: No major events or complaints; mild incisional abd pain and under control with medications; feels less bloated; no n/v/d; no sob or cp; - flatus; - BM; minimal activity Objective: Vitals: See below Exam: GENERAL: On exam, the patient was laying in bed and appeared to be comfortable and in no acute distress. ABDOMEN: Soft, minimal incisional tenderness, and mildly distended. Surgical drain ss. Incision dressing appears to be clean, dry, and intact without any evidence of erythema, edema, discharge, or hernia for majority of the wound, but there is still slight amount of drainage from the lower portion of the incision. Ostomy pink and viable. Minimal output in the bag. There are no peritoneal signs or guarding. SKIN: Skin appears to be pink and feels warm to touch. NEUROLOGIC: Patient is awake, alert, and follows commands appropriately. Exam/Review of Systems Vital Signs Vitals Vital Signs Date Time Temp Pulse Resp B/P Pulse Ox O2 Delivery O2 Flow Rate FiO2 02/01/17 08:12 82 02/01/17 07:08 98.2 19 116/67 96 01/31/17 00:01 Room Air 01/30/17 08:15 2.0 Intake and Output 01/31/17 01/31/17 02/01/17 14:59 22:59 06:59 Intake Total 650 ml 50 ml Output Total 500 ml Balance 150 ml 50 ml Results Result Diagram: 02/01/17 0559 02/01/17 0559 WILMA THORNTON M.D. Feb 01, 2017 10:12
[2017-02-01 10:17] LABS: BURR CELLS 1+ (0-0); EOSINOPHILS % (M) 1 % (0-7); GIANT THROMBO% (M) 1 % (0-0); MONOCYTES % (M) 3 % (0-11); PLATELET ESTIMATE NORMAL; POIKILOCYTOSIS 1+ (0-0); POLYCHROMASIA 1+ (0-0)
[2017-02-01] MEDS ORDERED: ALBUMIN HUMAN 25% 50 ML IV ONE (11:00)
--- NOTE | 2017-02-01 11:14 | CONS ---
Date/Time of Note Date/Time of Note DATE: 02/01/17 TIME: 11:11 Assessment/Plan Assessment/Plan Chief Complaint/Hosp Course 41-year-old gentleman with history of diverticulitis, being admitted for recurrent diverticulitis with microperforation but no obvious evidence of abscess or other indication for intervention including no indication for surgical intervention. S/p emergency sigmoid colectomy, mobilization of splenic flexure, primary anastomosis and diverting loop ileostomy, lysis of adhesions and lavage 01/29/17. patient presented with normal creatinine on admission, His cr was normal until 01/28 then bumped to 3.76. Pt has been treated wtih IV abx Zosyn and vancomycin since admission. Renal has been consulted for RODNEY Problems: Additional Assessment/Plan 1. Acute Kidney Injury Non Oliguic, Multifactorial due to ATN + Prerenal azotemia + Nephrotoxicity from medication in low volume status 2. Recurrent diverticultiis with Microperforation s/p emergency sigmoid colectomy, mobilization of splenic flexure, primary anastomosis and diverting loop ileostomy, lysis of adhesions and lavage 01/29/17. 3. Normochloremic metabolic acidosis from ATN Plan: zosyn renally dosed yesterday, BUN stable but Cr high c/w ATN d/c IVF received albumin with lasix yesterday, urine output wrongly charted yesterday, will give albumin 25% 50ml IV x 1 followed up by lasix 20mg IV x 1today, nurse instructed to do strict I/O today BNP high, CXR ordered for today to assess for pulmonary congestion Bicitra 30ml PO BID expecting renal recovery keep pt euvolemic will follow up closely no other abx until verified by renal, Pt is also advised to minimize his use of pain meds will check with ID if pt needs PO vancomycin or not Consultation Date/Type/Reason Admit Date/Time Jan 24, 2017 at 09:50 Initial Consult Date 01/30/17 Type of Consultation: NEPHROLOGY Referring Provider: HAIDER BURR 24 HR Interval Summary Free Text/Dictation pt received lasix with albumin yeterday, Urine output Wrongly charted, Bp stable , little SOB, on IVF NS at 50 cc/hr- making good urine output since 6 AM Exam/Review of Systems Vital Signs Vitals Vital Signs Date Time Temp Pulse Resp B/P Pulse Ox O2 Delivery O2 Flow Rate FiO2 02/01/17 11:04 98.0 83 19 126/77 96 01/31/17 00:01 Room Air 01/30/17 08:15 2.0 Intake and Output 01/31/17 01/31/17 02/01/17 15:00 23:00 07:00 Intake Total 650 ml 50 ml Output Total 500 ml Balance 150 ml 50 ml Exam Constitutional: alert, oriented, well developed Psych: no complaints Head: normocephalic Eyes: nl conjunctiva ENMT: nl external ears & nose Neck: supple Respiratory: clear to auscultation, diminished breath sounds Cardiovascular: nl pulses, regular rate and rhythm Gastrointestinal: non-tender, other (Left diverting ileostomy ), soft Genitourinary - Male: other (Deferred) Musculoskeletal: nl extremities to inspection Extremities: normal pulses Neurological: [employer] II-XII intact, nl mental status, nl speech, nl strength Skin: nl turgor, rash or lesions Lymph: nl lymph nodes Results Result Diagram: 02/01/17 0559 02/01/17 0559 Results 24 hrs Laboratory Tests Test 02/01/17 05:59 02/01/17 06:00 White Blood Count 12.5 H Red Blood Count 3.08 L Hemoglobin 9.0 L Hematocrit 27.4 L Mean Corpuscular Volume 89.0 Mean Corpuscular Hemoglobin 29.2 Mean Corpuscular Hemoglobin Concent 32.8 Red Cell Distribution Width 14.8 H Platelet Count 357 Mean Platelet Volume 8.9 Neutrophils % Segmented Neutrophils % (Manual) 85 H Band Neutrophils % (Manual) 4 Lymphocytes % Lymphocytes % (Manual) 7 L Monocytes % Monocytes % (Manual) 3 Eosinophils % Eosinophils % (Manual) 1 Basophils % Nucleated Red Blood Cells % 0.0 Neutrophils # Neutrophils # (Manual) 10.7 H Band Neutrophils # 0.5 Absolute Lymphocytes (Manual) 0.8 Lymphocytes # Monocytes # Absolute Monocytes (Manual) 0.3 Eosinophils # Basophils # Nucleated Red Blood Cells # Thrombocytosis 1 H Platelet Estimate NORMAL Polychromasia 1+ Poikilocytosis 1+ Prothrombin Time 15.4 H Prothrombin Time Ratio 1.2 INR International Normalized Ratio 1.21 Activated Partial Thromboplast Time 37.3 H Sodium Level 137 Potassium Level 4.2 Chloride Level 104 Carbon Dioxide Level 17 L Anion Gap 20 H Blood Urea Nitrogen 38 H Creatinine 7.55 H Glucose Level 98 Lactic Acid Level 0.7 Calcium Level 7.5 L Phosphorus Level 3.6 Magnesium Level 2.3 Total Bilirubin 1.1 Direct Bilirubin 0.80 #H Indirect Bilirubin 0.3 Aspartate Amino Transf (AST/SGOT) 31 Alanine Aminotransferase (ALT/SGPT) 36 Alkaline Phosphatase 55 B-Type Natriuretic Peptide 6210 H Total Protein 5.9 L Albumin 2.6 L Globulin 3.30 H Albumin/Globulin Ratio 0.78 Urine Random Creatinine 33.37 Urine Random Sodium 68 Urine Protein/Creatinine Ratio 1.49 Urine Total Protein 50.0 H Medications Medications Current Medications Ondansetron HCl (Zofran Inj) 4 mg Q6H PRN IV NAUSEA AND/OR VOMITING Last administered on 01/30/17 10:28; Admin Dose 4 MG; Start 01/24/17 at 13:30 Acetaminophen (Tylenol Supp) 650 mg Q6H PRN [place] PAIN LEVEL 1-3 OR FEVER Last administered on 01/28/17 00:22; Admin Dose 650 MG; Start 01/24/17 at 13:30 Docusate Sodium (Colace) 100 mg Q12H PRN PO CONSTIPATION; Start 01/24/17 at 13: 30 Magnesium Hydroxide (Milk Of Mag) 30 ml DAILY PRN PO CONSTIPATION; Start at 13:30 Bisacodyl 10 mg 10 mg DAILY PRN [place] CONSTIPATION; Start 01/24/17 at 13:30 Acetaminophen (Ofirmev 1000mg/ 100ml Iv) 100 ml @ 400 mls/hr Q6H PRN IVPB fever Last administered on 01/29/17 08:06; Admin Dose 400 MLS/HR; Start 01/24/17 at 16:00 Morphine Sulfate (morphine) 4 mg Q4H PRN IV PAIN Last administered on 01/28/17 13:49; Admin Dose 4 MG; Start 01/27/17 at 02:30 Vancomycin HCl (Vancomycin Oral Syringe) 250 mg Q6 PO Last administered on 02/01 05:15; Admin Dose 250 MG; Start 01/27/17 at 22:00 Acetaminophen/ Butalbital/ Caffeine (Fioricet) 1 tab Q4H PRN PO Headache; Start 01/28/17 at 10:00 Acetaminophen/ Hydrocodone Bitart ([place] (5/325)) 1 tab Q4H PRN PO PAIN LEVEL 4 -7; Start 01/29/17 at 05:30 Acetaminophen/ Hydrocodone Bitart ([place] (5/325)) 2 tab Q4H PRN PO PAIN LEVEL 7 -10 Last administered on 02/01/17 04:17; Admin Dose 2 TAB; Start 01/29/17 at 05: 30 Hydromorphone HCl (Dilaudid) 0.5 mg Q2 PRN IV PAIN Last administered on 05:20; Admin Dose 0.5 MG; Start 01/29/17 at 05:30 Hydromorphone HCl (Dilaudid) 1 mg Q2 PRN IV PAIN Last administered on 08:15; Admin Dose 1 MG; Start 01/29/17 at 05:30 Docusate Sodium 100 mg 100 mg BID PRN PO CONSTIPATION; Start 01/29/17 at 05:30 Piperacillin Sod/ Tazobactam Sod (Zosyn 2.25gm/ 50ml (Pmx)) 50 ml @ 100 mls/hr Q6 IVPB Last administered on 02/01/17 05:14; Admin Dose 100 MLS/HR; Start 04/08 at 18:00 Simethicone (Mylicon) 80 mg QID PRN GTB DISTENSION/GAS/BLOATING Last administered on 02/01/17 04:17; Admin Dose 80 MG; Start 01/30/17 at 17:00 Famotidine (Pepcid) 40 mg HS PO Last administered on 01/31/17 20:06; Admin Dose 40 MG; Start 01/31/17 at 21:00 Heparin Sodium (Porcine) (Heparin (5000 Units/0.5 ml)) 5,000 unit BID SC Last administered on 02/01/17 08:20; Admin Dose 5,000 UNIT; Start 02/01/17 at 08:00 Citric Acid/ Sodium Citrate 30 ml 30 ml BID PO Last administered on 02/01/17 08:14; Admin Dose 30 ML; Start 01/31/17 at 21:00 Albumin Human (Albumin Human 25%) 50 ml @ 100 mls/hr ONCE ONCE IV ; Start 06/08 at 11:00; Stop 02/01/17 at 11:29 Furosemide (Lasix) 40 mg ONCE ONCE IV ; Start 02/01/17 at 12:30; Stop 02/01/17 at 12:31 SINGH WILLOUGHBY MD Feb 01, 2017 11:14
[2017-02-01] MEDS ORDERED: FUROSEMIDE 20 MG INJ IV ONE (12:30)
--- NOTE | 2017-02-01 16:06 | PN ---
DATE: 02/01/2017 SUBJECTIVE DATA: No acute changes per report. The patient is alert, feels good, looks comfortably. Tolerating diet. Denies nausea, vomiting, diarrhea. No fevers. LABORATORY: WBC today is 12.5, platelets 357,000. Neutrophils 85, bands 4, lymphocytes 7. BUN 38, creatinine is 7.55. ANTIMICROBIALS: Zosyn. Status post-amikacin, vancomycin. DIAGNOSTIC DATA: Renal ultrasound on 01/30/2017 was unremarkable. OBJECTIVE DATA: GENERAL: This is a well-developed, obese, middle age, man who is awake, in no distress. HEENT: Head atraumatic, normocephalic. Sclerae are anicteric. Buccal mucosa dry. NECK: Supple. CHEST: The chest rises symmetrically. Breath sounds diminished at bases. HEART: S1, S2. ABDOMEN: Bowel sounds present. EXTREMITIES: Without cyanosis. ASSESSMENT: 1. Acute renal failure, multifactorial, poss ATN==> renal team follows. 2. Perforated sigmoid colon, status post-laparoscopic converted to open sigmoid colectomy, with primary anastomosis and diverting loop ileostomy on 01/29/2017. 3. Morbid obesity. 4. Status post-urinary tract infection on admission. 5. Resolving sepsis. PLAN: The patient remains stable. We are going to continue the patient on Zosyn for now. Discontinue oral vancomycin. Monitor his renal function closely, and follow surgical and nephrology recommendations. Dictated By: Carlo Rosa NP /buddy/rosalina /Document#: [id number] JES
[2017-02-01] MEDS: FAMOTIDINE 20 MG TAB PO SCH (21:01)
[2017-02-02] VITALS (10 sets, daily range): BP systolic 126–160; BP diastolic 74–92; PULSE 75–95; RESP 17–20
[2017-02-02] MEDS: HYDROmorphONE 1 MG/ML SYG IV PRN (01:18)
--- NOTE | 2017-02-02 01:19 | RADRPT ---
PROCEDURE: XR Chest. CLINICAL INDICATION: Dyspnea TECHNIQUE: Anterior chest x-ray. COMPARISON: 01/24/2017 FINDINGS: Exam is limited due to very low lung volumes. Linear bibasilar lung opacities are likely subsegmental atelectasis. The lungs are otherwise clear. No pleural effusion identified. There is no evidence of pneumothorax. Heart size is large. The cardiomediastinal silhouette is otherwise unremarkable. The soft tissues are normal. Osseous structures are unremarkable. IMPRESSION: 1. Low lung volumes with linear bibasilar opacities suggesting subsegmental atelectasis. 2. Cardiomegaly. 3. No significant change from previous exam. RPTAT: HLDM .Keaton Gerard MD, MD Date Time Electronically viewed and signed by .Keaton Gerard MD, on 02/02/2017 01:19 .M/
[2017-02-02] MEDS: VANCOMYCIN HCL 250 MG/5ML POSYG PO SCH ×2 (05:56→11:46)
[2017-02-02] MEDS: PIPER-TAZO 2.25 GM (PMX) 50 ML IVPB SCH ×2 (05:56→11:46)
[2017-02-02 06:05] LABS: BASOPHILS % 0.1 % (0.0-2.0); EOSINOPHILS # 0.3 10^3/ul (0.0-0.5); EOSINOPHILS % 2.5 % (0.0-7.0); HEMATOCRIT 28.4 % (42.0-52.0); HEMOGLOBIN 9.2 g/dl (14.0-18.0); LYMPHOCYTES # 0.9 10^3/ul (0.8-2.9); LYMPHOCYTES % 7.6 % (15.0-51.0); MEAN CORPUSCULAR HEMOGLOBIN 28.6 pg (29.0-33.0); MEAN CORPUSCULAR HGB CONC 32.4 g/dl (32.0-37.0); MEAN CORPUSCULAR VOLUME 88.2 fl (82.0-101.0); MEAN PLATELET VOLUME 8.9 fl (7.4-10.4); MONOCYTE # 0.9 10^3/ul (0.3-0.9); NEUTROPHIL # 9.1 10^3/ul (1.6-7.5); NEUTROPHILS % 80.6 % (39.0-77.0); PLATELET COUNT 391 10^3/UL (140-415); RED BLOOD COUNT 3.22 10^6/ul (4.70-6.10); RED CELL DISTRIBUTION WIDTH 14.6 % (11.5-14.5); WHITE BLOOD COUNT 11.3 10^3/ul (4.8-10.8)
[2017-02-02 06:26] LABS: MAGNESIUM 2.4 mg/dl (1.7-2.5); PHOSPHORUS 4.5 mg/dl (2.5-4.9)
[2017-02-02 06:28] LABS: CREATININE 9.1 mg/dl (0.61-1.24); POTASSIUM 4.3 mmol/L (3.5-5.1)
[2017-02-02] MEDS: CITRIC ACID/NA CITRATE 30 ML CUP PO SCH ×2 (08:11→21:00)
[2017-02-02] MEDS: HEPARIN 5,000 UNIT/0.5 ML VIAL SC SCH ×2 (08:17→21:30)
--- NOTE | 2017-02-02 09:47 | PN ---
Date/Time of Note Date/Time of Note DATE: 02/02/17 TIME: 09:46 Assessment/Plan VTE Prophylaxis VTE Prophylaxis Intervention: LMWH (Renal) Lines/Catheters IV C[facility]ter Type (from [facility]): Peripheral IV Urinary Cath still in place: Yes Reason Cath still needed: other (indicate) Assessment/Plan Chief Complaint/Hosp Course 1. Perforated sigmoid colon with inflamed terminal ileum and cecum. Status post laparoscopic converted to open sigmoid colectomy with primary anastomosis and diverting loop ileostomy on 01/29/2017. Continue postoperative care. Diet as per surgery. 2. Sinus tachycardia. Etiology could be most probably secondary to underlying dehydration. Resolved. 3. Urinary tract infection. Continue antibiotics. 4. Sepsis secondary to underlying diverticulitis and urinary tract infection. No evidence of any septic shock. Continue antimicrobials as per infectious diseases. 5. Acute kidney injury. Most probably secondary to dehydration, nephrotoxicity , and ATN. Being followed by nephrology. 6. Fluids, electrolytes, and nutrition. Continue IV fluids. Full liquids. Advancement of diet as per surgery. 7. DVT prophylaxis. B/L SCDs. Subcutaneous Lovenox [renal dose]. 8. Plan. Continue antimicrobials. Continue pain control. Encourage frequent use of incentive spirometry. Encourage frequent ambulation. Transfer the patient to Med/Surg. Case discussed with . Problems: Subjective 24 Hr Interval Summary Free Text/Dictation Abdominal pain well controlled. Passing gas. Exam/Review of Systems Vital Signs Vitals Vital Signs Date Time Temp Pulse Resp B/P Pulse Ox O2 Delivery O2 Flow Rate FiO2 02/02/17 08:12 86 02/02/17 07:18 99.0 20 126/74 98 01/31/17 00:01 Room Air 01/30/17 08:15 2.0 Intake and Output 02/01/17 02/01/17 02/02/17 15:00 23:00 07:00 Intake Total 500 ml 1100 ml 300 ml Output Total 610 ml 1110 ml 1260 ml Balance -110 ml -10 ml -960 ml Exam General: Adequately build 41 year-old male lying in bed in no apparent distress. HEENT: Normocephalic, atraumatic. Eyes: Anicteric sclerae, conjunctivae clear. ENT: Nasal septum midline, oral mucosa moist. Neck supple, no JVD noticed. Respiratory: Bilaterally clear breath sounds. No use of accessory muscles of respiration. No adventitious breath sounds. Cardiovascular: S1, S2 heard. No murmurs or gallops. Abdomen: Surgical dressing. Left-sided ileostomy. Right sided HUBERT drain in place. Genitourinary: Deferred. Extremities: No cyanosis, no clubbing. B/L LE 2+ edema. Peripheral pulses palpable. Neurologic: Cranial nerves II through XII grossly intact. The patient is awake, alert, and oriented. Skin: Normal skin turgor. No skin rashes. Results Result Diagram: 02/02/17 0535 02/02/17 0535 Results 24 hrs Laboratory Tests Test 02/02/17 05:35 White Blood Count 11.3 H Red Blood Count 3.22 L Hemoglobin 9.2 L Hematocrit 28.4 L Mean Corpuscular Volume 88.2 Mean Corpuscular Hemoglobin 28.6 L Mean Corpuscular Hemoglobin Concent 32.4 Red Cell Distribution Width 14.6 H Platelet Count 391 Mean Platelet Volume 8.9 Neutrophils % 80.6 H Lymphocytes % 7.6 L Monocytes % 8.0 Eosinophils % 2.5 Basophils % 0.1 Nucleated Red Blood Cells % 0.0 Neutrophils # 9.1 H Lymphocytes # 0.9 Monocytes # 0.9 Eosinophils # 0.3 Basophils # 0.0 Nucleated Red Blood Cells # 0.0 Sodium Level 138 Potassium Level 4.3 Chloride Level 102 Carbon Dioxide Level 17 L Anion Gap 23 H Blood Urea Nitrogen 48 H Creatinine 9.10 H Glucose Level 86 Calcium Level 8.0 L Phosphorus Level 4.5 Magnesium Level 2.4 B-Type Natriuretic Peptide 9260 H Medications Medications Current Medications Ondansetron HCl (Zofran Inj) 4 mg Q6H PRN IV NAUSEA AND/OR VOMITING Last administered on 01/30/17 10:28; Admin Dose 4 MG; Start 01/24/17 at 13:30 Acetaminophen (Tylenol Supp) 650 mg Q6H PRN [place] PAIN LEVEL 1-3 OR FEVER Last administered on 01/28/17 00:22; Admin Dose 650 MG; Start 01/24/17 at 13:30 Docusate Sodium (Colace) 100 mg Q12H PRN PO CONSTIPATION; Start 01/24/17 at 13: 30 Magnesium Hydroxide (Milk Of Mag) 30 ml DAILY PRN PO CONSTIPATION; Start at 13:30 Bisacodyl 10 mg 10 mg DAILY PRN [place] CONSTIPATION; Start 01/24/17 at 13:30 Acetaminophen (Ofirmev 1000mg/ 100ml Iv) 100 ml @ 400 mls/hr Q6H PRN IVPB fever Last administered on 01/29/17 08:06; Admin Dose 400 MLS/HR; Start 01/24/17 at 16:00 Morphine Sulfate (morphine) 4 mg Q4H PRN IV PAIN Last administered on 01/28/17 13:49; Admin Dose 4 MG; Start 01/27/17 at 02:30 Vancomycin HCl (Vancomycin Oral Syringe) 250 mg Q6 PO Last administered on 02/02 05:56; Admin Dose 250 MG; Start 01/27/17 at 22:00 Acetaminophen/ Butalbital/ Caffeine (Fioricet) 1 tab Q4H PRN PO Headache; Start 01/28/17 at 10:00 Acetaminophen/ Hydrocodone Bitart ([place] (5/325)) 1 tab Q4H PRN PO PAIN LEVEL 4 -7; Start 01/29/17 at 05:30 Acetaminophen/ Hydrocodone Bitart ([place] (5/325)) 2 tab Q4H PRN PO PAIN LEVEL 7 -10 Last administered on 02/01/17 04:17; Admin Dose 2 TAB; Start 01/29/17 at 05: 30 Hydromorphone HCl (Dilaudid) 0.5 mg Q2 PRN IV PAIN Last administered on 05:20; Admin Dose 0.5 MG; Start 01/29/17 at 05:30 Hydromorphone HCl (Dilaudid) 1 mg Q2 PRN IV PAIN Last administered on 01:18; Admin Dose 1 MG; Start 01/29/17 at 05:30 Docusate Sodium 100 mg 100 mg BID PRN PO CONSTIPATION; Start 01/29/17 at 05:30 Piperacillin Sod/ Tazobactam Sod (Zosyn 2.25gm/ 50ml (Pmx)) 50 ml @ 100 mls/hr Q6 IVPB Last administered on 02/02/17 05:56; Admin Dose 100 MLS/HR; Start 04/08 at 18:00 Simethicone (Mylicon) 80 mg QID PRN GTB DISTENSION/GAS/BLOATING Last administered on 02/02/17 08:11; Admin Dose 80 MG; Start 01/30/17 at 17:00 Famotidine (Pepcid) 40 mg HS PO Last administered on 02/01/17 21:01; Admin Dose 40 MG; Start 01/31/17 at 21:00 Heparin Sodium (Porcine) (Heparin (5000 Units/0.5 ml)) 5,000 unit BID SC Last administered on 02/02/17 08:17; Admin Dose 5,000 UNIT; Start 02/01/17 at 08:00 Citric Acid/ Sodium Citrate (Bicitra) 30 ml BID PO Last administered on 08:11; Admin Dose 30 ML; Start 01/31/17 at 21:00 VICKI JOAQUIN NP Feb 02, 2017 09:47
--- NOTE | 2017-02-02 10:54 | PN ---
Date/Time of Note Date/Time of Note DATE: 02/02/17 TIME: 10:52 Assessment/Plan Lines/Catheters IV Catheter Type (from Nrsg): Saline Lock Shah in Place (from Nrsg): Yes Assessment/Plan Assessment/Plan [facility] Progress Note Date of Service: 02/02/17 Today's Impression & Plan: Overall has remained stable and improving. Pain control seems adequate. Slowly resolving postoperative paralytic ileus. WBC lower today. At risk for complications including abscess formation, further leak, infection, etc. No indication for acute surgical intervention. Abdomen appears to be relatively benign. Kidneys will likely continue to improve. Appreciate Dr. Kimball's input. Answered all questions. With above assessment, I've recommended the following for today: 1. Cont current cares 2. Cont broad spec antimicrobials 3. Regular diet 4. Labs in am 5. Increase activity 6. Increase ICS 7. Change ostomy bag 8. Keep an eye out on the lower portion of the incision. It may be necessary to remove a few elías if the discharge continues. Patient at risk for wound infection. 9. Transfer to med/surg Nature of presenting problem: High risk Complexity of decision making: high complexity Thank you again for your great care of this very pleasant patient and wonderful family. If there are any questions, please feel free to call me at [phone]. Disclaimer: Inadvertent spelling or grammatical errors are likely due to EHR/ dictation software use and do not reflect on the overall quality of patient care. Updated Clinical Summary: A very-pleasant 41-year-old gentleman with comorbidity of BMI 37.1 and previous history of diverticulitis, being admitted for recurrent diverticulitis with microperforation but no obvious evidence of abscess or other indication for intervention including no indication for surgical intervention. S/p emergency sigmoid colectomy, mobilization of splenic flexure, primary anastomosis and diverting loop ileostomy, lysis of adhesions and lavage 01/29/17. Postoperative paralytic ileus and acute renal injury. Comorbidities: 1. BMI 37.1 2. History of diverticulitis in the past as well as diagnosis of diverticulosis 3. Chronic constipation 4. S/p emergency sigmoid colectomy, mobilization of splenic flexure, primary anastomosis and diverting loop ileostomy, lysis of adhesions and lavage 01/29/17 Subjective: No major events or complaints; mild to no incisional abd pain and under control with medications; feels less bloated; no n/v/d; no sob or cp; + flatus; minimal BM; minimal activity Objective: Vitals: See below Exam: GENERAL: On exam, the patient was laying in bed and appeared to be comfortable and in no acute distress. ABDOMEN: Soft, minimal incisional tenderness, and mildly distended. Surgical drain ss. Incision dressing appears to be clean, dry, and intact without any evidence of erythema, edema, discharge, or hernia for majority of the wound, but there is still slight amount of drainage from the lower portion of the incision. Ostomy pink and viable. Minimal output in the bag. There are no peritoneal signs or guarding. SKIN: Skin appears to be pink and feels warm to touch. NEUROLOGIC: Patient is awake, alert, and follows commands appropriately. Exam/Review of Systems Vital Signs Vitals Vital Signs Date Time Temp Pulse Resp B/P Pulse Ox O2 Delivery O2 Flow Rate FiO2 02/02/17 08:12 86 02/02/17 07:18 99.0 20 126/74 98 01/31/17 00:01 Room Air 01/30/17 08:15 2.0 Intake and Output 02/01/17 02/01/17 02/02/17 15:00 23:00 07:00 Intake Total 500 ml 1100 ml 300 ml Output Total 610 ml 1110 ml 1260 ml Balance -110 ml -10 ml -960 ml Results Result Diagram: 02/02/17 0535 02/02/17 0535 WILMA THORNTON M.D. Feb 02, 2017 10:54
--- NOTE | 2017-02-02 14:08 | CONS ---
Date/Time of Note Date/Time of Note DATE: 02/02/17 TIME: 14:06 Assessment/Plan Assessment/Plan Chief Complaint/Hosp Course 41-year-old gentleman with history of diverticulitis, being admitted for recurrent diverticulitis with microperforation but no obvious evidence of abscess or other indication for intervention including no indication for surgical intervention. S/p emergency sigmoid colectomy, mobilization of splenic flexure, primary anastomosis and diverting loop ileostomy, lysis of adhesions and lavage 01/29/17. patient presented with normal creatinine on admission, His cr was normal until 01/28 then bumped to 3.76. Pt has been treated wtih IV abx Zosyn and vancomycin since admission. Renal has been consulted for RODNEY Problems: Additional Assessment/Plan 1. Acute Kidney Injury Non Oliguic, Multifactorial due to ATN + Prerenal azotemia + Nephrotoxicity from medication in low volume status 2. Recurrent diverticultiis with Microperforation s/p emergency sigmoid colectomy, mobilization of splenic flexure, primary anastomosis and diverting loop ileostomy, lysis of adhesions and lavage 01/29/17. 3. Normochloremic metabolic acidosis from ATN Plan: stop zosyn, stop PO vancomycin- discussed with ID, they will decide if pt needs Invanz(non nephrotoxic medicaiton) pt made good urine output yesteday, today since 6 AM 500 cc urine output BNP high, Cr high, BUN 48 ,K normal, Pt is on RA, has Bilateal ankle edema 2-3+ will monitor Renal function and follow up in AM Expecting renal function to improve Consultation Date/Type/Reason Admit Date/Time Jan 24, 2017 at 09:50 Initial Consult Date 01/30/17 Type of Consultation: NEPHROLOGY Referring Provider: HAIDER BURR 24 HR Interval Summary Free Text/Dictation Cr bumped to 9.1,BUn 48, K normal, pt is on RA Exam/Review of Systems Vital Signs Vitals Vital Signs Date Time Temp Pulse Resp B/P Pulse Ox O2 Delivery O2 Flow Rate FiO2 02/02/17 12:10 86 02/02/17 12:00 97.8 17 158/92 98 Room Air 01/30/17 08:15 2.0 Intake and Output 02/01/17 02/01/17 02/02/17 15:00 23:00 07:00 Intake Total 500 ml 1100 ml 300 ml Output Total 610 ml 1110 ml 1260 ml Balance -110 ml -10 ml -960 ml Exam Constitutional: alert, oriented, well developed Respiratory: clear to auscultation, diminished breath sounds Cardiovascular: nl pulses, regular rate and rhythm Gastrointestinal: non-tender, other (Left diverting ileostomy ), soft Genitourinary - Male: other (Deferred) Musculoskeletal: nl extremities to inspection Extremities: normal pulses Neurological: SALES SUPPORT ASSOCIATE II-XII intact, nl mental status, nl speech, nl strength + palmer catheter Results Result Diagram: 02/02/17 0535 02/02/17 0535 Results 24 hrs Laboratory Tests Test 02/02/17 05:35 White Blood Count 11.3 H Red Blood Count 3.22 L Hemoglobin 9.2 L Hematocrit 28.4 L Mean Corpuscular Volume 88.2 Mean Corpuscular Hemoglobin 28.6 L Mean Corpuscular Hemoglobin Concent 32.4 Red Cell Distribution Width 14.6 H Platelet Count 391 Mean Platelet Volume 8.9 Neutrophils % 80.6 H Lymphocytes % 7.6 L Monocytes % 8.0 Eosinophils % 2.5 Basophils % 0.1 Nucleated Red Blood Cells % 0.0 Neutrophils # 9.1 H Lymphocytes # 0.9 Monocytes # 0.9 Eosinophils # 0.3 Basophils # 0.0 Nucleated Red Blood Cells # 0.0 Sodium Level 138 Potassium Level 4.3 Chloride Level 102 Carbon Dioxide Level 17 L Anion Gap 23 H Blood Urea Nitrogen 48 H Creatinine 9.10 H Glucose Level 86 Calcium Level 8.0 L Phosphorus Level 4.5 Magnesium Level 2.4 B-Type Natriuretic Peptide 9260 H Medications Medications Current Medications Ondansetron HCl (Zofran Inj) 4 mg Q6H PRN IV NAUSEA AND/OR VOMITING Last administered on 01/30/17 10:28; Admin Dose 4 MG; Start 01/24/17 at 13:30 Acetaminophen (Tylenol Supp) 650 mg Q6H PRN [place] PAIN LEVEL 1-3 OR FEVER Last administered on 01/28/17 00:22; Admin Dose 650 MG; Start 01/24/17 at 13:30 Docusate Sodium (Colace) 100 mg Q12H PRN PO CONSTIPATION; Start 01/24/17 at 13: 30 Magnesium Hydroxide (Milk Of Mag) 30 ml DAILY PRN PO CONSTIPATION; Start at 13:30 Bisacodyl 10 mg 10 mg DAILY PRN [place] CONSTIPATION; Start 01/24/17 at 13:30 Acetaminophen (Ofirmev 1000mg/ 100ml Iv) 100 ml @ 400 mls/hr Q6H PRN IVPB fever Last administered on 01/29/17 08:06; Admin Dose 400 MLS/HR; Start 01/24/17 at 16:00 Morphine Sulfate (morphine) 4 mg Q4H PRN IV PAIN Last administered on 01/28/17 13:49; Admin Dose 4 MG; Start 01/27/17 at 02:30 Vancomycin HCl (Vancomycin Oral Syringe) 250 mg Q6 PO Last administered on 02/02 11:46; Admin Dose 250 MG; Start 01/27/17 at 22:00 Acetaminophen/ Butalbital/ Caffeine (Fioricet) 1 tab Q4H PRN PO Headache; Start 01/28/17 at 10:00 Acetaminophen/ Hydrocodone Bitart ([place] (5/325)) 1 tab Q4H PRN PO PAIN LEVEL 4 -7; Start 01/29/17 at 05:30 Acetaminophen/ Hydrocodone Bitart ([place] (5/325)) 2 tab Q4H PRN PO PAIN LEVEL 7 -10 Last administered on 02/01/17 04:17; Admin Dose 2 TAB; Start 01/29/17 at 05: 30 Hydromorphone HCl (Dilaudid) 0.5 mg Q2 PRN IV PAIN Last administered on 05:20; Admin Dose 0.5 MG; Start 01/29/17 at 05:30 Hydromorphone HCl (Dilaudid) 1 mg Q2 PRN IV PAIN Last administered on 01:18; Admin Dose 1 MG; Start 01/29/17 at 05:30 Docusate Sodium 100 mg 100 mg BID PRN PO CONSTIPATION; Start 01/29/17 at 05:30 Piperacillin Sod/ Tazobactam Sod (Zosyn 2.25gm/ 50ml (Pmx)) 50 ml @ 100 mls/hr Q6 IVPB Last administered on 02/02/17 11:46; Admin Dose 100 MLS/HR; Start 04/08 at 18:00 Simethicone (Mylicon) 80 mg QID PRN GTB DISTENSION/GAS/BLOATING Last administered on 02/02/17 08:11; Admin Dose 80 MG; Start 01/30/17 at 17:00 Famotidine (Pepcid) 40 mg HS PO Last administered on 02/01/17 21:01; Admin Dose 40 MG; Start 01/31/17 at 21:00 Heparin Sodium (Porcine) (Heparin (5000 Units/0.5 ml)) 5,000 unit BID SC Last administered on 02/02/17 08:17; Admin Dose 5,000 UNIT; Start 02/01/17 at 08:00 Citric Acid/ Sodium Citrate (Bicitra) 30 ml BID PO Last administered on 08:11; Admin Dose 30 ML; Start 01/31/17 at 21:00 SINGH WILLOUGHBY MD Feb 02, 2017 14:08
[2017-02-02] MEDS ORDERED: ERTAPENEM SODIUM 0.5 GM in SOD CHLORIDE 0.9% 100 ML IVPB SCH (20:00)
[2017-02-02] MEDS ORDERED: PIPER-TAZO 2.25 GM (PMX) 50 ML IVPB SCH (21:00)
[2017-02-02] MEDS: FAMOTIDINE 20 MG TAB PO SCH (21:17)
[2017-02-03 02:50] VITALS: BP 145/78; RESP 18
[2017-02-03 06:31] LABS: BASOPHILS % 0.1 % (0.0-2.0); EOSINOPHILS # 0.2 10^3/ul (0.0-0.5); EOSINOPHILS % 1.9 % (0.0-7.0); HEMATOCRIT 27.5 % (42.0-52.0); LYMPHOCYTES # 0.8 10^3/ul (0.8-2.9); LYMPHOCYTES % 6.3 % (15.0-51.0); MEAN CORPUSCULAR HEMOGLOBIN 28.5 pg (29.0-33.0); MEAN CORPUSCULAR HGB CONC 32.7 g/dl (32.0-37.0); MONOCYTES % 7.8 % (0.0-11.0); NEUTROPHIL # 10.3 10^3/ul (1.6-7.5); NEUTROPHILS % 82.8 % (39.0-77.0); PLATELET COUNT 412 10^3/UL (140-415); RED BLOOD COUNT 3.16 10^6/ul (4.70-6.10); RED CELL DISTRIBUTION WIDTH 14.4 % (11.5-14.5); WHITE BLOOD COUNT 12.4 10^3/ul (4.8-10.8)
[2017-02-03 07:07] LABS: CREATININE 10.47 mg/dl (0.61-1.24)
[2017-02-03 07:45] VITALS: BP 138/77; RESP 18
[2017-02-03] MEDS: CITRIC ACID/NA CITRATE 30 ML CUP PO SCH ×3 (08:37→20:44)
[2017-02-03] MEDS: HEPARIN 5,000 UNIT/0.5 ML VIAL SC SCH ×2 (08:51→20:50)
[2017-02-03] MEDS ORDERED: ERTAPENEM SODIUM 0.5 GM in SOD CHLORIDE 0.9% 100 ML IVPB SCH (09:30)
[2017-02-03] MEDS ORDERED: ALBUMIN HUMAN 25% 100 ML IV ONE (11:30)
[2017-02-03] MEDS ORDERED: FUROSEMIDE 20 MG INJ IV ONE (11:30)
--- NOTE | 2017-02-03 11:56 | CONS ---
Date/Time of Note Date/Time of Note DATE: 02/03/17 TIME: 11:52 Assessment/Plan Assessment/Plan Chief Complaint/Hosp Course 41-year-old gentleman with history of diverticulitis, being admitted for recurrent diverticulitis with microperforation but no obvious evidence of abscess or other indication for intervention including no indication for surgical intervention. S/p emergency sigmoid colectomy, mobilization of splenic flexure, primary anastomosis and diverting loop ileostomy, lysis of adhesions and lavage 01/29/17. patient presented with normal creatinine on admission, His cr was normal until 01/28 then bumped to 3.76. Pt has been treated wtih IV abx Zosyn and vancomycin since admission. Renal has been consulted for RODNEY Problems: Additional Assessment/Plan 1. Acute Kidney Injury Non Oliguic, Multifactorial due to ATN + Prerenal azotemia + Nephrotoxicity from medication in low volume status 2. Recurrent diverticultiis with Microperforation s/p emergency sigmoid colectomy, mobilization of splenic flexure, primary anastomosis and diverting loop ileostomy, lysis of adhesions and lavage 01/29/17. 3. Normochloremic metabolic acidosis from ATN Plan: BUN/Cr slowly rising, pt is in ATN, made 1.3 L urine output yesterday without lasix CXR 02/01/17- no congestion will give lasix + albumin today increase Bicitra 30ml PO TID Bicarbonate drip x 1 liter then stop expecting renal recovery D/c palmer catheter all previous abx has been stopped, Currenlty on Invanz after checking with ID pt feeling stable, no urgent indication for dialysis, will follow up... expecting renal recovery, keep pt euvolemic Consultation Date/Type/Reason Admit Date/Time Jan 24, 2017 at 09:50 Initial Consult Date 01/30/17 Type of Consultation: NEPHROLOGY Referring Provider: HAIDER BURR 24 HR Interval Summary Free Text/Dictation BUN 54, Cr 10.47, HCo3 15- pt stable, sitting in chair, saturation normall Exam/Review of Systems Vital Signs Vitals Vital Signs Date Time Temp Pulse Resp B/P Pulse Ox O2 Delivery O2 Flow Rate FiO2 02/03/17 07:45 97.8 78 18 138/77 97 02/02/17 12:00 Room Air 01/30/17 08:15 2.0 Intake and Output 02/02/17 02/02/17 02/03/17 15:00 23:00 07:00 Intake Total 100 ml 300 ml Output Total 215 ml 1715 ml Balance -115 ml -1415 ml Exam Constitutional: alert, oriented, well developed Respiratory: clear to auscultation, diminished breath sounds Cardiovascular: nl pulses, regular rate and rhythm Gastrointestinal: non-tender, other (Left diverting ileostomy ), soft Genitourinary - Male: other (Deferred) Musculoskeletal: nl extremities to inspection Extremities: normal pulses Neurological: CHEMIST INSTRUMENTATION II-XII intact, nl mental status, nl speech, nl strength + palmer catheter Results Result Diagram: 02/03/17 0556 02/03/17 0556 Results 24 hrs Laboratory Tests Test 02/03/17 05:56 White Blood Count 12.4 H Red Blood Count 3.16 L Hemoglobin 9.0 L Hematocrit 27.5 L Mean Corpuscular Volume 87.0 Mean Corpuscular Hemoglobin 28.5 L Mean Corpuscular Hemoglobin Concent 32.7 Red Cell Distribution Width 14.4 Platelet Count 412 Mean Platelet Volume 9.0 Neutrophils % 82.8 H Lymphocytes % 6.3 L Monocytes % 7.8 Eosinophils % 1.9 Basophils % 0.1 Nucleated Red Blood Cells % 0.0 Neutrophils # 10.3 H Lymphocytes # 0.8 Monocytes # 1.0 H Eosinophils # 0.2 Basophils # 0.0 Nucleated Red Blood Cells # 0.0 Sodium Level 134 L Potassium Level 4.0 Chloride Level 105 Carbon Dioxide Level 15 L Anion Gap 18 H Blood Urea Nitrogen 54 H Creatinine 10.47 H Glucose Level 99 Calcium Level 8.0 L Magnesium Level 2.6 H Medications Medications Current Medications Ondansetron HCl (Zofran Inj) 4 mg Q6H PRN IV NAUSEA AND/OR VOMITING Last administered on 01/30/17 10:28; Admin Dose 4 MG; Start 01/24/17 at 13:30 Acetaminophen (Tylenol Supp) 650 mg Q6H PRN [place] PAIN LEVEL 1-3 OR FEVER Last administered on 01/28/17 00:22; Admin Dose 650 MG; Start 01/24/17 at 13:30 Docusate Sodium (Colace) 100 mg Q12H PRN PO CONSTIPATION; Start 01/24/17 at 13: 30 Magnesium Hydroxide (Milk Of Mag) 30 ml DAILY PRN PO CONSTIPATION; Start at 13:30 Bisacodyl 10 mg 10 mg DAILY PRN [place] CONSTIPATION; Start 01/24/17 at 13:30 Acetaminophen (Ofirmev 1000mg/ 100ml Iv) 100 ml @ 400 mls/hr Q6H PRN IVPB fever Last administered on 01/29/17 08:06; Admin Dose 400 MLS/HR; Start 01/24/17 at 16:00 Morphine Sulfate (morphine) 4 mg Q4H PRN IV PAIN Last administered on 01/28/17 13:49; Admin Dose 4 MG; Start 01/27/17 at 02:30 Acetaminophen/ Butalbital/ Caffeine (Fioricet) 1 tab Q4H PRN PO Headache; Start 01/28/17 at 10:00 Acetaminophen/ Hydrocodone Bitart ([place] (5/325)) 1 tab Q4H PRN PO PAIN LEVEL 4 -7; Start 01/29/17 at 05:30 Acetaminophen/ Hydrocodone Bitart ([place] (5/325)) 2 tab Q4H PRN PO PAIN LEVEL 7 -10 Last administered on 02/01/17 04:17; Admin Dose 2 TAB; Start 01/29/17 at 05: 30 Hydromorphone HCl (Dilaudid) 0.5 mg Q2 PRN IV PAIN Last administered on 05:20; Admin Dose 0.5 MG; Start 01/29/17 at 05:30 Hydromorphone HCl (Dilaudid) 1 mg Q2 PRN IV PAIN Last administered on 01:18; Admin Dose 1 MG; Start 01/29/17 at 05:30 Docusate Sodium (Colace) 100 mg BID PRN PO CONSTIPATION; Start 01/29/17 at 05:30 Simethicone (Mylicon) 80 mg QID PRN GTB DISTENSION/GAS/BLOATING Last administered on 02/02/17 21:16; Admin Dose 80 MG; Start 01/30/17 at 17:00 Famotidine (Pepcid) 40 mg HS PO Last administered on 02/02/17 21:17; Admin Dose 40 MG; Start 01/31/17 at 21:00 Heparin Sodium (Porcine) 5000 unit 5,000 unit BID SC Last administered on 8/14/ 17at 08:51; Admin Dose 5,000 UNIT; Start 02/01/17 at 08:00 Ertapenem/Sodium Chloride (Invanz/NS) 100 ml @ 200 mls/hr Q24H IVPB ; Start at 20:00 Citric Acid/ Sodium Citrate 30 ml 30 ml TID PO ; Start 02/03/17 at 13:00 Sodium Bicarbonate 100 meq/Dextrose 1,100 ml @ 50 mls/hr Q22H IV ; Start at 12:30 Albumin Human (Albumin Human 25%) 100 ml @ 100 mls/hr ONCE ONCE IV ; Start at 11:30; Stop 02/03/17 at 12:29 SINGH WILLOUGHBY MD Feb 03, 2017 11:56
[2017-02-03] MEDS: SODIUM BICARBONATE (IV ADD) 100 MEQ in DEXTROSE 5% 1,000 ML IV SCH (12:47)
--- NOTE | 2017-02-03 14:10 | PN ---
Date/Time of Note Date/Time of Note DATE: 02/03/17 TIME: 14:04 Assessment/Plan Lines/Catheters IV Catheter Type (from Nrsg): Saline Lock Shah in Place (from Nrsg): Yes Assessment/Plan Assessment/Plan [facility] Progress Note Date of Service: 02/03/17 Today's Impression & Plan: Overall has remained stable and improving. Pain control seems adequate. Slowly resolving postoperative paralytic ileus. WBC lower today. Cr higher, but urine output improving and electrolytes are ok. At risk for complications including abscess formation, further leak, infection, etc, but less as we move away from time of surgery. No indication for acute surgical intervention. Abdomen continues to be relatively benign. Answered all questions. With above assessment, I've recommended the following for today: 1. Cont current cares 2. Cont broad spec antimicrobials, but start weaning process targeted to cultures 3. Regular diet 4. Labs in am 5. Increase activity 6. Increase ICS 7. Change ostomy bag 8. Oral conversion 9. I'll d/c surgical drain in 24-48 hrs 10. Possible d/c home in 24-48 hrs depending on clinical course Nature of presenting problem: High risk Complexity of decision making: high complexity Thank you again for your great care of this very pleasant patient and wonderful family. If there are any questions, please feel free to call me at [phone]. Disclaimer: Inadvertent spelling or grammatical errors are likely due to EHR/ dictation software use and do not reflect on the overall quality of patient care. Updated Clinical Summary: A very-pleasant 41-year-old gentleman with comorbidity of BMI 37.1 and previous history of diverticulitis, being admitted for recurrent diverticulitis with microperforation but no obvious evidence of abscess or other indication for intervention including no indication for surgical intervention. S/p emergency sigmoid colectomy, mobilization of splenic flexure, primary anastomosis and diverting loop ileostomy, lysis of adhesions and lavage 01/29/17. Postoperative paralytic ileus and acute renal injury. Comorbidities: 1. BMI 37.1 2. History of diverticulitis in the past as well as diagnosis of diverticulosis 3. Chronic constipation 4. S/p emergency sigmoid colectomy, mobilization of splenic flexure, primary anastomosis and diverting loop ileostomy, lysis of adhesions and lavage 01/29/17 Subjective: No major events or complaints; mild to no incisional abd pain and under control with medications; feels less bloated; no n/v/d; no sob or cp; + flatus in the bag; + BM in the bag; minimal activity Objective: Vitals: See below Exam: GENERAL: On exam, the patient was laying in bed and appeared to be comfortable and in no acute distress. ABDOMEN: Soft, minimal incisional tenderness, and mildly distended. Surgical drain ss. Incision dressing appears to be clean, dry, and intact without any evidence of erythema, edema, discharge, or hernia for majority of the wound, but there is still slight amount of drainage from the lower portion of the incision. Ostomy pink and viable. Minimal output in the bag. There are no peritoneal signs or guarding. SKIN: Skin appears to be pink and feels warm to touch. NEUROLOGIC: Patient is awake, alert, and follows commands appropriately. Exam/Review of Systems Vital Signs Vitals Vital Signs Date Time Temp Pulse Resp B/P Pulse Ox O2 Delivery O2 Flow Rate FiO2 02/03/17 07:45 97.8 78 18 138/77 97 02/02/17 12:00 Room Air 01/30/17 08:15 2.0 Intake and Output 02/02/17 02/02/17 02/03/17 15:00 23:00 07:00 Intake Total 100 ml 300 ml Output Total 215 ml 1715 ml Balance -115 ml -1415 ml Results Result Diagram: 02/03/17 0556 02/03/17 0556 WILMA THORNTON M.D. Feb 03, 2017 14:10
[2017-02-03 14:31] VITALS: BP 137/78; RESP 18
--- NOTE | 2017-02-03 15:00 | PN ---
Date/Time of Note Date/Time of Note DATE: 02/03/17 TIME: 14:55 Assessment/Plan VTE Prophylaxis VTE Prophylaxis Intervention: heparin Lines/Catheters IV Catheter Type (from Nrs): Saline Lock Urinary Cath still in place: Yes Reason Cath still needed: other (indicate) (monitor I&O) Assessment/Plan Chief Complaint/Hosp Course Assessment and plan 1. Perforated sigmoid colon with inflamed terminal ileum and cecum. Patient status post arthroscopic converted to open sigmoid colectomy with primary anastomosis and diverting loop ileostomy on January 29, 2017. Continue postop care. Tolerating diet well. Continue with surgeon recommendations. Tentative plan for drain removal per surgeon. 2. Tachycardia. Resolved at present. Likely secondary to dehydration. 3. UTI. Continue antibiotics. improving 4. Sepsis secondary to diverticulitis and UTI. Continue antibiotics per ID recommendations. appears to be improving at present. Medications renally dosed due to acute renal insufficiency. 5. Acute kidney injury. Nonoliguric and multifactorial due to prerenal azotemia as well as ATN and nephrotoxicity. Medications renally dosed. No plan for dialysis per air traffic coordinator. Shah catheter was discontinued. Monitor renal panel. Disposition and plan: Continue antibiotics. Continue with analgesics. Plan for removal of drain per surgeon. Continue in-house monitoring and discharge when medically stable and cleared by consultants Discussed plan of care with Dr. Deutsch Problems: Subjective 24 Hr Interval Summary Free Text/Dictation Appears comfortable at present. Denies any pain. Exam/Review of Systems Vital Signs Vitals Vital Signs Date Time Temp Pulse Resp B/P Pulse Ox O2 Delivery O2 Flow Rate FiO2 02/03/17 14:31 98.1 78 18 137/78 98 02/02/17 12:00 Room Air 01/30/17 08:15 2.0 Intake and Output 02/02/17 02/02/17 02/03/17 15:00 23:00 07:00 Intake Total 100 ml 300 ml Output Total 215 ml 1715 ml Balance -115 ml -1415 ml Exam Constitutional: alert, oriented Psych: nl mood/affect Head: normocephalic Respiratory: normal air movement Cardiovascular: other Gastrointestinal: other (Noted with ostomy bag on left abdominal quadrant and incisional drain through center of abdomen and drain on right lower abdominal quadrant), soft (Regular rate) Musculoskeletal: swelling (Seen on bilateral lower extremely) Neurological: CHAIR MAKER II-XII intact, nl mental status, nl speech Results Result Diagram: 02/03/17 0556 02/03/17 0556 Results 24 hrs Laboratory Tests Test 02/03/17 05:56 White Blood Count 12.4 H Red Blood Count 3.16 L Hemoglobin 9.0 L Hematocrit 27.5 L Mean Corpuscular Volume 87.0 Mean Corpuscular Hemoglobin 28.5 L Mean Corpuscular Hemoglobin Concent 32.7 Red Cell Distribution Width 14.4 Platelet Count 412 Mean Platelet Volume 9.0 Neutrophils % 82.8 H Lymphocytes % 6.3 L Monocytes % 7.8 Eosinophils % 1.9 Basophils % 0.1 Nucleated Red Blood Cells % 0.0 Neutrophils # 10.3 H Lymphocytes # 0.8 Monocytes # 1.0 H Eosinophils # 0.2 Basophils # 0.0 Nucleated Red Blood Cells # 0.0 Sodium Level 134 L Potassium Level 4.0 Chloride Level 105 Carbon Dioxide Level 15 L Anion Gap 18 H Blood Urea Nitrogen 54 H Creatinine 10.47 H Glucose Level 99 Calcium Level 8.0 L Magnesium Level 2.6 H Medications Medications Current Medications Ondansetron HCl (Zofran Inj) 4 mg Q6H PRN IV NAUSEA AND/OR VOMITING Last administered on 01/30/17 10:28; Admin Dose 4 MG; Start 01/24/17 at 13:30 Acetaminophen (Tylenol Supp) 650 mg Q6H PRN [place] PAIN LEVEL 1-3 OR FEVER Last administered on 01/28/17 00:22; Admin Dose 650 MG; Start 01/24/17 at 13:30 Docusate Sodium (Colace) 100 mg Q12H PRN PO CONSTIPATION; Start 01/24/17 at 13: 30 Magnesium Hydroxide (Milk Of Mag) 30 ml DAILY PRN PO CONSTIPATION; Start at 13:30 Bisacodyl 10 mg 10 mg DAILY PRN [place] CONSTIPATION; Start 01/24/17 at 13:30 Acetaminophen (Ofirmev 1000mg/ 100ml Iv) 100 ml @ 400 mls/hr Q6H PRN IVPB fever Last administered on 01/29/17 08:06; Admin Dose 400 MLS/HR; Start 01/24/17 at 16:00 Morphine Sulfate (morphine) 4 mg Q4H PRN IV PAIN Last administered on 01/28/17 13:49; Admin Dose 4 MG; Start 01/27/17 at 02:30 Acetaminophen/ Butalbital/ Caffeine (Fioricet) 1 tab Q4H PRN PO Headache; Start 01/28/17 at 10:00 Acetaminophen/ Hydrocodone Bitart ([place] (5/325)) 1 tab Q4H PRN PO PAIN LEVEL 4 -7; Start 01/29/17 at 05:30 Acetaminophen/ Hydrocodone Bitart ([place] (5/325)) 2 tab Q4H PRN PO PAIN LEVEL 7 -10 Last administered on 02/01/17 04:17; Admin Dose 2 TAB; Start 01/29/17 at 05: 30 Hydromorphone HCl (Dilaudid) 0.5 mg Q2 PRN IV PAIN Last administered on 05:20; Admin Dose 0.5 MG; Start 01/29/17 at 05:30 Hydromorphone HCl (Dilaudid) 1 mg Q2 PRN IV PAIN Last administered on 01:18; Admin Dose 1 MG; Start 01/29/17 at 05:30 Docusate Sodium (Colace) 100 mg BID PRN PO CONSTIPATION; Start 01/29/17 at 05:30 Simethicone (Mylicon) 80 mg QID PRN GTB DISTENSION/GAS/BLOATING Last administered on 02/02/17 21:16; Admin Dose 80 MG; Start 01/30/17 at 17:00 Famotidine (Pepcid) 40 mg HS PO Last administered on 02/02/17 21:17; Admin Dose 40 MG; Start 01/31/17 at 21:00 Heparin Sodium (Porcine) 5000 unit 5,000 unit BID SC Last administered on 08:51; Admin Dose 5,000 UNIT; Start 02/01/17 at 08:00 Ertapenem/Sodium Chloride (Invanz/NS) 100 ml @ 200 mls/hr Q24H IVPB ; Start at 20:00 Citric Acid/ Sodium Citrate 30 ml 30 ml TID PO Last administered on 02/03/17 12:47; Admin Dose 30 ML; Start 02/03/17 at 13:00 Sodium Bicarbonate/ Dextrose (Na Bicarb/D5W) 1,100 ml @ 50 mls/hr Q22H IV Last administered on 8/14/17at 12:47; Admin Dose 50 MLS/HR; Start 02/03/17 at 12 :30 PRISCILLA METZGER Feb 03, 2017 15:00
[2017-02-03 19:58] VITALS: BP 140/75; RESP 20
[2017-02-03] MEDS: ERTAPENEM SODIUM 0.5 GM in SOD CHLORIDE 0.9% 100 ML IVPB SCH (20:43)
[2017-02-03] MEDS: FAMOTIDINE 20 MG TAB PO SCH (20:44)
[2017-02-04 02:39] VITALS: BP 148/87; RESP 16
[2017-02-04] MEDS: HYDROCODONE/APAP (5/325) TAB PO PRN (02:48)
--- NOTE | 2017-02-04 04:16 | PN ---
DATE: 02/03/2017 INFECTIOUS DISEASE PROGRESS NOTE SUBJECTIVE DATA: No acute changes. The patient is lying comfortably in bed. He is alert, in no distress. Denies pain, discomfort. Urine output is good. No fevers. LABORATORY AND DIAGNOSTIC DATA: WBC 12.4, platelets 412, neutrophils 82.8. BUN 54, creatinine 10.47. ANTIMICROBIALS: Invanz. OBJECTIVE DATA: GENERAL: Obese well-developed middle-aged man who is awake, in no distress. HEENT: Head atraumatic, normocephalic. Sclerae anicteric. Buccal mucosa dry. NECK: Supple. CHEST: Rise symmetrical. Breath sounds clear. HEART: S1, S2. ABDOMEN: Soft, bowel sounds present. EXTREMITIES: Without cyanosis. ASSESSMENT: 1. Acute renal failure secondary to acute tubular necrosis. Nephrology following. Urine output improving. 2. Status post perforated sigmoid colon repair requiring laparoscopic converted to open sigmoid colectomy. 3. Obesity. 4. Status post urinary tract infection. PLAN: The patient remains stable. He is being followed by multiple consultants. We will continue him on current antimicrobials. Dictated By: Yakov Rosa NP /buddy/angela /Document#: [id number]
[2017-02-04 06:07] LABS: BASOPHILS % 0.2 % (0.0-2.0); EOSINOPHILS # 0.3 10^3/ul (0.0-0.5); EOSINOPHILS % 2.4 % (0.0-7.0); HEMATOCRIT 25.8 % (42.0-52.0); HEMOGLOBIN 8.6 g/dl (14.0-18.0); LYMPHOCYTES # 1.1 10^3/ul (0.8-2.9); MEAN CORPUSCULAR HEMOGLOBIN 28.6 pg (29.0-33.0); MEAN CORPUSCULAR HGB CONC 33.3 g/dl (32.0-37.0); MEAN CORPUSCULAR VOLUME 85.7 fl (82.0-101.0); MEAN PLATELET VOLUME 9.1 fl (7.4-10.4); MONOCYTE # 1.3 10^3/ul (0.3-0.9); MONOCYTES % 9.9 % (0.0-11.0); NEUTROPHILS % 76.8 % (39.0-77.0); PLATELET COUNT 425 10^3/UL (140-415); RED BLOOD COUNT 3.01 10^6/ul (4.70-6.10); RED CELL DISTRIBUTION WIDTH 14.2 % (11.5-14.5); WHITE BLOOD COUNT 12.6 10^3/ul (4.8-10.8)
[2017-02-04 06:22] LABS: CREATININE 10.87 mg/dl (0.61-1.24); POTASSIUM 3.5 mmol/L (3.5-5.1)
[2017-02-04 07:53] VITALS: BP 150/83; RESP 18
[2017-02-04] MEDS: CITRIC ACID/NA CITRATE 30 ML CUP PO SCH ×3 (08:56→20:28)
--- NOTE | 2017-02-04 08:58 | PN ---
DATE: 02/02/2017 SUBJECTIVE DATA: No acute changes overnight. The patient is alert, feels good, looks comfortable, afebrile, tolerating a diet. LABORATORY AND DIAGNOSTIC DATA: WBC 11.3, with neutrophils 80.6, no bands. BUN 48, creatinine 9.1. PHYSICAL EXAMINATION: This is an obese, well developed, middle- aged, man who is awake, in no distress. HEENT: Head atraumatic, normocephalic. Sclerae anicteric. Buccal mucosa dry. NECK: Supple. CHEST: Chest rise symmetric. Breath sounds diminished at the bases. HEART: S1, S2. ABDOMEN: Soft. Bowel sounds present. Mid abdominal dressing clean, dry and intact. ASSESSMENT: 1. Acute renal failure, likely acute tubular necrosis. As per Nephrology, status post Zosyn and Vanco will be discontinued. 2. Perforated sigmoid colon status post laparoscopic converted to open sigmoid colectomy and diverting loop ileostomy on January 29, 2017. 3. Status post urinary tract infection. 4. Morbid obesity. 5. Resolving leukocytosis. PLAN: Patient remains stable. We are going to start him on Invanz. Will continue observing him. Monitor his renal function. Follow recommendations of consultants. Above was discussed with Dr. Halie Kimball. Above was discussed with the patient. Dictated By: Yakov Rosa NP /buddy/speedy /Document#: [id number] JES
[2017-02-04] MEDS: HEPARIN 5,000 UNIT/0.5 ML VIAL SC SCH ×2 (09:04→20:45)
--- NOTE | 2017-02-04 09:06 | PN ---
Date/Time of Note Date/Time of Note DATE: 02/04/17 TIME: 09:04 Assessment/Plan Lines/Catheters IV Catheter Type (from Nrsg): Saline Lock Shah in Place (from Nrsg): Yes Assessment/Plan Assessment/Plan [facility] Progress Note Date of Service: 02/04/17 Today's Impression & Plan: Overall has remained stable and improving. Pain control seems adequate. Slowly resolving postoperative paralytic ileus. WBC ok. Cr higher, but urine output improving and electrolytes are ok. Suspected will start going down soon. At risk for complications including abscess formation, further leak, infection, etc , but less as we move away from time of surgery. No indication for acute surgical intervention. Abdomen continues to be relatively benign. Answered all questions. With above assessment, I've recommended the following for today: 1. Cont current cares 2. Cont broad spec antimicrobials, but start weaning process targeted to cultures 3. Regular diet 4. Labs in am 5. Increase activity 6. Increase ICS 7. Change ostomy bag 8. Oral conversion 9. I'll d/c surgical drain in 24-48 hrs 10. Possible d/c home in 24-48 hrs depending on clinical course Nature of presenting problem: High risk Complexity of decision making: high complexity Thank you again for your great care of this very pleasant patient and wonderful family. If there are any questions, please feel free to call me at [phone]. Disclaimer: Inadvertent spelling or grammatical errors are likely due to EHR/ dictation software use and do not reflect on the overall quality of patient care. Updated Clinical Summary: A very-pleasant 41-year-old gentleman with comorbidity of BMI 37.1 and previous history of diverticulitis, being admitted for recurrent diverticulitis with microperforation but no obvious evidence of abscess or other indication for intervention including no indication for surgical intervention. S/p emergency sigmoid colectomy, mobilization of splenic flexure, primary anastomosis and diverting loop ileostomy, lysis of adhesions and lavage 01/29/17. Postoperative paralytic ileus and acute renal injury. Comorbidities: 1. BMI 37.1 2. History of diverticulitis in the past as well as diagnosis of diverticulosis 3. Chronic constipation 4. S/p emergency sigmoid colectomy, mobilization of splenic flexure, primary anastomosis and diverting loop ileostomy, lysis of adhesions and lavage 01/29/17 Subjective: No major events or complaints; mild to no incisional abd pain and under control with medications; feels less bloated; no n/v/d; no sob or cp; + flatus in the bag; + BM in the bag; minimal activity Objective: Vitals: See below Exam: GENERAL: On exam, the patient was sitting in a chair eating a regular breakfast and appeared to be comfortable and in no acute distress. ABDOMEN: Soft, minimal incisional tenderness, and mildly distended. Surgical drain ss. Incision dressing appears to be clean, dry, and intact without any evidence of erythema, edema, discharge, or hernia for majority of the wound, but there is still slight amount of drainage from the lower portion of the incision. Ostomy pink and viable. Minimal output in the bag. There are no peritoneal signs or guarding. SKIN: Skin appears to be pink and feels warm to touch. NEUROLOGIC: Patient is awake, alert, and follows commands appropriately. Exam/Review of Systems Vital Signs Vitals Vital Signs Date Time Temp Pulse Resp B/P Pulse Ox O2 Delivery O2 Flow Rate FiO2 02/04/17 07:53 97.9 72 18 150/83 98 02/02/17 12:00 Room Air Intake and Output 02/03/17 02/03/17 02/04/17 15:00 23:00 07:00 Intake Total 1560 ml 1040 ml Output Total 1820 ml 1820 ml Balance -260 ml -780 ml Results Result Diagram: 02/04/17 0538 02/04/17 0538 WILMA THORNTON M.D. Feb 04, 2017 09:06
[2017-02-04] MEDS: SODIUM BICARBONATE (IV ADD) 100 MEQ in DEXTROSE 5% 1,000 ML IV SCH ×2 (10:30→15:24)
--- NOTE | 2017-02-04 12:41 | PN ---
Date/Time of Note Date/Time of Note DATE: 02/04/17 TIME: 12:36 Assessment/Plan VTE Prophylaxis VTE Prophylaxis Intervention: heparin Lines/Catheters IV Catheter Type (from Nrs): Saline Lock Urinary Cath still in place: Yes Reason Cath still needed: other (indicate) (monitor I&O) Assessment/Plan Chief Complaint/Hosp Course Assessment and plan 1. Perforated sigmoid colon with inflamed terminal ileum and cecum. Patient status post arthroscopic converted to open sigmoid colectomy with primary anastomosis and diverting loop ileostomy on January 29, 2017. Continue postop care. Tolerating diet well. Continue with surgeon recommendations. 2. Tachycardia. Resolved at present. Likely secondary to dehydration. 3. UTI. Continue antibiotics. improving. continue with ID recommendations 4. Sepsis secondary to diverticulitis and UTI. Continue antibiotics per ID recommendations. appears to be improving at present. Medications renally dosed due to acute renal insufficiency. 5. Acute kidney injury. Nonoliguric and multifactorial due to prerenal azotemia as well as ATN and nephrotoxicity. Medications renally dosed. No plan for dialysis per [facility] supervisor. Shah catheter was discontinued. Monitor renal panel. Disposition and plan: Continue to monitor for renal recovery. Continue wound care per surgeon. Continue in-house monitoring. Discussed plan of care with Dr. Deutsch Problems: Subjective 24 Hr Interval Summary Free Text/Dictation No reports of pain. Comfortable at present Exam/Review of Systems Vital Signs Vitals Vital Signs Date Time Temp Pulse Resp B/P Pulse Ox O2 Delivery O2 Flow Rate FiO2 02/04/17 07:53 97.9 72 18 150/83 98 02/02/17 12:00 Room Air Intake and Output 02/03/17 02/03/17 02/04/17 15:00 23:00 07:00 Intake Total 1560 ml 1040 ml Output Total 1820 ml 1820 ml Balance -260 ml -780 ml Exam Constitutional: alert, oriented Psych: nl mood/affect Head: normocephalic Respiratory: normal air movement Cardiovascular: other, regular rate Gastrointestinal: other (Noted with ostomy bag on left abdominal quadrant and incisional drain through center of abdomen and drain on right lower abdominal quadrant), soft Musculoskeletal: swelling (Seen on bilateral lower extremely little less today) Neurological: ARM MAKER II-XII intact, nl mental status, nl speech Results Result Diagram: 02/04/17 0502/04/17 0538 Results 24 hrs Laboratory Tests Test 02/04/17 05:38 02/04/17 08:17 White Blood Count 12.6 H Red Blood Count 3.01 L Hemoglobin 8.6 L Hematocrit 25.8 L Mean Corpuscular Volume 85.7 Mean Corpuscular Hemoglobin 28.6 L Mean Corpuscular Hemoglobin Concent 33.3 Red Cell Distribution Width 14.2 Platelet Count 425 H Mean Platelet Volume 9.1 Neutrophils % 76.8 Lymphocytes % 9.0 L Monocytes % 9.9 Eosinophils % 2.4 Basophils % 0.2 Nucleated Red Blood Cells % 0.0 Neutrophils # (Manual) 9.7 H Lymphocytes # 1.1 Monocytes # 1.3 H Eosinophils # 0.3 Basophils # 0.0 Nucleated Red Blood Cells # 0.0 Sodium Level 137 Potassium Level 3.5 Chloride Level 101 Carbon Dioxide Level 19 L Anion Gap 21 H Blood Urea Nitrogen 61 H Creatinine 10.87 H Glucose Level 120 Calcium Level 8.0 L Magnesium Level 2.5 Lab Scanned Report REFERENCE LAB Medications Medications Current Medications Ondansetron HCl (Zofran Inj) 4 mg Q6H PRN IV NAUSEA AND/OR VOMITING Last administered on 01/30/17 10:28; Admin Dose 4 MG; Start 01/24/17 at 13:30 Acetaminophen (Tylenol Supp) 650 mg Q6H PRN [place] PAIN LEVEL 1-3 OR FEVER Last administered on 01/28/17 00:22; Admin Dose 650 MG; Start 01/24/17 at 13:30 Docusate Sodium (Colace) 100 mg Q12H PRN PO CONSTIPATION; Start 01/24/17 at 13: 30 Magnesium Hydroxide (Milk Of Mag) 30 ml DAILY PRN PO CONSTIPATION; Start at 13:30 Bisacodyl 10 mg 10 mg DAILY PRN [place] CONSTIPATION; Start 01/24/17 at 13:30 Acetaminophen (Ofirmev 1000mg/ 100ml Iv) 100 ml @ 400 mls/hr Q6H PRN IVPB fever Last administered on 01/29/17 08:06; Admin Dose 400 MLS/HR; Start 01/24/17 at 16:00 Morphine Sulfate (morphine) 4 mg Q4H PRN IV PAIN Last administered on 01/28/17 13:49; Admin Dose 4 MG; Start 01/27/17 at 02:30 Acetaminophen/ Butalbital/ Caffeine (Fioricet) 1 tab Q4H PRN PO Headache; Start 01/28/17 at 10:00 Acetaminophen/ Hydrocodone Bitart ([place] (5/325)) 1 tab Q4H PRN PO PAIN LEVEL 4 -7; Start 01/29/17 at 05:30 Acetaminophen/ Hydrocodone Bitart ([place] (5/325)) 2 tab Q4H PRN PO PAIN LEVEL 7 -10 Last administered on 02/04/17 02:48; Admin Dose 2 TAB; Start 01/29/17 at 05: 30 Hydromorphone HCl (Dilaudid) 0.5 mg Q2 PRN IV PAIN Last administered on 05:20; Admin Dose 0.5 MG; Start 01/29/17 at 05:30 Hydromorphone HCl (Dilaudid) 1 mg Q2 PRN IV PAIN Last administered on 01:18; Admin Dose 1 MG; Start 01/29/17 at 05:30 Docusate Sodium (Colace) 100 mg BID PRN PO CONSTIPATION; Start 01/29/17 at 05:30 Simethicone (Mylicon) 80 mg QID PRN GTB DISTENSION/GAS/BLOATING Last administered on 02/02/17 21:16; Admin Dose 80 MG; Start 01/30/17 at 17:00 Famotidine (Pepcid) 40 mg HS PO Last administered on 02/03/17 20:44; Admin Dose 40 MG; Start 01/31/17 at 21:00 Heparin Sodium (Porcine) 5000 unit 5,000 unit BID SC Last administered on 09:04; Admin Dose 5,000 UNIT; Start 02/01/17 at 08:00 Ertapenem/Sodium Chloride (Invanz/NS) 100 ml @ 200 mls/hr Q24H IVPB Last administered on 02/03/17 20:43; Admin Dose 200 MLS/HR; Start 02/03/17 at 20:00 Citric Acid/ Sodium Citrate 30 ml 30 ml TID PO Last administered on 02/04/17 12:29; Admin Dose 30 ML; Start 02/03/17 at 13:00 Sodium Bicarbonate/ Dextrose (Na Bicarb/D5W) 1,100 ml @ 50 mls/hr Q22H IV Last administered on 02/03/17t 12:47; Admin Dose 50 MLS/HR; Start 02/03/17 at 12 :30 PRISCILLA METZGER Feb 04, 2017 12:41
[2017-02-04 14:26] VITALS: BP 146/84; RESP 18
--- NOTE | 2017-02-04 15:51 | CONS ---
Date/Time of Note Date/Time of Note DATE: 02/04/17 TIME: 15:48 Assessment/Plan Assessment/Plan Chief Complaint/Hosp Course SUBJECTIVE DATA: Doing better, s/p Shah dc'd, voiding, tolerates diet, no fevers, nad PHYSICAL EXAMINATION: This is an obese, well developed, middle- aged, man who is awake, in no distress. HEENT: Head atraumatic, normocephalic. Sclerae anicteric. Buccal mucosa dry. NECK: Supple. CHEST: Chest rise symmetric. Breath sounds diminished at the bases. HEART: S1, S2. ABDOMEN: Soft. Bowel sounds present. Mid abdominal dressing clean, dry and intact. ASSESSMENT: 1. Acute renal failure, likely acute tubular necrosis 2. Perforated sigmoid colon, status post laparoscopic converted to open sigmoid colectomy and diverting loop ileostomy on January 29, 2017. 3. Status post urinary tract infection. 4. Morbid obesity. 5. Resolving leukocytosis. PLAN: Patient remains stable. Continue Invanz, nephrology/surgical rec-s Problems: Consultation Date/Type/Reason Admit Date/Time Jan 24, 2017 at 09:50 Initial Consult Date 01/30/17 Type of Consultation: ID Referring Provider: HAIDER BURR Exam/Review of Systems Vital Signs Vitals Vital Signs Date Time Temp Pulse Resp B/P Pulse Ox O2 Delivery O2 Flow Rate FiO2 02/04/17 14:26 98.2 84 18 146/84 97 02/02/17 12:00 Room Air Intake and Output 02/03/17 02/03/17 02/04/17 15:00 23:00 07:00 Intake Total 1560 ml 1040 ml Output Total 1820 ml 1820 ml Balance -260 ml -780 ml Results Result Diagram: 02/04/17 0538 02/04/17 0538 Results 24 hrs Laboratory Tests Test 02/04/17 05:38 02/04/17 08:17 White Blood Count 12.6 H Red Blood Count 3.01 L Hemoglobin 8.6 L Hematocrit 25.8 L Mean Corpuscular Volume 85.7 Mean Corpuscular Hemoglobin 28.6 L Mean Corpuscular Hemoglobin Concent 33.3 Red Cell Distribution Width 14.2 Platelet Count 425 H Mean Platelet Volume 9.1 Neutrophils % 76.8 Lymphocytes % 9.0 L Monocytes % 9.9 Eosinophils % 2.4 Basophils % 0.2 Nucleated Red Blood Cells % 0.0 Neutrophils # (Manual) 9.7 H Lymphocytes # 1.1 Monocytes # 1.3 H Eosinophils # 0.3 Basophils # 0.0 Nucleated Red Blood Cells # 0.0 Sodium Level 137 Potassium Level 3.5 Chloride Level 101 Carbon Dioxide Level 19 L Anion Gap 21 H Blood Urea Nitrogen 61 H Creatinine 10.87 H Glucose Level 120 Calcium Level 8.0 L Magnesium Level 2.5 Lab Scanned Report REFERENCE LAB Medications Medications Current Medications Ondansetron HCl (Zofran Inj) 4 mg Q6H PRN IV NAUSEA AND/OR VOMITING Last administered on 01/30/17 10:28; Admin Dose 4 MG; Start 01/24/17 at 13:30 Acetaminophen (Tylenol Supp) 650 mg Q6H PRN [place] PAIN LEVEL 1-3 OR FEVER Last administered on 01/28/17 00:22; Admin Dose 650 MG; Start 01/24/17 at 13:30 Docusate Sodium (Colace) 100 mg Q12H PRN PO CONSTIPATION; Start 01/24/17 at 13: 30 Magnesium Hydroxide (Milk Of Mag) 30 ml DAILY PRN PO CONSTIPATION; Start at 13:30 Bisacodyl 10 mg 10 mg DAILY PRN [place] CONSTIPATION; Start 01/24/17 at 13:30 Acetaminophen (Ofirmev 1000mg/ 100ml Iv) 100 ml @ 400 mls/hr Q6H PRN IVPB fever Last administered on 01/29/17 08:06; Admin Dose 400 MLS/HR; Start 01/24/17 at 16:00 Morphine Sulfate (morphine) 4 mg Q4H PRN IV PAIN Last administered on 01/28/17 13:49; Admin Dose 4 MG; Start 01/27/17 at 02:30 Acetaminophen/ Butalbital/ Caffeine (Fioricet) 1 tab Q4H PRN PO Headache; Start 01/28/17 at 10:00 Acetaminophen/ Hydrocodone Bitart ([place] (5/325)) 1 tab Q4H PRN PO PAIN LEVEL 4 -7; Start 01/29/17 at 05:30 Acetaminophen/ Hydrocodone Bitart ([place] (5/325)) 2 tab Q4H PRN PO PAIN LEVEL 7 -10 Last administered on 02/04/17 02:48; Admin Dose 2 TAB; Start 01/29/17 at 05: 30 Hydromorphone HCl (Dilaudid) 0.5 mg Q2 PRN IV PAIN Last administered on 05:20; Admin Dose 0.5 MG; Start 01/29/17 at 05:30 Hydromorphone HCl (Dilaudid) 1 mg Q2 PRN IV PAIN Last administered on 01:18; Admin Dose 1 MG; Start 01/29/17 at 05:30 Docusate Sodium (Colace) 100 mg BID PRN PO CONSTIPATION; Start 01/29/17 at 05:30 Simethicone (Mylicon) 80 mg QID PRN GTB DISTENSION/GAS/BLOATING Last administered on 02/02/17 21:16; Admin Dose 80 MG; Start 01/30/17 at 17:00 Famotidine (Pepcid) 40 mg HS PO Last administered on 02/03/17 20:44; Admin Dose 40 MG; Start 01/31/17 at 21:00 Heparin Sodium (Porcine) 5000 unit 5,000 unit BID SC Last administered on 09:04; Admin Dose 5,000 UNIT; Start 02/01/17 at 08:00 Ertapenem/Sodium Chloride (Invanz/NS) 100 ml @ 200 mls/hr Q24H IVPB Last administered on 02/03/17 20:43; Admin Dose 200 MLS/HR; Start 02/03/17 at 20:00 Citric Acid/ Sodium Citrate 30 ml 30 ml TID PO Last administered on 02/04/17 12:29; Admin Dose 30 ML; Start 02/03/17 at 13:00 Sodium Bicarbonate/ Dextrose (Na Bicarb/D5W) 1,100 ml @ 50 mls/hr Q22H IV Last administered on 02/04/17 15:24; Admin Dose 50 MLS/HR; Start 02/03/17 at 12 :30 ALECIA MATSON NP Feb 04, 2017 15:51
--- NOTE | 2017-02-04 17:49 | CONS ---
Date/Time of Note Date/Time of Note DATE: 02/04/17 TIME: 17:47 Assessment/Plan Assessment/Plan Chief Complaint/Hosp Course 41-year-old gentleman with history of diverticulitis, being admitted for recurrent diverticulitis with microperforation but no obvious evidence of abscess or other indication for intervention including no indication for surgical intervention. S/p emergency sigmoid colectomy, mobilization of splenic flexure, primary anastomosis and diverting loop ileostomy, lysis of adhesions and lavage 01/29/17. patient presented with normal creatinine on admission, His cr was normal until 01/28 then bumped to 3.76. Pt has been treated wtih IV abx Zosyn and vancomycin since admission. Renal has been consulted for RODNEY Problems: Additional Assessment/Plan 1. Acute Kidney Injury Non Oliguic, Multifactorial due to ATN + Prerenal azotemia + Nephrotoxicity from medication in low volume status 2. Recurrent diverticultiis with Microperforation s/p emergency sigmoid colectomy, mobilization of splenic flexure, primary anastomosis and diverting loop ileostomy, lysis of adhesions and lavage 01/29/17. 3. Normochloremic metabolic acidosis from ATN Plan: BUN/Cr slowly rising, pt is in ATN, but making good urine output , palmer has been discontinued CXR 02/01/17- no congestion continue Bicitra 30ml PO TID , s/p Bicarbonate drip x 1 liter yesterday expecting renal recovery all previous abx has been stopped, Currenlty on Invanz after checking with ID pt feeling stable, no urgent indication for dialysis, will follow up... expecting renal recovery, keep pt euvolemic Consultation Date/Type/Reason Admit Date/Time Jan 24, 2017 at 09:50 Initial Consult Date 01/30/17 Type of Consultation: NEPHROLOGY Referring Provider: HAIDER BURR 24 HR Interval Summary Free Text/Dictation made good urine, BP stable no SOB, Palmer discontinued , Cr 10.87 Exam/Review of Systems Vital Signs Vitals Vital Signs Date Time Temp Pulse Resp B/P Pulse Ox O2 Delivery O2 Flow Rate FiO2 02/04/17 14:26 98.2 84 18 146/84 97 02/02/17 12:00 Room Air Intake and Output 02/03/17 02/03/17 02/04/17 15:00 23:00 07:00 Intake Total 1560 ml 1040 ml Output Total 1820 ml 1820 ml Balance -260 ml -780 ml Exam Constitutional: alert, oriented, well developed Respiratory: clear to auscultation, diminished breath sounds Cardiovascular: nl pulses, regular rate and rhythm Gastrointestinal: non-tender, other (Left diverting ileostomy ), soft Genitourinary - Male: other (Deferred) Musculoskeletal: nl extremities to inspection Extremities: normal pulses Neurological: SILK OPENER II-XII intact, nl mental status, nl speech, nl strength Results Result Diagram: 02/04/17 0538 02/04/17 0538 Results 24 hrs Laboratory Tests Test 02/04/17 05:38 02/04/17 08:17 White Blood Count 12.6 H Red Blood Count 3.01 L Hemoglobin 8.6 L Hematocrit 25.8 L Mean Corpuscular Volume 85.7 Mean Corpuscular Hemoglobin 28.6 L Mean Corpuscular Hemoglobin Concent 33.3 Red Cell Distribution Width 14.2 Platelet Count 425 H Mean Platelet Volume 9.1 Neutrophils % 76.8 Lymphocytes % 9.0 L Monocytes % 9.9 Eosinophils % 2.4 Basophils % 0.2 Nucleated Red Blood Cells % 0.0 Neutrophils # (Manual) 9.7 H Lymphocytes # 1.1 Monocytes # 1.3 H Eosinophils # 0.3 Basophils # 0.0 Nucleated Red Blood Cells # 0.0 Sodium Level 137 Potassium Level 3.5 Chloride Level 101 Carbon Dioxide Level 19 L Anion Gap 21 H Blood Urea Nitrogen 61 H Creatinine 10.87 H Glucose Level 120 Calcium Level 8.0 L Magnesium Level 2.5 Lab Scanned Report REFERENCE LAB Medications Medications Current Medications Ondansetron HCl (Zofran Inj) 4 mg Q6H PRN IV NAUSEA AND/OR VOMITING Last administered on 01/30/17 10:28; Admin Dose 4 MG; Start 01/24/17 at 13:30 Acetaminophen (Tylenol Supp) 650 mg Q6H PRN [place] PAIN LEVEL 1-3 OR FEVER Last administered on 01/28/17 00:22; Admin Dose 650 MG; Start 01/24/17 at 13:30 Docusate Sodium (Colace) 100 mg Q12H PRN PO CONSTIPATION; Start 01/24/17 at 13: 30 Magnesium Hydroxide (Milk Of Mag) 30 ml DAILY PRN PO CONSTIPATION; Start at 13:30 Bisacodyl 10 mg 10 mg DAILY PRN [place] CONSTIPATION; Start 01/24/17 at 13:30 Acetaminophen (Ofirmev 1000mg/ 100ml Iv) 100 ml @ 400 mls/hr Q6H PRN IVPB fever Last administered on 01/29/17 08:06; Admin Dose 400 MLS/HR; Start 01/24/17 at 16:00 Morphine Sulfate (morphine) 4 mg Q4H PRN IV PAIN Last administered on 01/28/17 13:49; Admin Dose 4 MG; Start 01/27/17 at 02:30 Acetaminophen/ Butalbital/ Caffeine (Fioricet) 1 tab Q4H PRN PO Headache; Start 01/28/17 at 10:00 Acetaminophen/ Hydrocodone Bitart ([place] (5/325)) 1 tab Q4H PRN PO PAIN LEVEL 4 -7; Start 01/29/17 at 05:30 Acetaminophen/ Hydrocodone Bitart ([place] (5/325)) 2 tab Q4H PRN PO PAIN LEVEL 7 -10 Last administered on 02/04/17 02:48; Admin Dose 2 TAB; Start 01/29/17 at 05: 30 Hydromorphone HCl (Dilaudid) 0.5 mg Q2 PRN IV PAIN Last administered on 05:20; Admin Dose 0.5 MG; Start 01/29/17 at 05:30 Hydromorphone HCl (Dilaudid) 1 mg Q2 PRN IV PAIN Last administered on 01:18; Admin Dose 1 MG; Start 01/29/17 at 05:30 Docusate Sodium (Colace) 100 mg BID PRN PO CONSTIPATION; Start 01/29/17 at 05:30 Simethicone (Mylicon) 80 mg QID PRN GTB DISTENSION/GAS/BLOATING Last administered on 02/02/17 21:16; Admin Dose 80 MG; Start 01/30/17 at 17:00 Famotidine (Pepcid) 40 mg HS PO Last administered on 02/03/17 20:44; Admin Dose 40 MG; Start 01/31/17 at 21:00 Heparin Sodium (Porcine) 5000 unit 5,000 unit BID SC Last administered on 09:04; Admin Dose 5,000 UNIT; Start 02/01/17 at 08:00 Ertapenem/Sodium Chloride (Invanz/NS) 100 ml @ 200 mls/hr Q24H IVPB Last administered on 02/03/17 20:43; Admin Dose 200 MLS/HR; Start 02/03/17 at 20:00 Citric Acid/ Sodium Citrate 30 ml 30 ml TID PO Last administered on 02/04/17 12:29; Admin Dose 30 ML; Start 02/03/17 at 13:00 Sodium Bicarbonate/ Dextrose (Na Bicarb/D5W) 1,100 ml @ 50 mls/hr Q22H IV Last administered on 02/04/17 15:24; Admin Dose 50 MLS/HR; Start 02/03/17 at 12 :30 SINGH WILLOUGHBY MD Feb 04, 2017 17:49
[2017-02-04 19:58] VITALS: BP 160/89; RESP 20
[2017-02-04] MEDS: ERTAPENEM SODIUM 0.5 GM in SOD CHLORIDE 0.9% 100 ML IVPB SCH (20:28)
[2017-02-04] MEDS: FAMOTIDINE 20 MG TAB PO SCH (20:28)
[2017-02-05 02:00] VITALS: BP 136/78; RESP 19
[2017-02-05 02:03] VITALS: BP 151/82; RESP 20
[2017-02-05 06:30] LABS: BASOPHILS % 0.2 % (0.0-2.0); EOSINOPHILS # 0.3 10^3/ul (0.0-0.5); EOSINOPHILS % 2.6 % (0.0-7.0); HEMATOCRIT 25.7 % (42.0-52.0); HEMOGLOBIN 8.8 g/dl (14.0-18.0); LYMPHOCYTES # 1.6 10^3/ul (0.8-2.9); LYMPHOCYTES % 12.6 % (15.0-51.0); MEAN CORPUSCULAR HEMOGLOBIN 29.1 pg (29.0-33.0); MEAN CORPUSCULAR HGB CONC 34.2 g/dl (32.0-37.0); MEAN CORPUSCULAR VOLUME 85.1 fl (82.0-101.0); MEAN PLATELET VOLUME 9.1 fl (7.4-10.4); MONOCYTE # 1.1 10^3/ul (0.3-0.9); MONOCYTES % 9.3 % (0.0-11.0); NEUTROPHILS % 72.5 % (39.0-77.0); PLATELET COUNT 466 10^3/UL (140-415); POSITIVE DIFF @See below; RED BLOOD COUNT 3.02 10^6/ul (4.70-6.10); RED CELL DISTRIBUTION WIDTH 14.1 % (11.5-14.5); WHITE BLOOD COUNT 12.3 10^3/ul (4.8-10.8)
[2017-02-05 06:46] LABS: CREATININE 11.66 mg/dl (0.61-1.24); POTASSIUM 3.5 mmol/L (3.5-5.1)
[2017-02-05 07:48] VITALS: BP 138/79; RESP 16
[2017-02-05] MEDS: SODIUM BICARBONATE (IV ADD) 100 MEQ in DEXTROSE 5% 1,000 ML IV SCH ×2 (08:30→15:07)
[2017-02-05] MEDS: HEPARIN 5,000 UNIT/0.5 ML VIAL SC SCH ×2 (08:58→21:37)
[2017-02-05] MEDS: CITRIC ACID/NA CITRATE 30 ML CUP PO SCH ×3 (08:59→20:58)
--- NOTE | 2017-02-05 12:11 | CONS ---
Date/Time of Note Date/Time of Note DATE: 02/05/17 TIME: 12:07 Assessment/Plan Assessment/Plan Chief Complaint/Hosp Course 41-year-old gentleman with history of diverticulitis, being admitted for recurrent diverticulitis with microperforation but no obvious evidence of abscess or other indication for intervention including no indication for surgical intervention. S/p emergency sigmoid colectomy, mobilization of splenic flexure, primary anastomosis and diverting loop ileostomy, lysis of adhesions and lavage 01/29/17. patient presented with normal creatinine on admission, His cr was normal until 01/28 then bumped to 3.76. Pt has been treated wtih IV abx Zosyn and vancomycin since admission. Renal has been consulted for RODNEY Problems: Additional Assessment/Plan 1. Acute Kidney Injury Non Oliguic, Multifactorial due to ATN + Prerenal azotemia + Nephrotoxicity from medication in low volume status 2. Recurrent diverticultiis with Microperforation s/p emergency sigmoid colectomy, mobilization of splenic flexure, primary anastomosis and diverting loop ileostomy, lysis of adhesions and lavage 01/29/17. 3. Normochloremic metabolic acidosis from ATN Plan: BUN/Cr slowly rising, pt is in ATN, but making good urine output , palmer has been discontinued CXR 02/01/17- no congestion, Today's CXR pending continue Bicitra 30ml PO TID , on Bicarbonate drip expecting renal recovery all previous abx has been stopped, Currenlty on Invanz after checking with ID he is given instruction to chart urine output by himself pt feeling stable, no urgent indication for dialysis, will follow up... expecting renal recovery, keep pt euvolemic Consultation Date/Type/Reason Admit Date/Time Jan 24, 2017 at 09:50 Initial Consult Date 01/30/17 Type of Consultation: NEPHROLOGY Referring Provider: HAIDER BURR 24 HR Interval Summary Free Text/Dictation doing ok, BP stable, afebrile, no SOB, pt made 1liter urine output Exam/Review of Systems Vital Signs Vitals Vital Signs Date Time Temp Pulse Resp B/P Pulse Ox O2 Delivery O2 Flow Rate FiO2 02/05/17 07:48 98.1 77 16 138/79 99 02/02/17 12:00 Room Air Intake and Output 802/04/17 02/05/17 15:00 23:00 07:00 Intake Total 1910 ml 900 ml Output Total 1755 ml 10 ml Balance 155 ml 890 ml Exam Constitutional: alert, oriented, well developed Respiratory: clear to auscultation, diminished breath sounds Cardiovascular: nl pulses, regular rate and rhythm Gastrointestinal: non-tender, other (Left diverting ileostomy ), soft Genitourinary - Male: other (Deferred) Musculoskeletal: nl extremities to inspection Extremities: normal pulses Neurological: BUS VAN DRIVER II-XII intact, nl mental status, nl speech, nl strength Results Result Diagram: 02/05/17 0549 02/05/17 0549 Results 24 hrs Laboratory Tests Test 02/05/17 05:49 White Blood Count 12.3 H Red Blood Count 3.02 L Hemoglobin 8.8 L Hematocrit 25.7 L Mean Corpuscular Volume 85.1 Mean Corpuscular Hemoglobin 29.1 Mean Corpuscular Hemoglobin Concent 34.2 Red Cell Distribution Width 14.1 Platelet Count 466 H Mean Platelet Volume 9.1 Neutrophils % 72.5 Lymphocytes % 12.6 L Monocytes % 9.3 Eosinophils % 2.6 Basophils % 0.2 Nucleated Red Blood Cells % 0.0 Neutrophils # (Manual) 8.9 H Lymphocytes # 1.6 Monocytes # 1.1 H Eosinophils # 0.3 Basophils # 0.0 Nucleated Red Blood Cells # 0.0 Sodium Level 134 L Potassium Level 3.5 Chloride Level 100 Carbon Dioxide Level 19 L Anion Gap 19 H Blood Urea Nitrogen 63 H Creatinine 11.66 H Glucose Level 113 Calcium Level 8.0 L B-Type Natriuretic Peptide 92760 H Medications Medications Current Medications Ondansetron HCl (Zofran Inj) 4 mg Q6H PRN IV NAUSEA AND/OR VOMITING Last administered on 01/30/17 10:28; Admin Dose 4 MG; Start 01/24/17 at 13:30 Acetaminophen (Tylenol Supp) 650 mg Q6H PRN [place] PAIN LEVEL 1-3 OR FEVER Last administered on 01/28/17 00:22; Admin Dose 650 MG; Start 01/24/17 at 13:30 Docusate Sodium (Colace) 100 mg Q12H PRN PO CONSTIPATION; Start 01/24/17 at 13: 30 Magnesium Hydroxide (Milk Of Mag) 30 ml DAILY PRN PO CONSTIPATION; Start at 13:30 Bisacodyl 10 mg 10 mg DAILY PRN [place] CONSTIPATION; Start 01/24/17 at 13:30 Acetaminophen (Ofirmev 1000mg/ 100ml Iv) 100 ml @ 400 mls/hr Q6H PRN IVPB fever Last administered on 01/29/17 08:06; Admin Dose 400 MLS/HR; Start 01/24/17 at 16:00 Morphine Sulfate (morphine) 4 mg Q4H PRN IV PAIN Last administered on 01/28/17 13:49; Admin Dose 4 MG; Start 01/27/17 at 02:30 Acetaminophen/ Butalbital/ Caffeine (Fioricet) 1 tab Q4H PRN PO Headache; Start 01/28/17 at 10:00 Acetaminophen/ Hydrocodone Bitart ([place] (5/325)) 1 tab Q4H PRN PO PAIN LEVEL 4 -7; Start 01/29/17 at 05:30 Acetaminophen/ Hydrocodone Bitart ([place] (5/325)) 2 tab Q4H PRN PO PAIN LEVEL 7 -10 Last administered on 02/04/17 02:48; Admin Dose 2 TAB; Start 01/29/17 at 05: 30 Hydromorphone HCl (Dilaudid) 0.5 mg Q2 PRN IV PAIN Last administered on 05:20; Admin Dose 0.5 MG; Start 01/29/17 at 05:30 Hydromorphone HCl (Dilaudid) 1 mg Q2 PRN IV PAIN Last administered on 01:18; Admin Dose 1 MG; Start 01/29/17 at 05:30 Docusate Sodium (Colace) 100 mg BID PRN PO CONSTIPATION; Start 01/29/17 at 05:30 Simethicone (Mylicon) 80 mg QID PRN GTB DISTENSION/GAS/BLOATING Last administered on 02/02/17 21:16; Admin Dose 80 MG; Start 01/30/17 at 17:00 Famotidine (Pepcid) 40 mg HS PO Last administered on 02/04/17 20:28; Admin Dose 40 MG; Start 01/31/17 at 21:00 Heparin Sodium (Porcine) 5000 unit 5,000 unit BID SC Last administered on 08:58; Admin Dose 5,000 UNIT; Start 02/01/17 at 08:00 Ertapenem/Sodium Chloride (Invanz/NS) 100 ml @ 200 mls/hr Q24H IVPB Last administered on 02/04/17 20:28; Admin Dose 200 MLS/HR; Start 02/03/17 at 20:00 Citric Acid/ Sodium Citrate 30 ml 30 ml TID PO Last administered on 02/05/17 08:59; Admin Dose 30 ML; Start 02/03/17 at 13:00 Sodium Bicarbonate/ Dextrose (Na Bicarb/D5W) 1,100 ml @ 50 mls/hr Q22H IV Last administered on 02/04/17 15:24; Admin Dose 50 MLS/HR; Start 02/03/17 at 12 :30 SINGH WILLOUGHBY MD Feb 05, 2017 12:11
[2017-02-05 13:18] VITALS: BP 158/91; RESP 18
--- NOTE | 2017-02-05 14:00 | PN ---
Date/Time of Note Date/Time of Note DATE: 02/05/17 TIME: 13:59 Assessment/Plan VTE Prophylaxis VTE Prophylaxis Intervention: heparin Lines/Catheters IV Catheter Type (from Nrs): Peripheral IV Urinary Cath still in place: Yes Reason Cath still needed: other (indicate) (monitor I&O) Assessment/Plan Chief Complaint/Hosp Course Assessment and plan 1. Perforated sigmoid colon with inflamed terminal ileum and cecum. Patient status post arthroscopic converted to open sigmoid colectomy with primary anastomosis and diverting loop ileostomy on January 29, 2017. Continue postop care. Tolerating diet well. Continue with surgeon recommendations. 2. Tachycardia. Resolved at present. Likely secondary to dehydration. 3. UTI. Continue antibiotics. improving 4. Sepsis secondary to diverticulitis and UTI. Continue antibiotics per ID recommendations. appears to be improving at present. Medications renally dosed due to acute renal insufficiency. 5. Acute kidney injury. Nonoliguric and multifactorial due to prerenal azotemia as well as ATN and nephrotoxicity. Medications renally dosed. No plan for dialysis per head of english. With slightly worsening renal function. Follow-up with head of english recommendation Disposition and plan: Still with elevation of creatinine. Continue him with head of english recommendations. Await for improvement of renal status Discussed plan of care with Dr. Deutsch Problems: Subjective 24 Hr Interval Summary Free Text/Dictation Seen walking around the unit. No reports of pain at this time. Exam/Review of Systems Vital Signs Vitals Vital Signs Date Time Temp Pulse Resp B/P Pulse Ox O2 Delivery O2 Flow Rate FiO2 02/05/17 13:18 98.2 78 18 158/91 98 02/02/17 12:00 Room Air Intake and Output 02/04/17 02/04/17 02/05/17 15:00 23:00 07:00 Intake Total 1910 ml 900 ml Output Total 1755 ml 10 ml Balance 155 ml 890 ml Exam Constitutional: alert, oriented Psych: nl mood/affect Head: normocephalic Respiratory: normal air movement Cardiovascular: other, regular rate Gastrointestinal: other (Noted with ostomy bag on left abdominal quadrant and incisional drain through center of abdomen and drain on right lower abdominal quadrant), soft Musculoskeletal: swelling (Seen on bilateral lower extremely little less today) Neurological: CUPOLA CHARGER II-XII intact, nl mental status, nl speech Results Result Diagram: 02/05/17 0549 02/05/17 0549 Results 24 hrs Laboratory Tests Test 02/05/17 05:49 White Blood Count 12.3 H Red Blood Count 3.02 L Hemoglobin 8.8 L Hematocrit 25.7 L Mean Corpuscular Volume 85.1 Mean Corpuscular Hemoglobin 29.1 Mean Corpuscular Hemoglobin Concent 34.2 Red Cell Distribution Width 14.1 Platelet Count 466 H Mean Platelet Volume 9.1 Neutrophils % 72.5 Lymphocytes % 12.6 L Monocytes % 9.3 Eosinophils % 2.6 Basophils % 0.2 Nucleated Red Blood Cells % 0.0 Neutrophils # (Manual) 8.9 H Lymphocytes # 1.6 Monocytes # 1.1 H Eosinophils # 0.3 Basophils # 0.0 Nucleated Red Blood Cells # 0.0 Sodium Level 134 L Potassium Level 3.5 Chloride Level 100 Carbon Dioxide Level 19 L Anion Gap 19 H Blood Urea Nitrogen 63 H Creatinine 11.66 H Glucose Level 113 Calcium Level 8.0 L B-Type Natriuretic Peptide 55297 H Medications Medications Current Medications Ondansetron HCl (Zofran Inj) 4 mg Q6H PRN IV NAUSEA AND/OR VOMITING Last administered on 01/30/17 10:28; Admin Dose 4 MG; Start 01/24/17 at 13:30 Acetaminophen (Tylenol Supp) 650 mg Q6H PRN [place] PAIN LEVEL 1-3 OR FEVER Last administered on 01/28/17 00:22; Admin Dose 650 MG; Start 01/24/17 at 13:30 Docusate Sodium (Colace) 100 mg Q12H PRN PO CONSTIPATION; Start 01/24/17 at 13: 30 Magnesium Hydroxide (Milk Of Mag) 30 ml DAILY PRN PO CONSTIPATION; Start at 13:30 Bisacodyl 10 mg 10 mg DAILY PRN [place] CONSTIPATION; Start 01/24/17 at 13:30 Acetaminophen (Ofirmev 1000mg/ 100ml Iv) 100 ml @ 400 mls/hr Q6H PRN IVPB fever Last administered on 01/29/17 08:06; Admin Dose 400 MLS/HR; Start 01/24/17 at 16:00 Morphine Sulfate (morphine) 4 mg Q4H PRN IV PAIN Last administered on 01/28/17 13:49; Admin Dose 4 MG; Start 01/27/17 at 02:30 Acetaminophen/ Butalbital/ Caffeine (Fioricet) 1 tab Q4H PRN PO Headache; Start 01/28/17 at 10:00 Acetaminophen/ Hydrocodone Bitart ([place] (5/325)) 1 tab Q4H PRN PO PAIN LEVEL 4 -7; Start 01/29/17 at 05:30 Acetaminophen/ Hydrocodone Bitart ([place] (5/325)) 2 tab Q4H PRN PO PAIN LEVEL 7 -10 Last administered on 02/04/17 02:48; Admin Dose 2 TAB; Start 01/29/17 at 05: 30 Hydromorphone HCl (Dilaudid) 0.5 mg Q2 PRN IV PAIN Last administered on 05:20; Admin Dose 0.5 MG; Start 01/29/17 at 05:30 Hydromorphone HCl (Dilaudid) 1 mg Q2 PRN IV PAIN Last administered on 01:18; Admin Dose 1 MG; Start 01/29/17 at 05:30 Docusate Sodium (Colace) 100 mg BID PRN PO CONSTIPATION; Start 01/29/17 at 05:30 Simethicone (Mylicon) 80 mg QID PRN GTB DISTENSION/GAS/BLOATING Last administered on 02/02/17 21:16; Admin Dose 80 MG; Start 01/30/17 at 17:00 Famotidine (Pepcid) 40 mg HS PO Last administered on 02/04/17 20:28; Admin Dose 40 MG; Start 01/31/17 at 21:00 Heparin Sodium (Porcine) 5000 unit 5,000 unit BID SC Last administered on 08:58; Admin Dose 5,000 UNIT; Start 02/01/17 at 08:00 Ertapenem/Sodium Chloride (Invanz/NS) 100 ml @ 200 mls/hr Q24H IVPB Last administered on 02/04/17 20:28; Admin Dose 200 MLS/HR; Start 02/03/17 at 20:00 Citric Acid/ Sodium Citrate 30 ml 30 ml TID PO Last administered on 02/05/17 13:23; Admin Dose 30 ML; Start 02/03/17 at 13:00 Sodium Bicarbonate/ Dextrose (Na Bicarb/D5W) 1,100 ml @ 50 mls/hr Q22H IV Last administered on 02/04/17t 15:24; Admin Dose 50 MLS/HR; Start 02/03/17 at 12 :30 PRISCILLA METZGER Feb 05, 2017 14:00
--- NOTE | 2017-02-05 14:15 | RADRPT ---
PROCEDURE: XR Chest. CLINICAL INDICATION: SOB, To assess for pulmonary conestion, edema TECHNIQUE: PA and lateral views of the chest were obtained COMPARISON: Chest x-ray 02/01/2017 FINDINGS: There are low lung volumes. The cardiac silhouette remains mildly enlarged. Linear opacities at the left lung base and right retrocardiac position persist and likely represent atelectasis and / or scarring. No pneumothorax is identified. A new small pleural effusion is suggested. There is no evidence of significant pulmonary vascular congestion. The osseous structures, as visualized, are unremarkable. IMPRESSION: 1. Low lung volumes with persistent bibasilar linear opacities, compatible with atelectasis and / o r scarring, unchanged. 2. New small left pleural effusion. 3. Mild cardiomegaly. RPTAT: EE Physician Esau Date Time Electronically viewed and signed by Physician Esau on 02/05/2017 14:15 ROQUE/
--- NOTE | 2017-02-05 15:39 | CONS ---
Date/Time of Note Date/Time of Note DATE: 02/05/17 TIME: 15:37 Assessment/Plan Assessment/Plan Chief Complaint/Hosp Course SUBJECTIVE DATA: Feels good, mno fevers, no n/v/d, good UO Abx: Invanz PHYSICAL EXAMINATION: This is an obese, well developed, middle- aged, man who is awake, in no distress. HEENT: Head atraumatic, normocephalic. Sclerae anicteric. Buccal mucosa dry. NECK: Supple. CHEST: Chest rise symmetric. Breath sounds diminished at the bases. HEART: S1, S2. ABDOMEN: Soft. Bowel sounds present. Mid abdominal dressing clean, dry and intact. ASSESSMENT: 1. Acute renal failure, likely acute tubular necrosis 2. Perforated sigmoid colon, status post laparoscopic converted to open sigmoid colectomy and diverting loop ileostomy on January 29, 2017. 3. Status post urinary tract infection. 4. Morbid obesity. 5. Resolving leukocytosis. PLAN: Patient remains stable. Continue Invanz, f/u surgical rec-s, no HD per renal, expected full renal recovery staff/pt/family Problems: Consultation Date/Type/Reason Admit Date/Time Jan 24, 2017 at 09:50 Initial Consult Date 01/30/17 Type of Consultation: id Referring Provider: HAIDER BURR Exam/Review of Systems Vital Signs Vitals Vital Signs Date Time Temp Pulse Resp B/P Pulse Ox O2 Delivery O2 Flow Rate FiO2 02/05/17 13:18 98.2 78 18 158/91 98 02/02/17 12:00 Room Air Intake and Output 02/04/17 02/04/17 02/05/17 15:00 23:00 07:00 Intake Total 1910 ml 900 ml Output Total 1755 ml 10 ml Balance 155 ml 890 ml Results Result Diagram: 02/05/17 0549 02/05/17 0549 Results 24 hrs Laboratory Tests Test 02/05/17 05:49 White Blood Count 12.3 H Red Blood Count 3.02 L Hemoglobin 8.8 L Hematocrit 25.7 L Mean Corpuscular Volume 85.1 Mean Corpuscular Hemoglobin 29.1 Mean Corpuscular Hemoglobin Concent 34.2 Red Cell Distribution Width 14.1 Platelet Count 466 H Mean Platelet Volume 9.1 Neutrophils % 72.5 Lymphocytes % 12.6 L Monocytes % 9.3 Eosinophils % 2.6 Basophils % 0.2 Nucleated Red Blood Cells % 0.0 Neutrophils # (Manual) 8.9 H Lymphocytes # 1.6 Monocytes # 1.1 H Eosinophils # 0.3 Basophils # 0.0 Nucleated Red Blood Cells # 0.0 Sodium Level 134 L Potassium Level 3.5 Chloride Level 100 Carbon Dioxide Level 19 L Anion Gap 19 H Blood Urea Nitrogen 63 H Creatinine 11.66 H Glucose Level 113 Calcium Level 8.0 L B-Type Natriuretic Peptide 54446 H Medications Medications Current Medications Ondansetron HCl (Zofran Inj) 4 mg Q6H PRN IV NAUSEA AND/OR VOMITING Last administered on 01/30/17 10:28; Admin Dose 4 MG; Start 01/24/17 at 13:30 Acetaminophen (Tylenol Supp) 650 mg Q6H PRN [place] PAIN LEVEL 1-3 OR FEVER Last administered on 01/28/17 00:22; Admin Dose 650 MG; Start 01/24/17 at 13:30 Docusate Sodium (Colace) 100 mg Q12H PRN PO CONSTIPATION; Start 01/24/17 at 13: 30 Magnesium Hydroxide (Milk Of Mag) 30 ml DAILY PRN PO CONSTIPATION; Start at 13:30 Bisacodyl 10 mg 10 mg DAILY PRN [place] CONSTIPATION; Start 01/24/17 at 13:30 Acetaminophen (Ofirmev 1000mg/ 100ml Iv) 100 ml @ 400 mls/hr Q6H PRN IVPB fever Last administered on 01/29/17 08:06; Admin Dose 400 MLS/HR; Start 01/24/17 at 16:00 Morphine Sulfate (morphine) 4 mg Q4H PRN IV PAIN Last administered on 01/28/17 13:49; Admin Dose 4 MG; Start 01/27/17 at 02:30 Acetaminophen/ Butalbital/ Caffeine (Fioricet) 1 tab Q4H PRN PO Headache; Start 01/28/17 at 10:00 Acetaminophen/ Hydrocodone Bitart ([place] (5/325)) 1 tab Q4H PRN PO PAIN LEVEL 4 -7; Start 01/29/17 at 05:30 Acetaminophen/ Hydrocodone Bitart ([place] (5/325)) 2 tab Q4H PRN PO PAIN LEVEL 7 -10 Last administered on 02/04/17 02:48; Admin Dose 2 TAB; Start 01/29/17 at 05: 30 Hydromorphone HCl (Dilaudid) 0.5 mg Q2 PRN IV PAIN Last administered on 05:20; Admin Dose 0.5 MG; Start 01/29/17 at 05:30 Hydromorphone HCl (Dilaudid) 1 mg Q2 PRN IV PAIN Last administered on 01:18; Admin Dose 1 MG; Start 01/29/17 at 05:30 Docusate Sodium (Colace) 100 mg BID PRN PO CONSTIPATION; Start 01/29/17 at 05:30 Simethicone (Mylicon) 80 mg QID PRN GTB DISTENSION/GAS/BLOATING Last administered on 02/02/17 21:16; Admin Dose 80 MG; Start 01/30/17 at 17:00 Famotidine (Pepcid) 40 mg HS PO Last administered on 02/04/17 20:28; Admin Dose 40 MG; Start 01/31/17 at 21:00 Heparin Sodium (Porcine) 5000 unit 5,000 unit BID SC Last administered on 08:58; Admin Dose 5,000 UNIT; Start 02/01/17 at 08:00 Ertapenem/Sodium Chloride (Invanz/NS) 100 ml @ 200 mls/hr Q24H IVPB Last administered on 02/04/17 20:28; Admin Dose 200 MLS/HR; Start 02/03/17 at 20:00 Citric Acid/ Sodium Citrate (Bicitra) 30 ml TID PO Last administered on 13:23; Admin Dose 30 ML; Start 02/03/17 at 13:00 ALECIA MATSON NP Feb 05, 2017 15:39
[2017-02-05 20:06] VITALS: BP 146/81; RESP 20
--- NOTE | 2017-02-05 20:29 | PN ---
Date/Time of Note Date/Time of Note DATE: 02/05/17 TIME: 20:28 Assessment/Plan Lines/Catheters IV Catheter Type (from Nrsg): Peripheral IV Shah in Place (from Nrsg): Yes Assessment/Plan Assessment/Plan [facility] Progress Note Date of Service: 02/05/17 Today's Impression & Plan: Overall has remained stable and improving. Pain control seems adequate. Slowly resolving postoperative paralytic ileus. WBC ok. Cr higher, but urine output improving and electrolytes are ok. Suspected will start going down soon. At risk for complications including abscess formation, further leak, infection, etc , but less as we move away from time of surgery. No indication for acute surgical intervention. Abdomen continues to be relatively benign. Patient not in the room. Spoke with and answered all questions. With above assessment, I've recommended the following for today: 1. Cont current cares 2. Cont broad spec antimicrobials, but start weaning process targeted to cultures 3. Regular diet 4. Labs in am 5. Increase activity 6. Increase ICS 7. Change ostomy bag 8. Oral conversion 9. I'll d/c surgical drain in 24-48 hrs 10. Possible d/c home in 24-48 hrs depending on clinical course Nature of presenting problem: High risk Complexity of decision making: high complexity Thank you again for your great care of this very pleasant patient and wonderful family. If there are any questions, please feel free to call me at [phone]. Disclaimer: Inadvertent spelling or grammatical errors are likely due to EHR/ dictation software use and do not reflect on the overall quality of patient care. Updated Clinical Summary: A very-pleasant 41-year-old gentleman with comorbidity of BMI 37.1 and previous history of diverticulitis, being admitted for recurrent diverticulitis with microperforation but no obvious evidence of abscess or other indication for intervention including no indication for surgical intervention. S/p emergency sigmoid colectomy, mobilization of splenic flexure, primary anastomosis and diverting loop ileostomy, lysis of adhesions and lavage 01/29/17. Postoperative paralytic ileus and acute renal injury. Comorbidities: 1. BMI 37.1 2. History of diverticulitis in the past as well as diagnosis of diverticulosis 3. Chronic constipation 4. S/p emergency sigmoid colectomy, mobilization of splenic flexure, primary anastomosis and diverting loop ileostomy, lysis of adhesions and lavage 01/29/17 Subjective: No major events or complaints per report; patient not in the room Objective: Vitals: See below Exam: Not in the room Exam/Review of Systems Vital Signs Vitals Vital Signs Date Time Temp Pulse Resp B/P Pulse Ox O2 Delivery O2 Flow Rate FiO2 02/05/17 20:06 98.5 80 20 146/81 97 02/02/17 12:00 Room Air Intake and Output 02/04/17 02/04/17 02/05/17 14:59 22:59 06:59 Intake Total 1910 ml 900 ml Output Total 1755 ml 10 ml Balance 155 ml 890 ml Results Result Diagram: 02/05/17 0549 02/05/17 0549 WILMA THORNTON M.D. Feb 05, 2017 20:29
[2017-02-05] MEDS: FAMOTIDINE 20 MG TAB PO SCH (20:58)
[2017-02-05] MEDS: ERTAPENEM SODIUM 0.5 GM in SOD CHLORIDE 0.9% 100 ML IVPB SCH (20:59)
[2017-02-06 02:00] VITALS: BP 152/84; RESP 20
[2017-02-06 06:26] LABS: BASOPHILS % 0.3 % (0.0-2.0); EOSINOPHILS # 0.3 10^3/ul (0.0-0.5); EOSINOPHILS % 2.5 % (0.0-7.0); HEMATOCRIT 26.3 % (42.0-52.0); LYMPHOCYTES # 1.7 10^3/ul (0.8-2.9); LYMPHOCYTES % 14.4 % (15.0-51.0); MEAN CORPUSCULAR HEMOGLOBIN 29.2 pg (29.0-33.0); MEAN CORPUSCULAR HGB CONC 34.2 g/dl (32.0-37.0); MEAN CORPUSCULAR VOLUME 85.4 fl (82.0-101.0); MEAN PLATELET VOLUME 9.3 fl (7.4-10.4); MONOCYTE # 1.2 10^3/ul (0.3-0.9); MONOCYTES % 10.1 % (0.0-11.0); NEUTROPHILS % 68.2 % (39.0-77.0); PLATELET COUNT 471 10^3/UL (140-415); POSITIVE DIFF @See below; RED BLOOD COUNT 3.08 10^6/ul (4.70-6.10); RED CELL DISTRIBUTION WIDTH 14.1 % (11.5-14.5); WHITE BLOOD COUNT 11.8 10^3/ul (4.8-10.8)
[2017-02-06 06:59] LABS: CREATININE 11.79 mg/dl (0.61-1.24); POTASSIUM 3.6 mmol/L (3.5-5.1)
[2017-02-06 07:54] VITALS: BP 139/83; RESP 18
[2017-02-06] MEDS: CITRIC ACID/NA CITRATE 30 ML CUP PO SCH ×3 (09:22→20:15)
[2017-02-06] MEDS: HEPARIN 5,000 UNIT/0.5 ML VIAL SC SCH ×2 (09:51→20:34)
[2017-02-06 13:18] VITALS: BP 155/86; RESP 20
--- NOTE | 2017-02-06 13:41 | CONS ---
Date/Time of Note Date/Time of Note DATE: 02/06/17 TIME: 13:39 Assessment/Plan Assessment/Plan Chief Complaint/Hosp Course SUBJECTIVE DATA: Feels good, mno fevers, no n/v/d, good UO Abx: Invanz PHYSICAL EXAMINATION: This is an obese, well developed, middle- aged, man who is awake, in no distress. HEENT: Head atraumatic, normocephalic. Sclerae anicteric. Buccal mucosa dry. NECK: Supple. CHEST: Chest rise symmetric. Breath sounds diminished at the bases. HEART: S1, S2. ABDOMEN: Soft. Bowel sounds present. Mid abdominal dressing clean, dry and intact. ASSESSMENT: 1. Acute renal failure, likely acute tubular necrosis 2. Perforated sigmoid colon, status post laparoscopic converted to open sigmoid colectomy and diverting loop ileostomy on January 29, 2017. 3. Status post urinary tract infection. 4. Morbid obesity. 5. Resolving leukocytosis. PLAN: Patient remains stable. Continue Invanz, anticipate dc on oral Flagyl and levaquin for 7 more days, f/u surgical rec-s, no HD per renal, expected full renal recovery staff/pt/family Problems: Consultation Date/Type/Reason Admit Date/Time Jan 24, 2017 at 09:50 Initial Consult Date 01/30/17 Type of Consultation: id Referring Provider: HAIDER BURR Exam/Review of Systems Vital Signs Vitals Vital Signs Date Time Temp Pulse Resp B/P Pulse Ox O2 Delivery O2 Flow Rate FiO2 02/06/17 13:18 99.0 80 20 155/86 97 02/02/17 12:00 Room Air Intake and Output 02/05/17 02/05/17 02/06/17 15:00 23:00 07:00 Intake Total 1580 ml 1990 ml Output Total 3030 ml 2150 ml Balance -1450 ml -160 ml Results Result Diagram: 02/06/17 0538 02/06/17 0538 Results 24 hrs Laboratory Tests Test 02/06/17 05:38 White Blood Count 11.8 H Red Blood Count 3.08 L Hemoglobin 9.0 L Hematocrit 26.3 L Mean Corpuscular Volume 85.4 Mean Corpuscular Hemoglobin 29.2 Mean Corpuscular Hemoglobin Concent 34.2 Red Cell Distribution Width 14.1 Platelet Count 471 H Mean Platelet Volume 9.3 Neutrophils % 68.2 Lymphocytes % 14.4 L Monocytes % 10.1 Eosinophils % 2.5 Basophils % 0.3 Nucleated Red Blood Cells % 0.0 Neutrophils # (Manual) 8.1 H Lymphocytes # 1.7 Monocytes # 1.2 H Eosinophils # 0.3 Basophils # 0.0 Nucleated Red Blood Cells # 0.0 Sodium Level 136 Potassium Level 3.6 Chloride Level 96 L Carbon Dioxide Level 22 Anion Gap 22 H Blood Urea Nitrogen 65 H Creatinine 11.79 H Glucose Level 105 Calcium Level 8.0 L B-Type Natriuretic Peptide 66819 H Medications Medications Current Medications Ondansetron HCl (Zofran Inj) 4 mg Q6H PRN IV NAUSEA AND/OR VOMITING Last administered on 01/30/17 10:28; Admin Dose 4 MG; Start 01/24/17 at 13:30 Acetaminophen (Tylenol Supp) 650 mg Q6H PRN [place] PAIN LEVEL 1-3 OR FEVER Last administered on 01/28/17 00:22; Admin Dose 650 MG; Start 01/24/17 at 13:30 Docusate Sodium (Colace) 100 mg Q12H PRN PO CONSTIPATION; Start 01/24/17 at 13: 30 Magnesium Hydroxide (Milk Of Mag) 30 ml DAILY PRN PO CONSTIPATION; Start at 13:30 Bisacodyl 10 mg 10 mg DAILY PRN [place] CONSTIPATION; Start 01/24/17 at 13:30 Acetaminophen (Ofirmev 1000mg/ 100ml Iv) 100 ml @ 400 mls/hr Q6H PRN IVPB fever Last administered on 01/29/17 08:06; Admin Dose 400 MLS/HR; Start 01/24/17 at 16:00 Morphine Sulfate (morphine) 4 mg Q4H PRN IV PAIN Last administered on 01/28/17 13:49; Admin Dose 4 MG; Start 01/27/17 at 02:30 Acetaminophen/ Butalbital/ Caffeine (Fioricet) 1 tab Q4H PRN PO Headache; Start 01/28/17 at 10:00 Acetaminophen/ Hydrocodone Bitart ([place] (5/325)) 1 tab Q4H PRN PO PAIN LEVEL 4 -7; Start 01/29/17 at 05:30 Acetaminophen/ Hydrocodone Bitart ([place] (5/325)) 2 tab Q4H PRN PO PAIN LEVEL 7 -10 Last administered on 02/04/17 02:48; Admin Dose 2 TAB; Start 01/29/17 at 05: 30 Hydromorphone HCl (Dilaudid) 0.5 mg Q2 PRN IV PAIN Last administered on 05:20; Admin Dose 0.5 MG; Start 01/29/17 at 05:30 Hydromorphone HCl (Dilaudid) 1 mg Q2 PRN IV PAIN Last administered on 01:18; Admin Dose 1 MG; Start 01/29/17 at 05:30 Docusate Sodium (Colace) 100 mg BID PRN PO CONSTIPATION; Start 01/29/17 at 05:30 Simethicone (Mylicon) 80 mg QID PRN GTB DISTENSION/GAS/BLOATING Last administered on 02/02/17 21:16; Admin Dose 80 MG; Start 01/30/17 at 17:00 Famotidine (Pepcid) 40 mg HS PO Last administered on 02/05/17 20:58; Admin Dose 40 MG; Start 01/31/17 at 21:00 Heparin Sodium (Porcine) 5000 unit 5,000 unit BID SC Last administered on 09:51; Admin Dose 5,000 UNIT; Start 02/01/17 at 08:00 Ertapenem/Sodium Chloride (Invanz/NS) 100 ml @ 200 mls/hr Q24H IVPB Last administered on 02/05/17 20:59; Admin Dose 200 MLS/HR; Start 02/03/17 at 20:00 Citric Acid/ Sodium Citrate (Bicitra) 30 ml TID PO Last administered on 12:31; Admin Dose 30 ML; Start 02/03/17 at 13:00 ALECIA MATSON NP Feb 06, 2017 13:41
--- NOTE | 2017-02-06 14:59 | PN ---
Date/Time of Note Date/Time of Note DATE: 02/06/17 TIME: 14:57 Assessment/Plan VTE Prophylaxis VTE Prophylaxis Intervention: ambulation Lines/Catheters IV Catheter Type (from Nrs): Peripheral IV Urinary Cath still in place: Yes Reason Cath still needed: other (indicate) (monitor I&O) Assessment/Plan Chief Complaint/Hosp Course Assessment and plan 1. Perforated sigmoid colon with inflamed terminal ileum and cecum. Patient status post arthroscopic converted to open sigmoid colectomy with primary anastomosis and diverting loop ileostomy on January 29, 2017. Continue postop care. Tolerating diet well. Continue with surgeon recommendations. Drain removal per surgeon 2. Tachycardia. Resolved at present. Likely secondary to dehydration. 3. UTI. Continue antibiotics. improving 4. Sepsis secondary to diverticulitis and UTI. Continue antibiotics per ID recommendations. appears to be improving at present. Medications renally dosed due to acute renal insufficiency. 5. Acute kidney injury. Nonoliguric and multifactorial due to prerenal azotemia as well as ATN and nephrotoxicity. Medications renally dosed. No plan for dialysis per computer systems manager. Monitor for improvement of renal Disposition and plan: Monitor for improvement of renal status. Drain removal per surgeon. Continue in-house monitoring. Discussed plan of care with Dr. Deutsch Problems: Subjective 24 Hr Interval Summary Free Text/Dictation Comfortable at present. Reports less swelling in his bilateral lower extremities Exam/Review of Systems Vital Signs Vitals Vital Signs Date Time Temp Pulse Resp B/P Pulse Ox O2 Delivery O2 Flow Rate FiO2 02/06/17 13:18 99.0 80 20 155/86 97 02/02/17 12:00 Room Air Intake and Output 02/05/17 02/05/17 02/06/17 15:00 23:00 07:00 Intake Total 1580 ml 1990 ml Output Total 3030 ml 2150 ml Balance -1450 ml -160 ml Exam Constitutional: alert, oriented Psych: nl mood/affect Head: normocephalic Respiratory: normal air movement Cardiovascular: other, regular rate Gastrointestinal: other (Noted with ostomy bag on left abdominal quadrant and incisional drain through center of abdomen and drain on right lower abdominal quadrant), soft Musculoskeletal: swelling (Seen on bilateral lower extremely, less Neurological: BALL MAKER II-XII intact, nl mental status, nl speech Results Result Diagram: 02/06/17 0538 8/17/17 0538 Results 24 hrs Laboratory Tests Test 02/06/17 05:38 White Blood Count 11.8 H Red Blood Count 3.08 L Hemoglobin 9.0 L Hematocrit 26.3 L Mean Corpuscular Volume 85.4 Mean Corpuscular Hemoglobin 29.2 Mean Corpuscular Hemoglobin Concent 34.2 Red Cell Distribution Width 14.1 Platelet Count 471 H Mean Platelet Volume 9.3 Neutrophils % 68.2 Lymphocytes % 14.4 L Monocytes % 10.1 Eosinophils % 2.5 Basophils % 0.3 Nucleated Red Blood Cells % 0.0 Neutrophils # (Manual) 8.1 H Lymphocytes # 1.7 Monocytes # 1.2 H Eosinophils # 0.3 Basophils # 0.0 Nucleated Red Blood Cells # 0.0 Sodium Level 136 Potassium Level 3.6 Chloride Level 96 L Carbon Dioxide Level 22 Anion Gap 22 H Blood Urea Nitrogen 65 H Creatinine 11.79 H Glucose Level 105 Calcium Level 8.0 L B-Type Natriuretic Peptide 38447 H Medications Medications Current Medications Ondansetron HCl (Zofran Inj) 4 mg Q6H PRN IV NAUSEA AND/OR VOMITING Last administered on 01/30/17 10:28; Admin Dose 4 MG; Start 01/24/17 at 13:30 Acetaminophen (Tylenol Supp) 650 mg Q6H PRN [place] PAIN LEVEL 1-3 OR FEVER Last administered on 01/28/17 00:22; Admin Dose 650 MG; Start 01/24/17 at 13:30 Docusate Sodium (Colace) 100 mg Q12H PRN PO CONSTIPATION; Start 01/24/17 at 13: 30 Magnesium Hydroxide (Milk Of Mag) 30 ml DAILY PRN PO CONSTIPATION; Start at 13:30 Bisacodyl 10 mg 10 mg DAILY PRN [place] CONSTIPATION; Start 01/24/17 at 13:30 Acetaminophen (Ofirmev 1000mg/ 100ml Iv) 100 ml @ 400 mls/hr Q6H PRN IVPB fever Last administered on 01/29/17 08:06; Admin Dose 400 MLS/HR; Start 01/24/17 at 16:00 Morphine Sulfate (morphine) 4 mg Q4H PRN IV PAIN Last administered on 01/28/17 13:49; Admin Dose 4 MG; Start 01/27/17 at 02:30 Acetaminophen/ Butalbital/ Caffeine (Fioricet) 1 tab Q4H PRN PO Headache; Start 01/28/17 at 10:00 Acetaminophen/ Hydrocodone Bitart ([place] (5/325)) 1 tab Q4H PRN PO PAIN LEVEL 4 -7; Start 01/29/17 at 05:30 Acetaminophen/ Hydrocodone Bitart ([place] (5/325)) 2 tab Q4H PRN PO PAIN LEVEL 7 -10 Last administered on 02/04/17 02:48; Admin Dose 2 TAB; Start 01/29/17 at 05: 30 Hydromorphone HCl (Dilaudid) 0.5 mg Q2 PRN IV PAIN Last administered on 05:20; Admin Dose 0.5 MG; Start 01/29/17 at 05:30 Hydromorphone HCl (Dilaudid) 1 mg Q2 PRN IV PAIN Last administered on 01:18; Admin Dose 1 MG; Start 01/29/17 at 05:30 Docusate Sodium (Colace) 100 mg BID PRN PO CONSTIPATION; Start 01/29/17 at 05:30 Simethicone (Mylicon) 80 mg QID PRN GTB DISTENSION/GAS/BLOATING Last administered on 02/02/17 21:16; Admin Dose 80 MG; Start 01/30/17 at 17:00 Famotidine (Pepcid) 40 mg HS PO Last administered on 02/05/17 20:58; Admin Dose 40 MG; Start 01/31/17 at 21:00 Heparin Sodium (Porcine) 5000 unit 5,000 unit BID SC Last administered on 09:51; Admin Dose 5,000 UNIT; Start 02/01/17 at 08:00 Ertapenem/Sodium Chloride (Invanz/NS) 100 ml @ 200 mls/hr Q24H IVPB Last administered on 02/05/17 20:59; Admin Dose 200 MLS/HR; Start 02/03/17 at 20:00 Citric Acid/ Sodium Citrate (Bicitra) 30 ml TID PO Last administered on 12:31; Admin Dose 30 ML; Start 02/03/17 at 13:00 PRISCILLA METZGER Feb 06, 2017 14:59
--- NOTE | 2017-02-06 15:42 | PN ---
Date/Time of Note Date/Time of Note DATE: 02/06/17 TIME: 15:36 Assessment/Plan Lines/Catheters IV Catheter Type (from Nrsg): Peripheral IV Shah in Place (from Nrsg): Yes Assessment/Plan Assessment/Plan [facility] Progress Note Date of Service: 02/06/17 Today's Impression & Plan: Overall has remained stable and improving. Pain control seems adequate. Postoperative paralytic ileus essentially all resolved. WBC ok. Cr higher, but urine output improving and electrolytes are ok and Cr flattening out. Suspect will start going down soon. At risk for complications including abscess formation, further leak, infection, etc, but less as we move away from time of surgery. No indication for acute surgical intervention. Abdomen continues to be relatively benign. Answered all questions. D/w Dr. Kimball and we both feel patient may be eligible to d/c home perhaps as early as tomorrow. With above assessment, I've recommended the following for today: 1. Cont current cares 2. Cont regular diet 3. Labs in am 4. Increase activity 5. Increase ICS 6. Possible d/c home in 24-48 hrs depending on clinical course Nature of presenting problem: High risk Complexity of decision making: high complexity Thank you again for your great care of this very pleasant patient and wonderful family. If there are any questions, please feel free to call me at [phone]. Disclaimer: Inadvertent spelling or grammatical errors are likely due to EHR/ dictation software use and do not reflect on the overall quality of patient care. Updated Clinical Summary: A very-pleasant 41-year-old gentleman with comorbidity of BMI 37.1 and previous history of diverticulitis, being admitted for recurrent diverticulitis with microperforation but no obvious evidence of abscess or other indication for intervention including no indication for surgical intervention. S/p emergency sigmoid colectomy, mobilization of splenic flexure, primary anastomosis and diverting loop ileostomy, lysis of adhesions and lavage 01/29/17. Postoperative paralytic ileus and acute renal injury. Surgical drain d/c'd 02/06/17. Comorbidities: 1. BMI 37.1 2. History of diverticulitis in the past as well as diagnosis of diverticulosis 3. Chronic constipation 4. S/p emergency sigmoid colectomy, mobilization of splenic flexure, primary anastomosis and diverting loop ileostomy, lysis of adhesions and lavage 01/29/17 Subjective: No major events or complaints; no incisional abd pain and under control with medications; feels well; no n/v/d; no sob or cp; + flatus in the bag; + BM in the bag; + activity Objective: Vitals: See below Exam: GENERAL: On exam, the patient was laying in bed and appeared to be comfortable and in no acute distress. ABDOMEN: Soft, no tenderness, and not distended. Surgical drain ss. D/c'd at bedside without difficulty. Incision dressing appears to be clean, dry, and intact without any evidence of erythema, edema, discharge, or hernia; no further drainage from the lower portion of the incision. Ostomy pink and viable. Minimal output in the bag. There are no peritoneal signs or guarding. SKIN: Skin appears to be pink and feels warm to touch. NEUROLOGIC: Patient is awake, alert, and follows commands appropriately. Exam/Review of Systems Vital Signs Vitals Vital Signs Date Time Temp Pulse Resp B/P Pulse Ox O2 Delivery O2 Flow Rate FiO2 02/06/17 13:18 99.0 80 20 155/86 97 02/02/17 12:00 Room Air Intake and Output 02/05/17 02/05/17 02/06/17 15:00 23:00 07:00 Intake Total 1580 ml 1990 ml Output Total 3030 ml 2150 ml Balance -1450 ml -160 ml Results Result Diagram: 02/06/17 0538 02/06/17 0538 WILMA THORNTON M.D. Feb 06, 2017 15:41
--- NOTE | 2017-02-06 16:02 | CONS ---
Date/Time of Note Date/Time of Note DATE: 02/06/17 TIME: 15:59 Assessment/Plan Assessment/Plan Chief Complaint/Hosp Course 41-year-old gentleman with history of diverticulitis, being admitted for recurrent diverticulitis with microperforation but no obvious evidence of abscess or other indication for intervention including no indication for surgical intervention. S/p emergency sigmoid colectomy, mobilization of splenic flexure, primary anastomosis and diverting loop ileostomy, lysis of adhesions and lavage 01/29/17. patient presented with normal creatinine on admission, His cr was normal until 01/28 then bumped to 3.76. Pt has been treated wtih IV abx Zosyn and vancomycin since admission. Renal has been consulted for RODNEY Problems: Additional Assessment/Plan 1. Acute Kidney Injury Non Oliguic, Multifactorial due to ATN + Prerenal azotemia + Nephrotoxicity from medication in low volume status 2. Recurrent diverticultiis with Microperforation s/p emergency sigmoid colectomy, mobilization of splenic flexure, primary anastomosis and diverting loop ileostomy, lysis of adhesions and lavage 01/29/17. 3. Normochloremic metabolic acidosis from ATN Plan: BUN/Cr slowly rising, pt is in ATN, but making good urine output , palmer has been discontinued CXR showed bibasilar atelectasis and small left pleural effusion continue Bicitra 30ml PO TID , s/p bicarbonate drip expecting renal recovery all previous abx has been stopped, Currenlty on Invanz after checking with ID pt feeling stable, no urgent indication for dialysis, will follow up... expecting renal recovery, keep pt euvolemic Consultation Date/Type/Reason Admit Date/Time Jan 24, 2017 at 09:50 Initial Consult Date 01/30/17 Type of Consultation: NEPHROLOGY Referring Provider: HAIDER BURR Exam/Review of Systems Vital Signs Vitals Vital Signs Date Time Temp Pulse Resp B/P Pulse Ox O2 Delivery O2 Flow Rate FiO2 02/06/17 13:18 99.0 80 20 155/86 97 02/02/17 12:00 Room Air Intake and Output 02/05/17 02/05/17 02/06/17 15:00 23:00 07:00 Intake Total 1580 ml 1990 ml Output Total 3030 ml 2150 ml Balance -1450 ml -160 ml Results Result Diagram: 02/06/17 0538 02/06/17 0538 Results 24 hrs Laboratory Tests Test 02/06/17 05:38 White Blood Count 11.8 H Red Blood Count 3.08 L Hemoglobin 9.0 L Hematocrit 26.3 L Mean Corpuscular Volume 85.4 Mean Corpuscular Hemoglobin 29.2 Mean Corpuscular Hemoglobin Concent 34.2 Red Cell Distribution Width 14.1 Platelet Count 471 H Mean Platelet Volume 9.3 Neutrophils % 68.2 Lymphocytes % 14.4 L Monocytes % 10.1 Eosinophils % 2.5 Basophils % 0.3 Nucleated Red Blood Cells % 0.0 Neutrophils # (Manual) 8.1 H Lymphocytes # 1.7 Monocytes # 1.2 H Eosinophils # 0.3 Basophils # 0.0 Nucleated Red Blood Cells # 0.0 Sodium Level 136 Potassium Level 3.6 Chloride Level 96 L Carbon Dioxide Level 22 Anion Gap 22 H Blood Urea Nitrogen 65 H Creatinine 11.79 H Glucose Level 105 Calcium Level 8.0 L B-Type Natriuretic Peptide 25418 H Medications Medications Current Medications Ondansetron HCl (Zofran Inj) 4 mg Q6H PRN IV NAUSEA AND/OR VOMITING Last administered on 01/30/17 10:28; Admin Dose 4 MG; Start 01/24/17 at 13:30 Acetaminophen (Tylenol Supp) 650 mg Q6H PRN [place] PAIN LEVEL 1-3 OR FEVER Last administered on 01/28/17 00:22; Admin Dose 650 MG; Start 01/24/17 at 13:30 Docusate Sodium (Colace) 100 mg Q12H PRN PO CONSTIPATION; Start 01/24/17 at 13: 30 Magnesium Hydroxide (Milk Of Mag) 30 ml DAILY PRN PO CONSTIPATION; Start at 13:30 Bisacodyl 10 mg 10 mg DAILY PRN [place] CONSTIPATION; Start 01/24/17 at 13:30 Acetaminophen (Ofirmev 1000mg/ 100ml Iv) 100 ml @ 400 mls/hr Q6H PRN IVPB fever Last administered on 01/29/17 08:06; Admin Dose 400 MLS/HR; Start 01/24/17 at 16:00 Morphine Sulfate (morphine) 4 mg Q4H PRN IV PAIN Last administered on 01/28/17 13:49; Admin Dose 4 MG; Start 01/27/17 at 02:30 Acetaminophen/ Butalbital/ Caffeine (Fioricet) 1 tab Q4H PRN PO Headache; Start 01/28/17 at 10:00 Acetaminophen/ Hydrocodone Bitart ([place] (5/325)) 1 tab Q4H PRN PO PAIN LEVEL 4 -7; Start 01/29/17 at 05:30 Acetaminophen/ Hydrocodone Bitart ([place] (5/325)) 2 tab Q4H PRN PO PAIN LEVEL 7 -10 Last administered on 02/04/17 02:48; Admin Dose 2 TAB; Start 01/29/17 at 05: 30 Hydromorphone HCl (Dilaudid) 0.5 mg Q2 PRN IV PAIN Last administered on 05:20; Admin Dose 0.5 MG; Start 01/29/17 at 05:30 Hydromorphone HCl (Dilaudid) 1 mg Q2 PRN IV PAIN Last administered on 01:18; Admin Dose 1 MG; Start 01/29/17 at 05:30 Docusate Sodium (Colace) 100 mg BID PRN PO CONSTIPATION; Start 01/29/17 at 05:30 Simethicone (Mylicon) 80 mg QID PRN GTB DISTENSION/GAS/BLOATING Last administered on 02/02/17 21:16; Admin Dose 80 MG; Start 01/30/17 at 17:00 Famotidine (Pepcid) 40 mg HS PO Last administered on 02/05/17 20:58; Admin Dose 40 MG; Start 01/31/17 at 21:00 Heparin Sodium (Porcine) 5000 unit 5,000 unit BID SC Last administered on 09:51; Admin Dose 5,000 UNIT; Start 02/01/17 at 08:00 Ertapenem/Sodium Chloride (Invanz/NS) 100 ml @ 200 mls/hr Q24H IVPB Last administered on 02/05/17 20:59; Admin Dose 200 MLS/HR; Start 02/03/17 at 20:00 Citric Acid/ Sodium Citrate (Bicitra) 30 ml TID PO Last administered on 12:31; Admin Dose 30 ML; Start 02/03/17 at 13:00 SINGH WILLOUGHBY MD Feb 06, 2017 16:02
[2017-02-06] MEDS: ERTAPENEM SODIUM 0.5 GM in SOD CHLORIDE 0.9% 100 ML IVPB SCH (20:15)
[2017-02-06] MEDS: FAMOTIDINE 20 MG TAB PO SCH (20:15)
[2017-02-06 20:17] VITALS: BP 151/88; RESP 20
[2017-02-06] MEDS: TRIAMCINOLONE ACET 0.1% 15 GM CR TOP SCH (22:21)
[2017-02-07 02:35] VITALS: BP 155/86; RESP 18
[2017-02-07 05:46] LABS: BASOPHILS % 0.3 % (0.0-2.0); EOSINOPHILS # 0.3 10^3/ul (0.0-0.5); EOSINOPHILS % 2.2 % (0.0-7.0); HEMATOCRIT 26.9 % (42.0-52.0); HEMOGLOBIN 9.1 g/dl (14.0-18.0); LYMPHOCYTES # 1.5 10^3/ul (0.8-2.9); LYMPHOCYTES % 12.8 % (15.0-51.0); MEAN CORPUSCULAR HEMOGLOBIN 28.5 pg (29.0-33.0); MEAN CORPUSCULAR HGB CONC 33.8 g/dl (32.0-37.0); MEAN CORPUSCULAR VOLUME 84.3 fl (82.0-101.0); MEAN PLATELET VOLUME 9.1 fl (7.4-10.4); MONOCYTES % 8.4 % (0.0-11.0); NEUTROPHILS % 71.5 % (39.0-77.0); PLATELET COUNT 464 10^3/UL (140-415); POSITIVE DIFF @See below; RED BLOOD COUNT 3.19 10^6/ul (4.70-6.10); RED CELL DISTRIBUTION WIDTH 14.4 % (11.5-14.5); WHITE BLOOD COUNT 11.4 10^3/ul (4.8-10.8)
[2017-02-07 06:11] LABS: CALCIUM 8.3 mg/dl (8.4-10.2); CREATININE 12.34 mg/dl (0.61-1.24); POTASSIUM 3.8 mmol/L (3.5-5.1)
--- NOTE | 2017-02-07 07:45 | PN ---
Date/Time of Note Date/Time of Note DATE: 02/07/17 TIME: 07:42 Assessment/Plan VTE Prophylaxis VTE Prophylaxis Intervention: heparin Lines/Catheters IV C[facility]ter Type (from [facility]): Saline Lock Urinary Cath still in place: Yes Reason Cath still needed: other (indicate) Assessment/Plan Chief Complaint/Hosp Course 1. Perforated sigmoid colon with inflamed terminal ileum and cecum. Status post laparoscopic converted to open sigmoid colectomy with primary anastomosis and diverting loop ileostomy on 01/29/2017. Continue postoperative care. 2. Urinary tract infection. S/P antibiotics. Latest urine culture negative. 3. S/P Sepsis secondary to underlying diverticulitis and perforation. No evidence of any septic shock. Continue antimicrobials as per infectious diseases. 4. Acute kidney injury. Most probably secondary to dehydration, nephrotoxicity , and ATN. Being followed by nephrology. 5. Fluids, electrolytes, and nutrition. Continue IV fluids. Renal diet. 6. DVT prophylaxis. B/L SCDs. Subcutaneous heparin. 7. Plan. Continue antimicrobials. Continue pain control. Encourage frequent use of incentive spirometry. Encourage frequent ambulation. Case discussed with . Problems: Subjective 24 Hr Interval Summary Free Text/Dictation Pain well controlled. Tolerating regular consistency diet. Exam/Review of Systems Vital Signs Vitals Vital Signs Date Time Temp Pulse Resp B/P Pulse Ox O2 Delivery O2 Flow Rate FiO2 02/07/17 02:35 98.3 77 18 155/86 99 Intake and Output 02/06/17 02/06/17 02/07/17 15:00 23:00 07:00 Intake Total 1060 ml 850 ml Output Total 308 ml 1440 ml 2300 ml Balance -308 ml -380 ml -1450 ml Exam General: Adequately build 41 year-old male lying in bed in no apparent distress. HEENT: Normocephalic, atraumatic. Eyes: Anicteric sclerae, conjunctivae clear. ENT: Nasal septum midline, oral mucosa moist. Neck supple, no JVD noticed. Respiratory: Bilaterally clear breath sounds. No use of accessory muscles of respiration. No adventitious breath sounds. Cardiovascular: S1, S2 heard. No murmurs or gallops. Abdomen: Midline surgical incision with elías on it.. Left-sided ileostomy. Right sided HUBERT drain has been removed. Genitourinary: Deferred. Extremities: No cyanosis, no clubbing. B/L LE 2+ edema. Peripheral pulses palpable. Neurologic: Cranial nerves II through XII grossly intact. The patient is awake, alert, and oriented. Skin: Normal skin turgor. Results Result Diagram: 02/07/1718 02/07/17 0518 Results 24 hrs Laboratory Tests Test 02/07/17 05:18 White Blood Count 11.4 H Red Blood Count 3.19 L Hemoglobin 9.1 L Hematocrit 26.9 L Mean Corpuscular Volume 84.3 Mean Corpuscular Hemoglobin 28.5 L Mean Corpuscular Hemoglobin Concent 33.8 Red Cell Distribution Width 14.4 Platelet Count 464 H Mean Platelet Volume 9.1 Neutrophils % 71.5 Lymphocytes % 12.8 L Monocytes % 8.4 Eosinophils % 2.2 Basophils % 0.3 Nucleated Red Blood Cells % 0.0 Neutrophils # (Manual) 8 H Lymphocytes # 1.5 Monocytes # 1.0 H Eosinophils # 0.3 Basophils # 0.0 Nucleated Red Blood Cells # 0.0 Sodium Level 137 Potassium Level 3.8 Chloride Level 95 L Carbon Dioxide Level 22 Anion Gap 24 H Blood Urea Nitrogen 67 H Creatinine 12.34 H Glucose Level 107 Calcium Level 8.3 L Medications Medications Current Medications Ondansetron HCl (Zofran Inj) 4 mg Q6H PRN IV NAUSEA AND/OR VOMITING Last administered on 01/30/17 10:28; Admin Dose 4 MG; Start 01/24/17 at 13:30 Acetaminophen (Tylenol Supp) 650 mg Q6H PRN [place] PAIN LEVEL 1-3 OR FEVER Last administered on 01/28/17 00:22; Admin Dose 650 MG; Start 01/24/17 at 13:30 Docusate Sodium (Colace) 100 mg Q12H PRN PO CONSTIPATION; Start 01/24/17 at 13: 30 Magnesium Hydroxide (Milk Of Mag) 30 ml DAILY PRN PO CONSTIPATION; Start at 13:30 Bisacodyl 10 mg 10 mg DAILY PRN [place] CONSTIPATION; Start 01/24/17 at 13:30 Acetaminophen (Ofirmev 1000mg/ 100ml Iv) 100 ml @ 400 mls/hr Q6H PRN IVPB fever Last administered on 01/29/17 08:06; Admin Dose 400 MLS/HR; Start 01/24/17 at 16:00 Morphine Sulfate (morphine) 4 mg Q4H PRN IV PAIN Last administered on 01/28/17 13:49; Admin Dose 4 MG; Start 01/27/17 at 02:30 Acetaminophen/ Butalbital/ Caffeine (Fioricet) 1 tab Q4H PRN PO Headache; Start 01/28/17 at 10:00 Acetaminophen/ Hydrocodone Bitart ([place] (5/325)) 1 tab Q4H PRN PO PAIN LEVEL 4 -7; Start 01/29/17 at 05:30 Acetaminophen/ Hydrocodone Bitart ([place] (5/325)) 2 tab Q4H PRN PO PAIN LEVEL 7 -10 Last administered on 02/04/17 02:48; Admin Dose 2 TAB; Start 01/29/17 at 05: 30 Hydromorphone HCl (Dilaudid) 0.5 mg Q2 PRN IV PAIN Last administered on 05:20; Admin Dose 0.5 MG; Start 01/29/17 at 05:30 Hydromorphone HCl (Dilaudid) 1 mg Q2 PRN IV PAIN Last administered on 01:18; Admin Dose 1 MG; Start 01/29/17 at 05:30 Docusate Sodium (Colace) 100 mg BID PRN PO CONSTIPATION; Start 01/29/17 at 05:30 Simethicone (Mylicon) 80 mg QID PRN GTB DISTENSION/GAS/BLOATING Last administered on 02/02/17 21:16; Admin Dose 80 MG; Start 01/30/17 at 17:00 Famotidine (Pepcid) 40 mg HS PO Last administered on 02/06/17 20:15; Admin Dose 40 MG; Start 01/31/17 at 21:00 Heparin Sodium (Porcine) 5000 unit 5,000 unit BID SC Last administered on 20:34; Admin Dose 5,000 UNIT; Start 02/01/17 at 08:00 Ertapenem/Sodium Chloride (Invanz/NS) 100 ml @ 200 mls/hr Q24H IVPB Last administered on 02/06/17 20:15; Admin Dose 200 MLS/HR; Start 02/03/17 at 20:00 Citric Acid/ Sodium Citrate (Bicitra) 30 ml TID PO Last administered on 20:15; Admin Dose 30 ML; Start 02/03/17 at 13:00 Triamcinolone Acetonide (Kenalog 0.1% Cr) 1 applic TID TOP Last administered on 02/06/17 22:21; Admin Dose 1 APPLIC; Start 02/06/17 at 21:00; Stop 02/07/17 at 13:01 VICKI JOAQUIN NP Feb 07, 2017 07:45
[2017-02-07 08:15] VITALS: BP 150/80; RESP 18
[2017-02-07] MEDS: CITRIC ACID/NA CITRATE 30 ML CUP PO SCH ×3 (08:56→21:50)
[2017-02-07] MEDS: TRIAMCINOLONE ACET 0.1% 15 GM CR TOP SCH ×2 (09:00→13:32)
[2017-02-07] MEDS: HEPARIN 5,000 UNIT/0.5 ML VIAL SC SCH ×2 (09:06→22:03)
--- NOTE | 2017-02-07 11:20 | CONS ---
Date/Time of Note Date/Time of Note DATE: 02/07/17 TIME: 11:19 Assessment/Plan Assessment/Plan Chief Complaint/Hosp Course SUBJECTIVE DATA: Feels good, mno fevers, no n/v/d, good UO Abx: Invanz PHYSICAL EXAMINATION: This is an obese, well developed, middle- aged, man who is awake, in no distress. HEENT: Head atraumatic, normocephalic. Sclerae anicteric. Buccal mucosa dry. NECK: Supple. CHEST: Chest rise symmetric. Breath sounds diminished at the bases. HEART: S1, S2. ABDOMEN: Soft. Bowel sounds present. ASSESSMENT: 1. Acute renal failure, likely acute tubular necrosis 2. Perforated sigmoid colon, status post laparoscopic converted to open sigmoid colectomy and diverting loop ileostomy on January 29, 2017. 3. Status post urinary tract infection. 4. Morbid obesity. 5. Resolving leukocytosis. 6. Rash, cw allergic PLAN: Patient remains stable. Change abx to Flagyl and Levaquin for 6 more days , start Claritin, f/u surgical/renal rec-s, expected full renal recovery staff/pt/family Problems: Consultation Date/Type/Reason Admit Date/Time Jan 24, 2017 at 09:50 Initial Consult Date 01/30/17 Type of Consultation: id Referring Provider: HAIDER BURR Exam/Review of Systems Vital Signs Vitals Vital Signs Date Time Temp Pulse Resp B/P Pulse Ox O2 Delivery O2 Flow Rate FiO2 02/07/17 08:15 98.4 74 18 150/80 99 Intake and Output 02/06/17 02/06/17 02/07/17 15:00 23:00 07:00 Intake Total 1060 ml 850 ml Output Total 308 ml 1440 ml 2300 ml Balance -308 ml -380 ml -1450 ml Results Result Diagram: 02/07/1718 02/07/17 0518 Results 24 hrs Laboratory Tests Test 02/07/17 05:18 White Blood Count 11.4 H Red Blood Count 3.19 L Hemoglobin 9.1 L Hematocrit 26.9 L Mean Corpuscular Volume 84.3 Mean Corpuscular Hemoglobin 28.5 L Mean Corpuscular Hemoglobin Concent 33.8 Red Cell Distribution Width 14.4 Platelet Count 464 H Mean Platelet Volume 9.1 Neutrophils % 71.5 Lymphocytes % 12.8 L Monocytes % 8.4 Eosinophils % 2.2 Basophils % 0.3 Nucleated Red Blood Cells % 0.0 Neutrophils # (Manual) 8 H Lymphocytes # 1.5 Monocytes # 1.0 H Eosinophils # 0.3 Basophils # 0.0 Nucleated Red Blood Cells # 0.0 Sodium Level 137 Potassium Level 3.8 Chloride Level 95 L Carbon Dioxide Level 22 Anion Gap 24 H Blood Urea Nitrogen 67 H Creatinine 12.34 H Glucose Level 107 Calcium Level 8.3 L Medications Medications Current Medications Ondansetron HCl (Zofran Inj) 4 mg Q6H PRN IV NAUSEA AND/OR VOMITING Last administered on 01/30/17 10:28; Admin Dose 4 MG; Start 01/24/17 at 13:30 Acetaminophen (Tylenol Supp) 650 mg Q6H PRN [place] PAIN LEVEL 1-3 OR FEVER Last administered on 01/28/17 00:22; Admin Dose 650 MG; Start 01/24/17 at 13:30 Docusate Sodium (Colace) 100 mg Q12H PRN PO CONSTIPATION; Start 01/24/17 at 13: 30 Magnesium Hydroxide (Milk Of Mag) 30 ml DAILY PRN PO CONSTIPATION; Start at 13:30 Bisacodyl 10 mg 10 mg DAILY PRN [place] CONSTIPATION; Start 01/24/17 at 13:30 Acetaminophen (Ofirmev 1000mg/ 100ml Iv) 100 ml @ 400 mls/hr Q6H PRN IVPB fever Last administered on 01/29/17 08:06; Admin Dose 400 MLS/HR; Start 01/24/17 at 16:00 Morphine Sulfate (morphine) 4 mg Q4H PRN IV PAIN Last administered on 01/28/17 13:49; Admin Dose 4 MG; Start 01/27/17 at 02:30 Acetaminophen/ Butalbital/ Caffeine (Fioricet) 1 tab Q4H PRN PO Headache; Start 01/28/17 at 10:00 Acetaminophen/ Hydrocodone Bitart ([place] (5/325)) 1 tab Q4H PRN PO PAIN LEVEL 4 -7; Start 01/29/17 at 05:30 Acetaminophen/ Hydrocodone Bitart ([place] (5/325)) 2 tab Q4H PRN PO PAIN LEVEL 7 -10 Last administered on 02/04/17 02:48; Admin Dose 2 TAB; Start 01/29/17 at 05: 30 Hydromorphone HCl (Dilaudid) 0.5 mg Q2 PRN IV PAIN Last administered on 05:20; Admin Dose 0.5 MG; Start 01/29/17 at 05:30 Hydromorphone HCl (Dilaudid) 1 mg Q2 PRN IV PAIN Last administered on 01:18; Admin Dose 1 MG; Start 01/29/17 at 05:30 Docusate Sodium (Colace) 100 mg BID PRN PO CONSTIPATION; Start 01/29/17 at 05:30 Simethicone (Mylicon) 80 mg QID PRN GTB DISTENSION/GAS/BLOATING Last administered on 02/02/17 21:16; Admin Dose 80 MG; Start 01/30/17 at 17:00 Famotidine (Pepcid) 40 mg HS PO Last administered on 02/06/17 20:15; Admin Dose 40 MG; Start 01/31/17 at 21:00 Heparin Sodium (Porcine) 5000 unit 5,000 unit BID SC Last administered on 09:06; Admin Dose 5,000 UNIT; Start 02/01/17 at 08:00 Ertapenem/Sodium Chloride (Invanz/NS) 100 ml @ 200 mls/hr Q24H IVPB Last administered on 02/06/17 20:15; Admin Dose 200 MLS/HR; Start 02/03/17 at 20:00 Citric Acid/ Sodium Citrate (Bicitra) 30 ml TID PO Last administered on 08:56; Admin Dose 30 ML; Start 02/03/17 at 13:00 Triamcinolone Acetonide (Kenalog 0.1% Cr) 1 applic TID TOP Last administered on 02/07/17 09:00; Admin Dose 1 APPLIC; Start 02/06/17 at 21:00; Stop 02/07/17 at 13:01 ALECIA MATSON NP Feb 07, 2017 11:19
[2017-02-07 11:21] LABS: IRON 26 ug/dl (35-150)
[2017-02-07 11:26] LABS: TOTAL IRON BINDING CAPACITY 214 ug/dl (241-421)
--- NOTE | 2017-02-07 13:25 | CONS ---
Date/Time of Note Date/Time of Note DATE: 02/07/17 TIME: 13:24 Assessment/Plan Assessment/Plan Chief Complaint/Hosp Course 41-year-old gentleman with history of diverticulitis, being admitted for recurrent diverticulitis with microperforation but no obvious evidence of abscess or other indication for intervention including no indication for surgical intervention. S/p emergency sigmoid colectomy, mobilization of splenic flexure, primary anastomosis and diverting loop ileostomy, lysis of adhesions and lavage 01/29/17. patient presented with normal creatinine on admission, His cr was normal until 01/28 then bumped to 3.76. Pt has been treated wtih IV abx Zosyn and vancomycin since admission. Renal has been consulted for RODNEY Problems: Additional Assessment/Plan 1. Acute Kidney Injury Non Oliguic, Multifactorial due to ATN + Prerenal azotemia + Nephrotoxicity from medication in low volume status 2. Recurrent diverticultiis with Microperforation s/p emergency sigmoid colectomy, mobilization of splenic flexure, primary anastomosis and diverting loop ileostomy, lysis of adhesions and lavage 01/29/17. 3. Normochloremic metabolic acidosis from ATN Plan: BUN/Cr slowly rising, pt is in ATN, but making good urine output , palmer has been discontinued CXR showed bibasilar atelectasis and small left pleural effusion continue Bicitra 30ml PO TID , s/p bicarbonate drip expecting renal recovery ok to d/c home with sania dowell with me in clinic in next week, nurse instructed to provide my office address pt feeling stable, no urgent indication for dialysis, will follow up... expecting renal recovery, keep pt euvolemic Consultation Date/Type/Reason Admit Date/Time Jan 24, 2017 at 09:50 Initial Consult Date 01/30/17 Type of Consultation: id Referring Provider: HAIDER BURR Exam/Review of Systems Vital Signs Vitals Vital Signs Date Time Temp Pulse Resp B/P Pulse Ox O2 Delivery O2 Flow Rate FiO2 02/07/17 08:15 98.4 74 18 150/80 99 Intake and Output 02/06/17 02/06/17 02/07/17 15:00 23:00 07:00 Intake Total 1060 ml 850 ml Output Total 308 ml 1440 ml 2300 ml Balance -308 ml -380 ml -1450 ml Results Result Diagram: 02/07/17 0518 02/07/17 0518 Results 24 hrs Laboratory Tests Test 02/07/17 05:18 White Blood Count 11.4 H Red Blood Count 3.19 L Hemoglobin 9.1 L Hematocrit 26.9 L Mean Corpuscular Volume 84.3 Mean Corpuscular Hemoglobin 28.5 L Mean Corpuscular Hemoglobin Concent 33.8 Red Cell Distribution Width 14.4 Platelet Count 464 H Mean Platelet Volume 9.1 Neutrophils % 71.5 Lymphocytes % 12.8 L Monocytes % 8.4 Eosinophils % 2.2 Basophils % 0.3 Nucleated Red Blood Cells % 0.0 Neutrophils # (Manual) 8 H Lymphocytes # 1.5 Monocytes # 1.0 H Eosinophils # 0.3 Basophils # 0.0 Nucleated Red Blood Cells # 0.0 Sodium Level 137 Potassium Level 3.8 Chloride Level 95 L Carbon Dioxide Level 22 Anion Gap 24 H Blood Urea Nitrogen 67 H Creatinine 12.34 H Glucose Level 107 Calcium Level 8.3 L Iron Level 26 L Total Iron Binding Capacity 214 L Percent Iron Saturation 12 L Ferritin 358.0 Medications Medications Current Medications Ondansetron HCl (Zofran Inj) 4 mg Q6H PRN IV NAUSEA AND/OR VOMITING Last administered on 01/30/17 10:28; Admin Dose 4 MG; Start 01/24/17 at 13:30 Acetaminophen (Tylenol Supp) 650 mg Q6H PRN [place] PAIN LEVEL 1-3 OR FEVER Last administered on 01/28/17 00:22; Admin Dose 650 MG; Start 01/24/17 at 13:30 Docusate Sodium (Colace) 100 mg Q12H PRN PO CONSTIPATION; Start 01/24/17 at 13: 30 Magnesium Hydroxide (Milk Of Mag) 30 ml DAILY PRN PO CONSTIPATION; Start at 13:30 Bisacodyl 10 mg 10 mg DAILY PRN [place] CONSTIPATION; Start 01/24/17 at 13:30 Acetaminophen (Ofirmev 1000mg/ 100ml Iv) 100 ml @ 400 mls/hr Q6H PRN IVPB fever Last administered on 01/29/17 08:06; Admin Dose 400 MLS/HR; Start 01/24/17 at 16:00 Morphine Sulfate (morphine) 4 mg Q4H PRN IV PAIN Last administered on 8/8/17at 13:49; Admin Dose 4 MG; Start 01/27/17 at 02:30 Acetaminophen/ Butalbital/ Caffeine (Fioricet) 1 tab Q4H PRN PO Headache; Start 01/28/17 at 10:00 Acetaminophen/ Hydrocodone Bitart ([place] (5/325)) 1 tab Q4H PRN PO PAIN LEVEL 4 -7; Start 01/29/17 at 05:30 Acetaminophen/ Hydrocodone Bitart ([place] (5/325)) 2 tab Q4H PRN PO PAIN LEVEL 7 -10 Last administered on 02/04/17 02:48; Admin Dose 2 TAB; Start 01/29/17 at 05: 30 Hydromorphone HCl (Dilaudid) 0.5 mg Q2 PRN IV PAIN Last administered on 05:20; Admin Dose 0.5 MG; Start 01/29/17 at 05:30 Hydromorphone HCl (Dilaudid) 1 mg Q2 PRN IV PAIN Last administered on 01:18; Admin Dose 1 MG; Start 01/29/17 at 05:30 Docusate Sodium (Colace) 100 mg BID PRN PO CONSTIPATION; Start 01/29/17 at 05:30 Simethicone (Mylicon) 80 mg QID PRN GTB DISTENSION/GAS/BLOATING Last administered on 02/02/17 21:16; Admin Dose 80 MG; Start 01/30/17 at 17:00 Famotidine (Pepcid) 40 mg HS PO Last administered on 02/06/17 20:15; Admin Dose 40 MG; Start 01/31/17 at 21:00 Heparin Sodium (Porcine) 5000 unit 5,000 unit BID SC Last administered on 09:06; Admin Dose 5,000 UNIT; Start 02/01/17 at 08:00 Ertapenem/Sodium Chloride (Invanz/NS) 100 ml @ 200 mls/hr Q24H IVPB Last administered on 02/06/17 20:15; Admin Dose 200 MLS/HR; Start 02/03/17 at 20:00 Citric Acid/ Sodium Citrate (Bicitra) 30 ml TID PO Last administered on 08:56; Admin Dose 30 ML; Start 02/03/17 at 13:00 SINGH WILLOUGHBY MD Feb 07, 2017 13:25
[2017-02-07] MEDS: LEVOFLOXACIN 250 MG TAB PO SCH (14:25)
[2017-02-07] MEDS: metroNIDAZOLE 500 MG TAB PO SCH ×2 (14:25→21:50)
[2017-02-07] MEDS: LORATADINE 10 MG TAB PO SCH (14:25)
--- NOTE | 2017-02-07 15:23 | PN ---
Date/Time of Note Date/Time of Note DATE: 02/07/17 TIME: 15:19 Assessment/Plan Lines/Catheters IV Catheter Type (from Nrsg): Saline Lock Shah in Place (from Nrs): Yes Assessment/Plan Assessment/Plan [facility] Progress Note Date of Service: 02/07/17 Today's Impression & Plan: Overall has remained stable and improving. Overall doing very well, but creatinine seems to be rising without rise in other parameters. Would like to keep him in house overnight and check labs again tomorrow with hopefully plans to send him home tomorrow. Discussed with patient and and answered all questions. They appeared to understand and agreed with the plans. Also discussed with team. With above assessment, I've recommended the following for today: 1. Cont current cares 2. Cont regular diet 3. Labs in am 4. Increase activity 5. Increase ICS 6. Possible d/c home in 24-48 hrs depending on clinical course Nature of presenting problem: High risk Complexity of decision making: high complexity Thank you again for your great care of this very pleasant patient and wonderful family. If there are any questions, please feel free to call me at [phone]. Disclaimer: Inadvertent spelling or grammatical errors are likely due to EHR/ dictation software use and do not reflect on the overall quality of patient care. Updated Clinical Summary: A very-pleasant 41-year-old gentleman with comorbidity of BMI 37.1 and previous history of diverticulitis, being admitted for recurrent diverticulitis with microperforation but no obvious evidence of abscess or other indication for intervention including no indication for surgical intervention. S/p emergency sigmoid colectomy, mobilization of splenic flexure, primary anastomosis and diverting loop ileostomy, lysis of adhesions and lavage 01/29/17. Postoperative paralytic ileus and acute renal injury. Surgical drain d/c'd 02/06/17. Creatinine continue to rise postoperatively without further deterioration of other parameters and not requiring dialysis. Comorbidities: 1. BMI 37.1 2. History of diverticulitis in the past as well as diagnosis of diverticulosis 3. Chronic constipation 4. S/p emergency sigmoid colectomy, mobilization of splenic flexure, primary anastomosis and diverting loop ileostomy, lysis of adhesions and lavage 01/29/17 Subjective: No major events or complaints; no incisional abd pain and under control with medications; feels well; no n/v/d; no sob or cp; + flatus in the bag; + BM in the bag; + activity Objective: Vitals: See below Exam: GENERAL: On exam, the patient was laying in bed and appeared to be comfortable and in no acute distress. ABDOMEN: Soft, no tenderness, and not distended. Incision dressing appears to be clean, dry, and intact without any evidence of erythema, edema, discharge, or hernia; no further drainage from the lower portion of the incision. Ostomy pink and viable. Minimal output in the bag. There are no peritoneal signs or guarding. SKIN: Skin appears to be pink and feels warm to touch. NEUROLOGIC: Patient is awake, alert, and follows commands appropriately. Exam/Review of Systems Vital Signs Vitals Vital Signs Date Time Temp Pulse Resp B/P Pulse Ox O2 Delivery O2 Flow Rate FiO2 02/07/17 08:15 98.4 74 18 150/80 99 Intake and Output 02/06/17 02/06/17 02/07/17 15:00 23:00 07:00 Intake Total 1060 ml 850 ml Output Total 308 ml 1440 ml 2300 ml Balance -308 ml -380 ml -1450 ml Results Result Diagram: 02/07/1751702/07/1718 WILMA THORNTON M.D. Feb 07, 2017 15:23
[2017-02-07 16:08] VITALS: BP 138/81; RESP 16
[2017-02-07 19:55] VITALS: BP 143/83; RESP 20
[2017-02-07] MEDS: FAMOTIDINE 20 MG TAB PO SCH (21:50)
[2017-02-07] MEDS: HYDROCODONE/APAP (5/325) TAB PO PRN (23:57)
[2017-02-08 02:38] VITALS: BP 136/79; RESP 20
[2017-02-08 06:46] LABS: BASOPHILS % 0.3 % (0.0-2.0); EOSINOPHILS # 0.2 10^3/ul (0.0-0.5); EOSINOPHILS % 2.3 % (0.0-7.0); HEMATOCRIT 25.8 % (42.0-52.0); HEMOGLOBIN 8.6 g/dl (14.0-18.0); LYMPHOCYTES # 1.8 10^3/ul (0.8-2.9); LYMPHOCYTES % 16.7 % (15.0-51.0); MEAN CORPUSCULAR HEMOGLOBIN 28.5 pg (29.0-33.0); MEAN CORPUSCULAR HGB CONC 33.3 g/dl (32.0-37.0); MEAN CORPUSCULAR VOLUME 85.4 fl (82.0-101.0); MEAN PLATELET VOLUME 9.4 fl (7.4-10.4); MONOCYTES % 9.4 % (0.0-11.0); NEUTROPHILS % 66.4 % (39.0-77.0); PLATELET COUNT 453 10^3/UL (140-415); POSITIVE DIFF @See below; RED BLOOD COUNT 3.02 10^6/ul (4.70-6.10); RED CELL DISTRIBUTION WIDTH 14.1 % (11.5-14.5); WHITE BLOOD COUNT 10.6 10^3/ul (4.8-10.8)
[2017-02-08] MEDS: metroNIDAZOLE 500 MG TAB PO SCH ×3 (06:57→21:10)
[2017-02-08 07:10] LABS: MAGNESIUM 2.2 mg/dl (1.7-2.5); PHOSPHORUS 8.6 mg/dl (2.5-4.9)
[2017-02-08 07:15] LABS: CALCIUM 8.3 mg/dl (8.4-10.2); CREATININE 12.65 mg/dl (0.61-1.24)
[2017-02-08 08:21] VITALS: BP 133/82; RESP 18
[2017-02-08] MEDS: CITRIC ACID/NA CITRATE 30 ML CUP PO SCH ×3 (08:22→21:10)
[2017-02-08] MEDS: LORATADINE 10 MG TAB PO SCH (08:23)
[2017-02-08] MEDS: HEPARIN 5,000 UNIT/0.5 ML VIAL SC SCH ×2 (08:35→21:14)
[2017-02-08] MEDS ORDERED: ACETAMINOPHEN 325 MG TAB PO PRN (09:00)
[2017-02-08] MEDS ORDERED: SOD CHLORIDE 0.9% 1,000 ML IV ONE (09:30)
--- NOTE | 2017-02-08 13:15 | PN ---
Date/Time of Note Date/Time of Note DATE: 02/08/17 TIME: 13:13 Assessment/Plan VTE Prophylaxis VTE Prophylaxis Intervention: SCD's Lines/Catheters IV Catheter Type (from [facility]): Saline Lock Urinary Cath still in place: Yes Reason Cath still needed: other (indicate) Assessment/Plan Chief Complaint/Hosp Course Assessment and plan 1. Perforated sigmoid colon with inflamed terminal ileum and cecum. Patient status post arthroscopic converted to open sigmoid colectomy with primary anastomosis and diverting loop ileostomy on January 29, 2017. Tolerating diet well. Continue with surgeon recommendations. continue with wound care 2. Tachycardia. Resolved at present. Likely secondary to dehydration. 3. UTI. Continue antibiotics. improved 4. Sepsis secondary to diverticulitis and UTI. Continue antibiotics per ID recommendations. appears to be improving at present. Medications renally dosed due to acute renal insufficiency. 5. Acute kidney injury. Nonoliguric and multifactorial due to prerenal azotemia as well as ATN and nephrotoxicity. Medications renally dosed. No plan for dialysis per culinary chef. Awaiting improvement of renal status Disposition and plan: Monitor for improvement of renal status. slightly worse today. Plan for IVF. check renal panel in AM Discussed plan of care with Dr. Deutsch Problems: Subjective 24 Hr Interval Summary Free Text/Dictation No specific complaints. Remains alert and oriented Exam/Review of Systems Vital Signs Vitals Vital Signs Date Time Temp Pulse Resp B/P Pulse Ox O2 Delivery O2 Flow Rate FiO2 02/08/17 08:21 99.5 79 18 133/82 98 Intake and Output 02/07/17 02/07/17 02/08/17 15:00 23:00 07:00 Intake Total 1640 ml 900 ml Output Total 2700 ml 1850 ml Balance -1060 ml -950 ml Exam Constitutional: alert, oriented Head: normocephalic Neck: supple Respiratory: clear to auscultation, normal air movement Cardiovascular: regular rate and rhythm Gastrointestinal: non-tender, soft Musculoskeletal: nl extremities to inspection Extremities: normal pulses Neurological: ENGINEERING PROGRAMMER II-XII intact, nl mental status, nl speech Skin: nl turgor Results Result Diagram: 02/08/17 0525 02/08/17 0525 Results 24 hrs Laboratory Tests Test 02/08/17 05:25 White Blood Count 10.6 Red Blood Count 3.02 L Hemoglobin 8.6 L Hematocrit 25.8 L Mean Corpuscular Volume 85.4 Mean Corpuscular Hemoglobin 28.5 L Mean Corpuscular Hemoglobin Concent 33.3 Red Cell Distribution Width 14.1 Platelet Count 453 H Mean Platelet Volume 9.4 Neutrophils % 66.4 Lymphocytes % 16.7 Monocytes % 9.4 Eosinophils % 2.3 Basophils % 0.3 Nucleated Red Blood Cells % 0.0 Neutrophils # (Manual) 7 Lymphocytes # 1.8 Monocytes # 1.0 H Eosinophils # 0.2 Basophils # 0.0 Nucleated Red Blood Cells # 0.0 Sodium Level 138 Potassium Level 4.0 Chloride Level 94 L Carbon Dioxide Level 22 Anion Gap 26 H Blood Urea Nitrogen 73 H Creatinine 12.65 H Glucose Level 95 Calcium Level 8.3 L Phosphorus Level 8.6 H Magnesium Level 2.2 Medications Medications Current Medications Ondansetron HCl (Zofran Inj) 4 mg Q6H PRN IV NAUSEA AND/OR VOMITING Last administered on 01/30/17 10:28; Admin Dose 4 MG; Start 01/24/17 at 13:30 Acetaminophen (Tylenol Supp) 650 mg Q6H PRN [place] PAIN LEVEL 1-3 OR FEVER Last administered on 01/28/17 00:22; Admin Dose 650 MG; Start 01/24/17 at 13:30 Docusate Sodium (Colace) 100 mg Q12H PRN PO CONSTIPATION; Start 01/24/17 at 13: 30 Magnesium Hydroxide (Milk Of Mag) 30 ml DAILY PRN PO CONSTIPATION; Start at 13:30 Bisacodyl 10 mg 10 mg DAILY PRN [place] CONSTIPATION; Start 01/24/17 at 13:30 Acetaminophen (Ofirmev 1000mg/ 100ml Iv) 100 ml @ 400 mls/hr Q6H PRN IVPB fever Last administered on 01/29/17 08:06; Admin Dose 400 MLS/HR; Start 01/24/17 at 16:00 Morphine Sulfate (morphine) 4 mg Q4H PRN IV PAIN Last administered on 01/28/17 13:49; Admin Dose 4 MG; Start 01/27/17 at 02:30 Acetaminophen/ Butalbital/ Caffeine (Fioricet) 1 tab Q4H PRN PO Headache; Start 01/28/17 at 10:00 Acetaminophen/ Hydrocodone Bitart ([place] (5/325)) 1 tab Q4H PRN PO PAIN LEVEL 4 -7; Start 01/29/17 at 05:30 Acetaminophen/ Hydrocodone Bitart ([place] (5/325)) 2 tab Q4H PRN PO PAIN LEVEL 7 -10 Last administered on 02/07/17 23:57; Admin Dose 2 TAB; Start 01/29/17 at 05: 30 Hydromorphone HCl (Dilaudid) 0.5 mg Q2 PRN IV PAIN Last administered on 05:20; Admin Dose 0.5 MG; Start 01/29/17 at 05:30 Hydromorphone HCl (Dilaudid) 1 mg Q2 PRN IV PAIN Last administered on 01:18; Admin Dose 1 MG; Start 01/29/17 at 05:30 Docusate Sodium (Colace) 100 mg BID PRN PO CONSTIPATION; Start 01/29/17 at 05:30 Simethicone (Mylicon) 80 mg QID PRN GTB DISTENSION/GAS/BLOATING Last administered on 02/02/17 21:16; Admin Dose 80 MG; Start 01/30/17 at 17:00 Famotidine (Pepcid) 40 mg HS PO Last administered on 02/07/17 21:50; Admin Dose 40 MG; Start 01/31/17 at 21:00 Heparin Sodium (Porcine) (Heparin (5000 Units/0.5 ml)) 5,000 unit BID SC Last administered on 02/08/17 08:35; Admin Dose 5,000 UNIT; Start 02/01/17 at 08:00 Citric Acid/ Sodium Citrate (Bicitra) 30 ml TID PO Last administered on 08:22; Admin Dose 30 ML; Start 02/03/17 at 13:00 Loratadine (Claritin) 10 mg DAILY PO Last administered on 02/08/17 08:23; Admin Dose 10 MG; Start 02/07/17 at 14:00 Metronidazole (Flagyl) 500 mg Q8 PO Last administered on 02/08/17 06:57; Admin Dose 500 MG; Start 02/07/17 at 14:00 Levofloxacin (Levaquin) 250 mg Q48H PO Last administered on 02/07/17 14:25; Admin Dose 250 MG; Start 02/07/17 at 14:00 Acetaminophen 650 mg 650 mg Q6H PRN PO PAIN AND OR ELEVATED TEMP; Start at 09:00 Sodium Chloride (NS) 1,000 ml @ 60 mls/hr [id number] ONCE IV Last administered on 02/08/17t 10:48; Admin Dose 60 MLS/HR; Start 02/08/17 at 09:30; Stop at 02:09 PRISCILLA METZGER Feb 08, 2017 13:15
[2017-02-08 14:00] VITALS: BP 148/86; RESP 20
--- NOTE | 2017-02-08 14:14 | PN ---
Date/Time of Note Date/Time of Note DATE: 02/08/17 TIME: 14:11 Assessment/Plan Lines/Catheters IV Catheter Type (from Nrsg): Saline Lock Shah in Place (from Nrsg): Yes Assessment/Plan Assessment/Plan [facility] Progress Note Date of Service: 02/08/17 Today's Impression & Plan: Overall has remained stable and improving. Creatinine marginally increased without rise in other parameters. Ok from my standpoint and from Dr. Kimball's standpoint according to his notes for patient to d/c home today, if we have good plan for his ostomy bag issues (had to be changed a few times last night). Discussed with patient and family and answered all questions. They appeared to understand and agreed with the plans. Also discussed with team. With above assessment, I've recommended the following for today: 1. D/c home when we have plans for his ostomy bag 2. Outpatient f/u with Dr. Kimball and lab checks for his renal issues 3. F/u with me in one week 4. D/c instructions: Please call [phone] if any of fever, nausea, vomiting, discharge from wound , wound redness, increase or sudden pain, blood in stool or vomit, or any other unusual signs or symptoms. Also, please call the same number in a few days to schedule an appointment for your follow up visit. Patient may remove dressings tomorrow. Showers OK starting tomorrow. No swimming , hot tub or bath for 2 weeks. No lifting more than 25 lbs for 8 weeks. Nature of presenting problem: High risk Complexity of decision making: high complexity Thank you again for your great care of this very pleasant patient and wonderful family. If there are any questions, please feel free to call me at [phone]. Disclaimer: Inadvertent spelling or grammatical errors are likely due to EHR/ dictation software use and do not reflect on the overall quality of patient care. Updated Clinical Summary: A very-pleasant 41-year-old gentleman with comorbidity of BMI 37.1 and previous history of diverticulitis, being admitted for recurrent diverticulitis with microperforation but no obvious evidence of abscess or other indication for intervention including no indication for surgical intervention. S/p emergency sigmoid colectomy, mobilization of splenic flexure, primary anastomosis and diverting loop ileostomy, lysis of adhesions and lavage 01/29/17. Postoperative paralytic ileus and acute renal injury. Surgical drain d/c'd 02/06/17. Creatinine continue to rise postoperatively without further deterioration of other parameters and not requiring dialysis. Comorbidities: 1. BMI 37.1 2. History of diverticulitis in the past as well as diagnosis of diverticulosis 3. Chronic constipation 4. S/p emergency sigmoid colectomy, mobilization of splenic flexure, primary anastomosis and diverting loop ileostomy, lysis of adhesions and lavage 01/29/17 Subjective: No major events or complaints; no incisional abd pain and under control with medications; feels well; no n/v/d; no sob or cp; + flatus in the bag; + BM in the bag; + activity Objective: Vitals: See below Exam: GENERAL: On exam, the patient was laying in bed and appeared to be comfortable and in no acute distress. ABDOMEN: Soft, no tenderness, and not distended. Incision dressing appears to be clean, dry, and intact without any evidence of erythema, edema, discharge, or hernia; no drainage from the lower portion of the incision. Ostomy pink and viable. Minimal output in the bag. There are no peritoneal signs or guarding. SKIN: Skin appears to be pink and feels warm to touch. NEUROLOGIC: Patient is awake, alert, and follows commands appropriately. Exam/Review of Systems Vital Signs Vitals Vital Signs Date Time Temp Pulse Resp B/P Pulse Ox O2 Delivery O2 Flow Rate FiO2 02/08/17 08:21 99.5 79 18 133/82 98 Intake and Output 02/07/17 02/07/17 02/08/17 15:00 23:00 07:00 Intake Total 1640 ml 900 ml Output Total 2700 ml 1850 ml Balance -1060 ml -950 ml Results Result Diagram: 02/08/17 0525 02/08/17 0525 WILMA THORNTON M.D. Feb 08, 2017 14:14
--- NOTE | 2017-02-08 14:37 | CONS ---
Date/Time of Note Date/Time of Note DATE: 02/08/17 TIME: 14:34 Assessment/Plan Assessment/Plan Additional Assessment/Plan 41-year-old gentleman with history of diverticulitis, being admitted for recurrent diverticulitis with microperforation but no obvious evidence of abscess or other indication for intervention including no indication for surgical intervention. S/p emergency sigmoid colectomy, mobilization of splenic flexure, primary anastomosis and diverting loop ileostomy, lysis of adhesions and lavage 01/29/17. patient presented with normal creatinine on admission, His cr was normal until 01/28 then bumped to 3.76. Pt has been treated wtih IV abx Zosyn and vancomycin since admission. Renal has been consulted for RODNEY 1. Acute Kidney Injury Non Oliguric, Multifactorial due to ATN + Prerenal azotemia + Nephrotoxicity from medication in low volume status 2. Recurrent diverticulitis with Microperforation s/p emergency sigmoid colectomy, mobilization of splenic flexure, primary anastomosis and diverting loop ileostomy, lysis of adhesions and lavage 01/29/17. 3. Normochloremic metabolic acidosis from ATN Plan: BUN/Cr slowly rising, pt is in ATN, but making good urine output , palmer has been discontinued CXR showed bibasilar atelectasis and small left pleural effusion continue Bicitra 30ml PO TID , s/p bicarbonate drip expecting renal recovery ok to d/c home with follow up with me in clinic in next week, nurse instructed to provide my office address pt feeling stable, no urgent indication for dialysis, will follow up... expecting renal recovery, keep pt euvolemic Consultation Date/Type/Reason Admit Date/Time Jan 24, 2017 at 09:50 Initial Consult Date 01/30/17 Type of Consultation: id Referring Provider: HAIDER BURR Exam/Review of Systems Vital Signs Vitals Vital Signs Date Time Temp Pulse Resp B/P Pulse Ox O2 Delivery O2 Flow Rate FiO2 02/08/17 08:21 99.5 79 18 133/82 98 Intake and Output 02/07/17 02/07/17 02/08/17 15:00 23:00 07:00 Intake Total 1640 ml 900 ml Output Total 2700 ml 1850 ml Balance -1060 ml -950 ml Exam Constitutional: alert, oriented, well developed Respiratory: clear to auscultation, normal air movement Cardiovascular: nl pulses, regular rate and rhythm Gastrointestinal: non-tender, other (surgical abdomen), soft Musculoskeletal: nl extremities to inspection Extremities: normal pulses Neurological: nl mental status, nl speech Results Result Diagram: 02/08/1725 02/08/17 0525 Results 24 hrs Laboratory Tests Test 02/08/17 05:25 White Blood Count 10.6 Red Blood Count 3.02 L Hemoglobin 8.6 L Hematocrit 25.8 L Mean Corpuscular Volume 85.4 Mean Corpuscular Hemoglobin 28.5 L Mean Corpuscular Hemoglobin Concent 33.3 Red Cell Distribution Width 14.1 Platelet Count 453 H Mean Platelet Volume 9.4 Neutrophils % 66.4 Lymphocytes % 16.7 Monocytes % 9.4 Eosinophils % 2.3 Basophils % 0.3 Nucleated Red Blood Cells % 0.0 Neutrophils # (Manual) 7 Lymphocytes # 1.8 Monocytes # 1.0 H Eosinophils # 0.2 Basophils # 0.0 Nucleated Red Blood Cells # 0.0 Sodium Level 138 Potassium Level 4.0 Chloride Level 94 L Carbon Dioxide Level 22 Anion Gap 26 H Blood Urea Nitrogen 73 H Creatinine 12.65 H Glucose Level 95 Calcium Level 8.3 L Phosphorus Level 8.6 H Magnesium Level 2.2 Medications Medications Current Medications Ondansetron HCl (Zofran Inj) 4 mg Q6H PRN IV NAUSEA AND/OR VOMITING Last administered on 01/30/17 10:28; Admin Dose 4 MG; Start 01/24/17 at 13:30 Acetaminophen (Tylenol Supp) 650 mg Q6H PRN [place] PAIN LEVEL 1-3 OR FEVER Last administered on 01/28/17 00:22; Admin Dose 650 MG; Start 01/24/17 at 13:30 Docusate Sodium (Colace) 100 mg Q12H PRN PO CONSTIPATION; Start 01/24/17 at 13: 30 Magnesium Hydroxide (Milk Of Mag) 30 ml DAILY PRN PO CONSTIPATION; Start at 13:30 Bisacodyl 10 mg 10 mg DAILY PRN [place] CONSTIPATION; Start 01/24/17 at 13:30 Acetaminophen (Ofirmev 1000mg/ 100ml Iv) 100 ml @ 400 mls/hr Q6H PRN IVPB fever Last administered on 01/29/17 08:06; Admin Dose 400 MLS/HR; Start 01/24/17 at 16:00 Morphine Sulfate (morphine) 4 mg Q4H PRN IV PAIN Last administered on 01/28/17 13:49; Admin Dose 4 MG; Start 01/27/17 at 02:30 Acetaminophen/ Butalbital/ Caffeine (Fioricet) 1 tab Q4H PRN PO Headache; Start 01/28/17 at 10:00 Acetaminophen/ Hydrocodone Bitart ([place] (5/325)) 1 tab Q4H PRN PO PAIN LEVEL 4 -7; Start 01/29/17 at 05:30 Acetaminophen/ Hydrocodone Bitart ([place] (5/325)) 2 tab Q4H PRN PO PAIN LEVEL 7 -10 Last administered on 02/07/17 23:57; Admin Dose 2 TAB; Start 01/29/17 at 05: 30 Hydromorphone HCl (Dilaudid) 0.5 mg Q2 PRN IV PAIN Last administered on 05:20; Admin Dose 0.5 MG; Start 01/29/17 at 05:30 Hydromorphone HCl (Dilaudid) 1 mg Q2 PRN IV PAIN Last administered on 01:18; Admin Dose 1 MG; Start 01/29/17 at 05:30 Docusate Sodium (Colace) 100 mg BID PRN PO CONSTIPATION; Start 01/29/17 at 05:30 Simethicone (Mylicon) 80 mg QID PRN GTB DISTENSION/GAS/BLOATING Last administered on 02/02/17 21:16; Admin Dose 80 MG; Start 01/30/17 at 17:00 Famotidine (Pepcid) 40 mg HS PO Last administered on 02/07/17 21:50; Admin Dose 40 MG; Start 01/31/17 at 21:00 Heparin Sodium (Porcine) (Heparin (5000 Units/0.5 ml)) 5,000 unit BID SC Last administered on 02/08/17 08:35; Admin Dose 5,000 UNIT; Start 02/01/17 at 08:00 Citric Acid/ Sodium Citrate (Bicitra) 30 ml TID PO Last administered on 13:34; Admin Dose 30 ML; Start 02/03/17 at 13:00 Loratadine (Claritin) 10 mg DAILY PO Last administered on 02/08/17 08:23; Admin Dose 10 MG; Start 02/07/17 at 14:00 Metronidazole (Flagyl) 500 mg Q8 PO Last administered on 02/08/17 13:34; Admin Dose 500 MG; Start 02/07/17 at 14:00 Levofloxacin (Levaquin) 250 mg Q48H PO Last administered on 02/07/17 14:25; Admin Dose 250 MG; Start 02/07/17 at 14:00 Acetaminophen 650 mg 650 mg Q6H PRN PO PAIN AND OR ELEVATED TEMP; Start at 09:00 Sodium Chloride (NS) 1,000 ml @ 60 mls/hr [id number] ONCE IV Last administered on 02/08/17 10:48; Admin Dose 60 MLS/HR; Start 02/08/17 at 09:30; Stop at 02:09 SHANIQUA PRIEST Feb 08, 2017 14:37
[2017-02-08 20:00] VITALS: BP 141/79; RESP 20
[2017-02-08] MEDS: FAMOTIDINE 20 MG TAB PO SCH (21:10)
[2017-02-08] MEDS: HYDROCODONE/APAP (5/325) TAB PO PRN (21:24)
[2017-02-09 02:22] VITALS: BP 124/72; RESP 20
[2017-02-09] MEDS: metroNIDAZOLE 500 MG TAB PO SCH ×2 (05:47→13:09)
[2017-02-09 07:08] LABS: BASOPHILS % 0.3 % (0.0-2.0); EOSINOPHILS # 0.3 10^3/ul (0.0-0.5); EOSINOPHILS % 2.1 % (0.0-7.0); HEMATOCRIT 27.1 % (42.0-52.0); LYMPHOCYTES # 1.8 10^3/ul (0.8-2.9); LYMPHOCYTES % 14.7 % (15.0-51.0); MEAN CORPUSCULAR HEMOGLOBIN 28.8 pg (29.0-33.0); MEAN CORPUSCULAR HGB CONC 33.2 g/dl (32.0-37.0); MEAN CORPUSCULAR VOLUME 86.6 fl (82.0-101.0); MEAN PLATELET VOLUME 9.4 fl (7.4-10.4); MONOCYTES % 8.6 % (0.0-11.0); NEUTROPHILS % 71.8 % (39.0-77.0); PLATELET COUNT 468 10^3/UL (140-415); RED BLOOD COUNT 3.13 10^6/ul (4.70-6.10); RED CELL DISTRIBUTION WIDTH 14.6 % (11.5-14.5); WHITE BLOOD COUNT 12.1 10^3/ul (4.8-10.8)
[2017-02-09 07:29] LABS: CALCIUM 8.5 mg/dl (8.4-10.2); CREATININE 12.81 mg/dl (0.61-1.24); POTASSIUM 4.2 mmol/L (3.5-5.1)
[2017-02-09 07:53] VITALS: BP 140/80; RESP 18
[2017-02-09] MEDS: CITRIC ACID/NA CITRATE 30 ML CUP PO SCH ×2 (08:40→13:10)
[2017-02-09] MEDS: LORATADINE 10 MG TAB PO SCH (08:40)
[2017-02-09] MEDS: HEPARIN 5,000 UNIT/0.5 ML VIAL SC SCH (08:46)
[2017-02-09] MEDS ORDERED: LEVO250T35 PO (10:32)
[2017-02-09] MEDS ORDERED: CITR473S PO (10:32)
[2017-02-09] MEDS ORDERED: METR500T PO (10:32)
[2017-02-09] MEDS ORDERED: HYDR-3498 PO (10:32)
--- NOTE | 2017-02-09 10:39 | PDOCDIS ---
Discharge Instructions DIAGNOSIS Discharge Diagnosis 1. Perforated sigmoid colon with inflamed terminal ileum and cecum. 2. Tachycardia. 3. UTI. 4. Sepsis secondary to diverticulitis and UTI. 5. Acute kidney injury. CONDITION Patient Condition: Stable HOME CARE INSTRUCTIONS: Diet Instructions: Low Fat /CholesterolSpecial Diet: RENAL DIET FOLLOW UP/APPOINTMENTS Follow-up Plan 1. Follow up with Dr. Sami Kimball 02/13/17 2. Follow up with Dr. Quentin Araiza in one week 3. Follow up with your primary care provider in one week OTHER ORDERS: Other Orders: Please call [phone] (Dr. Quentin Araiza) if any of fever, nausea, vomiting, discharge from wound, wound redness, increase or sudden pain, blood in stool or vomit, or any other unusual signs or symptoms. Also, please call the same number in a few days to schedule an appointment for your follow up visit. Patient may remove dressings tomorrow. Showers OK starting tomorrow. No swimming , hot tub or bath for 2 weeks. No lifting more than 25 lbs for 8 weeks. PRISCILLA METZGER Feb 09, 2017 10:39
--- NOTE | 2017-02-09 12:33 | PN ---
Date/Time of Note Date/Time of Note DATE: 02/09/17 TIME: 12:30 Assessment/Plan Lines/Catheters IV Catheter Type (from Nrsg): Peripheral IV Shah in Place (from Nrs): Yes Assessment/Plan Assessment/Plan [facility] Progress Note Date of Service: 02/09/17 Today's Impression & Plan: Overall has remained stable and improving. Creatinine still increasing without rise in other parameters. Even though there are no other physical signs of a urine leak from left ureter, I decided to do a noncontrast CT to evaluate the abdomen and pelvis to see if there are any other explanations for the patient's rising creatinine. We can also evaluate the wound since it has a small amount of discharge, although I do not believe that there is an infection of the wound itself. Patient otherwise doing well and we are awaiting the above information and relative stability of his colostomy bag/education the patient and family prior to discharging patient home. Discussed with patient and his and answered all questions. They appeared to understand and agreed with the plans. Also discussed with team. With above assessment, I've recommended the following for today: 1. CT abdomen and pelvis with no IV or oral contrast 2. May d/c home after above CT and when we have plans for his ostomy bag 3. Outpatient f/u with Dr. Kimball and lab checks for his renal issues 4. F/u with me in one week 5. D/c instructions: Please call [phone] if any of fever, nausea, vomiting, discharge from wound , wound redness, increase or sudden pain, blood in stool or vomit, or any other unusual signs or symptoms. Also, please call the same number in a few days to schedule an appointment for your follow up visit. Patient may remove dressings tomorrow. Showers OK starting tomorrow. No swimming , hot tub or bath for 2 weeks. No lifting more than 25 lbs for 8 weeks. Nature of presenting problem: High risk Complexity of decision making: high complexity Thank you again for your great care of this very pleasant patient and wonderful family. If there are any questions, please feel free to call me at [phone]. Disclaimer: Inadvertent spelling or grammatical errors are likely due to EHR/ dictation software use and do not reflect on the overall quality of patient care. Updated Clinical Summary: A very-pleasant 41-year-old gentleman with comorbidity of BMI 37.1 and previous history of diverticulitis, being admitted for recurrent diverticulitis with microperforation but no obvious evidence of abscess or other indication for intervention including no indication for surgical intervention. S/p emergency sigmoid colectomy, mobilization of splenic flexure, primary anastomosis and diverting loop ileostomy, lysis of adhesions and lavage 01/29/17. Postoperative paralytic ileus and acute renal injury. Surgical drain d/c'd 02/06/17. Creatinine continue to rise postoperatively without further deterioration of other parameters and not requiring dialysis. Comorbidities: 1. BMI 37.1 2. History of diverticulitis in the past as well as diagnosis of diverticulosis 3. Chronic constipation 4. S/p emergency sigmoid colectomy, mobilization of splenic flexure, primary anastomosis and diverting loop ileostomy, lysis of adhesions and lavage 01/29/17 Subjective: No major events or complaints; no incisional abd pain and under control with medications; feels well; no n/v/d; no sob or cp; + flatus in the bag; + BM in the bag; + activity Objective: Vitals: See below Exam: GENERAL: On exam, the patient was laying in bed and appeared to be comfortable and in no acute distress. ABDOMEN: Soft, no tenderness, and not distended. Incision dressing appears to be clean, dry, and intact without any evidence of erythema, edema, or hernia; there is very slight amount of discharge from periumbilical region and from the most superior aspect of the incision but no erythema associated with it and no other evidence of infection; no drainage from the lower portion of the incision. Ostomy pink and viable. Minimal output in the bag. There are no peritoneal signs or guarding. SKIN: Skin appears to be pink and feels warm to touch. NEUROLOGIC: Patient is awake, alert, and follows commands appropriately. Exam/Review of Systems Vital Signs Vitals Vital Signs Date Time Temp Pulse Resp B/P Pulse Ox O2 Delivery O2 Flow Rate FiO2 02/09/17 07:53 98.2 80 18 140/80 99 Intake and Output 02/08/17 02/08/17 02/09/17 15:00 23:00 07:00 Intake Total 1630 ml 1270 ml Output Total 1150 ml 1500 ml Balance 480 ml -230 ml Results Result Diagram: 02/09/17 0518 02/09/17 0518 WILMA THORNTON M.D. Feb 09, 2017 12:33
[2017-02-09] MEDS: LEVOFLOXACIN 250 MG TAB PO SCH (13:09)
[2017-02-09 13:32] VITALS: BP 151/91; RESP 18
--- NOTE | 2017-02-09 13:59 | CONS ---
Date/Time of Note Date/Time of Note DATE: 02/09/17 TIME: 13:58 Assessment/Plan Assessment/Plan Chief Complaint/Hosp Course 41-year-old gentleman with history of diverticulitis, being admitted for recurrent diverticulitis with microperforation but no obvious evidence of abscess or other indication for intervention including no indication for surgical intervention. S/p emergency sigmoid colectomy, mobilization of splenic flexure, primary anastomosis and diverting loop ileostomy, lysis of adhesions and lavage 01/29/17. patient presented with normal creatinine on admission, His cr was normal until 01/28 then bumped to 3.76. Pt has been treated wtih IV abx Zosyn and vancomycin since admission. Renal has been consulted for RODNEY Problems: Consultation Date/Type/Reason Admit Date/Time Jan 24, 2017 at 09:50 Initial Consult Date 01/30/17 Type of Consultation: id Referring Provider: HAIDER BURR Exam/Review of Systems Vital Signs Vitals Vital Signs Date Time Temp Pulse Resp B/P Pulse Ox O2 Delivery O2 Flow Rate FiO2 02/09/17 13:32 99.1 88 18 151/91 98 Intake and Output 02/08/17 02/08/17 02/09/17 15:00 23:00 07:00 Intake Total 1630 ml 1270 ml Output Total 1150 ml 1500 ml Balance 480 ml -230 ml Results Result Diagram: 02/09/1718 02/09/17 0518 Results 24 hrs Laboratory Tests Test 02/09/17 05:18 White Blood Count 12.1 H Red Blood Count 3.13 L Hemoglobin 9.0 L Hematocrit 27.1 L Mean Corpuscular Volume 86.6 Mean Corpuscular Hemoglobin 28.8 L Mean Corpuscular Hemoglobin Concent 33.2 Red Cell Distribution Width 14.6 H Platelet Count 468 H Mean Platelet Volume 9.4 Neutrophils % 71.8 Lymphocytes % 14.7 L Monocytes % 8.6 Eosinophils % 2.1 Basophils % 0.3 Nucleated Red Blood Cells % 0.0 Neutrophils # (Manual) 9 H Lymphocytes # 1.8 Monocytes # 1.0 H Eosinophils # 0.3 Basophils # 0.0 Nucleated Red Blood Cells # 0.0 Sodium Level 141 Potassium Level 4.2 Chloride Level 96 L Carbon Dioxide Level 22 Anion Gap 27 H Blood Urea Nitrogen 78 H Creatinine 12.81 H Glucose Level 90 Calcium Level 8.5 Medications Medications Current Medications Ondansetron HCl (Zofran Inj) 4 mg Q6H PRN IV NAUSEA AND/OR VOMITING Last administered on 01/30/17 10:28; Admin Dose 4 MG; Start 01/24/17 at 13:30 Acetaminophen (Tylenol Supp) 650 mg Q6H PRN [place] PAIN LEVEL 1-3 OR FEVER Last administered on 01/28/17 00:22; Admin Dose 650 MG; Start 01/24/17 at 13:30 Docusate Sodium (Colace) 100 mg Q12H PRN PO CONSTIPATION; Start 01/24/17 at 13: 30 Magnesium Hydroxide (Milk Of Mag) 30 ml DAILY PRN PO CONSTIPATION; Start at 13:30 Bisacodyl 10 mg 10 mg DAILY PRN [place] CONSTIPATION; Start 01/24/17 at 13:30 Acetaminophen (Ofirmev 1000mg/ 100ml Iv) 100 ml @ 400 mls/hr Q6H PRN IVPB fever Last administered on 01/29/17 08:06; Admin Dose 400 MLS/HR; Start 01/24/17 at 16:00 Morphine Sulfate (morphine) 4 mg Q4H PRN IV PAIN Last administered on 01/28/17 13:49; Admin Dose 4 MG; Start 01/27/17 at 02:30 Acetaminophen/ Butalbital/ Caffeine (Fioricet) 1 tab Q4H PRN PO Headache; Start 01/28/17 at 10:00 Acetaminophen/ Hydrocodone Bitart ([place] (5/325)) 1 tab Q4H PRN PO PAIN LEVEL 4 -7; Start 01/29/17 at 05:30 Acetaminophen/ Hydrocodone Bitart ([place] (5/325)) 2 tab Q4H PRN PO PAIN LEVEL 7 -10 Last administered on 02/08/17 21:24; Admin Dose 2 TAB; Start 01/29/17 at 05: 30 Hydromorphone HCl (Dilaudid) 0.5 mg Q2 PRN IV PAIN Last administered on 05:20; Admin Dose 0.5 MG; Start 01/29/17 at 05:30 Hydromorphone HCl (Dilaudid) 1 mg Q2 PRN IV PAIN Last administered on 01:18; Admin Dose 1 MG; Start 01/29/17 at 05:30 Docusate Sodium (Colace) 100 mg BID PRN PO CONSTIPATION; Start 01/29/17 at 05:30 Simethicone (Mylicon) 80 mg QID PRN GTB DISTENSION/GAS/BLOATING Last administered on 02/02/17 21:16; Admin Dose 80 MG; Start 01/30/17 at 17:00 Famotidine (Pepcid) 40 mg HS PO Last administered on 02/08/17 21:10; Admin Dose 40 MG; Start 01/31/17 at 21:00 Heparin Sodium (Porcine) (Heparin (5000 Units/0.5 ml)) 5,000 unit BID SC Last administered on 02/09/17 08:46; Admin Dose 5,000 UNIT; Start 02/01/17 at 08:00 Citric Acid/ Sodium Citrate (Bicitra) 30 ml TID PO Last administered on 13:10; Admin Dose 30 ML; Start 02/03/17 at 13:00 Loratadine (Claritin) 10 mg DAILY PO Last administered on 02/09/17 08:40; Admin Dose 10 MG; Start 02/07/17 at 14:00 Metronidazole (Flagyl) 500 mg Q8 PO Last administered on 02/09/17 13:09; Admin Dose 500 MG; Start 02/07/17 at 14:00 Levofloxacin (Levaquin) 250 mg Q48H PO Last administered on 02/09/17 13:09; Admin Dose 250 MG; Start 02/07/17 at 14:00 Acetaminophen (Tylenol Tab) 650 mg Q6H PRN PO PAIN AND OR ELEVATED TEMP; Start 02/08/17 at 09:00 SINGH WILLOUGHBY MD Feb 09, 2017 13:59
--- NOTE | 2017-02-09 14:26 | CONS ---
Date/Time of Note Date/Time of Note DATE: 02/09/17 TIME: 14:25 Assessment/Plan Assessment/Plan Chief Complaint/Hosp Course SUBJECTIVE DATA: Feels good, mno fevers, no n/v/d, good UO Abx: Flagyl Levaquin PHYSICAL EXAMINATION: This is an obese, well developed, middle- aged, man who is awake, in no distress. HEENT: Head atraumatic, normocephalic. Sclerae anicteric. Buccal mucosa dry. NECK: Supple. CHEST: Chest rise symmetric. Breath sounds diminished at the bases. HEART: S1, S2. ABDOMEN: Soft. Bowel sounds present. ASSESSMENT: 1. Acute renal failure, likely acute tubular necrosis 2. Perforated sigmoid colon, status post laparoscopic converted to open sigmoid colectomy and diverting loop ileostomy on January 29, 2017. 3. Status post urinary tract infection. 4. Morbid obesity. 5. Resolving leukocytosis. 6. Rash, cw allergic PLAN: Patient remains stable. Completing abx, pending dc, f/u surgical/renal rec-s=> expected full renal recovery staff/pt/family Problems: Consultation Date/Type/Reason Admit Date/Time Jan 24, 2017 at 09:50 Initial Consult Date 01/30/17 Type of Consultation: id Referring Provider: HAIDER BURR Exam/Review of Systems Vital Signs Vitals Vital Signs Date Time Temp Pulse Resp B/P Pulse Ox O2 Delivery O2 Flow Rate FiO2 02/09/17 13:32 99.1 88 18 151/91 98 Intake and Output 02/08/17 02/08/17 02/09/17 15:00 23:00 07:00 Intake Total 1630 ml 1270 ml Output Total 1150 ml 1500 ml Balance 480 ml -230 ml Results Result Diagram: 02/09/17 0518 02/09/17 0518 Results 24 hrs Laboratory Tests Test 02/09/17 05:18 White Blood Count 12.1 H Red Blood Count 3.13 L Hemoglobin 9.0 L Hematocrit 27.1 L Mean Corpuscular Volume 86.6 Mean Corpuscular Hemoglobin 28.8 L Mean Corpuscular Hemoglobin Concent 33.2 Red Cell Distribution Width 14.6 H Platelet Count 468 H Mean Platelet Volume 9.4 Neutrophils % 71.8 Lymphocytes % 14.7 L Monocytes % 8.6 Eosinophils % 2.1 Basophils % 0.3 Nucleated Red Blood Cells % 0.0 Neutrophils # (Manual) 9 H Lymphocytes # 1.8 Monocytes # 1.0 H Eosinophils # 0.3 Basophils # 0.0 Nucleated Red Blood Cells # 0.0 Sodium Level 141 Potassium Level 4.2 Chloride Level 96 L Carbon Dioxide Level 22 Anion Gap 27 H Blood Urea Nitrogen 78 H Creatinine 12.81 H Glucose Level 90 Calcium Level 8.5 Medications Medications Current Medications Ondansetron HCl (Zofran Inj) 4 mg Q6H PRN IV NAUSEA AND/OR VOMITING Last administered on 01/30/17 10:28; Admin Dose 4 MG; Start 01/24/17 at 13:30 Acetaminophen (Tylenol Supp) 650 mg Q6H PRN [place] PAIN LEVEL 1-3 OR FEVER Last administered on 01/28/17 00:22; Admin Dose 650 MG; Start 01/24/17 at 13:30 Docusate Sodium (Colace) 100 mg Q12H PRN PO CONSTIPATION; Start 01/24/17 at 13: 30 Magnesium Hydroxide (Milk Of Mag) 30 ml DAILY PRN PO CONSTIPATION; Start at 13:30 Bisacodyl 10 mg 10 mg DAILY PRN [place] CONSTIPATION; Start 01/24/17 at 13:30 Acetaminophen (Ofirmev 1000mg/ 100ml Iv) 100 ml @ 400 mls/hr Q6H PRN IVPB fever Last administered on 01/29/17 08:06; Admin Dose 400 MLS/HR; Start 01/24/17 at 16:00 Morphine Sulfate (morphine) 4 mg Q4H PRN IV PAIN Last administered on 01/28/17 13:49; Admin Dose 4 MG; Start 01/27/17 at 02:30 Acetaminophen/ Butalbital/ Caffeine (Fioricet) 1 tab Q4H PRN PO Headache; Start 01/28/17 at 10:00 Acetaminophen/ Hydrocodone Bitart ([place] (5/325)) 1 tab Q4H PRN PO PAIN LEVEL 4 -7; Start 01/29/17 at 05:30 Acetaminophen/ Hydrocodone Bitart ([place] (5/325)) 2 tab Q4H PRN PO PAIN LEVEL 7 -10 Last administered on 02/08/17 21:24; Admin Dose 2 TAB; Start 01/29/17 at 05: 30 Hydromorphone HCl (Dilaudid) 0.5 mg Q2 PRN IV PAIN Last administered on 05:20; Admin Dose 0.5 MG; Start 01/29/17 at 05:30 Hydromorphone HCl (Dilaudid) 1 mg Q2 PRN IV PAIN Last administered on 01:18; Admin Dose 1 MG; Start 01/29/17 at 05:30 Docusate Sodium (Colace) 100 mg BID PRN PO CONSTIPATION; Start 01/29/17 at 05:30 Simethicone (Mylicon) 80 mg QID PRN GTB DISTENSION/GAS/BLOATING Last administered on 02/02/17 21:16; Admin Dose 80 MG; Start 01/30/17 at 17:00 Famotidine (Pepcid) 40 mg HS PO Last administered on 02/08/17 21:10; Admin Dose 40 MG; Start 01/31/17 at 21:00 Heparin Sodium (Porcine) (Heparin (5000 Units/0.5 ml)) 5,000 unit BID SC Last administered on 02/09/17 08:46; Admin Dose 5,000 UNIT; Start 02/01/17 at 08:00 Citric Acid/ Sodium Citrate (Bicitra) 30 ml TID PO Last administered on 13:10; Admin Dose 30 ML; Start 02/03/17 at 13:00 Loratadine (Claritin) 10 mg DAILY PO Last administered on 02/09/17 08:40; Admin Dose 10 MG; Start 02/07/17 at 14:00 Metronidazole (Flagyl) 500 mg Q8 PO Last administered on 02/09/17 13:09; Admin Dose 500 MG; Start 02/07/17 at 14:00 Levofloxacin (Levaquin) 250 mg Q48H PO Last administered on 02/09/17 13:09; Admin Dose 250 MG; Start 02/07/17 at 14:00 Acetaminophen (Tylenol Tab) 650 mg Q6H PRN PO PAIN AND OR ELEVATED TEMP; Start 02/08/17 at 09:00 ALECIA MATSON NP Feb 09, 2017 14:26
--- NOTE | 2017-02-09 18:30 | RADRPT ---
PROCEDURE: CT abdomen and pelvis without contrast. CLINICAL INDICATION: Rising creatinine after colon resection. TECHNIQUE: CT of the abdomen and pelvis without contrast was performed on a multidetector high-reso lution CT scanner. Coronal and sagittal reformatted images were obtained from the axial source image s. Images were reviewed on a high-resolution PACS workstation. The total exam CTDI equals 22.17 mGy and the total exam DLP equals 1335.51 mGy-cm. One or more of the following dose reduction techniques were used: - Automated exposure control. - Adjustment of the mA and/or kV according to patient size. - Use of iterative reconstruction technique. COMPARISON: CT dated 01/24/2017. Ultrasound dated 01/30/2017. FINDINGS: Visualized lower thorax: There is consolidation in the medial basal right lower lobe and subsegment al atelectasis in the left lower lobe. The visualized heart is unremarkable. Hepatobiliary system and spleen: The liver is enlarged measuring 22.2 cm in length, but otherwise g rossly unremarkable. There is no intra or extrahepatic biliary ductal dilatation. The gallbladder is grossly unremarkable. The spleen is grossly unremarkable. The pancreas is grossly unremarkable. Adrenal glands and genitourinary system: The adrenal glands are grossly unremarkable. There is no n ephrolithiasis or hydronephrosis. The urinary bladder is grossly unremarkable. The prostate gland an d seminal vesicles are grossly unremarkable. Gastrointestinal system: There is postoperative change related to partial sigmoidectomy with a citlaly l anastomosis near the rectosigmoid junction and a loop ostomy in the left lower quadrant. There ar e skin elías at the ventral midline abdomen and pelvis. There are scattered diverticula involving the residual sigmoid colon and descending colon. There is no evidence of bowel obstruction. The lizett endix is not identified. Peritoneum, vascular, and lymphatics: There is no free intraperitoneal air or focal drainable colle ction within the abdomen or pelvis. There is scattered inflammatory change throughout the mesentery and there is mild body wall edema. There is no mesenteric or retroperitoneal adenopathy. The aorta is nonaneurysmal. There are small bilateral fat containing inguinal hernias. Musculoskeletal system and soft tissues: There is mild multilevel degenerative enthesopathy. There are no concerning osseous lesions. IMPRESSION: 1. Postoperative change related to partial sigmoidectomy and left lower quadrant loop ostomy with n o evidence of complication or obstruction. New inflammatory change throughout the mesentery and body wall edema. 2. No nephrolithiasis or hydronephrosis. No findings to suggest a source of the patient's rising c reatinine. 3. Small bilateral fat containing inguinal hernias. 4. Hepatomegaly. 5. Consolidation in the medial basal right lower lobe, which may reflect atelectasis or pneumonitis . Left lower lobe subsegmental atelectasis. RPTAT: HLBP .Sincere Brownlee MD, MD Date Time Electronically viewed and signed by .Sincere Brownlee MD, on 02/09/2017 18:29 .P/
--- NOTE | 2017-02-11 16:34 | DS ---
Date/Time of Note Date/Time of Note DATE: 02/11/17 TIME: 16:29 Discharge Summary Admission/Discharge Info Admit Date/Time Jan 24, 2017 at 09:50 Discharge Date/Time Feb 09, 2017 at 19:30 Discharge Diagnosis 1. Perforated sigmoid colon with inflamed terminal ileum and cecum. 2. Tachycardia. 3. UTI. 4. Sepsis secondary to diverticulitis and UTI. 5. Acute kidney injury. Patient Condition: Stable Consults 1. Dr. Quentin Araiza 2. Dr. Sami Kimball 3. Dr. Chas Rust Hospital Course This is a 41-year-old male with history of diverticulosis and 2 episodes of diverticulitis who came to [facility] due to reports of abdominal pain. Patient reportedly was in his normal state of health until the day prior to admission when he started to have abdominal pain nonradiating on the right lower abdominal quadrant. He also is having intermittent fever reportedly. He did come to [facility] and did have a CT scan of his abdomen and pelvis that did show sigmoid diverticulosis with markedly thickened and sigmoid colon with extensive inflammatory changes consistent with acute diverticulitis. There are also seen multiple pockets of extraluminal gas suggestive of microperforation. He also had a white count of 12.0 and a temperature of 102.6. Patient did have septic picture and was seen by infectious disease physician as well as by surgeon. Patient was optimized antibiotics however after surgeon evaluation did undergo laparoscopic converted to open sigmoid colectomy and primary anastomosis and diverting loop ileostomy on January 29, 2017. Patient was gradually advanced on his diet per surgeon recommendations. Status post surgical intervention he did have ATN and did need renal consultation. Likely his acute kidney injury was secondary to dehydration, nephrotoxicity and ATN. He was optimized with Bicitra and did at one point also have bicarbonate drip. Patient did have increase in BUN and creatinine however he was with good urine output. Medications were renally dosed and he was provided with IV hydration. Per filter tank operator he was expected for renal recovery despite his increasing rising BUN and creatinine. He was otherwise optimized medically. He was noted with a UTI recommendations and his septic picture from perforated sigmoid colon with inflamed terminal ileum and cecum did improve as well with antibiotics. He was instructed to follow-up with filter tank operator within a week for further monitoring of his kidney function with surgeon within a week for further management and care of his ileostomy. The plan of care was discussed with patient and patient did verbalize understanding. On the day of discharge patient was in stable condition Discussed plan of care with Dr. Deutsch [place] Meds Active Scripts Metronidazole* (Flagyl*) 500 Mg Tablet, 500 MG PO Q8 for 5 Days, TAB Prov:PRISCILLA METZGER 02/09/17 Levofloxacin* (Levaquin*) 250 Mg Tablet, 250 MG PO Q48H for 5 Days, TAB Prov:PRISCILLA METZGER 02/09/17 Hydrocodone Bit-Acetaminophen (Hydrocodone Bit-APAP) 5-325MG Tablet, 2 TAB PO Q4H Y for PAIN LEVEL 7-10, #30 TAB Prov:PRISCILLA METZGER 02/09/17 Citric Acid/Sodium Citrate (Sod Citrate-Citric Acid Soln) 473 Ml Solution, 30 ML PO TID for 30 Days Prov:PRISCILLA METZGER 02/09/17 Follow-up Plan CONDITION Patient Condition: Stable HOME CARE INSTRUCTIONS: Diet Instructions: Low Fat /CholesterolSpecial Diet: RENAL DIET FOLLOW UP/APPOINTMENTS Follow-up Plan 1. Follow up with Dr. Sami Kimball 02/13/17 2. Follow up with Dr. Quentin Araiza in one week 3. Follow up with your primary care provider in one week Primary Care Provider Care Physician No Primary Time spent on discharge: > 30 minutes PRISCILLA METZGER Feb 11, 2017 16:34
== END 2017-02-09 19:30 | disposition home health service (06) | DRG 853 ==
LOC: E/R 08:03 → MS2 09:50 → TEL 01-29 10:15 → MS2 02-02 16:20
PROVIDERS: ADMIT Internal Medicine; ATTEND Internal Medicine
PROC: 0D1B0Z4 Bypass Ileum to Cutaneous, Open Approach (ICD-10-PCS; principal; 2017-01-29)
PROC: 0WJP4ZZ Inspection of Gastrointestinal Tract, Percutaneous Endoscopic Approach (ICD-10-PCS; 2017-01-29)
PROC: 0DTN0ZZ Resection of Sigmoid Colon, Open Approach (ICD-10-PCS; 2017-01-29)
PROC: 0DNN0ZZ Release Sigmoid Colon, Open Approach (ICD-10-PCS; 2017-01-29)
DX: A41.9 Sepsis, unspecified organism (principal); N17.0 Acute kidney failure with tubular necrosis; K57.20 Diverticulitis of large intestine with perforation and abscess without bleeding; N39.0 Urinary tract infection, site not specified; K91.3 Postprocedural intestinal obstruction; R16.0 Hepatomegaly, not elsewhere classified; K59.09 Other constipation; Z87.891 Personal history of nicotine dependence; E66.9 Obesity, unspecified; Z68.37 Body mass index [BMI] 37.0-37.9, adult; B96.20 Unspecified Escherichia coli [E. coli] as the cause of diseases classified elsewhere; R19.7 Diarrhea, unspecified; Z53.31 Laparoscopic surgical procedure converted to open procedure; E86.0 Dehydration
CPT/HCPCS: 36415; 71010; 71020; 74010; 74176; 76775; 80048; 80053; 80061; 80202; 81003; 82550; 82570; 82728; 83036; 83540; 83605; 83735; 83880; 84100; 84300; 84436; 84443; 84479; 84484; 84560; 85025; 85610; 85730; 87040; 87045; 87075; 87086; 93005; 96374; 96375; 96376; J1940; C9113; J0131; J0278; J1170; J1335; J1644; J1650; J1885; J2175; J2250; J2270; J2405; J2543; J2710; J2765; J3010; J3370; J3475; J3480; J7030; J7040; J7042; J7050; J7070; P9045; P9047

== ENCOUNTER 2017-02-19 11:47 | Outpatient (CLI) | payer OTHER ==
[~2017-02-19] VITALS: Ht 165.1 cm; Wt 86.8 kg
[~2017-02-19 11:47] MED LIST: CITR473S PO; HYDR-3498 PO; LEVO250T35 PO; METR500T PO
[2017-02-19 11:51] VITALS: BP 114/79; PULSE 125; RESP 18; Ht 165.1 cm; Wt 86.8 kg
--- NOTE | 2017-02-19 13:52 | PN ---
Date/Time of Note Date/Time of Note DATE: 02/19/17 TIME: 13:03 Assessment/Plan Assessment/Plan Assessment/Plan [facility] Progress Note Date of Service: 02/19/17 Today's Impression & Plan: Overall has remained stable and improving. Weight loss and somewhat dehydrated. Will need w/u to assess colon anastomosis prior to ostomy takedown. Kidneys seem to be working well despite Cr 10.75 02/13/17, which is lower than time of discharge. Ostomy functional with some skin irritation. Discussed with patient and his and answered all questions. They appeared to understand and agreed with the plans. Also discussed with team. With above assessment, I've recommended the following for today: 1. GI referral for colonoscopy to assess remaining colon, distal and proximal limbs of diverting loop ileostomy (to look for IBD or other lesions to explain operative findings) 2. CT colonography to assess colon anastomosis for leak 3. Pre-op H&P 4. Schedule for ileostomy takedown after above 5. D/c elías (done today) 6. Aggressive skin care around ileostomy 7. Very important to keep hydrated Nature of presenting problem: High risk Complexity of decision making: high complexity Thank you again for your great care of this very pleasant patient and wonderful family. If there are any questions, please feel free to call me at [phone]. Disclaimer: Inadvertent spelling or grammatical errors are likely due to EHR/ dictation software use and do not reflect on the overall quality of patient care. Updated Clinical Summary: A very-pleasant 41-year-old gentleman with comorbidity of BMI 37.1 and previous history of diverticulitis, being admitted for recurrent diverticulitis with microperforation but no obvious evidence of abscess or other indication for intervention including no indication for surgical intervention. S/p emergency sigmoid colectomy, mobilization of splenic flexure, primary anastomosis and diverting loop ileostomy, lysis of adhesions and lavage 01/29/17. Postoperative paralytic ileus and acute renal injury. Surgical drain d/c'd 02/06/17. Creatinine continue to rise postoperatively without further deterioration of other parameters and not requiring dialysis. Comorbidities: 1. BMI 37.1 2. History of diverticulitis in the past as well as diagnosis of diverticulosis 3. Chronic constipation 4. S/p emergency sigmoid colectomy, mobilization of splenic flexure, primary anastomosis and diverting loop ileostomy, lysis of adhesions and lavage 01/29/17 Subjective: No major events or complaints since d/c home; no major incisional abd pain and under control with medications; feels well; mild n but no v/d; no sob or cp; + flatus in the bag; + BM in the bag; + activity Objective: Vitals: See below Exam: GENERAL: On exam, the patient was sitting in a chair and appeared to be comfortable and in no acute distress. ABDOMEN: Soft, no tenderness, and not distended. Incision dressing appears to be clean, dry, and intact without any evidence of erythema, edema, discharge or hernia. Ostomy pink and viable and productive. There are no peritoneal signs or guarding. SKIN: Skin appears to be pink and feels warm to touch. Erythema around ostomy site, but no obvious cellulitis or infection. More like irritation of skin. NEUROLOGIC: Patient is awake, alert, and follows commands appropriately. Exam/Review of Systems Vital Signs Vitals Vital Signs Date Time Temp Pulse Resp B/P Pulse Ox O2 Delivery O2 Flow Rate FiO2 02/19/17 11:51 98.0 125 18 114/79 97 Room Air WILMA THORNTON M.D. Feb 19, 2017 13:51
== END 2017-02-19 17:00 | disposition home or self-care (01) ==
LOC: HPC 11:47
PROVIDERS: ATTEND Transplant Surgery
DX: K57.30 Diverticulosis of large intestine without perforation or abscess without bleeding (principal); K59.00 Constipation, unspecified
CPT/HCPCS: G0463

== ENCOUNTER → 2017-03-12 | Outpatient (CLI) | payer OTHER ==
[~2017-03-12] VITALS: Ht 165.1 cm; Wt 83.1 kg
[~2017-03-12] MED LIST changes: -LEVO250T35 PO; -METR500T PO
[2017-03-12 11:05] VITALS: BP 111/71; PULSE 103; RESP 16; Ht 165.1 cm; Wt 83.1 kg
--- NOTE | 2017-03-12 11:46 | PN ---
Date/Time of Note Date/Time of Note DATE: 03/12/17 TIME: 11:40 Assessment/Plan Assessment/Plan Assessment/Plan [facility] Progress Note Date of Service: 03/12/17 Today's Impression & Plan: Overall has remained stable and sig improved since last visit. I'm much more comfortable about proceeding with surgery. Discussed with patient and his and answered all questions. They appeared to understand and agreed with the plans. Also discussed with team. With above assessment, I've recommended the following for today: 1. GI referral for colonoscopy to assess remaining colon, distal and proximal limbs of diverting loop ileostomy (to look for IBD or other lesions to explain operative findings) 2. CT colonography to assess colon anastomosis for leak 3. Pre-op H&P 4. Schedule for ileostomy takedown after above 5. Very important to keep hydrated Nature of presenting problem: High risk Complexity of decision making: high complexity Thank you again for your great care of this very pleasant patient and wonderful family. If there are any questions, please feel free to call me at [phone]. Disclaimer: Inadvertent spelling or grammatical errors are likely due to EHR/ dictation software use and do not reflect on the overall quality of patient care. Updated Clinical Summary: A very-pleasant 41-year-old gentleman with comorbidity of BMI 37.1 and previous history of diverticulitis, being admitted for recurrent diverticulitis with microperforation but no obvious evidence of abscess or other indication for intervention including no indication for surgical intervention. S/p emergency sigmoid colectomy, mobilization of splenic flexure, primary anastomosis and diverting loop ileostomy, lysis of adhesions and lavage 01/29/17. Postoperative paralytic ileus and acute renal injury. Surgical drain d/c'd 02/06/17. Creatinine continue to rise postoperatively without further deterioration of other parameters and not requiring dialysis. Comorbidities: 1. BMI 30.5 (perviously 37.1) 2. History of diverticulitis in the past as well as diagnosis of diverticulosis 3. Chronic constipation 4. S/p emergency sigmoid colectomy, mobilization of splenic flexure, primary anastomosis and diverting loop ileostomy, lysis of adhesions and lavage 01/29/17 Subjective: No major events or complaints; feels much better; no major incisional abd pain; feels well; no n/v/d; no sob or cp; + flatus in the bag; + BM in the bag; + activity Objective: Vitals: See below Exam: GENERAL: On exam, the patient was sitting in a chair and appeared to be comfortable and in no acute distress. ABDOMEN: Soft, no tenderness, and not distended. Incisions to be clean, dry, and intact without any evidence of erythema, edema, discharge or hernia. Ostomy pink and viable and productive. There are no peritoneal signs or guarding. SKIN: Skin appears to be pink and feels warm to touch. Erythema around ostomy site resolved. NEUROLOGIC: Patient is awake, alert, and follows commands appropriately. Exam/Review of Systems Vital Signs Vitals Vital Signs Date Time Temp Pulse Resp B/P Pulse Ox O2 Delivery O2 Flow Rate FiO2 03/12/17 11:05 99.0 103 16 111/71 100 Room Air WILMA THORNTON M.D. Mar 12, 2017 11:46
== END | disposition home or self-care (01) ==
LOC: HPC 11:03
PROVIDERS: ATTEND Transplant Surgery
DX: K57.92 Diverticulitis of intestine, part unspecified, without perforation or abscess without bleeding (principal); K59.00 Constipation, unspecified

== ENCOUNTER 2017-03-20 05:41 | Inpatient (IN) | payer OTHER ==
[2017-03-19 12:49] VITALS: BMI 30.4
[~2017-03-20] VITALS: Ht 165.1 cm; Wt 81.4 kg
[2017-03-20] VITALS (23 sets, daily range): BP systolic 105–120; BP diastolic 57–71; PULSE 87–110; RESP 11–30; Ht 165.1 cm; Wt 81.4 kg
[2017-03-20] MEDS ORDERED: AMPICILLIN/SULB 3 GM/NS (PMX) 100 ML IVPB ONE (07:30)
[2017-03-20] MEDS ORDERED: MIDAZOLAM 1 MG/ML 2 ML INJ ONE (07:35)
[2017-03-20] MEDS ORDERED: LIDOCAINE 2% (SDV) 5 ML INJ ONE (07:35)
[2017-03-20] MEDS ORDERED: PROPOFOL 20 ML ONE (07:35)
[2017-03-20] MEDS ORDERED: FENTAnyl 50 MCG/ML VIAL ONE ×2 (07:35→09:14)
[2017-03-20] MEDS ORDERED: SUCCINYLCHOLINE CHLORIDE 100 MG/5 ML SYG IV ONE (07:35)
--- NOTE | 2017-03-20 07:43 | HPN ---
Date/Time of Note Date/Time of Note DATE: 03/20/17 TIME: 07:42 Interval H&P Admission Note Pt. seen H&P reviewed: No system changes Pt. seen H&P reviewed. No system changes (I attest that I have seen and examined the patient and reviewed the operation in detail, as well as its risks , benefits and alternatives of the operation). I attest that I have seen and examined the patient and reviewed in detail the operation, and its associated risks, benefits and alternative. I have answered all the patient's questions to the best of my ability and the patient wishes to proceed. Please refer to rest of electronic medical record for additional updates. WILMA THORNTON M.D. Mar 20, 2017 07:43
[2017-03-20] MEDS ORDERED: PHENYLephrine (100 MCG/ML) 5ML SYG ONE (07:51)
[2017-03-20] MEDS ORDERED: CLINDAMYCIN 600 MG/D5W (PMX) 50 ML IVPB ONE (07:55)
[2017-03-20] MEDS ORDERED: metroNIDAZOLE 500 MG/NS (PMX) 100 ML IVPB ONE (07:55)
[2017-03-20] MEDS ORDERED: ONDANSETRON 4 MG INJ ONE (08:08)
[2017-03-20] MEDS ORDERED: METOCLOPRAMIDE 10 MG INJ ONE (08:08)
[2017-03-20] MEDS ORDERED: DEXAMETHASONE 4 MG/ML 1 ML INJ ONE (08:08)
[2017-03-20] MEDS ORDERED: FAMOTIDINE 20 MG INJ ONE (08:29)
[2017-03-20] MEDS ORDERED: EPHEDrine SULFATE 50 MG/5 ML SYG ONE (08:29)
[2017-03-20] MEDS ORDERED: ACETAMINOPHEN 1000MG/100ML IV 100 ML ONE (08:29)
[2017-03-20] MEDS: D5W-0.45 NACL + KCL 20 MEQ 1,000 ML IV SCH ×5 (08:30→22:19)
[2017-03-20] MEDS ORDERED: SUGAMMADEX SODIUM 200 MG/2 ML VIAL IV ONE (08:50)
[2017-03-20] MEDS ORDERED: oxyCODONE 5 MG TAB PO PRN (09:00)
[2017-03-20] MEDS ORDERED: EPHEDrine SULFATE 50 MG/5 ML SYG IV PRN (09:00)
[2017-03-20] MEDS ORDERED: FENTAnyl 50 MCG/ML VIAL IV PRN (09:00)
[2017-03-20] MEDS ORDERED: DIPHENHYDRAMINE 50 MG INJ IV PRN (09:00)
[2017-03-20] MEDS ORDERED: ONDANSETRON 4 MG INJ IV PRN (09:00)
[2017-03-20] MEDS ORDERED: LABETALOL HCL 20MG INJ IV PRN (09:00)
[2017-03-20] MEDS ORDERED: PROCHLORPERAZINE 10 MG INJ IV PRN (09:00)
[2017-03-20] MEDS ORDERED: HYDROmorphONE (0.2 MG/ML) 10ML SYG IV PRN (09:00)
[2017-03-20] MEDS ORDERED: MEPERIDINE 25 MG INJ IV PRN (09:00)
[2017-03-20] MEDS ORDERED: hydrALAzine 20 MG INJ IV PRN (09:00)
[2017-03-20] MEDS ORDERED: DOCUSATE SODIUM 100 MG CAP PO PRN (10:00)
[2017-03-20] MEDS ORDERED: NA PHOSPHATE/BIPHOS 133 ML ENEMA PR PRN (10:00)
[2017-03-20] MEDS ORDERED: HYDROCODONE/APAP (5/325) TAB PO PRN (10:00)
[2017-03-20] MEDS ORDERED: HYDROmorphONE 1 MG/ML SYG IV PRN (10:00)
[2017-03-20] MEDS ORDERED: BISACODYL 10 MG SUPP PR PRN (10:00)
--- NOTE | 2017-03-20 10:01 | OPR ---
Date/Time of Note Date/Time of Note DATE: 03/20/17 TIME: 10:01 Operative Report Surgeon see signature line Operative\\Procedure Findings [facility] INPATIENT OPERATIVE NOTE PLACE OF SERVICE: [facility] DATE OF SURGERY: 03/20/2017 PREOPERATIVE DIAGNOSIS: 1. S/p emergency sigmoid colectomy, mobilization of splenic flexure, primary anastomosis and diverting loop ileostomy, lysis of adhesions and lavage 01/29/17 2. History of diverticulitis in the past as well as diagnosis of diverticulosis 3. Chronic constipation 4. BMI 30.5 (perviously 37.1) 5. Renal insufficiency discovered during his care for colon perforation; likely from hypertension 6. Hypertension POSTOPERATIVE DIAGNOSIS: 1. S/p emergency sigmoid colectomy, mobilization of splenic flexure, primary anastomosis and diverting loop ileostomy, lysis of adhesions and lavage 01/29/17 2. History of diverticulitis in the past as well as diagnosis of diverticulosis 3. Chronic constipation 4. BMI 30.5 (perviously 37.1) 5. Renal insufficiency discovered during his care for colon perforation; likely from hypertension 6. Hypertension OPERATION: 1. Takedown of loop ileostomy SURGEON: Wilma Thornton M.D. PROTOTYPE ENGINEER: Florentin ANESTHESIA: General endotracheal tube anesthesia ANESTHESIOLOGIST: Halie Gates M.D. BRIEF SUMMARY: An otherwise uncomplicated takedown of loop diverting ileostomy was performed. Updated Clinical Summary: A very-pleasant 41-year-old gentleman with comorbidity of BMI 37.1 and previous history of diverticulitis, being admitted for recurrent diverticulitis with microperforation but no obvious evidence of abscess or other indication for intervention including no indication for surgical intervention. S/p emergency sigmoid colectomy, mobilization of splenic flexure, primary anastomosis and diverting loop ileostomy, lysis of adhesions and lavage 01/29/17. Postoperative paralytic ileus and acute renal injury. Surgical drain d/c'd 02/06/17. Creatinine continue to rise postoperatively without further deterioration of other parameters and not requiring dialysis. Comorbidities: 1. BMI 30.5 (perviously 37.1) 2. History of diverticulitis in the past as well as diagnosis of diverticulosis 3. Chronic constipation 4. S/p emergency sigmoid colectomy, mobilization of splenic flexure, primary anastomosis and diverting loop ileostomy, lysis of adhesions and lavage 01/29/17 BRIEF HISTORY: The patient is a very pleasant 41-year-old gentleman with above- mentioned history who became eligible for takedown of his loop diverting ileostomy. Note that we have done CT scan with rectal contrast that demonstrated no evidence of leak and we have done a colonoscopy preop that showed normal colon and normal distal small bowel. I met with the patient and family and counseled them regarding the possible options of treatment, and I suggested that at this point, the patient was eligible for takedown of his ileostomy. We reviewed the operation in detail as well as the risks, benefits, alternatives, and expected outcomes of this operation. After careful consideration of all the risks, benefits, and alternatives, the patient and family appeared to understand those risks and wished to proceed with surgery. For a detailed report of my consultation with patient and family, please refer to my separate consultation note. STATEMENT OF THE INFORMED CONSENT: The patient and family appeared to understand the risks of the operation to include, but not be limited to risk of postoperative pain and scar tissue, possible infection or bleeding requiring other interventions such as opening the wound, placement of drainage catheters, or other operative interventions; possible injury to surrounding to structures including bowel, bladder, bile duct, or blood vessels, or solid organs such as liver, kidney, or pancreas requiring other interventions or procedures; possible leakage of bowel from anastomotic sites or suture lines causing significant increase in morbidity and mortality and requiring multiple interventions including but not limited to, placement of drainage catheters, imaging studies, as well as operative interventions; possible other source of sepsis such as urinary tract infections or pneumonias, or other sources of potentially life threatening problems such as deep venous thrombus formation causing pulmonary embolism, myocardial arrhythmias and infarctions, and even . We also discussed the often found issue with postoperative paralytic ileus after takedown of ileostomy and potential for need for extra time in the hospital. After careful consideration of all their options, the patient and family appeared to understand and wished to proceed with surgery. DESCRIPTION OF PROCEDURE: After obtaining informed consent, the patient was brought into the operating room and was placed in a normal supine position, where successful general endotracheal tube anesthesia was performed. Intravenous access was already in place and intravenous antimicrobials had been appropriately chosen and dosed prior to the operation. The patient's abdominal skin was prepped and draped from the nipple line down to the level of the upper thighs in the usual sterile fashion. We then called a surgical time-out where the patient's identification, date of , nature of the operation, allergies , presence of intravenous antimicrobials, presence of needed equipment, and any other concerns were reviewed and agreed upon by all members of the operating room team. We then started the operation by taking down the attachments of the ileostomy onto the skin using cautery. We then performed meticulous dissection to free up the loop of small intestine that was making up a diverting loop ileostomy. Once adequate adhesio lysis was performed around this area and I made sure that the 2 loops of bowel were healthy enough, I took off the proximal and distal edges in order to trim those to healthy bowel edge prior to anastomosing the bowel primarily using 4-0 PDS suture in running fashion taking from each corner up to the middle antimesenteric border and reinforcing this with a figure-of- eight 4-0 PDS suture in an end-to-end fashion. We made sure that we did not make the anastomosis to typed during tying of the sutures. We then reinforce the suture line with interrupted 3-0 silk sutures. Anastomosis was patent and blood supply appeared to be more than adequate. We then continued adhesio lysis and completely disconnected the attachments of the loop of small intestine and was able to drop this back into the abdominal cavity after adequate inspection of the proximal and distal loops. Again I did not see any issues with blood supply and the entire bowel appeared to be healthy and pink. We then closed the ileostomy site of the fascia after minor undermining of the overlying fat in order to delineate the edges well by using interrupted figure- of-eight #1 PDS suture. We then washed the wounds with copious amounts of normal saline and then packed the ileostomy site with normal saline soaked Kerlix gauze. Light dressing was then applied. At the end of the operation, both the sponge count and needle count were reportedly correct x2. The patient tolerated the procedure without any reported complications. ESTIMATED BLOOD LOSS: Less than 10 mL. BLOOD OR BLOOD PRODUCT TRANSFUSIONS: None to my knowledge. SPECIMENS: Proximal and distal trimmed edges of the loop diverting ileostomy for permanent sections. COMPLICATIONS: None. DISPOSITION: Recovery area. Disclaimers: 1. Inadvertent spelling and grammatical errors are likely due to electronic health record (EHR)/dictation software used and do not reflect on the quality of delivered patient care. 2. The electronic timestamp recorded on this note does not necessarily reflect the actual date and time of the visit or the service. 3. Portions of this note may have been created through electronic templates and computer algorithms that might bring in information either from the system or from other physicians and providers. Please note that such information may or may not contain errors, the occurrence of which are outside of my control. In general (but not always) this happens either in the beginning or at the end of the note. The portion of the note that I have created are generally done in 1 continuous block of text, flanked at the beginning and at the end by " ", and entered into one field in the EHR. 4. There may be other unanticipated errors in the note that are outside of my control. I can only attest to the portions of the note that I have created. WILMA THORNTON M.D. Mar 20, 2017 10:01
[2017-03-20] MEDS: HYDROmorphONE (0.2 MG/ML) 10ML SYG IV PRN ×2 (10:04→10:19)
--- NOTE | 2017-03-20 10:34 | CONS ---
Date/Time of Note Date/Time of Note DATE: 03/20/17 TIME: 10:34 Assessment/Plan Assessment/Plan Additional Assessment/Plan 1. Take down of loop ileostomy 2. History of diverticulitis with perforation s/p emergency sigmoid colectomy with primary anastomosis and diverting loop ileostomy now status post takedown of loop ileostomy 3. Acute kidney injury due to ATN from sepsis on last admission and also contributing prerenal azotemia Plan : admission to hospitalist service contineu IVF D51/2 NS with KCL at 100 cc/hr will follow up pt has renal US done on last admission which was unremarkable and he has full CKD work up done on last admission so No need to repeat it. will follow up. Consultation Date/Type/Reason Admit Date/Time Mar 20, 2017 at 05:41 Date of Consultation: Mar 20, 2017 Type of Consultation: NEPHROLOGY Reason for Consultation S/p acute kidney injury on CKD Referring Provider: HAIDER BURR Hx of Present Illness 41-year-old male with a history of diverticulitis with perforation s/p emergency sigmoid colectomy with primary anastomosis and diverting loop ileostomy who presents today for takedown of loop ileostomy. During last hospitalization patient was noted to be septic and there to diverticulitis and UTI and the patient did develop acute kidney injury due to ATN he was discharged with Cr 11.6- subsequently followed up by me in clinic and his last Cr improved to 2.26, afebrile, today he gets admitted after take down of his loop ileostomy Constitutional: no complaints Eyes: no complaints ENT: no complaints Respiratory: no complaints Cardiovascular: no complaints Gastrointestinal: constipation, decreased appetite, nausea, pain Genitourinary: no complaints Musculoskeletal: no complaints Skin: no complaints Neurologic: no complaints Endocrine: no complaints Lymphatic: no complaints Psychological: no complaints Immunologic: no complaints Past Medical History Medical History: other (acute kidney injury due to ATN on last admission ) Past Surgical History Past Surgical Hx: appendectomy Family History Significant Family History: no pertinent family hx Social History Alcohol Use: none Smoking Status: Never smoker Drug Use: none Exam/Review of Systems Vital Signs Vitals Vital Signs Date Time Temp Pulse Resp B/P Pulse Ox O2 Delivery O2 Flow Rate FiO2 03/20/17 10:07 113/66 100 Room Air 03/20/17 10:02 17 03/20/17 09:52 94 03/20/17 09:38 98.9 8.0 Exam Constitutional: alert Psych: no complaints Head: normocephalic ENMT: nl external ears & nose Neck: non-tender, supple Respiratory: clear to auscultation, diminished breath sounds, normal air movement Cardiovascular: nl pulses, regular rate and rhythm Gastrointestinal: non-tender, soft Musculoskeletal: nl extremities to inspection, nl gait and stance Extremities: normal pulses Neurological: TANGLED YARN SPOOL STRAIGHTENER II-XII intact, nl mental status, nl speech, nl strength Skin: nl turgor, rash or lesions Medications Medications Current Medications Potassium Chloride/Dextrose/ Sod Cl (D5-1/2ns + KCl 20 Meq) 1,000 ml @ 100 mls/ hr Q10H IV ; Start 03/20/17 at 08:30; Stop 03/20/17 at 23:00 Oxycodone HCl 5 mg 5 mg ONCE PRN PO PAIN LEVEL 1-5; Start 03/20/17 at 09:00; Stop 03/20/17 at 13:00 Potassium Chloride/Dextrose/ Sod Cl (D5-1/2ns + KCl 20 Meq) 1,000 ml @ 100 mls/ hr Q10H IV ; Start 03/20/17 at 09:42 Acetaminophen/ Hydrocodone Bitart ([place] (5/325)) 1 tab Q4H PRN PO PAIN LEVEL 4 -7; Start 03/20/17 at 10:00 Acetaminophen/ Hydrocodone Bitart ([place] (5/325)) 2 tab Q4H PRN PO PAIN LEVEL 7 -10; Start 03/20/17 at 10:00 Hydromorphone HCl (Dilaudid) 0.5 mg Q2 PRN IV PAIN; Start 03/20/17 at 10:00 Hydromorphone HCl (Dilaudid) 1 mg Q2 PRN IV PAIN; Start 03/20/17 at 10:00 Docusate Sodium (Colace) 100 mg BID PRN PO CONSTIPATION; Start 03/20/17 at 10: 00 Bisacodyl (Dulcolax Supp) 10 mg BID PRN [place] CONSTIPATION; Start 03/20/17 at 10: 00 Sodium Biphosphate/ Sodium Phosphate (Fleet Enema) 133 ml BID PRN [place] CONSTIPATION; Start 03/20/17 at 10:00 Famotidine (Pepcid Iv) 20 mg DAILY IV ; Start 03/21/17 at 09:00 Enoxaparin Sodium (Lovenox) 40 mg DAILY SC ; Start 03/21/17 at 09:00; Status UNV SINGH WILLOUGHBY MD Mar 20, 2017 10:34
[2017-03-20 11:14] LABS: BASOPHILS % 0.2 % (0.0-2.0); EOSINOPHILS % 0.3 % (0.0-7.0); HEMATOCRIT 25.1 % (42.0-52.0); HEMOGLOBIN 8.7 g/dl (14.0-18.0); LYMPHOCYTES # 1.4 10^3/ul (0.8-2.9); LYMPHOCYTES % 13.3 % (15.0-51.0); MEAN CORPUSCULAR HEMOGLOBIN 28.9 pg (29.0-33.0); MEAN CORPUSCULAR HGB CONC 34.7 g/dl (32.0-37.0); MEAN CORPUSCULAR VOLUME 83.4 fl (82.0-101.0); MEAN PLATELET VOLUME 8.3 fl (7.4-10.4); MONOCYTE # 0.3 10^3/ul (0.3-0.9); MONOCYTES % 2.9 % (0.0-11.0); NEUTROPHIL # 8.4 10^3/ul (1.6-7.5); NEUTROPHILS % 81.7 % (39.0-77.0); PLATELET COUNT 229 10^3/UL (140-415); RED BLOOD COUNT 3.01 10^6/ul (4.70-6.10); RED CELL DISTRIBUTION WIDTH 14.6 % (11.5-14.5); WHITE BLOOD COUNT 10.3 10^3/ul (4.8-10.8)
[2017-03-20 11:33] LABS: HOLD TRANSMISSIONS 1
[2017-03-20 11:40] LABS: CALCIUM 9.1 mg/dl (8.4-10.2); CREATININE 3.55 mg/dl (0.61-1.24); POTASSIUM 4.2 mmol/L (3.5-5.1)
[2017-03-20] MEDS: HYDROmorphONE 1 MG/ML SYG IV PRN (12:39)
--- NOTE | 2017-03-20 15:30 | HP ---
Date/Time of Note Date/Time of Note DATE: 03/20/17 TIME: 15:20 Assessment/Plan VTE Prophylaxis VTE Prophylaxis Intervention: LMWH Lines/Catheters IV Catheter Type (from Nrs): Peripheral IV Assessment/Plan Chief Complaint/Hosp Course 1. History of diverticulitis with perforation s/p emergency sigmoid colectomy with primary anastomosis and diverting loop ileostomy now status post takedown of loop ileostomy Pain control Diet per surgery 2. Acute kidney injury secondary to sepsis during previous hospitalization Creatinine has improved relative to last hospitalization, appears that ATN is resolving Nephrology consultation IV fluids 3. Hyponatremia-mild IV fluids Prophylaxis: Lovenox Problems: HPI/ROS Admit Date/Time Admit Date/Time Mar 20, 2017 at 05:41 Hx of Present Illness Patient is a 41-year-old male with a history of diverticulitis with perforation s/p emergency sigmoid colectomy with primary anastomosis and diverting loop ileostomy who presents today for takedown of loop ileostomy. During last hospitalization patient was noted to be septic and there to diverticulitis and UTI and the patient did develop acute kidney injury. Patient has no acute complaint at this time. ROS Constitutional: improved, no complaints Eyes: no complaints ENT: no complaints Respiratory: no complaints Cardiovascular: no complaints Gastrointestinal: no complaints Genitourinary: no complaints Musculoskeletal: no complaints Skin: no complaints Neurologic: no complaints Endocrine: no complaints Lymphatic: no complaints Psychological: nl mood/affect, no complaints Immunologic: no complaints PMH/Family/Social Past Medical History History of diverticulitis last post sigmoidal colectomy, sepsis from UTI and hypertension with acute kidney injury Past Surgical History Past Surgical Hx: appendectomy, other (Sigmoid colectomy and now takedown of loop ileostomy ) Family History Significant Family History: no pertinent family hx Social History Alcohol Use: rarely Smoking Status: Never smoker Drug Use: none Exam/Review of Systems Vital Signs Vitals Vital Signs Date Time Temp Pulse Resp B/P Pulse Ox O2 Delivery O2 Flow Rate FiO2 03/20/17 14:45 97.9 87 18 118/70 100 03/20/17 14:30 Room Air 03/20/17 09:38 8.0 Exam Constitutional: alert, oriented Respiratory: clear to auscultation Cardiovascular: regular rate and rhythm Gastrointestinal: soft, No distended Musculoskeletal: nl extremities to inspection Labs Result Diagram: 03/20/17 1102 03/20/17 1102 Medications Medications Current Medications Potassium Chloride/Dextrose/ Sod Cl 1,000 ml @ 100 mls/hr Q10H IV ; Start 03/20 at 08:30; Stop 03/20/17 at 23:00 Potassium Chloride/Dextrose/ Sod Cl (D5-1/2ns + KCl 20 Meq) 1,000 ml @ 100 mls/ hr Q10H IV Last administered on 03/20/17 12:40; Admin Dose 100 MLS/HR; Start 03/20/17 at 09:42 Acetaminophen/ Hydrocodone Bitart ([place] (5/325)) 1 tab Q4H PRN PO PAIN LEVEL 4 -7; Start 03/20/17 at 10:00 Acetaminophen/ Hydrocodone Bitart ([place] (5/325)) 2 tab Q4H PRN PO PAIN LEVEL 7 -10; Start 03/20/17 at 10:00 Hydromorphone HCl (Dilaudid) 0.5 mg Q2 PRN IV PAIN Last administered on 12:39; Admin Dose 0.5 MG; Start 03/20/17 at 10:00 Hydromorphone HCl (Dilaudid) 1 mg Q2 PRN IV PAIN; Start 03/20/17 at 10:00 Docusate Sodium (Colace) 100 mg BID PRN PO CONSTIPATION; Start 03/20/17 at 10: 00 Bisacodyl (Dulcolax Supp) 10 mg BID PRN [place] CONSTIPATION; Start 03/20/17 at 10: 00 Sodium Biphosphate/ Sodium Phosphate (Fleet Enema) 133 ml BID PRN [place] CONSTIPATION; Start 03/20/17 at 10:00 Famotidine (Pepcid Iv) 20 mg DAILY IV ; Start 03/21/17 at 09:00 Enoxaparin Sodium (Lovenox) 30 mg DAILY SC ; Start 03/21/17 at 09:00 HAIDER BURR Mar 20, 2017 15:30
[2017-03-20] MEDS: HYDROCODONE/APAP (5/325) TAB PO PRN ×2 (16:15→21:21)
[2017-03-21 00:54] VITALS: BP 109/64; PULSE 88; RESP 20
[2017-03-21 05:00] VITALS: BP 116/69; PULSE 83; RESP 18
[2017-03-21 05:18] LABS: BASOPHILS % 0.1 % (0.0-2.0); EOSINOPHILS % 0.1 % (0.0-7.0); HEMOGLOBIN 8.5 g/dl (14.0-18.0); LYMPHOCYTES # 1.4 10^3/ul (0.8-2.9); LYMPHOCYTES % 12.6 % (15.0-51.0); MEAN CORPUSCULAR HEMOGLOBIN 28.6 pg (29.0-33.0); MEAN CORPUSCULAR VOLUME 84.2 fl (82.0-101.0); MEAN PLATELET VOLUME 8.8 fl (7.4-10.4); MONOCYTE # 0.9 10^3/ul (0.3-0.9); MONOCYTES % 7.8 % (0.0-11.0); NEUTROPHIL # 8.7 10^3/ul (1.6-7.5); NEUTROPHILS % 78.4 % (39.0-77.0); PLATELET COUNT 272 10^3/UL (140-415); RED BLOOD COUNT 2.97 10^6/ul (4.70-6.10); RED CELL DISTRIBUTION WIDTH 14.8 % (11.5-14.5); WHITE BLOOD COUNT 11.1 10^3/ul (4.8-10.8)
[2017-03-21 05:33] LABS: INR 1.05; PARTIAL THROMBOPLASTIN TIME 31.1 Sec (25.0-35.0); PROTIME 13.7 Sec (12.2-14.2); PT RATIO 1.1
[2017-03-21] MEDS: HYDROCODONE/APAP (5/325) TAB PO PRN ×3 (05:36→15:26)
[2017-03-21 05:44] LABS: ALBUMIN 3.6 g/dl (3.3-4.9); ALBUMIN/GLOBULIN RATIO 1.02; BILIRUBIN,INDIRECT 0.1 mg/dl (0-1.1); BILIRUBIN,TOTAL 0.1 mg/dl (0.2-1.3); CALCIUM 9.2 mg/dl (8.4-10.2); CREATININE 2.67 mg/dl (0.61-1.24); MAGNESIUM 1.9 mg/dl (1.7-2.5); PHOSPHORUS 5.8 mg/dl (2.5-4.9); POTASSIUM 4.5 mmol/L (3.5-5.1); TOTAL PROTEIN 7.1 g/dl (6.1-8.1)
[2017-03-21 07:00] VITALS: BP 117/73; RESP 20
[2017-03-21] MEDS: D5W-0.45 NACL + KCL 20 MEQ 1,000 ML IV SCH (08:31)
[2017-03-21] MEDS: FAMOTIDINE 20 MG INJ IV SCH (08:32)
[2017-03-21] MEDS: ENOXAPARIN 30 MG/0.3 ML SYG SC SCH (08:41)
[2017-03-21] MEDS ORDERED: CITRIC ACID/NA CITRATE 30 ML CUP PO ONE (10:30)
[2017-03-21] MEDS: CITRIC ACID/NA CITRATE 30 ML CUP PO SCH ×2 (15:26→20:42)
[2017-03-21 16:30] VITALS: BP 118/72; RESP 18
--- NOTE | 2017-03-21 16:45 | DS ---
Date/Time of Note Date/Time of Note DATE: 03/21/17 TIME: 16:39 Discharge Summary Admission/Discharge Info Admit Date/Time Mar 20, 2017 at 05:41 Discharge Date/Time Hx of Present Illness Patient is a 41-year-old male with a history of diverticulitis with perforation s/p emergency sigmoid colectomy with primary anastomosis and diverting loop ileostomy who presents today for takedown of loop ileostomy. During last hospitalization patient was noted to be septic and there to diverticulitis and UTI and the patient did develop acute kidney injury. Patient has no acute complaint at this time. Hospital Course Patient underwent an otherwise uncomplicated loop ileostomy takedown on . For a detailed report, please see my op note from same date. Post op, patient did very well without any evidence for major post-operative complication or wound problems. By the time of discharge, patient was tolerating a regular diet, had adequate pain control on oral pain medications, had shown return of bowel activity and was clinically stable. He is therefore being discharged today. In addition to his home meds, I wrote him for: 1. [place] (5/325) 40 tabs and no refill 2. Colace 25 and 1 3. Dulcolax 10 and 2 Updated Clinical Summary: A very-pleasant 41-year-old gentleman with comorbidity of BMI 37.1 and previous history of diverticulitis, being admitted for recurrent diverticulitis with microperforation but no obvious evidence of abscess or other indication for intervention including no indication for surgical intervention. S/p emergency sigmoid colectomy, mobilization of splenic flexure, primary anastomosis and diverting loop ileostomy, lysis of adhesions and lavage 01/29/17. Postoperative paralytic ileus and acute renal injury. Surgical drain d/c'd 02/06/17. Creatinine continue to rise postoperatively without further deterioration of other parameters and not requiring dialysis. Comorbidities: 1. S/p emergency sigmoid colectomy, mobilization of splenic flexure, primary anastomosis and diverting loop ileostomy, lysis of adhesions and lavage 01/29/17. S/p takedown of loop ileostomy 2. History of diverticulitis in the past as well as diagnosis of diverticulosis 3. Chronic constipation 4. BMI 30.5 (perviously 37.1) 5. Renal insufficiency discovered during his care for colon perforation; likely from hypertension 6. Hypertension Discharge instructions: Please call [phone] if any of fever, nausea, vomiting, discharge from wound , wound redness, increase or sudden pain, blood in stool or vomit, or any other unusual signs or symptoms. Also, please call the same number in a few days to schedule an appointment for your follow up visit. Patient may remove dressings tomorrow. Showers OK starting tomorrow. No swimming , hot tub or bath for 2 weeks. No lifting more than 25 lbs for 8 weeks. Other summary: 41-year-old male with a history of diverticulitis with perforation s/p emergency sigmoid colectomy with primary anastomosis and diverting loop ileostomy who presents today for takedown of loop ileostomy. During last hospitalization patient was noted to be septic and there to diverticulitis and UTI and the patient did develop acute kidney injury due to ATN he was discharged with Cr 11.6- subsequently followed up by me in clinic and his last Cr improved to 2.26, afebrile, today he gets admitted after take down of his loop ileostomy Home Meds No Active Prescriptions or Reported Meds Primary Care Provider Care Physician No Primary Pending Labs Laboratory Tests Test 03/21/17 04:34 White Blood Count 11.110^3/ul (4.8-10.8) Red Blood Count 2.9710^6/ul (4.70-6.10) Hemoglobin 8.5g/dl (14.0-18.0) Hematocrit 25.0% (42.0-52.0) Mean Corpuscular Volume 84.2fl (82.0-101.0) Mean Corpuscular Hemoglobin 28.6pg (29.0-33.0) Mean Corpuscular Hemoglobin Concent 34.0g/dl (32.0-37.0) Red Cell Distribution Width 14.8% (11.5-14.5) Platelet Count 94308^3/UL (140-415) Mean Platelet Volume 8.8fl (7.4-10.4) Neutrophils % 78.4% (39.0-77.0) Lymphocytes % 12.6% (15.0-51.0) Monocytes % 7.8% (0.0-11.0) Eosinophils % 0.1% (0.0-7.0) Basophils % 0.1% (0.0-2.0) Nucleated Red Blood Cells % 0.0/100WBC (0.0-0.0) Neutrophils # 8.710^3/ul (1.6-7.5) Lymphocytes # 1.410^3/ul (0.8-2.9) Monocytes # 0.910^3/ul (0.3-0.9) Eosinophils # 0.010^3/ul (0.0-0.5) Basophils # 0.010^3/ul (0.0-0.1) Nucleated Red Blood Cells # 0.010^3/ul (0.0-0.0) Prothrombin Time 13.7Sec (12.2-14.2) Prothrombin Time Ratio 1.1 INR International Normalized Ratio 1.05 Activated Partial Thromboplast Time 31.1Sec (25.0-35.0) Sodium Level 135mmol/L (135-144) Potassium Level 4.5mmol/L (3.5-5.1) Chloride Level 111mmol/L (97-110) Carbon Dioxide Level 14mmol/L (21-31) Anion Gap 15 (8-16) Blood Urea Nitrogen 52mg/dl (7-20) Creatinine 2.67mg/dl (0.61-1.24) Glucose Level 123mg/dl (70-220) Lactic Acid Level 1.3mmol/L (0.5-2.0) Calcium Level 9.2mg/dl (8.4-10.2) Phosphorus Level 5.8mg/dl (2.5-4.9) Magnesium Level 1.9mg/dl (1.7-2.5) Total Bilirubin 0.1mg/dl (0.2-1.3) Direct Bilirubin 0.00mg/dl (0.00-0.20) Indirect Bilirubin 0.1mg/dl (0-1.1) Aspartate Amino Transf (AST/SGOT) 20IU/L (15-46) Alanine Aminotransferase (ALT/SGPT) 48IU/L (13-69) Alkaline Phosphatase 86IU/L (42-121) B-Type Natriuretic Peptide 856PG/ML (0-125) Total Protein 7.1g/dl (6.1-8.1) Albumin 3.6g/dl (3.3-4.9) Globulin 3.50g/dl (1.3-3.2) Albumin/Globulin Ratio 1.02 WILMA THORNTON M.D. Mar 21, 2017 16:45
--- NOTE | 2017-03-21 16:46 | PDOCDIS ---
Discharge Instructions DIAGNOSIS Discharge Diagnosis s/p ileostomy takedown CONDITION Patient Condition: Good FOLLOW UP/APPOINTMENTS Follow-up Plan Please call [phone] if any of fever, nausea, vomiting, discharge from wound , wound redness, increase or sudden pain, blood in stool or vomit, or any other unusual signs or symptoms. Also, please call the same number in a few days to schedule an appointment for your follow up visit. Patient may remove dressings tomorrow. Showers OK starting tomorrow. No swimming , hot tub or bath for 2 weeks. No lifting more than 25 lbs for 8 weeks. Wound vac set up for Friday Do wet to moist dressing changes TID until wound vac in place F/u with Dr. Kimball's office for lab checks and renal check. Important to stay hydrated. F/u with my office in 2 weeks. WILMA THORNTON M.D. Mar 21, 2017 16:46
[2017-03-21] MEDS ORDERED: HYDR-3498 PO (16:50)
--- NOTE | 2017-03-21 17:29 | CONS ---
Date/Time of Note Date/Time of Note DATE: 03/21/17 TIME: 17:28 Assessment/Plan Assessment/Plan Chief Complaint/Hosp Course 41-year-old male with a history of diverticulitis with perforation s/p emergency sigmoid colectomy with primary anastomosis and diverting loop ileostomy who presents today for takedown of loop ileostomy. During last hospitalization patient was noted to be septic and there to diverticulitis and UTI and the patient did develop acute kidney injury due to ATN he was discharged with Cr 11.6- subsequently followed up by me in clinic and his last Cr improved to 2.26, afebrile, today he gets admitted after take down of his loop ileostomy Problems: Additional Assessment/Plan 1. Take down of loop ileostomy 2. History of diverticulitis with perforation s/p emergency sigmoid colectomy with primary anastomosis and diverting loop ileostomy now status post takedown of loop ileostomy 3. Acute kidney injury due to ATN from sepsis on last admission and also contributing prerenal azotemia 4. Metaboclic acidosis from RODNEY Plan : contineu IVF D51/2 NS with KCL at 100 cc/hr- Cr improved to 2.6 Bicitra 30ml PO TID pt has renal US done on last admission which was unremarkable and he has full CKD work up done on last admission so No need to repeat it. will follow up follow up with me in clinic in 2 weeks if discharged on the weekend. Consultation Date/Type/Reason Admit Date/Time Mar 20, 2017 at 05:41 Initial Consult Date 03/20/17 Type of Consultation: NEPHROLOGY Referring Provider: HAIDER BURR 24 HR Interval Summary Free Text/Dictation Cr improved to 2.6 with IVF hydration, Bp stable, HCO3 still low, started on diet Exam/Review of Systems Vital Signs Vitals Vital Signs Date Time Temp Pulse Resp B/P Pulse Ox O2 Delivery O2 Flow Rate FiO2 03/21/17 16:30 97.7 92 18 118/72 99 03/21/17 05:00 Room Air 03/20/17 09:38 8.0 Intake and Output 03/20/17 03/20/17 03/21/17 15:00 23:00 07:00 Intake Total 1000 ml 1500 ml 1150 ml Output Total 10 ml 500 ml 1400 ml Balance 990 ml 1000 ml -250 ml Results Result Diagram: 03/21/17 0434 03/21/17 0434 Results 24 hrs Laboratory Tests Test 03/21/17 04:34 White Blood Count 11.1 H Red Blood Count 2.97 L Hemoglobin 8.5 L Hematocrit 25.0 L Mean Corpuscular Volume 84.2 Mean Corpuscular Hemoglobin 28.6 L Mean Corpuscular Hemoglobin Concent 34.0 Red Cell Distribution Width 14.8 H Platelet Count 272 Mean Platelet Volume 8.8 Neutrophils % 78.4 H Lymphocytes % 12.6 L Monocytes % 7.8 Eosinophils % 0.1 Basophils % 0.1 Nucleated Red Blood Cells % 0.0 Neutrophils # 8.7 H Lymphocytes # 1.4 Monocytes # 0.9 Eosinophils # 0.0 Basophils # 0.0 Nucleated Red Blood Cells # 0.0 Prothrombin Time 13.7 Prothrombin Time Ratio 1.1 INR International Normalized Ratio 1.05 Activated Partial Thromboplast Time 31.1 Sodium Level 135 Potassium Level 4.5 Chloride Level 111 H Carbon Dioxide Level 14 L Anion Gap 15 Blood Urea Nitrogen 52 H Creatinine 2.67 H Glucose Level 123 Lactic Acid Level 1.3 Calcium Level 9.2 Phosphorus Level 5.8 H Magnesium Level 1.9 Total Bilirubin 0.1 L Direct Bilirubin 0.00 Indirect Bilirubin 0.1 Aspartate Amino Transf (AST/SGOT) 20 Alanine Aminotransferase (ALT/SGPT) 48 Alkaline Phosphatase 86 B-Type Natriuretic Peptide 856 H Total Protein 7.1 Albumin 3.6 Globulin 3.50 H Albumin/Globulin Ratio 1.02 Medications Medications Current Medications Potassium Chloride/Dextrose/ Sod Cl (D5-1/2ns + KCl 20 Meq) 1,000 ml @ 100 mls/ hr Q10H IV Last administered on 03/21/17 08:31; Admin Dose 100 MLS/HR; Start 03/20/17 at 09:42 Acetaminophen/ Hydrocodone Bitart ([place] (5/325)) 1 tab Q4H PRN PO PAIN LEVEL 4 -7; Start 03/20/17 at 10:00 Acetaminophen/ Hydrocodone Bitart ([place] (5/325)) 2 tab Q4H PRN PO PAIN LEVEL 7 -10 Last administered on 03/21/17 15:26; Admin Dose 2 TAB; Start 03/20/17 at 10 :00 Hydromorphone HCl (Dilaudid) 0.5 mg Q2 PRN IV PAIN Last administered on 12:39; Admin Dose 0.5 MG; Start 03/20/17 at 10:00 Hydromorphone HCl (Dilaudid) 1 mg Q2 PRN IV PAIN; Start 03/20/17 at 10:00 Docusate Sodium (Colace) 100 mg BID PRN PO CONSTIPATION; Start 03/20/17 at 10: 00 Bisacodyl (Dulcolax Supp) 10 mg BID PRN [place] CONSTIPATION; Start 03/20/17 at 10: 00 Sodium Biphosphate/ Sodium Phosphate (Fleet Enema) 133 ml BID PRN [place] CONSTIPATION; Start 03/20/17 at 10:00 Famotidine (Pepcid Iv) 20 mg DAILY IV Last administered on 03/21/17 08:32; Admin Dose 20 MG; Start 03/21/17 at 09:00 Enoxaparin Sodium (Lovenox) 30 mg DAILY SC Last administered on 03/21/17 08:41 ; Admin Dose 30 MG; Start 03/21/17 at 09:00 Citric Acid/ Sodium Citrate (Bicitra) 30 ml TID PO Last administered on 15:26; Admin Dose 30 ML; Start 03/21/17 at 13:00 SINGH WILLOUGHBY MD Mar 21, 2017 17:29
--- NOTE | 2017-03-21 19:38 | PN ---
Date/Time of Note Date/Time of Note DATE: 03/21/17 TIME: 19:37 Assessment/Plan VTE Prophylaxis VTE Prophylaxis Intervention: LMWH Lines/Catheters IV Catheter Type (from Nrsg): Peripheral IV Assessment/Plan Chief Complaint/Hosp Course 1. History of diverticulitis with perforation s/p emergency sigmoid colectomy with primary anastomosis and diverting loop ileostomy now status post takedown of loop ileostomy Pain control DC today per surgery 2. Acute kidney injury secondary to sepsis during previous hospitalization Creatinine has improved relative to last hospitalization, appears that ATN is resolving Nephrology consultation appreciated 3. Hyponatremia-resolved Prophylaxis: Lovenox Problems: Subjective 24 Hr Interval Summary Constitutional: no complaints Exam/Review of Systems Vital Signs Vitals Vital Signs Date Time Temp Pulse Resp B/P Pulse Ox O2 Delivery O2 Flow Rate FiO2 03/21/17 16:30 97.7 92 18 118/72 99 03/21/17 05:00 Room Air 03/20/17 09:38 8.0 Intake and Output 03/20/17 03/20/17 03/21/17 15:00 23:00 07:00 Intake Total 1000 ml 1500 ml 1150 ml Output Total 10 ml 500 ml 1400 ml Balance 990 ml 1000 ml -250 ml Exam Constitutional: alert, oriented Respiratory: clear to auscultation Cardiovascular: regular rate and rhythm Gastrointestinal: soft, No distended Musculoskeletal: nl extremities to inspection Results Result Diagram: 03/21/17 0434 03/21/17 0434 Results 24 hrs Laboratory Tests Test 03/21/17 04:34 White Blood Count 11.1 H Red Blood Count 2.97 L Hemoglobin 8.5 L Hematocrit 25.0 L Mean Corpuscular Volume 84.2 Mean Corpuscular Hemoglobin 28.6 L Mean Corpuscular Hemoglobin Concent 34.0 Red Cell Distribution Width 14.8 H Platelet Count 272 Mean Platelet Volume 8.8 Neutrophils % 78.4 H Lymphocytes % 12.6 L Monocytes % 7.8 Eosinophils % 0.1 Basophils % 0.1 Nucleated Red Blood Cells % 0.0 Neutrophils # 8.7 H Lymphocytes # 1.4 Monocytes # 0.9 Eosinophils # 0.0 Basophils # 0.0 Nucleated Red Blood Cells # 0.0 Prothrombin Time 13.7 Prothrombin Time Ratio 1.1 INR International Normalized Ratio 1.05 Activated Partial Thromboplast Time 31.1 Sodium Level 135 Potassium Level 4.5 Chloride Level 111 H Carbon Dioxide Level 14 L Anion Gap 15 Blood Urea Nitrogen 52 H Creatinine 2.67 H Glucose Level 123 Lactic Acid Level 1.3 Calcium Level 9.2 Phosphorus Level 5.8 H Magnesium Level 1.9 Total Bilirubin 0.1 L Direct Bilirubin 0.00 Indirect Bilirubin 0.1 Aspartate Amino Transf (AST/SGOT) 20 Alanine Aminotransferase (ALT/SGPT) 48 Alkaline Phosphatase 86 B-Type Natriuretic Peptide 856 H Total Protein 7.1 Albumin 3.6 Globulin 3.50 H Albumin/Globulin Ratio 1.02 Medications Medications Current Medications Potassium Chloride/Dextrose/ Sod Cl (D5-1/2ns + KCl 20 Meq) 1,000 ml @ 100 mls/ hr Q10H IV Last administered on 03/21/17 08:31; Admin Dose 100 MLS/HR; Start 03/20/17 at 09:42 Acetaminophen/ Hydrocodone Bitart ([place] (5/325)) 1 tab Q4H PRN PO PAIN LEVEL 4 -7; Start 03/20/17 at 10:00 Acetaminophen/ Hydrocodone Bitart ([place] (5/325)) 2 tab Q4H PRN PO PAIN LEVEL 7 -10 Last administered on 03/21/17 15:26; Admin Dose 2 TAB; Start 03/20/17 at 10 :00 Hydromorphone HCl (Dilaudid) 0.5 mg Q2 PRN IV PAIN Last administered on 12:39; Admin Dose 0.5 MG; Start 03/20/17 at 10:00 Hydromorphone HCl (Dilaudid) 1 mg Q2 PRN IV PAIN; Start 03/20/17 at 10:00 Docusate Sodium (Colace) 100 mg BID PRN PO CONSTIPATION; Start 03/20/17 at 10: 00 Bisacodyl (Dulcolax Supp) 10 mg BID PRN [place] CONSTIPATION; Start 03/20/17 at 10: 00 Sodium Biphosphate/ Sodium Phosphate (Fleet Enema) 133 ml BID PRN [place] CONSTIPATION; Start 03/20/17 at 10:00 Famotidine (Pepcid Iv) 20 mg DAILY IV Last administered on 03/21/17 08:32; Admin Dose 20 MG; Start 03/21/17 at 09:00 Enoxaparin Sodium (Lovenox) 30 mg DAILY SC Last administered on 03/21/17 08:41 ; Admin Dose 30 MG; Start 03/21/17 at 09:00 Citric Acid/ Sodium Citrate (Bicitra) 30 ml TID PO Last administered on 15:26; Admin Dose 30 ML; Start 03/21/17 at 13:00 HAIDER BURR Mar 21, 2017 19:38
[2017-03-21 20:15] VITALS: BP 114/65; RESP 20
[2017-03-22] MEDS: D5W-0.45 NACL + KCL 20 MEQ 1,000 ML IV SCH ×3 (01:42→19:48)
[2017-03-22] MEDS: HYDROCODONE/APAP (5/325) TAB PO PRN ×2 (02:04→06:39)
[2017-03-22 02:37] VITALS: BP 103/66; RESP 20
[2017-03-22 08:17] VITALS: BP 118/67; RESP 17
[2017-03-22] MEDS: FAMOTIDINE 20 MG INJ IV SCH (09:06)
[2017-03-22] MEDS: ONDANSETRON 4 MG INJ IV PRN ×2 (09:06→19:17)
[2017-03-22] MEDS: ENOXAPARIN 30 MG/0.3 ML SYG SC SCH (09:21)
[2017-03-22 09:36] LABS: BASOPHILS % 0.1 % (0.0-2.0); EOSINOPHILS # 0.1 10^3/ul (0.0-0.5); EOSINOPHILS % 0.8 % (0.0-7.0); HEMATOCRIT 23.7 % (42.0-52.0); LYMPHOCYTES # 1.5 10^3/ul (0.8-2.9); LYMPHOCYTES % 13.9 % (15.0-51.0); MEAN CORPUSCULAR HEMOGLOBIN 28.7 pg (29.0-33.0); MEAN CORPUSCULAR HGB CONC 33.8 g/dl (32.0-37.0); MEAN CORPUSCULAR VOLUME 84.9 fl (82.0-101.0); MONOCYTE # 0.8 10^3/ul (0.3-0.9); MONOCYTES % 7.6 % (0.0-11.0); NEUTROPHIL # 8.3 10^3/ul (1.6-7.5); NEUTROPHILS % 76.8 % (39.0-77.0); PLATELET COUNT 249 10^3/UL (140-415); RED BLOOD COUNT 2.79 10^6/ul (4.70-6.10); RED CELL DISTRIBUTION WIDTH 15.9 % (11.5-14.5); WHITE BLOOD COUNT 10.8 10^3/ul (4.8-10.8)
[2017-03-22 10:09] LABS: ALBUMIN 3.5 g/dl (3.3-4.9); ALBUMIN/GLOBULIN RATIO 0.97; BILIRUBIN,INDIRECT 0.3 mg/dl (0-1.1); BILIRUBIN,TOTAL 0.3 mg/dl (0.2-1.3); CALCIUM 9.1 mg/dl (8.4-10.2); CREATININE 2.15 mg/dl (0.61-1.24); POTASSIUM 3.7 mmol/L (3.5-5.1); TOTAL PROTEIN 7.1 g/dl (6.1-8.1)
[2017-03-22] MEDS: CITRIC ACID/NA CITRATE 30 ML CUP PO SCH ×3 (10:45→21:30)
--- NOTE | 2017-03-22 12:14 | CONS ---
Date/Time of Note Date/Time of Note DATE: 03/22/17 TIME: 12:12 Assessment/Plan Assessment/Plan Additional Assessment/Plan 41-year-old male with a history of diverticulitis with perforation s/p emergency sigmoid colectomy with primary anastomosis and diverting loop ileostomy who presents today for takedown of loop ileostomy. During last hospitalization patient was noted to be septic and there to diverticulitis and UTI and the patient did develop acute kidney injury due to ATN he was discharged with Cr 11.6- subsequently followed up by me in clinic and his last Cr improved to 2.26, afebrile, today he gets admitted after take down of his loop ileostomy Assessment/Plan 1. Take down of loop ileostomy 2. History of diverticulitis with perforation s/p emergency sigmoid colectomy with primary anastomosis and diverting loop ileostomy now status post takedown of loop ileostomy 3. Acute kidney injury due to ATN from sepsis on last admission and also contributing prerenal azotemia - Cr 3.55 on admission - trended down to CR 2.15 today with IV hydration - UO 2775 / ml 4. Metabolic acidosis from RODNEY 5. Anemia- monitor CBC Plan : - contineu IVF D51/2 NS with KCL at 100 cc/hr- Cr improved to 2.15 - Bicitra 30ml PO TID - pt has renal US done on last admission which was unremarkable and he has full CKD work up done on last admission so No need to repeat it. - Cr improved to 2.15 with IVF hydration, Bp stable, HCO3 still low, started on diet per surgery - will follow up - follow up with me in clinic in 2 weeks if discharged on the weekend. Plan of care AYAKA Kimball Consultation Date/Type/Reason Admit Date/Time Mar 20, 2017 at 05:41 Initial Consult Date 03/20/17 Type of Consultation: NEPHROLOGY Referring Provider: HAIDER BURR 24 HR Interval Summary Free Text/Dictation resting, afebrile, family at bed side, c/o nausea- better with medicine- staff. Detailed Summary Respiratory: no complaints Cardiovascular: no complaints Gastrointestinal: nausea Genitourinary: no complaints Musculoskeletal: no complaints Exam/Review of Systems Vital Signs Vitals Vital Signs Date Time Temp Pulse Resp B/P Pulse Ox O2 Delivery O2 Flow Rate FiO2 03/22/17 08:17 98.4 95 17 118/67 100 03/21/17 05:00 Room Air 03/20/17 09:38 8.0 Intake and Output 03/21/17 03/21/17 03/22/17 15:00 23:00 07:00 Intake Total 450 ml 2400 ml 800 ml Output Total 1750 ml 1025 ml Balance 450 ml 650 ml -225 ml Exam Constitutional: alert, oriented, well developed Respiratory: clear to auscultation Cardiovascular: nl pulses, regular rate and rhythm Gastrointestinal: non-tender, soft Musculoskeletal: nl extremities to inspection Extremities: normal pulses Neurological: nl mental status, nl speech Results Result Diagram: 03/22/17 0858 03/22/17 0858 Results 24 hrs Laboratory Tests Test 03/22/17 08:58 White Blood Count 10.8 Red Blood Count 2.79 L Hemoglobin 8.0 L Hematocrit 23.7 L Mean Corpuscular Volume 84.9 Mean Corpuscular Hemoglobin 28.7 L Mean Corpuscular Hemoglobin Concent 33.8 Red Cell Distribution Width 15.9 H Platelet Count 249 Mean Platelet Volume 9.0 Neutrophils % 76.8 Lymphocytes % 13.9 L Monocytes % 7.6 Eosinophils % 0.8 Basophils % 0.1 Nucleated Red Blood Cells % 0.0 Neutrophils # 8.3 H Lymphocytes # 1.5 Monocytes # 0.8 Eosinophils # 0.1 Basophils # 0.0 Nucleated Red Blood Cells # 0.0 Sodium Level 138 Potassium Level 3.7 Chloride Level 111 H Carbon Dioxide Level 18 L Anion Gap 13 Blood Urea Nitrogen 37 #H Creatinine 2.15 H Glucose Level 109 Lactic Acid Level 0.7 Calcium Level 9.1 Total Bilirubin 0.3 Direct Bilirubin 0.00 Indirect Bilirubin 0.3 Aspartate Amino Transf (AST/SGOT) 19 Alanine Aminotransferase (ALT/SGPT) 46 Alkaline Phosphatase 99 Total Protein 7.1 Albumin 3.5 Globulin 3.60 H Albumin/Globulin Ratio 0.97 Medications Medications Current Medications Potassium Chloride/Dextrose/ Sod Cl (D5-1/2ns + KCl 20 Meq) 1,000 ml @ 100 mls/ hr Q10H IV Last administered on 03/21/17t 08:31; Admin Dose 100 MLS/HR; Start 03/20/17 at 09:42 Acetaminophen/ Hydrocodone Bitart ([place] (5/325)) 1 tab Q4H PRN PO PAIN LEVEL 4 -7; Start 03/20/17 at 10:00 Acetaminophen/ Hydrocodone Bitart ([place] (5/325)) 2 tab Q4H PRN PO PAIN LEVEL 7 -10 Last administered on 03/22/17 06:39; Admin Dose 2 TAB; Start 03/20/17 at 10 :00 Hydromorphone HCl (Dilaudid) 0.5 mg Q2 PRN IV PAIN Last administered on 12:39; Admin Dose 0.5 MG; Start 03/20/17 at 10:00 Hydromorphone HCl (Dilaudid) 1 mg Q2 PRN IV PAIN; Start 03/20/17 at 10:00 Docusate Sodium (Colace) 100 mg BID PRN PO CONSTIPATION; Start 03/20/17 at 10: 00 Bisacodyl (Dulcolax Supp) 10 mg BID PRN [place] CONSTIPATION; Start 03/20/17 at 10: 00 Sodium Biphosphate/ Sodium Phosphate (Fleet Enema) 133 ml BID PRN [place] CONSTIPATION; Start 03/20/17 at 10:00 Famotidine (Pepcid Iv) 20 mg DAILY IV Last administered on 03/22/17 09:06; Admin Dose 20 MG; Start 03/21/17 at 09:00 Enoxaparin Sodium (Lovenox) 30 mg DAILY SC Last administered on 03/22/17 09:21 ; Admin Dose 30 MG; Start 03/21/17 at 09:00 Citric Acid/ Sodium Citrate (Bicitra) 30 ml TID PO Last administered on 10:45; Admin Dose 30 ML; Start 03/21/17 at 13:00 Ondansetron HCl (Zofran Inj) 4 mg Q4H PRN IV NAUSEA AND/OR VOMITING Last administered on 03/22/17 09:06; Admin Dose 4 MG; Start 03/22/17 at 08:00 SHANIQUA PRIEST Mar 22, 2017 12:14
--- NOTE | 2017-03-22 13:42 | PN ---
Date/Time of Note Date/Time of Note DATE: 03/22/17 TIME: 13:29 Assessment/Plan Lines/Catheters IV Catheter Type (from Nrs): Saline Lock Shah in Place (from Nrs): No Assessment/Plan Assessment/Plan [facility] Progress Note Date of Service: 03/22/17 Today's Impression & Plan: Overall has remained stable. Discharge plans yesterday did not happen and patient had nausea this am. Abd remains benign. Do not suspect major post operative complication, but would like to keep the patient inhouse for now for careful observation. Discussed with patient and answered all questions. Patient appeared to understand and agreed with the plans. With above assessment, I've recommended the following for today: 1. Keep inhouse 2. Cont liquid diet for now 3. Cont IV fluids 4. KUB 5. Labs in am Nature of presenting problem: High risk Complexity of decision making: high complexity Thank you again for your great care of this very pleasant patient and wonderful family. If there are any questions, please feel free to call me at [phone]. Disclaimer: Inadvertent spelling or grammatical errors are likely due to EHR/ dictation software use and do not reflect on the overall quality of patient care. Updated Clinical Summary: A very-pleasant 41-year-old gentleman with comorbidity of BMI 37.1 and previous history of diverticulitis, being admitted for recurrent diverticulitis with microperforation but no obvious evidence of abscess or other indication for intervention including no indication for surgical intervention. S/p emergency sigmoid colectomy, mobilization of splenic flexure, primary anastomosis and diverting loop ileostomy, lysis of adhesions and lavage 01/29/17. Postoperative paralytic ileus and acute renal injury. Surgical drain d/c'd 02/06/17. Creatinine continue to rise postoperatively without further deterioration of other parameters and not requiring dialysis. Comorbidities: 1. S/p emergency sigmoid colectomy, mobilization of splenic flexure, primary anastomosis and diverting loop ileostomy, lysis of adhesions and lavage 01/29/17. S/p takedown of loop ileostomy [facility] 03/20/17. 2. History of diverticulitis in the past as well as diagnosis of diverticulosis 3. Chronic constipation 4. BMI 30.5 (perviously 37.1) 5. Renal insufficiency discovered during his care for colon perforation; likely from hypertension 6. Hypertension Subjective: No major events or complaints other than above; feels ok; had nausea earlier in am; no vomiting; no major incisional abd pain; no diarrhea; no sob or cp; - flatus; - BM; + activity Objective: Vitals: See below Exam: GENERAL: On exam, the patient was laying in bed and appeared to be comfortable and in no acute distress. ABDOMEN: Soft, no tenderness, and not distended. Incisions to be clean, dry, and intact without any evidence of erythema, edema, discharge or hernia. Ostomy site with wound vac and clean. There are no peritoneal signs or guarding. SKIN: Skin appears to be pink and feels warm to touch. NEUROLOGIC: Patient is awake, alert, and follows commands appropriately. Exam/Review of Systems Vital Signs Vitals Vital Signs Date Time Temp Pulse Resp B/P Pulse Ox O2 Delivery O2 Flow Rate FiO2 03/22/17 08:17 98.4 95 17 118/67 100 03/21/17 05:00 Room Air 03/20/17 09:38 8.0 Intake and Output 03/21/17 03/21/17 03/22/17 15:00 23:00 07:00 Intake Total 450 ml 2400 ml 800 ml Output Total 1750 ml 1025 ml Balance 450 ml 650 ml -225 ml Results Result Diagram: 03/22/17 0858 03/22/17 0858 WILMA THORNTON M.D. Mar 22, 2017 13:41
--- NOTE | 2017-03-22 13:43 | PN ---
Date/Time of Note Date/Time of Note DATE: 03/22/17 TIME: 13:40 Assessment/Plan VTE Prophylaxis VTE Prophylaxis Intervention: heparin Lines/Catheters IV [facility]from [facility] Saline Lock Urinary Cath still in place: No Assessment/Plan Chief Complaint/Hosp Course 41 yo with a history of diverticulitis with perforation s/p emergency sigmoid colectomy with primary anastomosis and diverting loop ileostomy who presented this admission for takedown of loop ileostomy. POD 2 with resolving RODNEY and metabolic acidosis now with nausea and vomtiing - Continue alkali therapy per renal as RODNEY resolves - Ostomy functioning appropriately - Diet as tolerated and anti-emetics as needed - Post-surgical care per Dr Araiza Can be discharged when tolerating PO Problems: Subjective 24 Hr Interval Summary Free Text/Dictation Pt was due for discharge today, but this AM became nauseous, vomited so remains in house Given anti-emetics and IVF Feels better when seen by me this afteroon Exam/Review of Systems Vital Signs Vitals Vital Signs Date Time Temp Pulse Resp B/P Pulse Ox O2 Delivery O2 Flow Rate FiO2 03/22/17 08:17 98.4 95 17 118/67 100 03/21/17 05:00 Room Air 03/20/17 09:38 8.0 Intake and Output 03/21/17 03/21/17 03/22/17 14:59 22:59 06:59 Intake Total 450 ml 2400 ml 800 ml Output Total 1750 ml 1025 ml Balance 450 ml 650 ml -225 ml Results Result Diagram: 03/22/17 0858 03/22/17 0858 Results 24 hrs Laboratory Tests Test 03/22/17 08:58 White Blood Count 10.8 Red Blood Count 2.79 L Hemoglobin 8.0 L Hematocrit 23.7 L Mean Corpuscular Volume 84.9 Mean Corpuscular Hemoglobin 28.7 L Mean Corpuscular Hemoglobin Concent 33.8 Red Cell Distribution Width 15.9 H Platelet Count 249 Mean Platelet Volume 9.0 Neutrophils % 76.8 Lymphocytes % 13.9 L Monocytes % 7.6 Eosinophils % 0.8 Basophils % 0.1 Nucleated Red Blood Cells % 0.0 Neutrophils # 8.3 H Lymphocytes # 1.5 Monocytes # 0.8 Eosinophils # 0.1 Basophils # 0.0 Nucleated Red Blood Cells # 0.0 Sodium Level 138 Potassium Level 3.7 Chloride Level 111 H Carbon Dioxide Level 18 L Anion Gap 13 Blood Urea Nitrogen 37 #H Creatinine 2.15 H Glucose Level 109 Lactic Acid Level 0.7 Calcium Level 9.1 Total Bilirubin 0.3 Direct Bilirubin 0.00 Indirect Bilirubin 0.3 Aspartate Amino Transf (AST/SGOT) 19 Alanine Aminotransferase (ALT/SGPT) 46 Alkaline Phosphatase 99 Total Protein 7.1 Albumin 3.5 Globulin 3.60 H Albumin/Globulin Ratio 0.97 Medications Medications Current Medications Potassium Chloride/Dextrose/ Sod Cl (D5-1/2ns + KCl 20 Meq) 1,000 ml @ 100 mls/ hr Q10H IV Last administered on 03/21/17 08:31; Admin Dose 100 MLS/HR; Start 03/20/17 at 09:42 Acetaminophen/ Hydrocodone Bitart ([place] (5/325)) 1 tab Q4H PRN PO PAIN LEVEL 4 -7; Start 03/20/17 at 10:00 Acetaminophen/ Hydrocodone Bitart ([place] (5/325)) 2 tab Q4H PRN PO PAIN LEVEL 7 -10 Last administered on 03/22/17 06:39; Admin Dose 2 TAB; Start 03/20/17 at 10 :00 Hydromorphone HCl (Dilaudid) 0.5 mg Q2 PRN IV PAIN Last administered on 12:39; Admin Dose 0.5 MG; Start 03/20/17 at 10:00 Hydromorphone HCl (Dilaudid) 1 mg Q2 PRN IV PAIN; Start 03/20/17 at 10:00 Docusate Sodium (Colace) 100 mg BID PRN PO CONSTIPATION; Start 03/20/17 at 10: 00 Bisacodyl (Dulcolax Supp) 10 mg BID PRN [place] CONSTIPATION; Start 03/20/17 at 10: 00 Sodium Biphosphate/ Sodium Phosphate (Fleet Enema) 133 ml BID PRN [place] CONSTIPATION; Start 03/20/17 at 10:00 Famotidine (Pepcid Iv) 20 mg DAILY IV Last administered on 03/22/17 09:06; Admin Dose 20 MG; Start 03/21/17 at 09:00 Enoxaparin Sodium (Lovenox) 30 mg DAILY SC Last administered on 03/22/17 09:21 ; Admin Dose 30 MG; Start 03/21/17 at 09:00 Citric Acid/ Sodium Citrate (Bicitra) 30 ml TID PO Last administered on 13:29; Admin Dose 30 ML; Start 03/21/17 at 13:00 Ondansetron HCl (Zofran Inj) 4 mg Q4H PRN IV NAUSEA AND/OR VOMITING Last administered on 03/22/17 09:06; Admin Dose 4 MG; Start 03/22/17 at 08:00 HUBERT ANDREWS MD Mar 22, 2017 13:43
[2017-03-22 14:00] VITALS: BP 116/75; RESP 16
[2017-03-22 19:20] VITALS: BP 116/76; RESP 18
--- NOTE | 2017-03-22 21:06 | RADRPT ---
PROCEDURE: XR Abdomen. CLINICAL INDICATION: Nausea and abdominal pain. Postop. TECHNIQUE: Two views. AP supine and AP erect. COMPARISON: 01/28/2017 FINDINGS: There is no free air. There are multiple dilated loops of small bowel with air-fluid levels. Gas is present in the colon. The findings are likely due to ileus rather than obstruction. There are no abnormal calcifications overlying the urinary tracts. The osseus structures are unremarkable. IMPRESSION: 1. Small bowel ileus. 2. Otherwise unremarkable study. RPTAT: QQ .Rick Wood MD, MD Date Time Electronically viewed and signed by .Rick Wood MD, MD on 03/22/2017 21:06 .R/
[2017-03-23] MEDS: ONDANSETRON 4 MG INJ IV PRN ×2 (01:54→16:30)
[2017-03-23] MEDS: HYDROmorphONE 1 MG/ML SYG IV PRN ×2 (01:58→16:30)
[2017-03-23 02:00] VITALS: BP 111/67; RESP 18
[2017-03-23 02:20] VITALS: BP 111/67; RESP 18
[2017-03-23] MEDS: D5W-0.45 NACL + KCL 20 MEQ 1,000 ML IV SCH ×2 (05:42→16:06)
[2017-03-23 07:54] VITALS: BP 123/72; RESP 20
[2017-03-23] MEDS: CITRIC ACID/NA CITRATE 30 ML CUP PO SCH ×3 (09:02→21:07)
[2017-03-23] MEDS: FAMOTIDINE 20 MG INJ IV SCH (09:03)
[2017-03-23] MEDS: ENOXAPARIN 30 MG/0.3 ML SYG SC SCH (09:03)
[2017-03-23 11:22] LABS: BASOPHILS % 0.1 % (0.0-2.0); EOSINOPHILS # 0.1 10^3/ul (0.0-0.5); EOSINOPHILS % 1.3 % (0.0-7.0); HEMOGLOBIN 7.4 g/dl (14.0-18.0); LYMPHOCYTES # 1.5 10^3/ul (0.8-2.9); LYMPHOCYTES % 17.7 % (15.0-51.0); MEAN CORPUSCULAR HGB CONC 33.6 g/dl (32.0-37.0); MEAN CORPUSCULAR VOLUME 86.3 fl (82.0-101.0); MEAN PLATELET VOLUME 8.9 fl (7.4-10.4); MONOCYTE # 0.7 10^3/ul (0.3-0.9); MONOCYTES % 8.5 % (0.0-11.0); NEUTROPHIL # 6.1 10^3/ul (1.6-7.5); NEUTROPHILS % 71.7 % (39.0-77.0); PLATELET COUNT 243 10^3/UL (140-415); RED BLOOD COUNT 2.55 10^6/ul (4.70-6.10); RED CELL DISTRIBUTION WIDTH 16.1 % (11.5-14.5); WHITE BLOOD COUNT 8.6 10^3/ul (4.8-10.8)
[2017-03-23 11:33] LABS: ALBUMIN 3.2 g/dl (3.3-4.9); ALBUMIN/GLOBULIN RATIO 0.94; BILIRUBIN,INDIRECT 0.2 mg/dl (0-1.1); BILIRUBIN,TOTAL 0.2 mg/dl (0.2-1.3); CALCIUM 8.9 mg/dl (8.4-10.2); CREATININE 1.86 mg/dl (0.61-1.24); POTASSIUM 3.9 mmol/L (3.5-5.1); TOTAL PROTEIN 6.6 g/dl (6.1-8.1)
[2017-03-23 11:43] LABS: MAGNESIUM 1.9 mg/dl (1.7-2.5)
--- NOTE | 2017-03-23 12:20 | PN ---
Date/Time of Note Date/Time of Note DATE: 03/23/17 TIME: 12:18 Assessment/Plan Lines/Catheters IV Catheter Type (from Nrs): Saline Lock Shah in Place (from Nrs): No Assessment/Plan Assessment/Plan [facility] Progress Note Date of Service: 03/23/17 Today's Impression & Plan: Overall stable and improved. Post operative paralytic ileus seems to be resolving. Abd remains benign. Do not suspect major post operative complication. Ok from my standpoint to d/c home if tolerates regular diet. Discussed with patient and answered all questions. Patient appeared to understand and agreed with the plans. With above assessment, I've recommended the following for today: 1. D/c home if tolerates regular diet 2. F/u with me in the office in 1-2 weeks Nature of presenting problem: High risk Complexity of decision making: high complexity Thank you again for your great care of this very pleasant patient and wonderful family. If there are any questions, please feel free to call me at [phone]. Disclaimer: Inadvertent spelling or grammatical errors are likely due to EHR/ dictation software use and do not reflect on the overall quality of patient care. Updated Clinical Summary: A very-pleasant 41-year-old gentleman with comorbidity of BMI 37.1 and previous history of diverticulitis, being admitted for recurrent diverticulitis with microperforation but no obvious evidence of abscess or other indication for intervention including no indication for surgical intervention. S/p emergency sigmoid colectomy, mobilization of splenic flexure, primary anastomosis and diverting loop ileostomy, lysis of adhesions and lavage 01/29/17. Postoperative paralytic ileus and acute renal injury. Surgical drain d/c'd 02/06/17. Creatinine continue to rise postoperatively without further deterioration of other parameters and not requiring dialysis. Comorbidities: 1. S/p emergency sigmoid colectomy, mobilization of splenic flexure, primary anastomosis and diverting loop ileostomy, lysis of adhesions and lavage 01/29/17. S/p takedown of loop ileostomy [facility] 03/20/17. 2. History of diverticulitis in the past as well as diagnosis of diverticulosis 3. Chronic constipation 4. BMI 30.5 (perviously 37.1) 5. Renal insufficiency discovered during his care for colon perforation; likely from hypertension 6. Hypertension Subjective: No major events or complaints; feels ok; no further nausea; no vomiting; no major incisional abd pain; no diarrhea; + bowel activity; no sob or cp; + activity Objective: Vitals: See below Exam: GENERAL: On exam, the patient was laying in bed and appeared to be comfortable and in no acute distress. ABDOMEN: Soft, no tenderness, and not distended. Incisions appear to be clean, dry, and intact without any evidence of erythema, edema, discharge or hernia. Ostomy site with wound vac and clean. There are no peritoneal signs or guarding. SKIN: Skin appears to be pink and feels warm to touch. NEUROLOGIC: Patient is awake, alert, and follows commands appropriately. Exam/Review of Systems Vital Signs Vitals Vital Signs Date Time Temp Pulse Resp B/P Pulse Ox O2 Delivery O2 Flow Rate FiO2 03/23/17 07:54 98.6 95 20 123/72 96 03/21/17 05:00 Room Air 03/20/17 09:38 8.0 Intake and Output 03/22/17 03/22/17 03/23/17 15:00 23:00 07:00 Intake Total 600 ml 1600 ml Output Total 50 ml 1500 ml Balance 550 ml 100 ml Results Result Diagram: 03/23/17 1054 03/23/17 1054 WILMA THORNTON M.D. Mar 23, 2017 12:20
--- NOTE | 2017-03-23 14:23 | CONS ---
Date/Time of Note Date/Time of Note DATE: 03/23/17 TIME: 14:16 Assessment/Plan Assessment/Plan Additional Assessment/Plan 41-year-old male with a history of diverticulitis with perforation s/p emergency sigmoid colectomy with primary anastomosis and diverting loop ileostomy who presents today for takedown of loop ileostomy. During last hospitalization patient was noted to be septic and there to diverticulitis and UTI and the patient did develop acute kidney injury due to ATN he was discharged with Cr 11.6- subsequently followed up by me in clinic and his last Cr improved to 2.26, afebrile, today he gets admitted after take down of his loop ileostomy Assessment/Plan 1. Take down of loop ileostomy 2. History of diverticulitis with perforation s/p emergency sigmoid colectomy with primary anastomosis and diverting loop ileostomy now status post takedown of loop ileostomy 3. Acute kidney injury due to ATN from sepsis on last admission and also contributing prerenal azotemia - Cr 3.55 on admission- trended down Cr 1.86 today - UO -1550 ML/24 hr 4. Metaboclic acidosis from RODNEY 5.. Anemia- per Primary Plan : - continue IVF D51/2 NS with KCL at 100 cc/hr- Cr improved to 1.86 - Bicitra 30ml PO TID - pt has renal US done on last admission which was unremarkable and he has full CKD work up done on last admission so No need to repeat it. will follow up - follow up with me in clinic in 2 weeks if discharged on the weekend. - On discharge, Continue his Sodium Bacarb tablets as prescribed by Dr Kimball. - Patient will benefit staying another day in hospital as IVF will help to trend down his creatinine- chu Kimball/ staff Consultation Date/Type/Reason Admit Date/Time Mar 20, 2017 at 05:41 Initial Consult Date 03/20/17 Type of Consultation: NEPHROLOGY Referring Provider: HAIDER BURR 24 HR Interval Summary Free Text/Dictation Cr improved to 1.86 with IVF hydration, Bp stable, HCO3 still low, Patient will benefit staying another day in hospital as IVF will help to trend down his creatinine, started on regular diet, dc if patient tolerated diet per surgery. Family at bed side. All Qs answered. dw staff Constitutional: improved, requiring IVF Exam/Review of Systems Vital Signs Vitals Vital Signs Date Time Temp Pulse Resp B/P Pulse Ox O2 Delivery O2 Flow Rate FiO2 03/23/17 07:54 98.6 95 20 123/72 96 03/21/17 05:00 Room Air 03/20/17 09:38 8.0 Intake and Output 03/22/17 03/22/17 03/23/17 15:00 23:00 07:00 Intake Total 600 ml 1600 ml Output Total 50 ml 1500 ml Balance 550 ml 100 ml Exam Constitutional: alert, oriented, well developed Respiratory: clear to auscultation, normal air movement Cardiovascular: nl pulses, regular rate and rhythm Gastrointestinal: non-tender, soft Musculoskeletal: nl extremities to inspection Extremities: normal pulses Neurological: nl mental status, nl speech Results Result Diagram: 03/23/17 1054 03/23/17 1054 Results 24 hrs Laboratory Tests Test 03/23/17 10:54 White Blood Count 8.6 # Red Blood Count 2.55 L Hemoglobin 7.4 L Hematocrit 22.0 L Mean Corpuscular Volume 86.3 Mean Corpuscular Hemoglobin 29.0 Mean Corpuscular Hemoglobin Concent 33.6 Red Cell Distribution Width 16.1 H Platelet Count 243 Mean Platelet Volume 8.9 Neutrophils % 71.7 Lymphocytes % 17.7 Monocytes % 8.5 Eosinophils % 1.3 Basophils % 0.1 Nucleated Red Blood Cells % 0.0 Neutrophils # 6.1 Lymphocytes # 1.5 Monocytes # 0.7 Eosinophils # 0.1 Basophils # 0.0 Nucleated Red Blood Cells # 0.0 Sodium Level 141 Potassium Level 3.9 Chloride Level 111 H Carbon Dioxide Level 23 Anion Gap 11 Blood Urea Nitrogen 26 #H Creatinine 1.86 H Glucose Level 138 Calcium Level 8.9 Phosphorus Level 3.0 Magnesium Level 1.9 Total Bilirubin 0.2 Direct Bilirubin 0.00 Indirect Bilirubin 0.2 Aspartate Amino Transf (AST/SGOT) 14 L Alanine Aminotransferase (ALT/SGPT) 32 Alkaline Phosphatase 84 B-Type Natriuretic Peptide 351 H Total Protein 6.6 Albumin 3.2 L Globulin 3.40 H Albumin/Globulin Ratio 0.94 Medications Medications Current Medications Potassium Chloride/Dextrose/ Sod Cl (D5-1/2ns + KCl 20 Meq) 1,000 ml @ 100 mls/ hr Q10H IV Last administered on 03/23/17t 05:42; Admin Dose 100 MLS/HR; Start 03/20/17 at 09:42 Acetaminophen/ Hydrocodone Bitart ([place] (5/325)) 1 tab Q4H PRN PO PAIN LEVEL 4 -7; Start 03/20/17 at 10:00 Acetaminophen/ Hydrocodone Bitart ([place] (5/325)) 2 tab Q4H PRN PO PAIN LEVEL 7 -10 Last administered on 03/22/17 06:39; Admin Dose 2 TAB; Start 03/20/17 at 10 :00 Hydromorphone HCl (Dilaudid) 0.5 mg Q2 PRN IV PAIN Last administered on 01:58; Admin Dose 0.5 MG; Start 03/20/17 at 10:00 Hydromorphone HCl (Dilaudid) 1 mg Q2 PRN IV PAIN; Start 03/20/17 at 10:00 Docusate Sodium (Colace) 100 mg BID PRN PO CONSTIPATION; Start 03/20/17 at 10: 00 Bisacodyl (Dulcolax Supp) 10 mg BID PRN [place] CONSTIPATION; Start 03/20/17 at 10: 00 Sodium Biphosphate/ Sodium Phosphate (Fleet Enema) 133 ml BID PRN [place] CONSTIPATION; Start 03/20/17 at 10:00 Famotidine (Pepcid Iv) 20 mg DAILY IV Last administered on 03/23/17 09:03; Admin Dose 20 MG; Start 03/21/17 at 09:00 Enoxaparin Sodium (Lovenox) 30 mg DAILY SC Last administered on 03/23/17 09:03 ; Admin Dose 30 MG; Start 03/21/17 at 09:00 Citric Acid/ Sodium Citrate (Bicitra) 30 ml TID PO Last administered on 13:44; Admin Dose 30 ML; Start 03/21/17 at 13:00 Ondansetron HCl (Zofran Inj) 4 mg Q4H PRN IV NAUSEA AND/OR VOMITING Last administered on 03/23/17 01:54; Admin Dose 4 MG; Start 03/22/17 at 08:00 SHANIQUA PRIEST Mar 23, 2017 14:23
[2017-03-23 14:38] VITALS: BP 109/60; RESP 18
--- NOTE | 2017-03-23 16:29 | PN ---
Date/Time of Note Date/Time of Note DATE: 03/23/17 TIME: 16:28 Assessment/Plan VTE Prophylaxis VTE Prophylaxis Intervention: LMWH Lines/Catheters IV [facility] Saline Lock Urinary Cath still in place: No Assessment/Plan Chief Complaint/Hosp Course 41 yo with a history of diverticulitis with perforation s/p emergency sigmoid colectomy with primary anastomosis and diverting loop ileostomy who presented this admission for takedown of loop ileostomy. POD 3 with resolving RODNEY and metabolic acidosis RODNEY: - Continue alkali therapy per renal as RODNEY resolves - IVF S/p takedown of ileostomy: - Diet as tolerated and anti-emetics as needed - Post-surgical care per Dr Araiza Can be discharged tomorrow Problems: Subjective 24 Hr Interval Summary Free Text/Dictation Had BM Nausea resolved Still some pain Creatinine improving nicely Does not want to be discharged yet Exam/Review of Systems Vital Signs Vitals Vital Signs Date Time Temp Pulse Resp B/P Pulse Ox O2 Delivery O2 Flow Rate FiO2 03/23/17 14:38 98.0 69 18 109/60 97 03/21/17 05:00 Room Air 03/20/17 09:38 8.0 Intake and Output 03/22/17 03/22/17 03/23/17 15:00 23:00 07:00 Intake Total 600 ml 1600 ml Output Total 50 ml 1500 ml Balance 550 ml 100 ml Exam Constitutional: alert, oriented, well developed Psych: nl mood/affect, no complaints Head: atraumatic, normocephalic Eyes: EOMI, PERRL, nl conjunctiva, nl lids, nl sclera ENMT: nl external ears & nose, nl lips & teeth, nl nasal mucosa & septum Neck: non-tender, supple Respiratory: clear to auscultation, normal air movement Cardiovascular: nl pulses, regular rate and rhythm Gastrointestinal: nl liver, spleen, non-tender, soft Musculoskeletal: nl extremities to inspection, nl gait and stance Extremities: normal pulses Neurological: [employer] II-XII intact, nl mental status, nl speech, nl strength Skin: nl turgor, No rash or lesions Lymph: nl lymph nodes Results Result Diagram: 03/23/17 1054 03/23/17 1054 Results 24 hrs Laboratory Tests Test 03/23/17 10:54 White Blood Count 8.6 # Red Blood Count 2.55 L Hemoglobin 7.4 L Hematocrit 22.0 L Mean Corpuscular Volume 86.3 Mean Corpuscular Hemoglobin 29.0 Mean Corpuscular Hemoglobin Concent 33.6 Red Cell Distribution Width 16.1 H Platelet Count 243 Mean Platelet Volume 8.9 Neutrophils % 71.7 Lymphocytes % 17.7 Monocytes % 8.5 Eosinophils % 1.3 Basophils % 0.1 Nucleated Red Blood Cells % 0.0 Neutrophils # 6.1 Lymphocytes # 1.5 Monocytes # 0.7 Eosinophils # 0.1 Basophils # 0.0 Nucleated Red Blood Cells # 0.0 Sodium Level 141 Potassium Level 3.9 Chloride Level 111 H Carbon Dioxide Level 23 Anion Gap 11 Blood Urea Nitrogen 26 #H Creatinine 1.86 H Glucose Level 138 Calcium Level 8.9 Phosphorus Level 3.0 Magnesium Level 1.9 Total Bilirubin 0.2 Direct Bilirubin 0.00 Indirect Bilirubin 0.2 Aspartate Amino Transf (AST/SGOT) 14 L Alanine Aminotransferase (ALT/SGPT) 32 Alkaline Phosphatase 84 B-Type Natriuretic Peptide 351 H Total Protein 6.6 Albumin 3.2 L Globulin 3.40 H Albumin/Globulin Ratio 0.94 Medications Medications Current Medications Potassium Chloride/Dextrose/ Sod Cl (D5-1/2ns + KCl 20 Meq) 1,000 ml @ 100 mls/ hr Q10H IV Last administered on 03/23/17 16:06; Admin Dose 100 MLS/HR; Start 03/20/17 at 09:42 Acetaminophen/ Hydrocodone Bitart ([place] (5/325)) 1 tab Q4H PRN PO PAIN LEVEL 4 -7; Start 03/20/17 at 10:00 Acetaminophen/ Hydrocodone Bitart ([place] (5/325)) 2 tab Q4H PRN PO PAIN LEVEL 7 -10 Last administered on 03/22/17 06:39; Admin Dose 2 TAB; Start 03/20/17 at 10 :00 Hydromorphone HCl (Dilaudid) 0.5 mg Q2 PRN IV PAIN Last administered on 01:58; Admin Dose 0.5 MG; Start 03/20/17 at 10:00 Hydromorphone HCl (Dilaudid) 1 mg Q2 PRN IV PAIN; Start 03/20/17 at 10:00 Docusate Sodium (Colace) 100 mg BID PRN PO CONSTIPATION; Start 03/20/17 at 10: 00 Bisacodyl (Dulcolax Supp) [address] CONSTIPATION; Start 03/20/17 at 10: 00 Sodium Biphosphate/ Sodium Phosphate (Fleet Enema) [address] CONSTIPATION; Start 03/20/17 at 10:00 Famotidine (Pepcid Iv) 20 mg DAILY IV Last administered on 03/23/17 09:03; Admin Dose 20 MG; Start 03/21/17 at 09:00 Enoxaparin Sodium (Lovenox) 30 mg DAILY SC Last administered on 03/23/17 09:03 ; Admin Dose 30 MG; Start 03/21/17 at 09:00 Citric Acid/ Sodium Citrate (Bicitra) 30 ml TID PO Last administered on 13:44; Admin Dose 30 ML; Start 03/21/17 at 13:00 Ondansetron HCl (Zofran Inj) 4 mg Q4H PRN IV NAUSEA AND/OR VOMITING Last administered on 03/23/17 01:54; Admin Dose 4 MG; Start 03/22/17 at 08:00 HUBERT ANDREWS MD Mar 23, 2017 16:29
[2017-03-23 19:25] VITALS: BP 166/66; RESP 20
[2017-03-24 02:30] VITALS: BP 109/64; RESP 17
[2017-03-24] MEDS: D5W-0.45 NACL + KCL 20 MEQ 1,000 ML IV SCH ×3 (03:31→23:04)
[2017-03-24 05:35] LABS: CALCIUM 8.5 mg/dl (8.4-10.2); CREATININE 1.73 mg/dl (0.61-1.24); POTASSIUM 3.3 mmol/L (3.5-5.1)
[2017-03-24 05:36] LABS: ABNORMAL IP MESSAGE 1; BASOPHILS % 0.1 % (0.0-2.0); EOSINOPHILS # 0.2 10^3/ul (0.0-0.5); EOSINOPHILS % 2.1 % (0.0-7.0); HEMATOCRIT 19.5 % (42.0-52.0); LYMPHOCYTES # 2.2 10^3/ul (0.8-2.9); LYMPHOCYTES % 30.1 % (15.0-51.0); MEAN CORPUSCULAR HEMOGLOBIN 29.9 pg (29.0-33.0); MEAN CORPUSCULAR HGB CONC 34.4 g/dl (32.0-37.0); MEAN CORPUSCULAR VOLUME 87.1 fl (82.0-101.0); MEAN PLATELET VOLUME 9.1 fl (7.4-10.4); MONOCYTE # 0.6 10^3/ul (0.3-0.9); MONOCYTES % 8.5 % (0.0-11.0); NEUTROPHIL # 4.2 10^3/ul (1.6-7.5); NEUTROPHILS % 58.2 % (39.0-77.0); PLATELET COUNT 225 10^3/UL (140-415); POSITIVE DIFF @See below; RED BLOOD COUNT 2.24 10^6/ul (4.70-6.10); WHITE BLOOD COUNT 7.2 10^3/ul (4.8-10.8)
[2017-03-24 05:40] LABS: HEMOGLOBIN 6.7 g/dl (14.0-18.0)
[2017-03-24 07:47] VITALS: BP 113/63; RESP 19
[2017-03-24] MEDS: FAMOTIDINE 20 MG INJ IV SCH (09:08)
[2017-03-24] MEDS: CITRIC ACID/NA CITRATE 30 ML CUP PO SCH ×3 (09:08→20:38)
--- NOTE | 2017-03-24 09:12 | CONS ---
Date/Time of Note Date/Time of Note DATE: 03/24/17 TIME: 09:09 Assessment/Plan Assessment/Plan Chief Complaint/Hosp Course 41-year-old male with a history of diverticulitis with perforation s/p emergency sigmoid colectomy with primary anastomosis and diverting loop ileostomy who presents today for takedown of loop ileostomy. During last hospitalization patient was noted to be septic and there to diverticulitis and UTI and the patient did develop acute kidney injury due to ATN he was discharged with Cr 11.6- subsequently followed up by me in clinic and his last Cr improved to 2.26, afebrile, today he gets admitted after take down of his loop ileostomy Problems: Additional Assessment/Plan 1. Take down of loop ileostomy 2. History of diverticulitis with perforation s/p emergency sigmoid colectomy with primary anastomosis and diverting loop ileostomy now status post takedown of loop ileostomy 3. Acute kidney injury due to ATN from sepsis on last admission and also contributing prerenal azotemia 4. Metaboclic acidosis from RODNEY 5. Anemia with Hb dropped to 6.7- possible anemia of chronic disease with acute drop Plan : BUN/Cr improved to 19/1.73 with IVF hydration, will d/c IV fluids Repeat Hb has been ordered will order iron profile, Ferritin, Reticulocyte count , folate and vitamin B12 stat pain control pt BUN/Cr much improved Consultation Date/Type/Reason Admit Date/Time Mar 20, 2017 at 05:41 Initial Consult Date 03/20/17 Type of Consultation: NEPHROLOGY Referring Provider: HAIDER BURR 24 HR Interval Summary Free Text/Dictation pt tolerating po diet, Hb dropped to 6.7, pt denies any obvious bleeding, no abdominal pain Exam/Review of Systems Vital Signs Vitals Vital Signs Date Time Temp Pulse Resp B/P Pulse Ox O2 Delivery O2 Flow Rate FiO2 03/24/17 07:47 98.0 79 19 113/63 97 03/21/17 05:00 Room Air 03/20/17 09:38 8.0 Intake and Output 03/23/17 03/23/17 03/24/17 15:00 23:00 07:00 Intake Total 1800 ml 2100 ml Output Total 25 ml Balance 1800 ml 2075 ml Exam Constitutional: alert Psych: no complaints Head: normocephalic Eyes: nl conjunctiva Neck: non-tender, supple Respiratory: clear to auscultation, diminished breath sounds, normal air movement Cardiovascular: nl pulses, regular rate and rhythm Gastrointestinal: non-tender, soft Musculoskeletal: nl extremities to inspection, nl gait and stance Extremities: normal pulses Neurological: RN [employer] TERM CARE II-XII intact, nl mental status, nl speech, nl strength Results Result Diagram: 03/24/17 0452 03/24/17 0452 Results 24 hrs Laboratory Tests Test 03/23/17 10:54 03/24/17 04:52 White Blood Count 8.6 # 7.2 Red Blood Count 2.55 L 2.24 L Hemoglobin 7.4 L 6.7 *L Hematocrit 22.0 L 19.5 L Mean Corpuscular Volume 86.3 87.1 Mean Corpuscular Hemoglobin 29.0 29.9 Mean Corpuscular Hemoglobin Concent 33.6 34.4 Red Cell Distribution Width 16.1 H 16.0 H Platelet Count 243 225 Mean Platelet Volume 8.9 9.1 Neutrophils % 71.7 58.2 Lymphocytes % 17.7 30.1 Monocytes % 8.5 8.5 Eosinophils % 1.3 2.1 Basophils % 0.1 0.1 Nucleated Red Blood Cells % 0.0 0.0 Neutrophils # 6.1 4.2 Lymphocytes # 1.5 2.2 Monocytes # 0.7 0.6 Eosinophils # 0.1 0.2 Basophils # 0.0 0.0 Nucleated Red Blood Cells # 0.0 0.0 Sodium Level 141 137 Potassium Level 3.9 3.3 L Chloride Level 111 H 110 Carbon Dioxide Level 23 25 Anion Gap 11 5 L Blood Urea Nitrogen 26 #H 19 Creatinine 1.86 H 1.73 H Glucose Level 138 107 Calcium Level 8.9 8.5 Phosphorus Level 3.0 Magnesium Level 1.9 Total Bilirubin 0.2 Direct Bilirubin 0.00 Indirect Bilirubin 0.2 Aspartate Amino Transf (AST/SGOT) 14 L Alanine Aminotransferase (ALT/SGPT) 32 Alkaline Phosphatase 84 B-Type Natriuretic Peptide 351 H Total Protein 6.6 Albumin 3.2 L Globulin 3.40 H Albumin/Globulin Ratio 0.94 Medications Medications Current Medications Potassium Chloride/Dextrose/ Sod Cl (D5-1/2ns + KCl 20 Meq) 1,000 ml @ 100 mls/ hr Q10H IV Last administered on 03/24/17 03:31; Admin Dose 100 MLS/HR; Start 9/28/17 at 09:42 Acetaminophen/ Hydrocodone Bitart ([place] (5/325)) 1 tab Q4H PRN PO PAIN LEVEL 4 -7 Last administered on 03/24/17 01:28; Admin Dose 1 TAB; Start 03/20/17 at 10: 00 Acetaminophen/ Hydrocodone Bitart ([place] (5/325)) 2 tab Q4H PRN PO PAIN LEVEL 7 -10 Last administered on 03/22/17 06:39; Admin Dose 2 TAB; Start 03/20/17 at 10 :00 Hydromorphone HCl (Dilaudid) 0.5 mg Q2 PRN IV PAIN Last administered on 16:30; Admin Dose 0.5 MG; Start 03/20/17 at 10:00 Hydromorphone HCl (Dilaudid) 1 mg Q2 PRN IV PAIN; Start 03/20/17 at 10:00 Docusate Sodium (Colace) 100 mg BID PRN PO CONSTIPATION; Start 03/20/17 at 10: 00 Bisacodyl (Dulcolax Supp) 10 mg BID PRN [place] CONSTIPATION; Start 03/20/17 at 10: 00 Sodium Biphosphate/ Sodium Phosphate (Fleet Enema) 133 ml BID PRN [place] CONSTIPATION; Start 03/20/17 at 10:00 Famotidine (Pepcid Iv) 20 mg DAILY IV Last administered on 03/23/17 09:03; Admin Dose 20 MG; Start 03/21/17 at 09:00 Enoxaparin Sodium (Lovenox) 30 mg DAILY SC Last administered on 03/23/17 09:03 ; Admin Dose 30 MG; Start 03/21/17 at 09:00 Citric Acid/ Sodium Citrate (Bicitra) 30 ml TID PO Last administered on 21:07; Admin Dose 30 ML; Start 03/21/17 at 13:00 Ondansetron HCl (Zofran Inj) 4 mg Q4H PRN IV NAUSEA AND/OR VOMITING Last administered on 03/23/17 16:30; Admin Dose 4 MG; Start 03/22/17 at 08:00 SINGH WILLOUGHBY MD Mar 24, 2017 09:12
[2017-03-24] MEDS: ENOXAPARIN 30 MG/0.3 ML SYG SC SCH (09:26)
[2017-03-24 09:57] LABS: RETICULOCYTE COUNT % 5.9 % (0.5-1.5)
[2017-03-24 10:05] LABS: IRON 25 ug/dl (35-150)
[2017-03-24 10:14] LABS: TOTAL IRON BINDING CAPACITY 225 ug/dl (241-421)
--- NOTE | 2017-03-24 11:23 | PN ---
Date/Time of Note Date/Time of Note DATE: 03/24/17 TIME: 10:32 Assessment/Plan Lines/Catheters IV Catheter Type (from Nrs): Peripheral IV Shah in Place (from Nrs): No Assessment/Plan Assessment/Plan [facility] Progress Note Date of Service: 03/24/17 Today's Impression & Plan: Overall stable and continuing to improve. Post operative paralytic ileus seems to be resolving. Abd remains benign. Hg drop likely chronic and dilutional. Ok with 1 unit of PRBC. Do not suspect major post operative complication. Ok from my standpoint to d/c home if tolerates regular diet. Discussed with patient and his and answered all questions. Patient and family appeared to understand and agreed with the plans. With above assessment, I've recommended the following for today: 1. D/c home later today 2. F/u with me in the office in 1-2 weeks Nature of presenting problem: High risk Complexity of decision making: high complexity Thank you again for your great care of this very pleasant patient and wonderful family. If there are any questions, please feel free to call me at [phone]. Disclaimer: Inadvertent spelling or grammatical errors are likely due to EHR/ dictation software use and do not reflect on the overall quality of patient care. Updated Clinical Summary: A very-pleasant 41-year-old gentleman with comorbidity of BMI 37.1 and previous history of diverticulitis, being admitted for recurrent diverticulitis with microperforation but no obvious evidence of abscess or other indication for intervention including no indication for surgical intervention. S/p emergency sigmoid colectomy, mobilization of splenic flexure, primary anastomosis and diverting loop ileostomy, lysis of adhesions and lavage 01/29/17. Postoperative paralytic ileus and acute renal injury. Surgical drain d/c'd 02/06/17. Creatinine continue to rise postoperatively without further deterioration of other parameters and not requiring dialysis. Comorbidities: 1. S/p emergency sigmoid colectomy, mobilization of splenic flexure, primary anastomosis and diverting loop ileostomy, lysis of adhesions and lavage 01/29/17. S/p takedown of loop ileostomy [facility] 03/20/17. 2. History of diverticulitis in the past as well as diagnosis of diverticulosis 3. Chronic constipation 4. BMI 30.5 (perviously 37.1) 5. Renal insufficiency discovered during his care for colon perforation; likely from hypertension 6. Hypertension Subjective: No major events or complaints; feels ok; no further nausea; no vomiting; no major incisional abd pain; no diarrhea; + bowel activity; no sob or cp; + activity Objective: Vitals: See below Exam: GENERAL: On exam, the patient was laying in bed and appeared to be comfortable and in no acute distress. ABDOMEN: Soft, no tenderness, and not distended. Incisions appear to be clean, dry, and intact without any evidence of erythema, edema, discharge or hernia. Ostomy site with wound vac and clean. Inspected the wound with dressing change. Nice beefy red granulation tissue with size of cavity already smaller than when we started a few days ago. There are no peritoneal signs or guarding. SKIN: Skin appears to be pink and feels warm to touch. NEUROLOGIC: Patient is awake, alert, and follows commands appropriately. Exam/Review of Systems Vital Signs Vitals Vital Signs Date Time Temp Pulse Resp B/P Pulse Ox O2 Delivery O2 Flow Rate FiO2 03/24/17 07:47 98.0 79 19 113/63 97 03/21/17 05:00 Room Air 03/20/17 09:38 8.0 Intake and Output 03/23/17 03/23/17 03/24/17 15:00 23:00 07:00 Intake Total 1800 ml 2100 ml Output Total 25 ml Balance 1800 ml 2075 ml Results Result Diagram: 03/24/17 0840 03/24/17 0452 WILMA THORNTON M.D. Mar 24, 2017 10:34
[2017-03-24 13:04] LABS: FOLATE 2.7 ng/ml (2.8-20.0)
[2017-03-24 17:03] LABS: BASOPHILS % 0.1 % (0.0-2.0); EOSINOPHILS # 0.2 10^3/ul (0.0-0.5); EOSINOPHILS % 2.3 % (0.0-7.0); HEMATOCRIT 22.5 % (42.0-52.0); HEMOGLOBIN 7.6 g/dl (14.0-18.0); LYMPHOCYTES # 1.9 10^3/ul (0.8-2.9); LYMPHOCYTES % 27.2 % (15.0-51.0); MEAN CORPUSCULAR HEMOGLOBIN 28.9 pg (29.0-33.0); MEAN CORPUSCULAR HGB CONC 33.8 g/dl (32.0-37.0); MEAN CORPUSCULAR VOLUME 85.6 fl (82.0-101.0); MEAN PLATELET VOLUME 8.7 fl (7.4-10.4); MONOCYTE # 0.6 10^3/ul (0.3-0.9); MONOCYTES % 8.2 % (0.0-11.0); NEUTROPHIL # 4.3 10^3/ul (1.6-7.5); NEUTROPHILS % 61.2 % (39.0-77.0); PLATELET COUNT 225 10^3/UL (140-415); RED BLOOD COUNT 2.63 10^6/ul (4.70-6.10); RED CELL DISTRIBUTION WIDTH 15.7 % (11.5-14.5)
--- NOTE | 2017-03-24 17:59 | PN ---
Date/Time of Note Date/Time of Note DATE: 03/24/17 TIME: 17:58 Assessment/Plan VTE Prophylaxis VTE Prophylaxis Intervention: other Lines/Catheters IV C[facility]ter Type (from [facility]): Peripheral IV Urinary Cath still in place: No Assessment/Plan Chief Complaint/Hosp Course 41 yo with a history of diverticulitis with perforation s/p emergency sigmoid colectomy with primary anastomosis and diverting loop ileostomy who presented this admission for takedown of loop ileostomy. POD 3 with resolving RODNEY and metabolic acidosis RODNEY: - Continue alkali therapy per renal as RODNEY resolves - IVF - Iron studies S/p takedown of ileostomy: - Diet as tolerated and anti-emetics as needed - Post-surgical care per Dr Araiza Anemia: - PRBCs transfused Can be discharged tomorrow Problems: Subjective 24 Hr Interval Summary Free Text/Dictation Tranfsued 1 unit PRBCs today COntinues on IVF Iron per Dr Kimball Eating normally, no abd pain, feels well Exam/Review of Systems Vital Signs Vitals Vital Signs Date Time Temp Pulse Resp B/P Pulse Ox O2 Delivery O2 Flow Rate FiO2 03/24/17 07:47 98.0 79 19 113/63 97 03/21/17 05:00 Room Air 03/20/17 09:38 8.0 Intake and Output 03/23/17 03/23/17 03/24/17 15:00 23:00 07:00 Intake Total 1800 ml 2100 ml Output Total 25 ml Balance 1800 ml 2075 ml Results Result Diagram: 03/24/17 1636 03/24/17 0452 Results 24 hrs Laboratory Tests Test 03/24/17 04:52 03/24/17 08:40 03/24/17 16:36 White Blood Count 7.2 7.0 Red Blood Count 2.24 L 2.63 L Hemoglobin 6.7 *L 6.7 *L 7.6 L Hematocrit 19.5 L 22.5 L Mean Corpuscular Volume 87.1 85.6 Mean Corpuscular Hemoglobin 29.9 28.9 L Mean Corpuscular Hemoglobin Concent 34.4 33.8 Red Cell Distribution Width 16.0 H 15.7 H Platelet Count 225 225 Mean Platelet Volume 9.1 8.7 Neutrophils % 58.2 61.2 Lymphocytes % 30.1 27.2 Monocytes % 8.5 8.2 Eosinophils % 2.1 2.3 Basophils % 0.1 0.1 Nucleated Red Blood Cells % 0.0 0.0 Neutrophils # 4.2 4.3 Lymphocytes # 2.2 1.9 Monocytes # 0.6 0.6 Eosinophils # 0.2 0.2 Basophils # 0.0 0.0 Nucleated Red Blood Cells # 0.0 0.0 Sodium Level 137 Potassium Level 3.3 L Chloride Level 110 Carbon Dioxide Level 25 Anion Gap 5 L Blood Urea Nitrogen 19 Creatinine 1.73 H Glucose Level 107 Calcium Level 8.5 Iron Level 25 L Total Iron Binding Capacity 225 L Percent Iron Saturation 11 L Ferritin 523.0 H Vitamin B12 Level 167 L Folate 2.7 L Absolute Reticulocyte Count 0.137 H Percent Reticulocyte Count 5.9 H Medications Medications Current Medications Potassium Chloride/Dextrose/ Sod Cl (D5-1/2ns + KCl 20 Meq) 1,000 ml @ 50 mls/ hr Q20H IV Last administered on 03/24/17 03:31; Admin Dose 100 MLS/HR; Start 03/20/17 at 09:42 Acetaminophen/ Hydrocodone Bitart ([place] (5/325)) 1 tab Q4H PRN PO PAIN LEVEL 4 -7 Last administered on 03/24/17 01:28; Admin Dose 1 TAB; Start 03/20/17 at 10: 00 Acetaminophen/ Hydrocodone Bitart ([place] (5/325)) 2 tab Q4H PRN PO PAIN LEVEL 7 -10 Last administered on 03/22/17 06:39; Admin Dose 2 TAB; Start 03/20/17 at 10 :00 Hydromorphone HCl (Dilaudid) 0.5 mg Q2 PRN IV PAIN Last administered on 16:30; Admin Dose 0.5 MG; Start 03/20/17 at 10:00 Hydromorphone HCl (Dilaudid) 1 mg Q2 PRN IV PAIN Last administered on 10:28; Admin Dose 1 MG; Start 03/20/17 at 10:00 Docusate Sodium (Colace) 100 mg BID PRN PO CONSTIPATION; Start 03/20/17 at 10: 00 Bisacodyl (Dulcolax Supp) 10 mg BID PRN [place] CONSTIPATION; Start 03/20/17 at 10: 00 Sodium Biphosphate/ Sodium Phosphate (Fleet Enema) 133 ml BID PRN [place] CONSTIPATION; Start 03/20/17 at 10:00 Famotidine (Pepcid Iv) 20 mg DAILY IV Last administered on 03/24/17 09:08; Admin Dose 20 MG; Start 03/21/17 at 09:00 Enoxaparin Sodium (Lovenox) 30 mg DAILY SC Last administered on 03/24/17 09:26 ; Admin Dose 30 MG; Start 03/21/17 at 09:00 Citric Acid/ Sodium Citrate (Bicitra) 30 ml TID PO Last administered on 13:33; Admin Dose 30 ML; Start 03/21/17 at 13:00 Ondansetron HCl (Zofran Inj) 4 mg Q4H PRN IV NAUSEA AND/OR VOMITING Last administered on 03/23/17 16:30; Admin Dose 4 MG; Start 03/22/17 at 08:00 HUBERT ANDREWS MD Mar 24, 2017 17:59
[2017-03-24 19:30] VITALS: BP 117/67; RESP 19
[2017-03-25 02:23] VITALS: BP 114/67; RESP 18
[2017-03-25 05:39] LABS: BASOPHILS % 0.1 % (0.0-2.0); EOSINOPHILS # 0.2 10^3/ul (0.0-0.5); EOSINOPHILS % 2.1 % (0.0-7.0); HEMATOCRIT 26.4 % (42.0-52.0); HEMOGLOBIN 8.6 g/dl (14.0-18.0); LYMPHOCYTES # 2.2 10^3/ul (0.8-2.9); LYMPHOCYTES % 28.9 % (15.0-51.0); MEAN CORPUSCULAR HGB CONC 32.6 g/dl (32.0-37.0); MEAN PLATELET VOLUME 8.7 fl (7.4-10.4); MONOCYTE # 0.6 10^3/ul (0.3-0.9); MONOCYTES % 8.2 % (0.0-11.0); NEUTROPHIL # 4.5 10^3/ul (1.6-7.5); NEUTROPHILS % 59.1 % (39.0-77.0); PLATELET COUNT 247 10^3/UL (140-415); RED BLOOD COUNT 3.07 10^6/ul (4.70-6.10); RED CELL DISTRIBUTION WIDTH 15.7 % (11.5-14.5); WHITE BLOOD COUNT 7.6 10^3/ul (4.8-10.8)
[2017-03-25 08:20] VITALS: BP 113/69; RESP 18
--- NOTE | 2017-03-25 08:38 | CONS ---
Date/Time of Note Date/Time of Note DATE: 03/25/17 TIME: 08:33 Assessment/Plan Assessment/Plan Additional Assessment/Plan 1. Take down of loop ileostomy 2. History of diverticulitis with perforation s/p emergency sigmoid colectomy with primary anastomosis and diverting loop ileostomy now status post takedown of loop ileostomy 3. Acute kidney injury due to ATN from sepsis on last admission and also contributing prerenal azotemia 4. Metaboclic acidosis from RODNEY 5. Anemia with Hb dropped to 6.7- possible anemia of chronic disease with acute drop s/p 2 units PRBC during this admission on 03/24/2017 Plan : BUN/Cr improved to 19/1.73 with IVF hydration, IVF stopped, no chemistry done today post trunfusion Hb stable Ferrous sulfate on discharge for anemia pain control follow up with me in clinic in 2 weeks Consultation Date/Type/Reason Admit Date/Time Mar 20, 2017 at 05:41 Initial Consult Date 03/20/17 Type of Consultation: NEPHROLOGY Referring Provider: HAIDER BURR 24 HR Interval Summary Free Text/Dictation s/p 2 units PRBC, Hb 8.6, BP stable no Chemistry available Exam/Review of Systems Vital Signs Vitals Vital Signs Date Time Temp Pulse Resp B/P Pulse Ox O2 Delivery O2 Flow Rate FiO2 03/25/17 08:20 98.0 78 18 113/69 96 Intake and Output 03/24/17 03/24/17 03/25/17 15:00 23:00 07:00 Intake Total 500 ml 980 ml 1100 ml Output Total 50 ml 0 ml Balance 500 ml 930 ml 1100 ml Exam Constitutional: alert Respiratory: clear to auscultation, diminished breath sounds, normal air movement Cardiovascular: nl pulses, regular rate and rhythm Gastrointestinal: non-tender, soft Musculoskeletal: nl extremities to inspection, nl gait and stance Extremities: normal pulses Neurological: MANAGER CARE MANAGEMENT II-XII intact, nl mental status, nl speech, nl strength Results Result Diagram: 03/25/17 0500 03/24/17 0452 Results 24 hrs Laboratory Tests Test 03/24/17 08:40 03/24/17 16:36 03/25/17 05:00 03/25/17 08:17 Hemoglobin 6.7 *L 7.6 L 8.6 L Absolute Reticulocyte Count 0.137 H Percent Reticulocyte Count 5.9 H White Blood Count 7.0 7.6 Red Blood Count 2.63 L 3.07 L Hematocrit 22.5 L 26.4 L Mean Corpuscular Volume 85.6 86.0 Mean Corpuscular Hemoglobin 28.9 L 28.0 L Mean Corpuscular Hemoglobin Concent 33.8 32.6 Red Cell Distribution Width 15.7 H 15.7 H Platelet Count 225 247 Mean Platelet Volume 8.7 8.7 Neutrophils % 61.2 59.1 Lymphocytes % 27.2 28.9 Monocytes % 8.2 8.2 Eosinophils % 2.3 2.1 Basophils % 0.1 0.1 Nucleated Red Blood Cells % 0.0 0.0 Neutrophils # 4.3 4.5 Lymphocytes # 1.9 2.2 Monocytes # 0.6 0.6 Eosinophils # 0.2 0.2 Basophils # 0.0 0.0 Nucleated Red Blood Cells # 0.0 0.0 Lab Scanned Report BLOOD TRANSFUSION Medications Medications Current Medications Potassium Chloride/Dextrose/ Sod Cl (D5-1/2ns + KCl 20 Meq) 1,000 ml @ 50 mls/ hr Q20H IV Last administered on 03/24/17 03:31; Admin Dose 100 MLS/HR; Start 03/20/17 at 09:42 Acetaminophen/ Hydrocodone Bitart ([place] (5/325)) 1 tab Q4H PRN PO PAIN LEVEL 4 -7 Last administered on 03/24/17 01:28; Admin Dose 1 TAB; Start 03/20/17 at 10: 00 Acetaminophen/ Hydrocodone Bitart ([place] (5/325)) 2 tab Q4H PRN PO PAIN LEVEL 7 -10 Last administered on 03/22/17 06:39; Admin Dose 2 TAB; Start 03/20/17 at 10 :00 Hydromorphone HCl (Dilaudid) 0.5 mg Q2 PRN IV PAIN Last administered on 16:30; Admin Dose 0.5 MG; Start 03/20/17 at 10:00 Hydromorphone HCl (Dilaudid) 1 mg Q2 PRN IV PAIN Last administered on 10:28; Admin Dose 1 MG; Start 03/20/17 at 10:00 Docusate Sodium (Colace) 100 mg BID PRN PO CONSTIPATION; Start 03/20/17 at 10: 00 Bisacodyl (Dulcolax Supp) 10 mg BID PRN [place] CONSTIPATION; Start 03/20/17 at 10: 00 Sodium Biphosphate/ Sodium Phosphate (Fleet Enema) 133 ml BID PRN [place] CONSTIPATION; Start 03/20/17 at 10:00 Famotidine (Pepcid Iv) 20 mg DAILY IV Last administered on 03/24/17 09:08; Admin Dose 20 MG; Start 03/21/17 at 09:00 Enoxaparin Sodium (Lovenox) 30 mg DAILY SC Last administered on 03/24/17 09:26 ; Admin Dose 30 MG; Start 03/21/17 at 09:00 Citric Acid/ Sodium Citrate (Bicitra) 30 ml TID PO Last administered on 20:38; Admin Dose 30 ML; Start 03/21/17 at 13:00 Ondansetron HCl (Zofran Inj) 4 mg Q4H PRN IV NAUSEA AND/OR VOMITING Last administered on 03/23/17 16:30; Admin Dose 4 MG; Start 03/22/17 at 08:00 SINGH WILLOUGHBY MD Mar 25, 2017 08:38
[2017-03-25] MEDS: CITRIC ACID/NA CITRATE 30 ML CUP PO SCH ×2 (09:12→13:56)
[2017-03-25] MEDS: FAMOTIDINE 20 MG INJ IV SCH (09:13)
[2017-03-25] MEDS: ENOXAPARIN 30 MG/0.3 ML SYG SC SCH (09:33)
[2017-03-25] MEDS: D5W-0.45 NACL + KCL 20 MEQ 1,000 ML IV SCH (10:26)
--- NOTE | 2017-03-25 11:49 | QN ---
Documentation Comment Opiate rx note Hospitalist overseeing patient's care not yet on c2 facility prescriptions. Chart reviewed. Pt with large abdominal surgery during his stay. 20 hydrocodone 5/apap 325 rx'ed for discharge COLBY JOHN MD Mar 25, 2017 11:49
--- NOTE | 2017-03-25 13:21 | PN ---
Date/Time of Note Date/Time of Note DATE: 03/25/17 TIME: 13:19 Assessment/Plan Lines/Catheters IV Catheter Type (from Nrs): Saline Lock Shah in Place (from Nrs): No Assessment/Plan Assessment/Plan [facility] Progress Note Date of Service: 03/25/17 Today's Impression & Plan: Overall stable and improved. No further surgical or medical issues at this time. Plan is to discharge patient home today. Discussed with patient and his and answered all questions. Patient and family appeared to understand and agreed with the plans. With above assessment, I've recommended the following for today: 1. D/c home 2. F/u with me in the office in 1-2 weeks Nature of presenting problem: High risk Complexity of decision making: high complexity Thank you again for your great care of this very pleasant patient and wonderful family. If there are any questions, please feel free to call me at [phone]. Disclaimer: Inadvertent spelling or grammatical errors are likely due to EHR/ dictation software use and do not reflect on the overall quality of patient care. Updated Clinical Summary: A very-pleasant 41-year-old gentleman with comorbidity of BMI 37.1 and previous history of diverticulitis, being admitted for recurrent diverticulitis with microperforation but no obvious evidence of abscess or other indication for intervention including no indication for surgical intervention. S/p emergency sigmoid colectomy, mobilization of splenic flexure, primary anastomosis and diverting loop ileostomy, lysis of adhesions and lavage 01/29/17. Postoperative paralytic ileus and acute renal injury. Surgical drain d/c'd 02/06/17. Creatinine continued to rise postoperatively without further deterioration of other parameters and not requiring dialysis. S/p takedown of loop ileostomy VP 03/20/17. Did relatively well postop, but did have 2 units of PRBC transfusion and a few extra days of hospital stay for resolution of postoperative paralytic ileus. Comorbidities: 1. S/p emergency sigmoid colectomy, mobilization of splenic flexure, primary anastomosis and diverting loop ileostomy, lysis of adhesions and lavage 01/29/17. S/p takedown of loop ileostomy VP 03/20/17. 2. History of diverticulitis in the past as well as diagnosis of diverticulosis 3. Chronic constipation 4. BMI 30.5 (perviously 37.1) 5. Renal insufficiency discovered during his care for colon perforation; likely from hypertension 6. Hypertension Subjective: No major events or complaints; feels well; no nausea; no vomiting; no major incisional abd pain; no diarrhea; + bowel activity; no sob or cp; + activity Objective: Vitals: See below Exam: GENERAL: On exam, the patient was laying in bed and appeared to be comfortable and in no acute distress. ABDOMEN: Soft, no tenderness, and not distended. Incisions appear to be clean, dry, and intact without any evidence of erythema, edema, discharge or hernia. Ostomy site with wound vac and clean. There are no peritoneal signs or guarding. SKIN: Skin appears to be pink and feels warm to touch. NEUROLOGIC: Patient is awake, alert, and follows commands appropriately. Exam/Review of Systems Vital Signs Vitals Vital Signs Date Time Temp Pulse Resp B/P Pulse Ox O2 Delivery O2 Flow Rate FiO2 03/25/17 08:20 98.0 78 18 113/69 96 Intake and Output 03/24/17 03/24/17 03/25/17 15:00 23:00 07:00 Intake Total 500 ml 980 ml 1100 ml Output Total 50 ml 0 ml Balance 500 ml 930 ml 1100 ml Results Result Diagram: 03/25/17 0500 03/24/17 0452 WILMA THORNTON M.D. Mar 25, 2017 13:21
[2017-03-25 15:08] VITALS: BP 118/70; RESP 18
--- NOTE | 2017-03-25 15:14 | DS ---
Date/Time of Note Date/Time of Note DATE: 03/25/17 TIME: 15:14 Discharge Summary Admission/Discharge Info Admit Date/Time Mar 20, 2017 at 05:41 Discharge Date/Time Mar 25, 2017 at 15:03 Discharge Diagnosis s/p ileostomy takedown Patient Condition: Good Hx of Present Illness Patient is a 41-year-old male with a history of diverticulitis with perforation s/p emergency sigmoid colectomy with primary anastomosis and diverting loop ileostomy who presents today for takedown of loop ileostomy. During last hospitalization patient was noted to be septic and there to diverticulitis and UTI and the patient did develop acute kidney injury. Patient has no acute complaint at this time. Hospital Course Underwent ileostomy take dwon by Dr Thornton RODNEY was montiored and resovled with fluids Received PRBC tranfusion and iron supplementation Follow up in clinic kenyatta Thornton and [facility] Home Meds Active Scripts Hydrocodone Bit-Acetaminophen (Hydrocodone Bit-APAP) 5-325MG Tablet, 2 TAB PO Q4H Y for PAIN LEVEL 7-10 for 3 Days, #40 TAB 0 Refills Prov:WILMA THORNTON M.D. 03/21/17 Follow-up Plan Please call [phone] if any of fever, nausea, vomiting, discharge from wound , wound redness, increase or sudden pain, blood in stool or vomit, or any other unusual signs or symptoms. Also, please call the same number in a few days to schedule an appointment for your follow up visit. Patient may remove dressings tomorrow. Showers OK starting tomorrow. No swimming , hot tub or bath for 2 weeks. No lifting more than 25 lbs for 8 weeks. Wound vac set up for Friday Do wet to moist dressing changes TID until wound vac in place F/u with Dr. Kimball's office for lab checks and renal check. Important to stay hydrated. F/u with my office in 2 weeks. Primary Care Provider Care Physician No Primary Pending Labs Laboratory Tests Test 03/24/17 16:36 03/25/17 05:00 03/25/17 08:17 White Blood Count 7.010^3/ul (4.8-10.8) 7.610^3/ul (4.8-10.8) Red Blood Count 2.6310^6/ul (4.70-6.10) 3.0710^6/ul (4.70-6.10) Hemoglobin 7.6g/dl (14.0-18.0) 8.6g/dl (14.0-18.0) Hematocrit 22.5% (42.0-52.0) 26.4% (42.0-52.0) Mean Corpuscular Volume 85.6fl (82.0-101.0) 86.0fl (82.0-101.0) Mean Corpuscular Hemoglobin 28.9pg (29.0-33.0) 28.0pg (29.0-33.0) Mean Corpuscular Hemoglobin Concent 33.8g/dl (32.0-37.0) 32.6g/dl (32.0-37.0) Red Cell Distribution Width 15.7% (11.5-14.5) 15.7% (11.5-14.5) Platelet Count 76920^3/UL (140-415) 64532^3/UL (140-415) Mean Platelet Volume 8.7fl (7.4-10.4) 8.7fl (7.4-10.4) Neutrophils % 61.2% (39.0-77.0) 59.1% (39.0-77.0) Lymphocytes % 27.2% (15.0-51.0) 28.9% (15.0-51.0) Monocytes % 8.2% (0.0-11.0) 8.2% (0.0-11.0) Eosinophils % 2.3% (0.0-7.0) 2.1% (0.0-7.0) Basophils % 0.1% (0.0-2.0) 0.1% (0.0-2.0) Nucleated Red Blood Cells % 0.0/100WBC (0.0-0.0) 0.0/100WBC (0.0-0.0) Neutrophils # 4.310^3/ul (1.6-7.5) 4.510^3/ul (1.6-7.5) Lymphocytes # 1.910^3/ul (0.8-2.9) 2.210^3/ul (0.8-2.9) Monocytes # 0.610^3/ul (0.3-0.9) 0.610^3/ul (0.3-0.9) Eosinophils # 0.210^3/ul (0.0-0.5) 0.210^3/ul (0.0-0.5) Basophils # 0.010^3/ul (0.0-0.1) 0.010^3/ul (0.0-0.1) Nucleated Red Blood Cells # 0.010^3/ul (0.0-0.0) 0.010^3/ul (0.0-0.0) Lab Scanned Report BLOOD [id number] HUBERT ANDREWS MD Mar 25, 2017 15:14
== END 2017-03-25 15:03 | disposition home or self-care (01) | DRG 329 ==
LOC: REC 05:41 → MS1 11:10
PROVIDERS: ADMIT Transplant Surgery; ATTEND Transplant Surgery
PROC: 0DBB0ZZ Excision of Ileum, Open Approach (ICD-10-PCS; principal; 2017-03-20 07:30)
PROC: 30233N1 Transfusion of Nonautologous Red Blood Cells into Peripheral Vein, Percutaneous Approach (ICD-10-PCS; 2017-03-24)
DX: Z43.2 Encounter for attention to ileostomy (principal); N17.0 Acute kidney failure with tubular necrosis; E87.1 Hypo-osmolality and hyponatremia; E87.2 Acidosis; K56.0 Paralytic ileus; K59.00 Constipation, unspecified; I10 Essential (primary) hypertension; D64.9 Anemia, unspecified; Z90.49 Acquired absence of other specified parts of digestive tract; Z88.0 Allergy status to penicillin
CPT/HCPCS: 36430; 74010; 80048; 80053; 82607; 82728; 82746; 83540; 83605; 83735; 83880; 84100; 84466; 85018; 85025; 85045; 85610; 85730; 86850; 86900; 86901; 86920; J0131; J0295; J1100; J1170; J1650; J2175; J2250; J2370; J2405; J2765; J3010; J3480; J7999; P9016

== ENCOUNTER → 2017-04-02 | Outpatient (CLI) | payer OTHER ==
[~2017-04-02] VITALS: Ht 165.1 cm; Wt 91.4 kg
[~2017-04-02] MED LIST changes: -CITR473S PO
[2017-04-02 11:11] VITALS: BP 129/72; PULSE 105; RESP 18; Ht 165.1 cm; Wt 91.4 kg
--- NOTE | 2017-04-02 12:24 | PN ---
Date/Time of Note Date/Time of Note DATE: 04/02/17 TIME: 12:18 Assessment/Plan Assessment/Plan Assessment/Plan [facility] Progress Note Date of Service: 04/02/17 Today's Impression & Plan: Overall stable and improved. No further surgical or medical issues at this time. No obvious evidence for major postoperative complications or wound problems. Patient's wound appears to be healing well with the aid of the wound VAC. Discussed with patient and his and answered all questions. Patient and family appeared to understand and agreed with the plans. With above assessment, I've recommended the following for today: 1. Continue wound VAC until wound has completely healed 2. Stable plans to return to work at the end of . Which ends at the end of March 3. Follow-up visit with me in approximately 2 weeks for wound check 4. Continue path towards permanent changes that lead to healthy lifestyle. This includes careful follow-up with primary care physician regarding management of hypertension, renal insufficiency, elevated BMI, and other medical problems Nature of presenting problem: High risk Complexity of decision making: high complexity Thank you again for your great care of this very pleasant patient and wonderful family. If there are any questions, please feel free to call me at [phone]. Disclaimers: 1. Inadvertent spelling and grammatical errors are likely due to electronic health record (EHR)/dictation software used and do not reflect on the quality of delivered patient care. 2. The electronic timestamp recorded on this note does not necessarily reflect the actual date and time of the visit or the service. 3. Portions of this note may have been created through electronic templates and computer algorithms that might bring in information either from the system or from other physicians and providers. Please note that such information may or may not contain errors, the occurrence of which are outside of my control. In general (but not always) this happens either in the beginning or at the end of the note. The portion of the note that I have created are generally done in 1 continuous block of text, flanked at the beginning and at the end by " ", and entered into one field in the EHR. 4. There may be other unanticipated errors in the note that are outside of my control. I can only attest to the portions of the note that I have created. Updated Clinical Summary: A very-pleasant 41-year-old gentleman with comorbidity of BMI 37.1 and previous history of diverticulitis, being admitted for recurrent diverticulitis with microperforation but no obvious evidence of abscess or other indication for intervention including no indication for surgical intervention. S/p emergency sigmoid colectomy, mobilization of splenic flexure, primary anastomosis and diverting loop ileostomy, lysis of adhesions and lavage 01/29/17. Postoperative paralytic ileus and acute renal injury. Surgical drain d/c'd 02/06/17. Creatinine continued to rise postoperatively without further deterioration of other parameters and not requiring dialysis. S/p takedown of loop ileostomy [facility] 03/20/17. Did relatively well postop, but did have 2 units of PRBC transfusion and a few extra days of hospital stay for resolution of postoperative paralytic ileus. Comorbidities: 1. S/p emergency sigmoid colectomy, mobilization of splenic flexure, primary anastomosis and diverting loop ileostomy, lysis of adhesions and lavage 01/29/17. S/p takedown of loop ileostomy [facility] 03/20/17. 2. History of diverticulitis in the past as well as diagnosis of diverticulosis 3. Chronic constipation 4. BMI 30.5 (perviously 37.1) 5. Renal insufficiency discovered during his care for colon perforation; likely from hypertension 6. Hypertension Subjective: No major events or complaints since discharge home; feels well; no nausea; no vomiting; no major incisional abd pain; no diarrhea; + bowel activity; no sob or cp; + activity Objective: Vitals: See below Exam: GENERAL: On exam, the patient was laying in bed and appeared to be comfortable and in no acute distress. ABDOMEN: Soft, no tenderness, and not distended. Incisions appear to be clean, dry, and intact without any evidence of erythema, edema, discharge or hernia. Ostomy site with wound vac and clean. There are no peritoneal signs or guarding. Review of pictures that were taken yesterday from the wound site show a nice beefy red granulation tissue bed inside of patient's wound. SKIN: Skin appears to be pink and feels warm to touch. NEUROLOGIC: Patient is awake, alert, and follows commands appropriately. Exam/Review of Systems Vital Signs Vitals Vital Signs Date Time Temp Pulse Resp B/P Pulse Ox O2 Delivery O2 Flow Rate FiO2 04/02/17 11:11 99.1 105 18 129/72 98 Room Air WILMA THORNTON M.D. Apr 02, 2017 12:24
== END | disposition home or self-care (01) ==
LOC: HPC 11:10
PROVIDERS: ATTEND Transplant Surgery
DX: K57.92 Diverticulitis of intestine, part unspecified, without perforation or abscess without bleeding (principal); K59.00 Constipation, unspecified; I10 Essential (primary) hypertension; N28.9 Disorder of kidney and ureter, unspecified; Z93.2 Ileostomy status

== ENCOUNTER 2017-04-16 14:17 | Outpatient (CLI) | payer OTHER ==
[~2017-04-16] VITALS: Ht 165.1 cm; Wt 91.8 kg
[2017-04-16 14:26] VITALS: BP 134/83; PULSE 88; RESP 16; Ht 165.1 cm; Wt 91.8 kg
--- NOTE | 2017-04-16 15:08 | PN ---
Date/Time of Note Date/Time of Note DATE: 04/16/17 TIME: 15:03 Assessment/Plan Assessment/Plan Assessment/Plan [facility] Progress Note Date of Service: 04/16/17 Today's Impression & Plan: Overall stable and improving. No further surgical or medical issues at this time. No obvious evidence for major postoperative complications or wound problems. Patient's wound appears to be healing well and no longer on wound VAC. Ok to d/c from my service. Discussed with patient and answered all questions. Patient appeared to understand and agreed with the plans. With above assessment, I've recommended the following for today: 1. Continue wet to moist dressing changes until wound has completely healed 2. Ok to return to work 04/21/17 with 3 weeks extension from today of no lifting heavier than 30 lbs, but all other activities ok 3. Follow-up visit with PCP 4. Continue path towards permanent changes that lead to healthy lifestyle. This includes careful follow-up with primary care physician regarding management of hypertension, renal insufficiency, elevated BMI, and other medical problems 5. F/u with us prn Nature of presenting problem: High risk Complexity of decision making: high complexity Disclaimers: 1. Inadvertent spelling and grammatical errors are likely due to electronic health record (EHR)/dictation software used and do not reflect on the quality of delivered patient care. 2. The electronic timestamp recorded on this note does not necessarily reflect the actual date and time of the visit or the service. 3. Portions of this note may have been created through electronic templates and computer algorithms that might bring in information either from the system or from other physicians and providers. Please note that such information may or may not contain errors, the occurrence of which are outside of my control. In general (but not always) this happens either in the beginning or at the end of the note. The portion of the note that I have created are generally done in 1 continuous block of text, flanked at the beginning and at the end by " ", and entered into one field in the EHR. 4. There may be other unanticipated errors in the note that are outside of my control. I can only attest to the portions of the note that I have created. Updated Clinical Summary: A very-pleasant 41-year-old gentleman with comorbidity of BMI 37.1 and previous history of diverticulitis, being admitted for recurrent diverticulitis with microperforation but no obvious evidence of abscess or other indication for intervention including no indication for surgical intervention. S/p emergency sigmoid colectomy, mobilization of splenic flexure, primary anastomosis and diverting loop ileostomy, lysis of adhesions and lavage 01/29/17. Postoperative paralytic ileus and acute renal injury. Surgical drain d/c'd 02/06/17. Creatinine continued to rise postoperatively without further deterioration of other parameters and not requiring dialysis. S/p takedown of loop ileostomy [facility] 03/20/17. Did relatively well postop, but did have 2 units of PRBC transfusion and a few extra days of hospital stay for resolution of postoperative paralytic ileus. Comorbidities: 1. S/p emergency sigmoid colectomy, mobilization of splenic flexure, primary anastomosis and diverting loop ileostomy, lysis of adhesions and lavage 01/29/17. S/p takedown of loop ileostomy [facility] 03/20/17. 2. History of diverticulitis in the past as well as diagnosis of diverticulosis 3. Chronic constipation 4. BMI 30.5 (perviously 37.1) 5. Renal insufficiency discovered during his care for colon perforation; likely from hypertension 6. Hypertension Subjective: No major events or complaints; feels well; no nausea; no vomiting; no major incisional abd pain; no diarrhea; + bowel activity; no sob or cp; + activity Objective: Vitals: See below Exam: GENERAL: On exam, the patient was laying in bed and appeared to be comfortable and in no acute distress. ABDOMEN: Soft, no tenderness, and not distended. Incisions appear to be clean, dry, and intact without any evidence of erythema, edema, discharge or hernia. Ostomy site with wound site clean. There are no peritoneal signs or guarding. Wound site show a nice beefy red granulation tissue bed inside of patient's wound. SKIN: Skin appears to be pink and feels warm to touch. NEUROLOGIC: Patient is awake, alert, and follows commands appropriately. Exam/Review of Systems Vital Signs Vitals Vital Signs Date Time Temp Pulse Resp B/P Pulse Ox O2 Delivery O2 Flow Rate FiO2 04/16/17 14:26 98.6 88 16 134/83 98 Room Air WILMA THORNTON M.D. Apr 16, 2017 15:08
== END 2017-04-16 15:53 | disposition home or self-care (01) ==
LOC: HPC 14:17
PROVIDERS: ATTEND Transplant Surgery
DX: K57.92 Diverticulitis of intestine, part unspecified, without perforation or abscess without bleeding (principal); I10 Essential (primary) hypertension; K59.00 Constipation, unspecified; N28.9 Disorder of kidney and ureter, unspecified
CPT/HCPCS: G0463

== ENCOUNTER 2017-06-02 09:26 | Outpatient (CLI) | payer OTHER ==
[~2017-06-02] VITALS: Ht 165.1 cm; Wt 97.3 kg
[2017-06-02 09:27] VITALS: BP 158/92; PULSE 76; RESP 16; Ht 165.1 cm; Wt 97.3 kg
[2017-06-02] MEDS ORDERED: AMLO5TAB4 PO (09:34)
--- NOTE | 2017-06-02 11:11 | CONS ---
Date/Time of Note Date/Time of Note DATE: 06/02/17 TIME: 10:04 Assessment/Plan Assessment/Plan Additional Assessment/Plan [facility] CONSULTATION NOTE DATE OF SERVICE: 06/02/2017 PLACE OF SERVICE: [facility], [facility] ASSESSMENT AND PLAN: A very-pleasant 41-year-old gentleman well known to me since summer 2016, presenting with what appears to be an incisional hernia of the most cephalad portion of his midline wound. He can benefit from surgical repair. Discussed with patient (no family in the room) and answered all questions. Patient appeared to understand and agreed with the plans. With above assessment, I've recommended the followin. CT scan of abd/pelvis with IV and oral contrast 2. Schedule for laparoscopic, possible open ventral incisional hernia, possible mesh Thank you very much for having me involved in the care of this very pleasant patient and wonderful family. If you have any questions, please feel free to contact me at [phone]. Nature of presenting problem: Moderate severity Complexity of decision making: Moderate complexity Disclaimer: Inadvertent spelling and grammatical errors are likely due to EHR/ dictation software use and do not reflect on the quality of delivered patient care. Also, please note that the electronic time recorded on this node does not necessarily reflect the actual time of the visit. Updated Clinical Summary: A very-pleasant 41-year-old gentleman with comorbidity of BMI 37.1 and previous history of diverticulitis, being admitted for recurrent diverticulitis with microperforation but no obvious evidence of abscess or other indication for intervention including no indication for surgical intervention. S/p emergency sigmoid colectomy, mobilization of splenic flexure, primary anastomosis and diverting loop ileostomy, lysis of adhesions and lavage 01/29/17. Postoperative paralytic ileus and acute renal injury. Surgical drain d/c'd 02/06/17. Creatinine continued to rise postoperatively without further deterioration of other parameters and not requiring dialysis. S/p takedown of loop ileostomy [facility] 03/20/17. Did relatively well postop, but did have 2 units of PRBC transfusion and a few extra days of hospital stay for resolution of postoperative paralytic ileus. Comorbidities: 1. S/p emergency sigmoid colectomy, mobilization of splenic flexure, primary anastomosis and diverting loop ileostomy, lysis of adhesions and lavage 01/29/17. S/p takedown of loop ileostomy [facility] 03/20/17. 2. History of diverticulitis in the past as well as diagnosis of diverticulosis 3. Chronic constipation 4. BMI 35.7 (perviously 37.21 Jan 2017 and 30.27 Mar 2017) 5. Renal insufficiency discovered during his care for colon perforation; likely from hypertension 6. Hypertension CONSULTATION REQUESTED BY: Dr. Marks HISTORY OF PRESENT ILLNESS: Patient is a very-pleasant 41-year-old gentleman, well known to me from prior care for diverticulitis that was moderately to severely complicated with perforation requiring emergency surgery and diversion as above, who has presented with a few week history of a bulge in the upper midline. Somewhat grown in size in the last few weeks. No h/o incarceration or emergency room/urgent care visits for the hernia. Appetite has been normal, along with his bowel movements. No notable issues with constipation recently. No blood in the stool or urine. No shortness of breath or chest pain or other complaints. ALLERGIES: Cefazolin MEDICATIONS Documented in the electronic records and reviewed by me. Please see the electronic records for details, as well as details for inpatient medications which were also reviewed by me. SOCIAL HISTORY: The patient lives with family.-Tob; occasional (social) ETOH;- IVDU FAMILY HISTORY: There are no significant medical, surgical or oncologic issues in the family as reported by the patient or reflected in the chart. REVIEW OF SYSTEMS: Other than mentioned above, there were no other pertinent positives or pertinent negatives in an otherwise complete 14 point review of systems. PHYSICAL EXAMINATION GENERAL: The patient appears to be a very pleasant gentleman of descent lying in bed, appearing stated age, and otherwise in no acute distress. BMI: 35.7 VITAL SIGNS: AVSS (please also see auto important data if available as well as the electronic records) HEENT: Normocephalic and atraumatic. Extraocular muscles and hearing are grossly intact bilaterally and symmetrically. Sclerae are nonicteric. Oral cavity is clear; oral mucosa appear to be pink and moist. Dentition: fair. NECK: Supple. There is no lymphadenopathy or JVD. There is no submental, submandibular or supraclavicular lymphadenopathy. CHEST: Rises symmetrically with each breath; patient is breathing comfortably. There are no audible wheezes, rales or rhonchi on the gross exam. HEART: Pulse is regular and palpable on the right wrist. Capillary refill is normal. Carotid pulses are palpable bilaterally and symmetrically in the neck. EXTREMITIES: Lower extremities contain no pitting edema around the ankles bilaterally and symmetrically. ABDOMEN: Abdomen is soft, non-tender to palpation and nondistended. No evidence of ascites, organomegaly, caput medusae, engorged subcutaneous veins, or other abnormalities. There are no peritoneal signs or guarding. There is an otherwise well healed midline incision as well as a left lower quadrant incision which is the site of previous ostomy takedown. There is a fascial defect at the most cephalad portion of the midline incision which appears to be about 5-6 cm in dimension with + hernia sign with Valsalva maneuver. No incarceration. Easily reduces when it bulges. Skin overlying it is normal. SKIN: Appears to be pink and feels warm to touch. NEUROLOGIC: Awake, alert, and follows commands appropriately. LABORATORY DATA: See office chart IMAGING: See electronic chart. Please note that I've personally reviewed all pertinent available images and I agree in general with their overall reported findings. Consultation Date/Type/Reason Admit Date/Time Past Surgical History Past Surgical Hx: appendectomy, other Exam/Review of Systems Vital Signs Vitals Vital Signs Date Time Temp Pulse Resp B/P Pulse Ox O2 Delivery O2 Flow Rate FiO2 06/02/17 09:27 98.5 76 16 158/92 99 Room Air WILMA THORNTON M.D. Jun 02, 2017 11:11
== END 2017-06-02 15:57 | disposition home or self-care (01) ==
LOC: HPC 09:26
PROVIDERS: ATTEND Transplant Surgery
DX: K57.92 Diverticulitis of intestine, part unspecified, without perforation or abscess without bleeding (principal)
CPT/HCPCS: G0463

== ENCOUNTER → 2017-06-11 | Outpatient (CLI) | payer OTHER ==
[~2017-06-11] MED LIST changes: +AMLO5TAB4 PO; -HYDR-3498 PO; +IOHEXOL 300MG/ML 30 ML BTL ONE
[2017-06-11 09:35] LABS: CREATININE 1.39 mg/dl (0.61-1.24)
--- NOTE | 2017-06-11 21:55 | RADRPT ---
PROCEDURE: CT Abdomen and Pelvis without contrast. CLINICAL INDICATION: Abdominal and pelvic pain. History of ventral hernia. Elevated creatinine. TECHNIQUE: CT scan of the abdomen and pelvis without intravenous contrast was performed. Oral cont rast was administered for the study. The scan was performed without intravenous contrast due to akiko l dysfunction. Coronal and sagittal reformatted images were obtained from the axial source images. I mages were reviewed on a high-resolution PACS workstation. Total exam DLP is 1301.48 mGy-cm. CTDIvo l is 19.70 mGy. One or more of the following dose reduction techniques were used: Automated exposur e control, adjustment of the mA and/or kV according to patient size, use of iterative reconstruction technique. DICOM images are available. COMPARISON: 02/09/2017. FINDINGS: The lung bases are normal. There is no pleural effusion. The liver is normal in size and attenuation. There is no focal hepatic lesion. The gallbladder and bile ducts are normal. The spleen is normal in size. There is no focal splenic lesion. Both adrenals are normal with no enlargement or mass. The pancreas is unremarkable with no mass or evidence of pancreatitis. There is no renal mass or hydronephrosis. There is no renal calculus or ureteral calculus. The abdominal aorta is not dilated. There is no retroperitoneal lymphadenopathy or mass. There is no pelvic lymphadenopathy or mass. The bladder and distal ureters are normal. The periappendiceal region is unremarkable with no evidence of appendicitis. The bowel and mesentery are normal. Previously noted left lower quadrant colostomy is no longer pres ent. Mild scarring is present at this site. There is no abdominal wall hernia. There is no free fluid or free gas. The osseous structures are unremarkable with no fracture or lytic lesion. IMPRESSION: 1. Scarring in the left lower quadrant anterior abdominal wall at the site of previously noted colo stomy. 2. Otherwise unremarkable CT scan of the abdomen and pelvis. RPTAT: QQ .Rick Wood MD, MD Date Time Electronically viewed and signed by .Rick Wood MD, on 06/11/2017 21:55 .R/
== END | disposition home or self-care (01) ==
LOC: LAB 08:43
PROVIDERS: ATTEND Transplant Surgery
DX: K43.2 Incisional hernia without obstruction or gangrene (principal); K57.92 Diverticulitis of intestine, part unspecified, without perforation or abscess without bleeding
CPT/HCPCS: 74176; 82565; 84520; Q9967

== ENCOUNTER 2017-06-26 05:26 | Observation (INO) | END 2017-06-27 16:00 | disposition home or self-care (01) ==

== ENCOUNTER 2017-07-16 13:45 | Outpatient (CLI) | END 2017-07-16 15:54 | disposition home or self-care (01) ==